=== PATIENT | female | born 1935 | race Caucasian/White ===

== ENCOUNTER 2017-09-17 10:52 | Inpatient (IN) | payer OTHER ==
--- NOTE | 2017-09-17 11:44 | PDOC ---
History of Present Illness - General Chief Complaint: Shortness of Breath Stated Complaint: SOB (PCP SENT) Time Seen by Provider: 09/17/17 11:44 - History of Present Illness Initial Comments: 09/17/17 12:34 Ms. Thomas is an 82 yo female w/ pmh of HTN, HLD, COPD, DM, asthma, hypothroidism who presents complaining of 2 week history of shortness of breath she describes "feels like she is drowning." She endorses additional yellow sputum and nasal congestion. Ms. Thomas reports she had gone to PCP sunday, however represented today as she was still having symptoms. The patient denies chest pain, headache and dizziness. Denies fever, chills, nausea, vomit, diarrhea and constipation. Denies dysuria, frequency, urgency and hematuria. Allergies: NKDA Past History - Past Medical History Allergies/Adverse Reactions: Allergies Allergy/AdvReac Type Severity Reaction Status Date / Time No Known Allergies Allergy Verified 09/17/17 11:00 Home Medications: Ambulatory Orders Aspirin [ASA -] 81 mg PO DAILY 06/08/17 Esomeprazole Magnesium 40 mg PO DAILY 06/08/17 Ezetimibe [Zetia] 10 mg PO DAILY 06/08/17 Glimepiride [Amaryl -] 2 mg PO BID 06/08/17 Insulin Glargine,Hum.rec.anlog [Lantus] 38 unit SQ DAILY 06/08/17 Memantine HCl [Namenda Xr] 28 mg PO DAILY 06/08/17 Methimazole [Tapazole -] 10 mg PO DAILY 06/08/17 Naproxen/Esomeprazole Mag [Vimovo Dr 500-20 mg Tablet] 1 each PO BID 06/08/17 Pitavastatin Calcium [Livalo] 4 mg PO DAILY 06/08/17 Ranolazine [Ranexa] 1,000 mg PO BID 06/08/17 Simvastatin [Zocor -] 20 mg PO HS 06/08/17 Valsartan [Diovan] 160 mg PO DAILY 06/08/17 COPD: No Dementia: Yes Diabetes: Yes HTN: Yes Hypercholesterolemia: Yes - Suicide/Smoking/Psychosocial Hx Smoking Status: No Smoking History: Unknown if ever smoked Number of Cigarettes Smoked Daily: 0 Hx Alcohol Use: No Drug/Substance Use Hx: No Substance Use Type: None Review of Systems - Review of Systems Comments:: 09/17/17 14:13 GENERAL/CONSTITUTIONAL: No fever or chills. No weakness. HEAD, EYES, EARS, NOSE AND THROAT: No change in vision. No ear pain or discharge. No sore throat. CARDIOVASCULAR: +SOB as described. No chest pain RESPIRATORY: +Cough productive of yellow sputum. No wheezing, or hemoptysis. GASTROINTESTINAL: No nausea, vomiting, diarrhea or constipation. GENITOURINARY: No dysuria, frequency, or change in urination. MUSCULOSKELETAL: No joint or muscle swelling or pain. No neck or back pain. SKIN: No rash NEUROLOGIC: No headache, vertigo, loss of consciousness, or change in strength/ sensation. ENDOCRINE: No increased thirst. No abnormal weight change HEMATOLOGIC/LYMPHATIC: No anemia, easy bleeding, or history of blood clots. ALLERGIC/IMMUNOLOGIC: No hives or skin allergy. *Physical Exam - Vital Signs Last Vital Signs Temp Pulse Resp BP Pulse Ox 98.3 F 66 23 155/66 95 09/17/17 11:00 09/17/17 11:00 09/17/17 11:00 09/17/17 11:00 09/17/17 11:00 - Physical Exam Comments: 09/17/17 14:14 GENERAL: Awake, alert, and fully oriented, in no acute distress HEAD: No signs of trauma, normocephalic, atraumatic EYES: PERRLA, EOMI, sclera anicteric, conjunctiva clear ENT: Auricles normal inspection, hearing grossly normal, nares patent, oropharynx clear without exudates. Moist mucosa NECK: Normal ROM, supple, no lymphadenopathy, JVD, or masses LUNGS: +Diffusely wheezy. Speaks full sentences HEART: Regular rate and rhythm, normal S1 and S2, no murmurs, rubs or gallops, peripheral pulses normal and equal bilaterally. ABDOMEN: Soft, nontender, normoactive bowel sounds. No guarding, no rebound. No masses EXTREMITIES: Normal inspection, Normal range of motion, no edema. No clubbing or cyanosis. NEUROLOGICAL: Cranial nerves II through XII grossly intact. Normal speech, normal gait, no focal sensorimotor deficits SKIN: Warm, Dry, normal turgor, no rashes or lesions noted. ED Treatment Course - LABORATORY CBC & Chemistry Diagram: 09/17/17 12:36 09/17/17 12:04 Medical Decision Making - Medical Decision Making 09/17/17 14:15 Ms. Thomas is an 82 yo female w/ pmh as described who presents for evaluation of shortness of breath with congestion. Patient somewhat improved with supplemental oxygen. 09/17/17 14:41 Labs as below. Patient does not have home O2. Suspect COPD exacerbation as origin of symptoms. Admitting patient for further evaluation. Laboratory Results - last 24 hr 09/17/17 09/17/17 09/17/17 12:04 12:04 12:36 WBC 8.7 RBC 4.09 Hgb 11.2 D Hct 34.8 MCV 85.0 MCH 27.4 D MCHC 32.2 RDW 16.1 H Plt Count 230 D MPV 7.4 L Absolute Neuts (auto) 6.7 Neutrophils % 77.2 Lymphocytes % 15.4 D Monocytes % 3.8 Eosinophils % 2.7 Basophils % 0.9 Nucleated RBC % 0 Sodium 141 Potassium 4.4 Chloride 105 Carbon Dioxide 31 Anion Gap 5 L BUN 16 Creatinine 0.8 Creat Clearance w eGFR > 60 Random Glucose 175 H Calcium 8.5 Total Bilirubin 0.6 AST 19 ALT 25 Alkaline Phosphatase 164 H Creatine Kinase 45 Troponin I 0.05 Total Protein 6.3 L Albumin 2.9 L Lipase 62 L *DC/Admit/Observation/Transfer Diagnosis at time of Disposition: Shortness of breath - Discharge Dispostion Decision to Admit order: Yes - Referrals Referrals: Willie Gray MD [Primary Care Provider] - - Patient Instructions - Post Discharge Activity
[2017-09-17] MEDS ORDERED: ALBUTEROL SO4 2.5/IPRATROPIUM 0.5 INH SOL 3 ML VIAL.NEB. NEB ONE ×2 (12:10→12:35)
[2017-09-17] MEDS: ALBUTEROL SO4 2.5/IPRATROPIUM 0.5 INH SOL 3 ML VIAL.NEB. NEB SCH ×6 (12:15→21:00)
--- NOTE | 2017-09-17 12:28 | EKG ---
Test Reason : Blood Pressure : / mmHG Vent. Rate : 062 BPM Atrial Rate : 062 BPM P-R Int : 154 ms QRS Dur : 090 ms QT Int : 446 ms P-R-T Axes : 057 -04 058 degrees QTc Int : 452 ms SINUS RHYTHM WITH OCCASIONAL PREMATURE VENTRICULAR COMPLEXES SEPTAL INFARCT (CITED ON OR BEFORE 08-JUN-2017) ABNORMAL ECG WHEN COMPARED WITH ECG OF 08-JUN-2017 13:20, PREMATURE VENTRICULAR COMPLEXES ARE NOW PRESENT Confirmed by ARUNA RUSH MD ([id number]) on 09/17/2017 12:28:36 PM Referred By: Confirmed By:ARUNA RUSH MD
[2017-09-17] MEDS ORDERED: MAGNESIUM SULF 50% (8.12 MEQ/2 ML-1 GM VIAL) IVPB ONE (12:33)
[2017-09-17] MEDS ORDERED: predniSONE 20 MG TABLET (UD) PO ONE (12:33)
[2017-09-17 12:39] LABS: BASO % 0.9 % (0-2.0); EOS % 2.7 % (0-4.5); HEMATOCRIT 34.8 % (32.4-45.2); HEMOGLOBIN 11.2 GM/dL (10.7-15.3); LYMPH % 15.4 % (8-40); MCH 27.4 pg (25.7-33.7); MCHC 32.2 g/dl (32.0-36.0); MEAN PLT VOLUME 7.4 fl (7.5-11.1); MONO % 3.8 % (3.8-10.2); NEUT % 77.2 % (42.8-82.8); PLATELET COUNT 230 K/MM3 (134-434); RBC 4.09 M/mm3 (3.60-5.2); RDW 16.1 % (11.6-15.6); WHITE BLOOD COUNT 8.7 K/mm3 (4.0-10.0)
[2017-09-17] MEDS ORDERED: predniSONE 20 MG TABLET (UD) ONE (13:13)
--- NOTE | 2017-09-17 13:14 | PDOC ---
Attending Attestation - Resident Resident Name: Shahbaz Humphrey - ED Attending Attestation I have performed the following: I have examined & evaluated the patient, The case was reviewed & discussed with the resident, I agree w/resident's findings & plan, Exceptions are as noted - HPI HPI: 09/17/17 13:05 82-year-old female patient with history of hypertension, diabetes, hyperlipidemia, COPD, asthma, thyroid disorder sent in by primary care physician , Dr. Gray, for chest tightness, weakness, shortness of breath. Patient reports 2 weeks of symptoms and states that she's been feeling generally unwell. Denies fevers or chills but endorses a yellow productive cough that is progressively worsened. Patient states that she becomes very short of breath so came to the ER for an evaluation. - Physicial Exam PE: 09/17/17 13:05 GENERAL: Awake, alert, and fully oriented, in no acute distress. HEAD: No signs of trauma EYES: EOMI, sclera anicteric, conjunctiva clear ENT: Auricles normal inspection, hearing grossly normal, nares patent NECK: Normal ROM, supple LUNGS: Diffuse expiratory wheezing bilaterally. Occasional ronchorous breath sounds bilaterally. HEART: Regular rate and rhythm, normal S1 and S2, no murmurs, rubs or gallops EXTREMITIES: Normal range of motion, no edema. No clubbing or cyanosis. No cords, erythema, or tenderness NEUROLOGICAL: Cranial nerves II through XII grossly intact. Normal speech, SKIN: Warm, Dry, normal turgor, no rashes or lesions noted. - Medical Decision Making 09/17/17 13:07 Vital Signs Temp Pulse Resp BP Pulse Ox 98.3 F 62 14 175/74 100 09/17/17 11:00 09/17/17 11:57 09/17/17 11:57 09/17/17 11:57 09/17/17 11:57 I suspect this is likely having a COPD exacerbation. duonebs, prednisone, IV magnesium. We'll likely need to initiate IV antibiotics. Chest x-ray to rule out pneumonia. We'll need to admit the patient for further evaluation. 09/17/17 14:34 CBC, BMP 09/17/17 12:36 09/17/17 12:04 CMP Sodium 141 mmol/L (136-145) 06/04/18 12:04 Potassium 4.4 mmol/L (3.5-5.1) 09/17/17 12:04 Chloride 105 mmol/L (98-107) 09/17/17 12:04 Carbon Dioxide 31 mmol/L (21-32) 09/17/17 12:04 Anion Gap 5 (8-16) L 09/17/17 12:04 BUN 16 mg/dL (7-18) 09/17/17 12:04 Creatinine 0.8 mg/dL (0.55-1.02) 09/17/17 12:04 Creat Clearance w eGFR > 60 (>60) 09/17/17 12:04 Random Glucose 175 mg/dL (74-106) H 09/17/17 12:04 Calcium 8.5 mg/dL (8.5-10.1) 09/17/17 12:04 Total Bilirubin 0.6 mg/dL (0.2-1.0) 09/17/17 12:04 AST 19 U/L (15-37) 09/17/17 12:04 ALT 25 U/L (12-78) 09/17/17 12:04 Alkaline Phosphatase 164 U/L (45-117) H 09/17/17 12:04 Creatine Kinase 45 IU/L (26-192) 09/17/17 12:04 Troponin I 0.05 ng/ml (0.00-0.05) 09/17/17 12:04 Total Protein 6.3 g/dl (6.4-8.2) L 09/17/17 12:04 Albumin 2.9 g/dl (3.4-5.0) L 09/17/17 12:04 Lipase 62 U/L (73-393) L 09/17/17 12:04 Chest xray reviewed. No infiltrates. Heart Score/ECG Review #1 ECG reviewed & interpreted by me at: 11:45 09/17/17 13:06 NSR 62, no std/milli, normal axis, normal intervals, Q wave V1-V2, QTC 452 msec
[2017-09-17] MEDS ORDERED: MAGNESIUM 2GM/50ML STERILE WATER IVPB IVPB ONE (13:15)
[2017-09-17] MEDS ORDERED: AZITHROMYCIN IVPB 500 MG in DEXTROSE 5%-WATER - 250 ML IVPB ONE (13:56)
[2017-09-17] MEDS ORDERED: ALBUTEROL SO4 2.5/IPRATROPIUM 0.5 INH SOL 3 ML VIAL.NEB. NEB SCH (14:00)
[2017-09-17 14:11] LABS: ALBUMIN 2.9 g/dl (3.4-5.0); ALK PHOS 164 U/L (45-117); ANION GAP 5 (8-16); BILIRUBIN,TOTAL 0.6 mg/dL (0.2-1.0); BLOOD UREA NITROGEN 16 mg/dL (7-18); CALCIUM 8.5 mg/dL (8.5-10.1); CHLORIDE 105 mmol/L (98-107); CO2 31 mmol/L (21-32); CREATININE 0.8 mg/dL (0.55-1.02); GLUCOSE,RANDOM 175 mg/dL (74-106); LIPASE 62 U/L (73-393); POTASSIUM 4.4 mmol/L (3.5-5.1); SGOT/AST 19 U/L (15-37); SGPT/ALT 25 U/L (12-78); SODIUM 141 mmol/L (136-145); TOT PROT 6.3 g/dl (6.4-8.2)
[2017-09-17] MEDS ORDERED: AZITHROMYCIN IVPB 250 ML IVPB ONE (14:15)
--- NOTE | 2017-09-17 14:58 | HP ---
Admitting History and Physical - Primary Care Physician PCP: Willie Gray - Admission Chief Complaint: sob and coughing worsening for last 2 weeks History of Present Illness: Ms. Thomas is an 82 yo female w/ pmh of HTN, HLD, COPD, DM, asthma, hypothyroidism who presents complaining of 2 week history of shortness of breath she describes "feels like she is drowning." She endorses additional yellow sputum and nasal congestion. Ms. Thomas reports she had gone to PCP sunday, however represented today as she was still having symptoms per family member she was seen by PCP a couple of times in last 2 weeks and after her last visit when family did not see improvement brought her to ER they report worsening cough and shortness of breath In the ER patient got zithromax iv magnesium iv, duonebs prednisone 60mg History Source: Family Member Limitations to Obtaining History: Language Barrier - Past Medical History Cardiovascular: Yes: HTN, Hyperlipdemia Pulmonary: Yes: COPD Endocrine: Yes: Diabetes Mellitus, Hyperthyroidism - Smoking History Smoking history: Unknown if ever smoked Aproximately how many cigarettes per day: 0 - Alcohol/Substance Use Hx Alcohol Use: No Home Medications - Allergies Allergies/Adverse Reactions: Allergies Allergy/AdvReac Type Severity Reaction Status Date / Time No Known Allergies Allergy Verified 09/17/17 11:00 - Home Medications Home Medications: Ambulatory Orders Aspirin [ASA -] 81 mg PO DAILY 06/08/17 Esomeprazole Magnesium 40 mg PO DAILY 06/08/17 Ezetimibe [Zetia] 10 mg PO DAILY 06/08/17 Glimepiride [Amaryl -] 2 mg PO BID 06/08/17 Insulin Glargine,Hum.rec.anlog [Lantus] 38 unit SQ DAILY 06/08/17 Memantine HCl [Namenda Xr] 28 mg PO DAILY 06/08/17 Methimazole [Tapazole -] 10 mg PO DAILY 06/08/17 Naproxen/Esomeprazole Mag [Vimovo Dr 500-20 mg Tablet] 1 each PO BID 06/08/17 Pitavastatin Calcium [Livalo] 4 mg PO DAILY 06/08/17 Ranolazine [Ranexa] 1,000 mg PO BID 06/08/17 Simvastatin [Zocor -] 20 mg PO HS 06/08/17 Valsartan [Diovan] 160 mg PO DAILY 06/08/17 Review of Systems - Review of Systems Respiratory: reports: Cough, SOB Physical Examination Vital Signs: Vital Signs Temperature 98.3 F 09/17/17 11:00 Pulse Rate 61 09/17/17 14:25 Respiratory Rate 18 09/17/17 14:25 Blood Pressure 121/98 09/17/17 14:25 O2 Sat by Pulse Oximetry (%) 99 09/17/17 14:25 Constitutional: Yes: Calm Neck: Yes: Trachea Midline Cardiovascular: Yes: Regular Rate and Rhythm, S1, S2 Respiratory: Yes: Rhonchi, Wheezes Gastrointestinal: Yes: Normal Bowel Sounds, Soft Edema: Yes Neurological: Yes: Alert, Oriented Labs: CBC, BMP 09/17/17 12:36 09/17/17 12:04 Imaging - Results X-ray: Report Reviewed (cardiomegaly) Problem List - Problems (1) Shortness of breath Assessment/Plan: asthma exacerbation iv steroids abx duonebs oxygen as needed pulm eval Code(s): R06.02 - SHORTNESS OF BREATH (2) Diabetes Assessment/Plan: bgm sliding scale amaryl and levemir Code(s): E11.9 - TYPE 2 DIABETES MELLITUS WITHOUT COMPLICATIONS Qualifiers: Diabetes mellitus type: type 2 (3) HLD (hyperlipidemia) Assessment/Plan: zetia check lipid panel Code(s): E78.5 - HYPERLIPIDEMIA, UNSPECIFIED (4) Hyperthyroidism Assessment/Plan: tapazole cehck tsh and free t4 Code(s): E05.90 - THYROTOXICOSIS, UNSP WITHOUT THYROTOXIC CRISIS OR STORM
[2017-09-17 17:27] LABS: URINE APPEARANCE CLEAR; URINE BILIRUBIN NEGATIVE (<2.0 mg/dL); URINE BLOOD NEGATIVE (NEGATIVE); URINE COLOR YELLOW; URINE GLUCOSE (UA) NEGATIVE (NEGATIVE); URINE KETONE NEGATIVE (NEGATIVE); URINE LEUK ESTERASE NEGATIVE (NEGATIVE); URINE NITRITE NEGATIVE (NEGATIVE); URINE PROTEIN NEGATIVE (NEGATIVE)
[2017-09-17] MEDS ORDERED: INSULIN REGULAR HUMAN 100 UNITS/ML *VIAL ONE (17:32)
[2017-09-17] MEDS: INSULIN SLIDING SCALE (NOVOLOG) 1 VIAL SQ SCH ×2 (17:34→23:21)
[2017-09-17] MEDS: methylPREDNISolone NA SUCC 40 MG/1 ML VIAL IVPUSH SCH (18:59)
[2017-09-17 21:21] VITALS: BMI 41.3
[2017-09-17] MEDS: HEPARIN NA (PORCINE) 5,000 UNITS/ML 1ML VIAL SQ SCH (23:20)
[2017-09-17] MEDS: RANOLAZINE E.R. 500 MG TABLET (FP) PO SCH (23:21)
[2017-09-17] MEDS ORDERED: INSULIN (NOVOLOG) ASPART 100 UNITS/ML 10ML VIAL ONE (23:24)
[2017-09-18] MEDS: methylPREDNISolone NA SUCC 40 MG/1 ML VIAL IVPUSH SCH ×3 (02:00→18:28)
[2017-09-18] MEDS ORDERED: PT OWN MED DRAWER 7, Y5N ONE ×2 (05:26→08:21)
[2017-09-18] MEDS: HEPARIN NA (PORCINE) 5,000 UNITS/ML 1ML VIAL SQ SCH ×3 (06:40→22:12)
[2017-09-18] MEDS: INSULIN SLIDING SCALE (NOVOLOG) 1 VIAL SQ SCH ×4 (06:41→22:12)
[2017-09-18] MEDS: GLIMEPIRIDE 2 MG TABLET (FP) PO SCH (06:41)
[2017-09-18 08:03] LABS: BASO % 0.3 % (0-2.0); HEMATOCRIT 34.1 % (32.4-45.2); HEMOGLOBIN 10.9 GM/dL (10.7-15.3); LYMPH % 6.6 % (8-40); MCH 27.7 pg (25.7-33.7); MCHC 32.1 g/dl (32.0-36.0); MEAN CELL VOLUME 86.3 fl (80-96); MEAN PLT VOLUME 7.5 fl (7.5-11.1); MONO % 0.5 % (3.8-10.2); NEUT % 92.6 % (42.8-82.8); PLATELET COUNT 206 K/MM3 (134-434); RBC 3.95 M/mm3 (3.60-5.2); RDW 15.8 % (11.6-15.6); WHITE BLOOD COUNT 7.4 K/mm3 (4.0-10.0)
[2017-09-18] MEDS: AZITHROMYCIN IVPB 500 MG in DEXTROSE 5%-WATER - 250 ML IVPB SCH (08:24)
[2017-09-18] MEDS: EZETIMIBE 10 MG TABLET (FP) PO SCH (08:25)
[2017-09-18] MEDS: PANTOPRAZOLE 40 MG TABLET (FP) PO SCH (08:25)
[2017-09-18] MEDS: VALSARTAN 160 MG TABLET (UD) PO SCH (08:25)
[2017-09-18] MEDS: MEMANTINE HCL 10 MG TABLET (FP) PO SCH (08:25)
[2017-09-18] MEDS: ALBUTEROL SO4 2.5/IPRATROPIUM 0.5 INH SOL 3 ML VIAL.NEB. NEB SCH ×4 (08:32→20:25)
[2017-09-18 08:33] LABS: CHOLESTEROL 96 mg/dL (50-200); HDL CHOLESTEROL 35 mg/dL (40-60); TRIGLYCERIDES 63 mg/dL (35-160)
[2017-09-18 10:30] LABS: PLATELET ESTIMATE NORMAL
[2017-09-18] MEDS ORDERED: INSULIN (NOVOLOG) ASPART 100 UNITS/ML 10ML VIAL ONE (10:48)
[2017-09-18] MEDS: RANOLAZINE E.R. 500 MG TABLET (FP) PO SCH ×2 (10:53→22:12)
[2017-09-18] MEDS: ASPIRIN 81 MG CHEWABLE TABLETS PO SCH (10:54)
[2017-09-18 11:38] LABS: ALBUMIN 2.8 g/dl (3.4-5.0); ANION GAP 10 (8-16); BLOOD UREA NITROGEN 22 mg/dL (7-18); CALCIUM 8.8 mg/dL (8.5-10.1); CHLORIDE 103 mmol/L (98-107); CO2 26 mmol/L (21-32); CREATININE 0.7 mg/dL (0.55-1.02); GLUCOSE,RANDOM 217 mg/dL (74-106); MAGNESIUM 2.1 mg/dL (1.8-2.4); PHOSPHOROUS 3.6 mg/dL (2.5-4.9); POTASSIUM 4.6 mmol/L (3.5-5.1); SGPT/ALT 40 U/L (12-78); SODIUM 139 mmol/L (136-145)
[2017-09-18 11:50] LABS: ALK PHOS 183 U/L (45-117); BILIRUBIN,TOTAL 0.6 mg/dL (0.2-1.0); N-TERMINAL BNP 4051.07 pg/ml (5-450); SGOT/AST 30 U/L (15-37); TOT PROT 6.3 g/dl (6.4-8.2)
[2017-09-18] MEDS ORDERED: ALBUTEROL SO4 0.083% IH SOL 2.5 MG/3 ML VIAL.NEB. NEB PRN (12:02)
--- NOTE | 2017-09-18 12:03 | CON.PULM ---
Consult Consult Specialty:: PULMONARY Referred by:: Dr. Ragsdale Reason for Consultation:: shortness of breath - History of Present Illness Chief Complaint: shortness of breath History of Present Illness: 82yo female with h/o HTN, DM, hyperlipidemia, asthma/COPD, hyperthyroidism who was admitted with worsening shortness of breath. Reports cough productive of yellow sputum and wheezing. No fevers, chills or sweats. No chest pain or palpitations. No infiltrates noted on CXR, received antibiotics, prednisone and inhaled bronchodilators with some improvement in her symptoms. She is a remote smoker. - History Source History Provided By: Patient, Medical Record Limitations to Obtaining History: Language Barrier - Past Medical History Cardio/Vascular: Yes: HTN, Hyperlipdemia Pulmonary: Yes: COPD Endocrine: Yes: Diabetes Mellitus, Hyperthyroidism - Alcohol/Substance Use Hx Alcohol Use: No - Smoking History Smoking history: Never smoked Have you smoked in the past 12 months: No Aproximately how many cigarettes per day: 0 Home Medications - Allergies Allergies/Adverse Reactions: Allergies Allergy/AdvReac Type Severity Reaction Status Date / Time No Known Allergies Allergy Verified 09/17/17 11:00 - Home Medications Home Medications: Ambulatory Orders Aspirin [ASA -] 81 mg PO DAILY 06/08/17 Esomeprazole Magnesium 40 mg PO DAILY 06/08/17 Ezetimibe [Zetia] 10 mg PO DAILY 06/08/17 Glimepiride [Amaryl -] 2 mg PO BID 06/08/17 Insulin Glargine,Hum.rec.anlog [Lantus] 38 unit SQ DAILY 06/08/17 Memantine HCl [Namenda Xr] 28 mg PO DAILY 06/08/17 Methimazole [Tapazole -] 10 mg PO DAILY 06/08/17 Naproxen/Esomeprazole Mag [Vimovo Dr 500-20 mg Tablet] 1 each PO BID 06/08/17 Pitavastatin Calcium [Livalo] 4 mg PO DAILY 06/08/17 Ranolazine [Ranexa] 1,000 mg PO BID 06/08/17 Simvastatin [Zocor -] 20 mg PO HS 06/08/17 Valsartan [Diovan] 160 mg PO DAILY 06/08/17 Review of Systems - Review of Systems Constitutional: reports: Weakness. denies: Chills, Fever Eyes: denies: Recent Change in Vision HENT: denies: Nasal Congestion, Throat Pain Neck: denies: Stiffness Cardiovascular: reports: Shortness of Breath. denies: Chest Pain, Edema, Palpitations Respiratory: reports: Cough, SOB on Exertion, Wheezing. denies: Hemoptysis Gastrointestinal: denies: Abdominal Pain, Nausea, Vomiting Genitourinary: denies: Dysuria, Hematuria Neurological: denies: Dizziness, Headache Endocrine: denies: Unexplained Weight Loss Physical Exam Vital Sings: Vital Signs Temperature 96.5 F L 09/18/17 09:39 Pulse Rate 63 09/18/17 09:39 Respiratory Rate 18 09/18/17 09:39 Blood Pressure 148/72 09/18/17 09:39 O2 Sat by Pulse Oximetry (%) 96 09/17/17 21:27 Constitutional: Yes: Calm Eyes: Yes: Conjunctiva Clear, EOM Intact HENT: Yes: Atraumatic, Normocephalic Neck: Yes: Supple, Trachea Midline Cardiovascular: Yes: Regular Rate and Rhythm Respiratory: Yes: Rhonchi, Wheezes ...Clubbing: No Gastrointestinal: Yes: Normal Bowel Sounds, Soft. No: Tenderness Edema: Yes Labs: CBC, BMP 09/18/17 07:30 09/18/17 07:30 Imaging - Results Chest X-ray: Report Reviewed, Image Reviewed (no infiltrates) Problem List - Problems (1) Acute asthma exacerbation Code(s): J45.901 - UNSPECIFIED ASTHMA WITH (ACUTE) EXACERBATION (2) Diabetes Code(s): E11.9 - TYPE 2 DIABETES MELLITUS WITHOUT COMPLICATIONS Qualifiers: Diabetes mellitus type: type 2 (3) HLD (hyperlipidemia) Code(s): E78.5 - HYPERLIPIDEMIA, UNSPECIFIED (4) Hyperthyroidism Code(s): E05.90 - THYROTOXICOSIS, UNSP WITHOUT THYROTOXIC CRISIS OR STORM Assessment/Plan Acute Asthma Exacerbation Hyperthyroidism DM Hyperlipidemia - agree with IV medrol - inhaled bronchdilators standing and PRN - O2 to keep SpO2 >90% - glucose control while on systemic steroids - DVT prophylaxis Thank you for this consult Frederick eRece MD
[2017-09-18] MEDS ORDERED: FUROSEMIDE 40 MG/4 ML INJECTABLE VIAL IVPUSH ONE (14:51)
--- NOTE | 2017-09-18 14:55 | PN ---
Progress Note, Physician - Current Medication List Current Medications: Active Medications Albuterol Sulfate (Ventolin 0.083% Nebulizer Soln -) 1 amp NEB Q4H PRN PRN Reason: SHORT OF BREATH/WHEEZING Albuterol/Ipratropium (Duoneb -) 1 amp NEB RQID [facility] Last Admin: 09/18/17 08:32 Dose: 1 amp Aspirin (Asa -) 81 mg PO DAILY [facility] Last Admin: 09/18/17 10:54 Dose: 81 mg Ezetimibe (Zetia -) 10 mg PO DAILY@0800 [facility] Last Admin: 09/18/17 08:25 Dose: 10 mg Glimepiride (Amaryl -) 2 mg PO DAILY@0700 [facility] Last Admin: 09/18/17 06:41 Dose: 2 mg Heparin Sodium (Porcine) (Heparin -) 5,000 unit SQ TID [facility] Last Admin: 09/18/17 06:40 Dose: 5,000 unit Azithromycin 500 mg/ Dextrose 250 mls @ 250 mls/hr IVPB DAILY@08 [facility] Last Admin: 09/18/17 08:24 Dose: 250 mls/hr Insulin Aspart (Novolog Vial Sliding Scale -) 1 vial SQ ACHS [facility]; Protocol Last Admin: 09/18/17 11:36 Dose: 6 unit Memantine (Namenda -) 10 mg PO DAILY@0800 [facility] Last Admin: 09/18/17 08:25 Dose: 10 mg Methimazole (Tapazole -) 10 mg PO DAILY [facility] Methylprednisolone Sodium Succinate (Solu-Medrol -) 40 mg IVPUSH Q8H-IV [facility] Last Admin: 09/18/17 10:52 Dose: 40 mg Pantoprazole Sodium (Protonix -) 40 mg PO DAILY@0800 [facility] Last Admin: 09/18/17 08:25 Dose: 40 mg Ranolazine (Ranexa -) 1,000 mg PO BID [facility] Last Admin: 09/18/17 10:53 Dose: 1,000 mg Valsartan (Diovan -) 160 mg PO DAILY@0800 [facility] Last Admin: 09/18/17 08:25 Dose: 160 mg - Objective Vital Signs: Vital Signs Temperature 96.5 F L 09/18/17 09:39 Pulse Rate 63 09/18/17 09:39 Respiratory Rate 18 09/18/17 09:39 Blood Pressure 148/72 09/18/17 09:39 O2 Sat by Pulse Oximetry (%) 95 09/18/17 09:00 Constitutional: Yes: Calm Cardiovascular: Yes: Regular Rate and Rhythm, S1, S2 Respiratory: Yes: Rhonchi, Wheezes Gastrointestinal: Yes: Normal Bowel Sounds, Soft Edema: Yes Neurological: Yes: Alert, Oriented Labs: CBC, BMP 09/18/17 07:30 09/18/17 07:30 Problem List - Problems (1) Shortness of breath Assessment/Plan: asthma exacerbation iv steroids abx duonebs oxygen as needed pulm on board Code(s): R06.02 - SHORTNESS OF BREATH (2) Diabetes Assessment/Plan: bgm sliding scale amaryl and levemir Code(s): E11.9 - TYPE 2 DIABETES MELLITUS WITHOUT COMPLICATIONS Qualifiers: Diabetes mellitus type: type 2 (3) HLD (hyperlipidemia) Assessment/Plan: zetia check lipid panel Code(s): E78.5 - HYPERLIPIDEMIA, UNSPECIFIED (4) Hyperthyroidism Assessment/Plan: tapazole cehck tsh and free t4 Code(s): E05.90 - THYROTOXICOSIS, UNSP WITHOUT THYROTOXIC CRISIS OR STORM (5) Constipation Assessment/Plan: miralax colace Code(s): K59.00 - CONSTIPATION, UNSPECIFIED (6) Leg edema Assessment/Plan: iv lasix one dose venous doppler Code(s): R60.0 - LOCALIZED EDEMA
[2017-09-18] MEDS: METHIMAZOLE 10 MG TABLET (FP) PO SCH (14:56)
[2017-09-18] MEDS: POLYETHYLENE GLYCOL 3350 119 GM BTL PO SCH (16:27)
[2017-09-18] MEDS: DOCUSATE SODIUM 100 MG CAPSULE (FP) PO SCH (22:12)
[2017-09-18] MEDS: INSULIN (LEVEMIR) 100 UNITS/ML UNITS SQ SCH (23:24)
[2017-09-19] MEDS: methylPREDNISolone NA SUCC 40 MG/1 ML VIAL IVPUSH SCH ×3 (02:07→17:28)
[2017-09-19] MEDS: INSULIN SLIDING SCALE (NOVOLOG) 1 VIAL SQ SCH ×4 (06:36→21:59)
[2017-09-19] MEDS: GLIMEPIRIDE 2 MG TABLET (FP) PO SCH (06:36)
[2017-09-19] MEDS ORDERED: PT OWN MED DRAWER 7, Y5N ONE (06:56)
[2017-09-19] MEDS ORDERED: INSULIN (NOVOLOG) ASPART 100 UNITS/ML 10ML VIAL ONE ×3 (06:57→21:23)
[2017-09-19 07:26] LABS: HEMATOCRIT 34.1 % (32.4-45.2); LYMPH % 4.7 % (8-40); MCH 27.7 pg (25.7-33.7); MCHC 32.4 g/dl (32.0-36.0); MEAN CELL VOLUME 85.6 fl (80-96); MEAN PLT VOLUME 7.9 fl (7.5-11.1); MONO % 1.3 % (3.8-10.2); PLATELET COUNT 229 K/MM3 (134-434); RBC 3.98 M/mm3 (3.60-5.2); RDW 15.7 % (11.6-15.6); WHITE BLOOD COUNT 10.1 K/mm3 (4.0-10.0)
[2017-09-19 07:38] LABS: CHLORIDE 99 mmol/L (98-107); POTASSIUM 5.2 mmol/L (3.5-5.1); SODIUM 138 mmol/L (136-145)
[2017-09-19 07:54] LABS: BLOOD UREA NITROGEN 28 mg/dL (7-18); CO2 34 mmol/L (21-32); CREATININE 0.9 mg/dL (0.55-1.02); GLUCOSE,RANDOM 285 mg/dL (74-106)
[2017-09-19 07:55] LABS: ALK PHOS 180 U/L (45-117); ANION GAP 5 (8-16); BILIRUBIN,TOTAL 0.5 mg/dL (0.2-1.0); CALCIUM 9.2 mg/dL (8.5-10.1); SGOT/AST 50 U/L (15-37); SGPT/ALT 57 U/L (12-78); TOT PROT 6.6 g/dl (6.4-8.2)
[2017-09-19] MEDS: ALBUTEROL SO4 2.5/IPRATROPIUM 0.5 INH SOL 3 ML VIAL.NEB. NEB SCH ×4 (08:20→20:25)
[2017-09-19] MEDS: AZITHROMYCIN IVPB 500 MG in DEXTROSE 5%-WATER - 250 ML IVPB SCH (08:27)
[2017-09-19] MEDS: EZETIMIBE 10 MG TABLET (FP) PO SCH (08:48)
[2017-09-19] MEDS: ASPIRIN 81 MG CHEWABLE TABLETS PO SCH (09:46)
[2017-09-19] MEDS: RANOLAZINE E.R. 500 MG TABLET (FP) PO SCH ×2 (09:46→22:00)
[2017-09-19] MEDS: VALSARTAN 160 MG TABLET (UD) PO SCH (09:47)
[2017-09-19] MEDS: PANTOPRAZOLE 40 MG TABLET (FP) PO SCH (09:47)
[2017-09-19] MEDS: MEMANTINE HCL 10 MG TABLET (FP) PO SCH (09:47)
[2017-09-19] MEDS: HEPARIN NA (PORCINE) 5,000 UNITS/ML 1ML VIAL SQ SCH ×2 (09:48→21:58)
[2017-09-19] MEDS: POLYETHYLENE GLYCOL 3350 119 GM BTL PO SCH (09:48)
[2017-09-19] MEDS: METHIMAZOLE 10 MG TABLET (FP) PO SCH (09:49)
--- NOTE | 2017-09-19 11:30 | PN ---
Progress Note, Physician Chief Complaint: AWAKE ALERT NAD - Current Medication List Current Medications: Active Medications Albuterol Sulfate (Ventolin 0.083% Nebulizer Soln -) 1 amp NEB Q4H PRN PRN Reason: SHORT OF BREATH/WHEEZING Albuterol/Ipratropium (Duoneb -) 1 amp NEB RQID [facility] Last Admin: 09/19/17 08:20 Dose: 1 amp Aspirin (Asa -) 81 mg PO DAILY [facility] Last Admin: 09/19/17 09:46 Dose: 81 mg Docusate Sodium (Colace -) 300 mg PO [facility] Last Admin: 09/18/17 22:12 Dose: 300 mg Ezetimibe (Zetia -) 10 mg PO DAILY@0800 [facility] Last Admin: 09/19/17 08:48 Dose: 10 mg Glimepiride (Amaryl -) 2 mg PO DAILY@0700 [facility] Last Admin: 09/19/17 06:36 Dose: 2 mg Heparin Sodium (Porcine) (Heparin -) 5,000 unit SQ BID [facility] Last Admin: 09/19/17 09:48 Dose: 5,000 unit Azithromycin 500 mg/ Dextrose 250 mls @ 250 mls/hr IVPB DAILY@0800 [facility] Last Admin: 09/19/17 08:27 Dose: 250 mls/hr Insulin Aspart (Novolog Vial Sliding Scale -) 1 vial SQ [facility]; Protocol Last Admin: 09/19/17 06:36 Dose: 6 unit Insulin Detemir (Levemir Vial) 20 units SQ [facility] Last Admin: 09/18/17 23:24 Dose: 20 units Memantine (Namenda -) 10 mg PO DAILY@0800 [facility] Last Admin: 09/19/17 09:47 Dose: 10 mg Methimazole (Tapazole -) 10 mg PO DAILY [facility] Last Admin: 09/19/17 09:49 Dose: 10 mg Methylprednisolone Sodium Succinate (Solu-Medrol -) 40 mg IVPUSH Q8H-IV [facility] Last Admin: 09/19/17 09:49 Dose: 40 mg Pantoprazole Sodium (Protonix -) 40 mg PO DAILY@0800 [facility] Last Admin: 09/19/17 09:47 Dose: 40 mg Polyethylene Glycol (Miralax (For Daily Use) -) 17 gm PO DAILY [facility] Last Admin: 09/19/17 09:48 Dose: 17 gm Ranolazine (Ranexa -) 1,000 mg PO BID [facility] Last Admin: 09/19/17 09:46 Dose: 1,000 mg Valsartan (Diovan -) 160 mg PO DAILY@0800 [facility] Last Admin: 09/19/17 09:47 Dose: 160 mg - Objective Vital Signs: Vital Signs Temperature 98.5 F 09/19/17 06:00 Pulse Rate 68 09/19/17 06:00 Respiratory Rate 20 09/19/17 06:00 Blood Pressure 142/72 09/19/17 06:00 O2 Sat by Pulse Oximetry (%) 95 09/18/17 21:00 Constitutional: Yes: Mild Distress Eyes: Yes: WNL HENT: Yes: WNL Neck: Yes: WNL Cardiovascular: Yes: WNL Respiratory: Yes: On Nasal O2, SOB Gastrointestinal: Yes: WNL Genitourinary: Yes: WNL Musculoskeletal: Yes: Muscle Weakness Extremities: Yes: WNL Edema: No Peripheral Pulses WNL: Yes Integumentary: Yes: WNL Wound/Incision: Yes: Clean/Dry Neurological: Yes: WNL ...Motor Strength: WNL Psychiatric: Yes: WNL Labs: CBC, BMP 09/19/17 06:30 09/19/17 06:30 Problem List - Problems (1) Acute asthma exacerbation Code(s): J45.901 - UNSPECIFIED ASTHMA WITH (ACUTE) EXACERBATION (2) Constipation Code(s): K59.00 - CONSTIPATION, UNSPECIFIED (3) Diabetes Code(s): E11.9 - TYPE 2 DIABETES MELLITUS WITHOUT COMPLICATIONS Qualifiers: Diabetes mellitus type: type 2 (4) HLD (hyperlipidemia) Code(s): E78.5 - HYPERLIPIDEMIA, UNSPECIFIED (5) Hyperthyroidism Code(s): E05.90 - THYROTOXICOSIS, UNSP WITHOUT THYROTOXIC CRISIS OR STORM (6) Shortness of breath Code(s): R06.02 - SHORTNESS OF BREATH Assessment/Plan IV STEROIDS BGM CHECKS IV ABX NEBS 02 SUPPORT DVT PROPHYLAXIS PULMONARY EVAL
[2017-09-19 12:50] LABS: ANION GAP 5 (8-16); BLOOD UREA NITROGEN 26 mg/dL (7-18); CALCIUM 9.2 mg/dL (8.5-10.1); CHLORIDE 98 mmol/L (98-107); CO2 33 mmol/L (21-32); CREATININE 0.8 mg/dL (0.55-1.02); POTASSIUM 4.9 mmol/L (3.5-5.1); SODIUM 136 mmol/L (136-145)
[2017-09-19 13:04] LABS: GLUCOSE,RANDOM 322 mg/dL (74-106)
--- NOTE | 2017-09-19 13:13 | PN ---
Progress Note, Physician History of Present Illness: PULMONARY ALERT,LESS DYSPNEIC,LESS COUGH - Current Medication List Current Medications: Active Medications Albuterol Sulfate (Ventolin 0.083% Nebulizer Soln -) 1 amp NEB Q4H PRN PRN Reason: SHORT OF BREATH/WHEEZING Albuterol/Ipratropium (Duoneb -) 1 amp NEB RQID [facility] Last Admin: 09/19/17 11:37 Dose: 1 amp Aspirin (Asa -) 81 mg PO DAILY [facility] Last Admin: 09/19/17 09:46 Dose: 81 mg Docusate Sodium (Colace -) 300 mg PO [facility] Last Admin: 09/18/17 22:12 Dose: 300 mg Ezetimibe (Zetia -) 10 mg PO DAILY@0800 [facility] Last Admin: 09/19/17 08:48 Dose: 10 mg Glimepiride (Amaryl -) 2 mg PO DAILY@0700 [facility] Last Admin: 09/19/17 06:36 Dose: 2 mg Heparin Sodium (Porcine) (Heparin -) 5,000 unit SQ BID [facility] Last Admin: 09/19/17 09:48 Dose: 5,000 unit Azithromycin 500 mg/ Dextrose 250 mls @ 250 mls/hr IVPB DAILY@0800 [facility] Last Admin: 09/19/17 08:27 Dose: 250 mls/hr Insulin Aspart (Novolog Vial Sliding Scale -) 1 vial SQ [facility]; Protocol Last Admin: 09/19/17 11:42 Dose: 6 unit Insulin Detemir (Levemir Vial) 20 units SQ [facility] Last Admin: 09/18/17 23:24 Dose: 20 units Memantine (Namenda -) 10 mg PO DAILY@0800 [facility] Last Admin: 09/19/17 09:47 Dose: 10 mg Methimazole (Tapazole -) 10 mg PO DAILY [facility] Last Admin: 09/19/17 09:49 Dose: 10 mg Methylprednisolone Sodium Succinate (Solu-Medrol -) 40 mg IVPUSH Q8H-IV [facility] Last Admin: 09/19/17 09:49 Dose: 40 mg Pantoprazole Sodium (Protonix -) 40 mg PO DAILY@0800 [facility] Last Admin: 09/19/17 09:47 Dose: 40 mg Polyethylene Glycol (Miralax (For Daily Use) -) 17 gm PO DAILY [facility] Last Admin: 09/19/17 09:48 Dose: 17 gm Ranolazine (Ranexa -) 1,000 mg PO BID [facility] Last Admin: 09/19/17 09:46 Dose: 1,000 mg Valsartan (Diovan -) 160 mg PO DAILY@0800 [facility] Last Admin: 09/19/17 09:47 Dose: 160 mg - Objective Vital Signs: Vital Signs Temperature 98.0 F 09/19/17 10:00 Pulse Rate 71 09/19/17 10:00 Respiratory Rate 09/19/17 10:00 Blood Pressure 136/70 09/19/17 10:00 O2 Sat by Pulse Oximetry (%) 90 L 09/19/17 09:00 Constitutional: Yes: Calm, Obese Eyes: Yes: WNL HENT: Yes: WNL Neck: Yes: WNL Cardiovascular: Yes: Regular Rate and Rhythm, S1, S2 Respiratory: Yes: Wheezes (SCATTERED CY WHEEZES) Gastrointestinal: Yes: Normal Bowel Sounds, Soft Extremities: Yes: WNL Edema: No Labs: CBC, BMP 09/19/17 06:30 09/19/17 12:10 Assessment/Plan Problem List - Problems (1) Acute asthma exacerbation Code(s): J45.901 - UNSPECIFIED ASTHMA WITH (ACUTE) EXACERBATION (2) Diabetes Code(s): E11.9 - TYPE 2 DIABETES MELLITUS WITHOUT COMPLICATIONS Qualifiers: Diabetes mellitus type: type 2 (3) HLD (hyperlipidemia) Code(s): E78.5 - HYPERLIPIDEMIA, UNSPECIFIED (4) Hyperthyroidism Code(s): E05.90 - THYROTOXICOSIS, UNSP WITHOUT THYROTOXIC CRISIS OR STORM Assessment/Plan Acute Asthma Exacerbation improving Hyperthyroidism DM Hyperlipidemia -IV medrol same dose - inhaled bronchdilators standing and PRN - O2 to keep SpO2 >90% - glucose control while on systemic steroids - DVT prophylaxis DR MAN
[2017-09-19] MEDS ORDERED: INSULIN (LEVEMIR) 100 UNITS/ML UNITS SQ ONE (21:23)
[2017-09-19] MEDS: INSULIN (LEVEMIR) 100 UNITS/ML UNITS SQ SCH (21:59)
[2017-09-19] MEDS: DOCUSATE SODIUM 100 MG CAPSULE (FP) PO SCH (21:59)
[2017-09-19] MEDS: guaiFENesin/D-M SUGAR-FREE/ACLHOL-FREE 118 ML BOTTLE PO PRN (22:00)
--- NOTE | 2017-09-20 00:24 | CONSULT ---
Consult Consult Specialty:: endocrine Referred by:: dr.saba wilson Reason for Consultation:: hyperthyroidism/dm - History of Present Illness Chief Complaint: difficulty breathing History of Present Illness: 82 yo female w/ pmh of HTN, HLD, COPD, DM, asthma, hyperthroidism who presents complaining of 2 week history of shortness of breath she describes "feels like she is drowning." She endorses additional yellow sputum and nasal congestion. Ms. Thomas reports she had anxiety and tremors,blood sugars higher than normal ,weakness in legs,and arms,no hypoglycemia,nausea or vomiting - History Source History Provided By: Patient - Past Medical History Cardio/Vascular: Yes: HTN, Hyperlipdemia Pulmonary: Yes: COPD Endocrine: Yes: Diabetes Mellitus, Hyperthyroidism - Alcohol/Substance Use Hx Alcohol Use: No - Smoking History Smoking history: Never smoked Have you smoked in the past 12 months: No Aproximately how many cigarettes per day: 0 Home Medications - Allergies Allergies/Adverse Reactions: Allergies Allergy/AdvReac Type Severity Reaction Status Date / Time No Known Allergies Allergy Verified 09/17/17 11:00 - Home Medications Home Medications: Ambulatory Orders Aspirin [ASA -] 81 mg PO DAILY 06/08/17 Glimepiride [Amaryl -] 2 mg PO DAILY 06/08/17 Methimazole [Tapazole -] 10 mg PO DAILY 06/08/17 Ranolazine [Ranexa] 1,000 mg PO BID 06/08/17 Exenatide Microspheres [Bydureon Bcise] 2 mg SQ WEEKLY 09/18/17 Insulin Degludec [Tresiba Flextouch U-100] 40 unit SQ DAILY 09/18/17 Review of Systems - Review of Systems Constitutional: reports: Loss of Appetite, Unintentional Wgt. Loss, Weakness Eyes: reports: Blurred Vision HENT: reports: No Symptoms Neck: reports: No Symptoms Cardiovascular: reports: Palpitations, Shortness of Breath Respiratory: reports: Exercise Intolerance, SOB on Exertion Gastrointestinal: reports: Bloating Genitourinary: reports: No Symptoms Musculoskeletal: reports: Muscle Weakness Integumentary: reports: No Symptoms Neurological: reports: Tremors, Weakness Endocrine: reports: Increased Thirst, Unexplained Weight Loss Physical Exam Vital Signs: Vital Signs Temperature 97.8 F 09/19/17 20:00 Pulse Rate 65 09/19/17 20:00 Respiratory Rate 19 09/19/17 21:00 Blood Pressure 134/73 09/19/17 20:00 O2 Sat by Pulse Oximetry (%) 96 09/19/17 21:00 Constitutional: Yes: Anxious Eyes: Yes: EOM Intact HENT: Yes: Normocephalic Neck: Yes: Trachea Midline, Thyromegaly Cardiovascular: Yes: Tachycardia Respiratory: Yes: Cough, Rhonchi, SOB Gastrointestinal: Yes: Abdomen, Obese ...Rectal Exam: Yes: Deferred Renal/: Yes: WNL Musculoskeletal: Yes: WNL, Muscle Pain, Muscle Weakness Extremities: Yes: WNL Neurological: Yes: Alert, Oriented, Tremors, Weakness Labs: CBC, BMP 09/19/17 06:30 09/19/17 12:10 Problem List - Problems (1) Acute asthma exacerbation Code(s): J45.901 - UNSPECIFIED ASTHMA WITH (ACUTE) EXACERBATION (2) Constipation Code(s): K59.00 - CONSTIPATION, UNSPECIFIED (3) Diabetes Code(s): E11.9 - TYPE 2 DIABETES MELLITUS WITHOUT COMPLICATIONS Qualifiers: Diabetes mellitus type: type 2 (4) Hyperthyroidism Code(s): E05.90 - THYROTOXICOSIS, UNSP WITHOUT THYROTOXIC CRISIS OR STORM (5) Leg edema Code(s): R60.0 - LOCALIZED EDEMA (6) Shortness of breath Code(s): R06.02 - SHORTNESS OF BREATH (7) Epigastric pain Code(s): R10.13 - EPIGASTRIC PAIN Assessment/Plan Current Active Problems Acute asthma exacerbation (Acute) Constipation (Acute) Diabetes (Acute) HLD (hyperlipidemia) (Acute) Hyperthyroidism (Acute) Leg edema (Acute) Shortness of breath (Acute) Abnormal Lab Results 09/18/17 09/19/17 09/19/17 07:30 06:30 06:30 WBC 10.1 H D RDW 15.7 H Neutrophils % 94.0 H Lymphocytes % 4.7 L D Monocytes % 1.3 L D Potassium 5.2 H Carbon Dioxide 34 H Anion Gap 5 L BUN 28 H Random Glucose 285 H Hemoglobin A1c % 7.9 H AST 50 H Alkaline Phosphatase 180 H Albumin 3.0 L 09/19/17 12:10 WBC RDW Neutrophils % Lymphocytes % Monocytes % Potassium Carbon Dioxide 33 H Anion Gap 5 L BUN 26 H Random Glucose 322 H* Hemoglobin A1c % AST Alkaline Phosphatase Albumin Laboratory Results - last 24 hr 09/18/17 09/19/17 09/19/17 07:30 06:01 06:30 WBC 10.1 H D RBC 3.98 Hgb 11.0 Hct 34.1 MCV 85.6 MCH 27.7 MCHC 32.4 RDW 15.7 H Plt Count 229 MPV 7.9 Absolute Neuts (auto) 9.5 Neutrophils % 94.0 H Lymphocytes % 4.7 L D Monocytes % 1.3 L D Eosinophils % 0.0 Basophils % 0.0 Nucleated RBC % 0 Sodium Potassium Chloride Carbon Dioxide Anion Gap BUN Creatinine Creat Clearance w eGFR POC Glucometer 306 Random Glucose Hemoglobin A1c % 7.9 H Calcium Total Bilirubin AST ALT Alkaline Phosphatase Total Protein Albumin 09/19/17 09/19/17 09/19/17 06:30 11:32 12:10 WBC RBC Hgb Hct MCV MCH MCHC RDW Plt Count MPV Absolute Neuts (auto) Neutrophils % Lymphocytes % Monocytes % Eosinophils % Basophils % Nucleated RBC % Sodium 138 136 Potassium 5.2 H 4.9 Chloride 99 98 Carbon Dioxide 34 H 33 H Anion Gap 5 L 5 L BUN 28 H 26 H Creatinine 0.9 0.8 Creat Clearance w eGFR 59.94 POC Glucometer 325 Random Glucose 285 H 322 H* Hemoglobin A1c % Calcium 9.2 9.2 Total Bilirubin 0.5 AST 50 H ALT 57 Alkaline Phosphatase 180 H Total Protein 6.6 Albumin 3.0 L 09/19/17 09/19/17 17:27 21:52 WBC RBC Hgb Hct MCV MCH MCHC RDW Plt Count MPV Absolute Neuts (auto) Neutrophils % Lymphocytes % Monocytes % Eosinophils % Basophils % Nucleated RBC % Sodium Potassium Chloride Carbon Dioxide Anion Gap BUN Creatinine Creat Clearance w eGFR POC Glucometer 237 352 Random Glucose Hemoglobin A1c % Calcium Total Bilirubin AST ALT Alkaline Phosphatase Total Protein Albumin plan: bgm qid novolog insulin doses levemir 25 units am levemir 20 units hs hyperthyroidism /continue methimazole 10mg bid aim to normalize tsh
[2017-09-20] MEDS: methylPREDNISolone NA SUCC 40 MG/1 ML VIAL IVPUSH SCH ×3 (01:32→21:47)
[2017-09-20] MEDS: INSULIN (LEVEMIR) 100 UNITS/ML UNITS SQ SCH ×2 (06:40→21:48)
[2017-09-20] MEDS: INSULIN SLIDING SCALE (NOVOLOG) 1 VIAL SQ SCH ×4 (06:40→21:48)
[2017-09-20] MEDS ORDERED: INSULIN (NOVOLOG) ASPART 100 UNITS/ML 10ML VIAL ONE (06:46)
[2017-09-20] MEDS ORDERED: PT OWN MED DRAWER 7, Y5N ONE ×3 (06:46→22:07)
[2017-09-20] MEDS ORDERED: INSULIN (LEVEMIR) 100 UNITS/ML UNITS SQ ONE ×2 (06:46→20:55)
[2017-09-20 08:09] LABS: CHLORIDE 98 mmol/L (98-107); POTASSIUM 4.7 mmol/L (3.5-5.1); SODIUM 137 mmol/L (136-145)
[2017-09-20 08:14] LABS: ANION GAP 5 (8-16); BLOOD UREA NITROGEN 24 mg/dL (7-18); CALCIUM 9.5 mg/dL (8.5-10.1); CO2 34 mmol/L (21-32); CREATININE 0.7 mg/dL (0.55-1.02); GLUCOSE,RANDOM 219 mg/dL (74-106)
[2017-09-20] MEDS: ALBUTEROL SO4 2.5/IPRATROPIUM 0.5 INH SOL 3 ML VIAL.NEB. NEB SCH ×4 (08:21→20:30)
[2017-09-20] MEDS: VALSARTAN 160 MG TABLET (UD) PO SCH (08:52)
[2017-09-20] MEDS: MEMANTINE HCL 10 MG TABLET (FP) PO SCH (08:52)
[2017-09-20] MEDS: PANTOPRAZOLE 40 MG TABLET (FP) PO SCH (08:52)
[2017-09-20] MEDS: EZETIMIBE 10 MG TABLET (FP) PO SCH (08:52)
[2017-09-20] MEDS: AZITHROMYCIN IVPB 500 MG in DEXTROSE 5%-WATER - 250 ML IVPB SCH (08:53)
[2017-09-20] MEDS: HEPARIN NA (PORCINE) 5,000 UNITS/ML 1ML VIAL SQ SCH ×2 (10:36→21:47)
[2017-09-20] MEDS: POLYETHYLENE GLYCOL 3350 119 GM BTL PO SCH (10:36)
[2017-09-20] MEDS: ASPIRIN 81 MG CHEWABLE TABLETS PO SCH (10:37)
[2017-09-20] MEDS: RANOLAZINE E.R. 500 MG TABLET (FP) PO SCH ×2 (10:37→21:49)
[2017-09-20] MEDS: METHIMAZOLE 10 MG TABLET (FP) PO SCH ×2 (10:37→22:22)
[2017-09-20] MEDS: guaiFENesin/D-M SUGAR-FREE/ACLHOL-FREE 118 ML BOTTLE PO PRN (10:37)
--- NOTE | 2017-09-20 10:47 | PN ---
Progress Note, Physician Chief Complaint: patient sitting up in chair coughing is better - Current Medication List Current Medications: Active Medications Albuterol Sulfate (Ventolin 0.083% Nebulizer Soln -) 1 amp NEB Q4H PRN PRN Reason: SHORT OF BREATH/WHEEZING Albuterol/Ipratropium (Duoneb -) 1 amp NEB RQID [facility] Last Admin: 09/20/17 08:21 Dose: 1 amp Aspirin (Asa -) 81 mg PO DAILY [facility] Last Admin: 09/20/17 10:37 Dose: 81 mg Docusate Sodium (Colace -) 300 mg PO HS [facility] Last Admin: 09/19/17 21:59 Dose: 300 mg Ezetimibe (Zetia -) 10 mg PO DAILY@0800 [facility] Last Admin: 09/20/17 08:52 Dose: 10 mg Guaifenesin (Diabetic Tussin Dm -) 5 ml PO Q6H PRN PRN Reason: COUGH Last Admin: 09/20/17 10:37 Dose: 5 ml Heparin Sodium (Porcine) (Heparin -) 5,000 unit SQ BID [facility] Last Admin: 09/20/17 10:36 Dose: 5,000 unit Azithromycin 500 mg/ Dextrose 250 mls @ 250 mls/hr IVPB DAILY@0800 [facility] Last Admin: 09/20/17 08:53 Dose: 250 mls/hr Insulin Aspart (Novolog Vial Sliding Scale -) 1 vial SQ [facility]; Protocol Last Admin: 09/20/17 06:40 Dose: 2 unit Insulin Detemir (Levemir Vial) 20 units SQ HS [facility] Last Admin: 09/19/17 21:59 Dose: 20 units Insulin Detemir (Levemir Vial) 25 units SQ AM [facility] Last Admin: 09/20/17 06:40 Dose: 25 units Memantine (Namenda -) 10 mg PO DAILY@0800 [facility] Last Admin: 09/20/17 08:52 Dose: 10 mg Methimazole (Tapazole -) 10 mg PO BID [facility] Last Admin: 09/20/17 10:37 Dose: 10 mg Methylprednisolone Sodium Succinate (Solu-Medrol -) 40 mg IVPUSH Q8H-IV [facility] Last Admin: 09/20/17 10:36 Dose: 40 mg Pantoprazole Sodium (Protonix -) 40 mg PO DAILY@0800 [facility] Last Admin: 09/20/17 08:52 Dose: 40 mg Polyethylene Glycol (Miralax (For Daily Use) -) 17 gm PO DAILY [facility] Last Admin: 09/20/17 10:36 Dose: 17 gm Ranolazine (Ranexa -) 1,000 mg PO BID [facility] Last Admin: 09/20/17 10:37 Dose: 1,000 mg Valsartan (Diovan -) 160 mg PO DAILY@0800 [facility] Last Admin: 09/20/17 08:52 Dose: 160 mg - Objective Vital Signs: Vital Signs Temperature 97.5 F L 09/20/17 06:00 Pulse Rate 64 09/20/17 06:00 Respiratory Rate 19 09/20/17 06:00 Blood Pressure 143/67 09/20/17 06:00 O2 Sat by Pulse Oximetry (%) 96 09/19/17 21:00 Constitutional: Yes: Calm Cardiovascular: Yes: Regular Rate and Rhythm, S1, S2 Respiratory: Yes: Rhonchi Gastrointestinal: Yes: Normal Bowel Sounds, Soft Edema: Yes (slight) Neurological: Yes: Alert, Oriented Labs: CBC, BMP 09/19/17 06:30 09/20/17 06:00 Problem List - Problems (1) Shortness of breath Assessment/Plan: asthma exacerbation- improving iv steroids will change to BID steroids abx duonebs oxygen as needed pulm on board Code(s): R06.02 - SHORTNESS OF BREATH (2) Diabetes Assessment/Plan: bgm sliding scale amaryl and levemir dose adjusted per endocrine Code(s): E11.9 - TYPE 2 DIABETES MELLITUS WITHOUT COMPLICATIONS Qualifiers: Diabetes mellitus type: type 2 (3) HLD (hyperlipidemia) Assessment/Plan: zetia check lipid panel noted HDL is low Code(s): E78.5 - HYPERLIPIDEMIA, UNSPECIFIED (4) Hyperthyroidism Assessment/Plan: tapazole 10mg bid check tsh and free t4- tsh noted Code(s): E05.90 - THYROTOXICOSIS, UNSP WITHOUT THYROTOXIC CRISIS OR STORM (5) Constipation Assessment/Plan: miralax colace Code(s): K59.00 - CONSTIPATION, UNSPECIFIED (6) Leg edema Assessment/Plan: iv lasix one dose, edema improved venous doppler no dvt Code(s): R60.0 - LOCALIZED EDEMA
--- NOTE | 2017-09-20 11:31 | PN ---
Progress Note (short form) - Note Progress Note: PULMONARY States breathing better. Less cough and wheezing. Last Vital Signs Temp Pulse Resp BP Pulse Ox 98.1 F 75 18 140/60 91 L 09/20/17 10:35 09/20/17 10:35 09/20/17 10:35 09/20/17 10:35 09/20/17 08:52 Gen: NAD at rest Heart: RRR Lung: bilateral scattered wheezes Abd: soft, nontender Ext: no edema CBC, BMP 09/19/17 06:30 09/20/17 06:00 Active Medications Albuterol Sulfate (Ventolin 0.083% Nebulizer Soln -) 1 amp NEB Q4H PRN PRN Reason: SHORT OF BREATH/WHEEZING Albuterol/Ipratropium (Duoneb -) 1 amp NEB RQID [facility] Last Admin: 09/20/17 08:21 Dose: 1 amp Aspirin (Asa -) 81 mg PO DAILY [facility] Last Admin: 09/20/17 10:37 Dose: 81 mg Docusate Sodium (Colace -) 300 mg PO HS [facility] Last Admin: 09/19/17 21:59 Dose: 300 mg Ezetimibe (Zetia -) 10 mg PO DAILY@0800 [facility] Last Admin: 09/20/17 08:52 Dose: 10 mg Guaifenesin (Diabetic Tussin Dm -) 5 ml PO Q6H PRN PRN Reason: COUGH Last Admin: 09/20/17 10:37 Dose: 5 ml Heparin Sodium (Porcine) (Heparin -) 5,000 unit SQ BID [facility] Last Admin: 09/20/17 10:36 Dose: 5,000 unit Azithromycin 500 mg/ Dextrose 250 mls @ 250 mls/hr IVPB DAILY@0800 [facility] Last Admin: 09/20/17 08:53 Dose: 250 mls/hr Insulin Aspart (Novolog Vial Sliding Scale -) 1 vial SQ [facility]; Protocol Last Admin: 09/20/17 06:40 Dose: 2 unit Insulin Detemir (Levemir Vial) 20 units SQ HS [facility] Last Admin: 09/19/17 21:59 Dose: 20 units Insulin Detemir (Levemir Vial) 25 units SQ AM [facility] Last Admin: 09/20/17 06:40 Dose: 25 units Memantine (Namenda -) 10 mg PO DAILY@0800 [facility] Last Admin: 09/20/17 08:52 Dose: 10 mg Methimazole (Tapazole -) 10 mg PO BID [facility] Last Admin: 09/20/17 10:37 Dose: 10 mg Methylprednisolone Sodium Succinate (Solu-Medrol -) 40 mg IVPUSH BID [facility] Pantoprazole Sodium (Protonix -) 40 mg PO DAILY@0800 [facility] Last Admin: 09/20/17 08:52 Dose: 40 mg Polyethylene Glycol (Miralax (For Daily Use) -) 17 gm PO DAILY [facility] Last Admin: 09/20/17 10:36 Dose: 17 gm Ranolazine (Ranexa -) 1,000 mg PO BID [facility] Last Admin: 09/20/17 10:37 Dose: 1,000 mg Valsartan (Diovan -) 160 mg PO DAILY@0800 [facility] Last Admin: 09/20/17 08:52 Dose: 160 mg A/P Acute Asthma Exacerbation Hyperthyroidism DM Hyperlipidemia - continue medrol - can likely changes steroids to PO prednisone 40mg daily in AM and taper as outpt - inhaled bronchdilators standing and PRN - O2 to keep SpO2 >90% - glucose control while on systemic steroids - DVT prophylaxis Problem List - Problems (1) Acute asthma exacerbation Code(s): J45.901 - UNSPECIFIED ASTHMA WITH (ACUTE) EXACERBATION (2) Diabetes Code(s): E11.9 - TYPE 2 DIABETES MELLITUS WITHOUT COMPLICATIONS Qualifiers: Diabetes mellitus type: type 2 (3) HLD (hyperlipidemia) Code(s): E78.5 - HYPERLIPIDEMIA, UNSPECIFIED (4) Hyperthyroidism Code(s): E05.90 - THYROTOXICOSIS, UNSP WITHOUT THYROTOXIC CRISIS OR STORM
[2017-09-20] MEDS: DOCUSATE SODIUM 100 MG CAPSULE (FP) PO SCH (21:49)
[2017-09-21] MEDS: INSULIN (LEVEMIR) 100 UNITS/ML UNITS SQ SCH (06:19)
[2017-09-21] MEDS: INSULIN SLIDING SCALE (NOVOLOG) 1 VIAL SQ SCH ×3 (06:19→16:44)
[2017-09-21] MEDS: ALBUTEROL SO4 2.5/IPRATROPIUM 0.5 INH SOL 3 ML VIAL.NEB. NEB SCH ×3 (07:30→16:25)
[2017-09-21 08:28] LABS: CHLORIDE 98 mmol/L (98-107); POTASSIUM 4.9 mmol/L (3.5-5.1); SODIUM 137 mmol/L (136-145)
[2017-09-21 08:56] LABS: ALBUMIN 3.3 g/dl (3.4-5.0); ALK PHOS 153 U/L (45-117); ANION GAP 8 (8-16); BILIRUBIN,TOTAL 0.8 mg/dL (0.2-1.0); BLOOD UREA NITROGEN 22 mg/dL (7-18); CALCIUM 10.1 mg/dL (8.5-10.1); CO2 31 mmol/L (21-32); CREATININE 0.8 mg/dL (0.55-1.02); GLUCOSE,RANDOM 125 mg/dL (74-106); SGOT/AST 42 U/L (15-37); SGPT/ALT 74 U/L (12-78); TOT PROT 7.1 g/dl (6.4-8.2)
[2017-09-21 09:22] LABS: HEMATOCRIT 35.6 % (32.4-45.2); HEMOGLOBIN 11.4 GM/dL (10.7-15.3); MCH 27.4 pg (25.7-33.7); MCHC 32.1 g/dl (32.0-36.0); MEAN CELL VOLUME 85.2 fl (80-96); MEAN PLT VOLUME 7.9 fl (7.5-11.1); PLATELET COUNT 256 K/MM3 (134-434); RBC 4.18 M/mm3 (3.60-5.2); RDW 15.8 % (11.6-15.6); WHITE BLOOD COUNT 11.2 K/mm3 (4.0-10.0)
[2017-09-21] MEDS ORDERED: PT OWN MED DRAWER 7, Y5N ONE (09:28)
[2017-09-21] MEDS: AZITHROMYCIN IVPB 500 MG in DEXTROSE 5%-WATER - 250 ML IVPB SCH (09:54)
[2017-09-21] MEDS: methylPREDNISolone NA SUCC 40 MG/1 ML VIAL IVPUSH SCH (09:55)
[2017-09-21] MEDS: ASPIRIN 81 MG CHEWABLE TABLETS PO SCH (09:59)
[2017-09-21] MEDS: MEMANTINE HCL 10 MG TABLET (FP) PO SCH (09:59)
[2017-09-21] MEDS: RANOLAZINE E.R. 500 MG TABLET (FP) PO SCH (09:59)
[2017-09-21] MEDS: METHIMAZOLE 10 MG TABLET (FP) PO SCH (09:59)
[2017-09-21] MEDS: VALSARTAN 160 MG TABLET (UD) PO SCH (09:59)
[2017-09-21] MEDS: PANTOPRAZOLE 40 MG TABLET (FP) PO SCH (10:00)
[2017-09-21] MEDS: HEPARIN NA (PORCINE) 5,000 UNITS/ML 1ML VIAL SQ SCH (10:01)
[2017-09-21] MEDS: EZETIMIBE 10 MG TABLET (FP) PO SCH (10:01)
[2017-09-21] MEDS: POLYETHYLENE GLYCOL 3350 119 GM BTL PO SCH (10:03)
[2017-09-21] MEDS: guaiFENesin/D-M SUGAR-FREE/ACLHOL-FREE 118 ML BOTTLE PO PRN (10:03)
--- NOTE | 2017-09-21 10:34 | DS ---
Physical Examination Vital Signs: Vital Signs Temperature 98.1 F 09/21/17 09:50 Pulse Rate 77 09/21/17 09:50 Respiratory Rate 18 09/21/17 09:50 Blood Pressure 120/60 09/21/17 09:50 O2 Sat by Pulse Oximetry (%) 94 L 09/20/17 21:00 Constitutional: Yes: Calm Cardiovascular: Yes: Regular Rate and Rhythm, S1, S2 Respiratory: Yes: Rhonchi Gastrointestinal: Yes: Normal Bowel Sounds, Soft Neurological: Yes: Alert, Oriented Labs: CBC, BMP 09/21/17 09:05 09/21/17 06:18 Discharge Summary Reason For Visit: SOB Current Active Problems Acute asthma exacerbation (Acute) Constipation (Acute) Diabetes (Acute) HLD (hyperlipidemia) (Acute) Hyperthyroidism (Acute) Leg edema (Acute) Shortness of breath (Acute) Other Procedures: doppler of legs: no dvt Hospital Course: - Primary Care Physician PCP: Willie Gray - Admission Chief Complaint: sob and coughing worsening for last 2 weeks History of Present Illness: Ms. Thomas is an 82 yo female w/ pmh of HTN, HLD, COPD, DM, asthma, hypothyroidism who presents complaining of 2 week history of shortness of breath she describes "feels like she is drowning." She endorses additional yellow sputum and nasal congestion. Ms. Thomas reports she had gone to PCP sunday, however represented today as she was still having symptoms per family member she was seen by PCP a couple of times in last 2 weeks and after her last visit when family did not see improvement brought her to ER they report worsening cough and shortness of breath In the ER patient got zithromax iv magnesium iv, duonebs prednisone 60mg acute asthma exacerbationin \\iv steroids now change to po abx course to go home with VNS seen by endocrine for hyperthyroid and DM insulin adjusted Condition: Improved - Instructions Diet, Activity, Other Instructions: prednisone 40mg po daily for 2 days, 30mg po daily for 2 days 20mg po daily for 2 days 10mg po daily for 2 days and then stop azithromycin 500mg po daily for another 2 days the n stop Referrals: Willie Gray MD [Primary Care Provider] - 1 Week Disposition: VNS/HOME HEALTH CARE - Home Medications Comprehensive Discharge Medication List: Ambulatory Orders Aspirin [ASA -] 81 mg PO DAILY 06/08/17 Glimepiride [Amaryl -] 2 mg PO DAILY 06/08/17 Methimazole [Tapazole -] 10 mg PO DAILY 06/08/17 Ranolazine [Ranexa] 1,000 mg PO BID 06/08/17 Exenatide Microspheres [Bydureon Bcise] 2 mg SQ WEEKLY 09/18/17 Insulin Degludec [Tresiba Flextouch U-100] 40 unit SQ DAILY 09/18/17
--- NOTE | 2017-09-21 12:45 | PN ---
Progress Note (short form) - Note Progress Note: PULMONARY Less cough and wheezing. VSS/afebrile Gen: NAD at rest Heart: RRR Lung: bilateral scattered wheezes minimal Abd: soft, nontender Ext: no edema labs/meds/notes/images reviewed A/P Acute Asthma Exacerbation resolved Hyperthyroidism DM Hyperlipidemia - prednisone 40mg daily and taper as outpt - inhaled bronchdilators standing and PRN - O2 to keep SpO2 >90% - glucose control while on systemic steroids - DVT prophylaxis - No objection to continuing treatment as an outpatient Garry PAINTER MD
[2017-09-21 17:15] VITALS: BP 154/87; PULSE 76; TEMP 98.4
--- NOTE | 2017-09-21 18:12 | PN ---
Progress Note (short form) - Note Progress Note: askedb y dr hardy to send prescrription for zithromax 500 mg x 2days as she cannot do it at this time
[2017-09-22] MEDS ORDERED: methylPREDNISolone NA SUCC 40 MG/1 ML VIAL IVPUSH SCH (10:00)
== END 2017-09-21 18:33 | disposition home or self-care (01) | DRG 191 ==
LOC: JER 10:52 → JERBED 14:41 → J5S 18:22
PROVIDERS: ADMIT Student in an Organized Health Care Education/Training Program; ATTEND Student in an Organized Health Care Education/Training Program
DX: J44.9 Chronic obstructive pulmonary disease, unspecified (principal); Z68.41 Body mass index [BMI] 40.0-44.9, adult; J45.901 Unspecified asthma with (acute) exacerbation; E78.5 Hyperlipidemia, unspecified; E11.9 Type 2 diabetes mellitus without complications; F03.90 Unspecified dementia, unspecified severity, without behavioral disturbance, psychotic disturbance, mood disturbance, and anxiety; R06.02 Shortness of breath; E05.90 Thyrotoxicosis, unspecified without thyrotoxic crisis or storm; K59.00 Constipation, unspecified; R10.13 Epigastric pain; R60.0 Localized edema; D72.829 Elevated white blood cell count, unspecified; E66.9 Obesity, unspecified; Z79.4 Long term (current) use of insulin
CPT/HCPCS: 36415; 71045-TC-FY; 80048; 80053; 80061; 81003; 82550; 82962; 83036; 83690; 83721; 83735; 83880; 84100; 84439; 84443; 84484; 85025; 85027; 87070; 87086; 87205; 93005; 93010; 93970-TC; 94640; 97116-GP; 97161-GP; 99283-25; J1644; J7620

== ENCOUNTER 2018-02-27 07:01 | Emergency (ER) | payer OTHER ==
[2018-02-27 07:31] VITALS: BP 108/55; PULSE 84; TEMP 98.6; BMI 37.3
[2018-02-27] MEDS ORDERED: ACETAMINOPHEN 1000 MG/100 ML VIAL (NON FORMULARY) IVPB ONE (08:04)
[2018-02-27] MEDS ORDERED: ACETAMINOPHEN INJECTION 100 ML IVPB ONE (08:07)
--- NOTE | 2018-02-27 08:30 | PDOC ---
History of Present Illness - General Chief Complaint: Pain Stated Complaint: abdominal pain Time Seen by Provider: 02/27/18 07:34 History Source: Patient Exam Limitations: No Limitations - History of Present Illness Travel History: No Initial Comments: 02/27/18 08:00 83-year-old female presents to the emergency department with complaints of left- sided abdominal cramping increasing in severity over the past few days which awoke her this morning from sleep and her daughter said she was noted to be talking to a family member. She states has not had a bowel movement in over 3 days and has had decreased appetite for the past 4 days now with intermittent chills. Patient denies difficulty urinating, rectal bleeding, abdominal distention, decreased flatulence, difficulty breathing, or chest pain. Timing/Duration: reports: getting worse Quality: reports: moderate, cramping Abdominal Pain Onset Location: reports: LUQ, LLQ Pain Radiation: reports: no radiation Activities at Onset: reports: none Aggravating Factors: improves with: None Alleviating Factors: improves with: None Past History - Travel Traveled outside of the country in the last 30 days: No - Past Medical History Allergies/Adverse Reactions: Allergies Allergy/AdvReac Type Severity Reaction Status Date / Time No Known Allergies Allergy Verified 02/27/18 07:22 Home Medications: Ambulatory Orders Glimepiride [Amaryl -] 4 mg PO BID 06/08/17 Albuterol 0.083% Nebulizer Chuyita [Ventolin 0.083% Nebulizer Soln -] 1 amp NEB Q4H PRN #30 amp MDD 4 09/21/17 Memantine HCl [Namenda -] 10 mg PO DAILY@0800 #30 tablet MDD 1 09/21/17 Brimonidine Tartrate/Timolol [Combigan 0.2%-0.5% Eye Drops] 5 ml OP DAILY Exenatide Microspheres [Bydureon Pen] 2 mg SQ WEEKLY 11/27/17 Linaclotide [Linzess] 72 mcg PO DAILY 11/27/17 Methimazole [Tapazole -] 10 mg PO DAILY MDD 2 11/27/17 Pantoprazole Sodium [Protonix] 40 mg PO DAILY 11/27/17 Sacubitril/Valsartan [Entresto 24 mg-26 mg Tablet] 1 each PO BID 11/27/17 Atorvastatin Ca [Lipitor] 20 mg PO HS #30 tablet 12/03/17 Docusate Sodium [Colace -] 100 mg PO Q8H PRN #90 capsule 12/03/17 Furosemide [Lasix -] 40 mg PO DAILY #30 tablet 12/03/17 Linaclotide [Linzess] 72 mcg PO DAILY #30 capsule 12/03/17 Metoprolol Succinate [Toprol XL -] 50 mg PO DAILY #30 tab.sr.24h 12/03/17 Polyethylene Glycol 3350 [Miralax 119 gm Btl -] 17 gm PO DAILY #1 bottle Rivaroxaban [Xarelto -] 20 mg PO DAILY@2000 #30 tablet 12/03/17 Sennosides [Senna -] 2 tab PO HS PRN #60 tablet 12/03/17 Asthma: Yes COPD: Yes CHF: Yes Dementia: Yes Diabetes: Yes (Type 2 DM) HTN: Yes Hypercholesterolemia: Yes Thyroid Disease: Yes (hypothyroidism) - Suicide/Smoking/Psychosocial Hx Smoking Status: No Smoking History: Former smoker Have you smoked in the past 12 months: No Number of Cigarettes Smoked Daily: 0 If you are a former smoker, when did you quit?: 60years ago Information on smoking cessation initiated: No Hx Alcohol Use: No Drug/Substance Use Hx: No Substance Use Type: None Patient Lives Alone: No Lives with/in: daughter Abd/GI Specific PMHX - Complaint Specific PMHX Other History: constipation Review of Systems - Review of Systems Able to Perform ROS?: Yes Constitutional: Yes: Chills HEENTM: No: Symptoms Reported Respiratory: No: Symptoms reported Cardiac (ROS): No: Symptoms Reported ABD/GI: Yes: Constipated, Nausea, Poor Appetite, Poor Fluid Intake, Abdominal cramping : No: Symptoms Reported Musculoskeletal: No: Symptoms Reported Integumentary: No: Symptoms Reported Neurological: No: Symptoms reported Hematologic/Lymphatic: No: Symptoms Reported *Physical Exam - Vital Signs Last Vital Signs Temp Pulse Resp BP Pulse Ox 98.6 F 84 18 108/55 L 94 L 02/27/18 07:23 02/27/18 07:23 02/27/18 07:23 02/27/18 07:23 02/27/18 07:23 - Physical Exam General Appearance: Yes: Nourished, Appropriately Dressed. No: Apparent Distress HEENT: positive: EOMI, LEIF. negative: Pale Conjunctivae Neck: positive: Supple Respiratory/Chest: positive: Lungs Clear, Normal Breath Sounds. negative: Respiratory Distress, Accessory Muscle Use Cardiovascular: positive: Regular Rhythm, Regular Rate. negative: Murmur Gastrointestinal/Abdominal: positive: Normal Bowel Sounds, Soft, Distended (mild ), Tenderness (llq lt periumbilical). negative: Guarding, Rebound, Mass Musculoskeletal: negative: CVA Tenderness Extremity: positive: Normal Capillary Refill, Pedal Edema (trace yvette) Integumentary: positive: Normal Color, Warm, Moist Neurologic: positive: Normal Mood/Affect (a & o x 3), Motor Strength 5/5 ED Treatment Course - LABORATORY CBC & Chemistry Diagram: 02/27/18 10:38 02/27/18 08:20 - RADIOLOGY Radiology Studies Ordered: Category Date Time Status ABDOMEN & PELVIS CT WITH CONTR [CT] Stat CT Scan 02/27/18 08:02 Ordered CHEST X-RAY PORTABLE* [RAD] Stat Radiology 02/27/18 08:03 Ordered Medical Decision Making - Medical Decision Making 02/27/18 08:34 CC: abd pain, constipation, chills x 3-5 days Exam: abd mild distended, llq pain Plan: labs, urine, cxr, lactic acid, abd /pelvis ct w/ contrast 02/27/18 12:52 Laboratory Tests 02/27/18 02/27/18 02/27/18 08:20 08:20 10:38 WBC 9.2 Hgb 13.1 Hct 41.4 D MCV 81.7 RDW 15.7 H Neutrophils % 68.7 Sodium 140 Potassium 3.5 Chloride 99 Carbon Dioxide 30 Anion Gap 11 BUN 32 H Creatinine 1.1 Random Glucose 82 Lactic Acid 0.8 Calcium 9.6 Magnesium 1.9 Total Bilirubin 1.2 H AST 25 ALT 25 Alkaline Phosphatase 172 H Total Protein 6.8 Albumin 3.4 Lipase 77 Urine Glucose (UA) Urine Ketones Urine Urobilinogen Ur Leukocyte Esterase 02/27/18 11:41 WBC Hgb Hct MCV RDW Neutrophils % Sodium Potassium Chloride Carbon Dioxide Anion Gap BUN Creatinine Random Glucose Lactic Acid Calcium Magnesium Total Bilirubin AST ALT Alkaline Phosphatase Total Protein Albumin Lipase Urine Glucose (UA) 2+ H Urine Ketones Negative Urine Urobilinogen Negative Ur Leukocyte Esterase Negative Ct results pending 02/27/18 13:58 CT abd shows gallbladder multiple gallstones again seen layering posteriorly without evidence of acute cholecystitis. Small left periumbilical/Supra- periumbilical hernia containing fat/mesentery in the small bowel loops again seen without gross evidence of incarceration. There is no evidence of small bowel instruction. *DC/Admit/Observation/Transfer Diagnosis at time of Disposition: Abdominal pain - Discharge Dispostion Disposition: HOME Condition at time of disposition: Improved - Referrals Referrals: Wilton Gutierres PA [Primary Care Provider] - - Patient Instructions Printed Discharge Instructions: DI for Abdominal Pain-Adult Additional Instructions: Please eat small frequent meals and increase your fiber intake. Follow-up with your doctor or return to the ED if your symptoms return or worsen - Post Discharge Activity
[2018-02-27 08:50] LABS: ALBUMIN 3.4 g/dl (3.4-5.0); ALK PHOS 172 U/L (45-117); ANION GAP 11 MMOL/L (8-16); BILIRUBIN,TOTAL 1.2 mg/dL (0.2-1); BLOOD UREA NITROGEN 32 mg/dL (7-18); CALCIUM 9.6 mg/dL (8.5-10.1); CHLORIDE 99 mmol/L (98-107); CO2 30 mmol/L (21-32); CREATININE 1.1 mg/dL (0.55-1.3); GLUCOSE,RANDOM 82 mg/dL (74-106); LIPASE 77 U/L (73-393); MAGNESIUM 1.9 mg/dL (1.8-2.4); POTASSIUM 3.5 mmol/L (3.5-5.1); SGOT/AST 25 U/L (15-37); SGPT/ALT 25 U/L (13-61); SODIUM 140 mmol/L (136-145); TOT PROT 6.8 g/dl (6.4-8.2)
[2018-02-27 11:16] LABS: BASO % 0.5 % (0-2.0); EOS % 2.7 % (0-4.5); HEMATOCRIT 41.4 % (32.4-45.2); HEMOGLOBIN 13.1 GM/dL (10.7-15.3); LYMPH % 22.1 % (8-40); MCH 25.8 pg (25.7-33.7); MCHC 31.6 g/dl (32.0-36.0); MEAN CELL VOLUME 81.7 fl (80-96); MEAN PLT VOLUME 8.4 fl (7.5-11.1); NEUT % 68.7 % (42.8-82.8); PLATELET COUNT 202 K/MM3 (134-434); RBC 5.07 M/mm3 (3.60-5.2); RDW 15.7 % (11.6-15.6); WHITE BLOOD COUNT 9.2 K/mm3 (4.0-10.0)
[2018-02-27 12:15] LABS: URINE APPEARANCE CLEAR; URINE BILIRUBIN NEGATIVE (<2.0 mg/dL); URINE COLOR YELLOW; URINE GLUCOSE (UA) 2+ (NEGATIVE); URINE KETONE NEGATIVE (NEGATIVE); URINE LEUK ESTERASE NEGATIVE (NEGATIVE); URINE NITRITE NEGATIVE (NEGATIVE); URINE PROTEIN NEGATIVE (NEGATIVE); URINE UROBILINOGEN NEGATIVE mg/dL (0.2-1.0)
--- NOTE | 2018-02-28 11:54 | EKG ---
Test Reason : Blood Pressure : / mmHG Vent. Rate : 081 BPM Atrial Rate : 243 BPM P-R Int : 000 ms QRS Dur : 088 ms QT Int : 372 ms P-R-T Axes : 080 -36 154 degrees QTc Int : 432 ms ATRIAL FLUTTER WITH 3:1 A-V CONDUCTION LEFT AXIS DEVIATION INFERIOR INFARCT , AGE UNDETERMINED ANTEROSEPTAL INFARCT (CITED ON OR BEFORE 08-JUN-2017) ABNORMAL ECG WHEN COMPARED WITH ECG OF 29-NOV-2017 08:27, ATRIAL FLUTTER HAS REPLACED ATRIAL FIBRILLATION INFERIOR INFARCT IS NOW PRESENT Confirmed by YVETTE GUTIERREZ MD ([id number]) on 02/28/2018 11:53:35 AM Referred By: Confirmed By:YVETTE GUTIERREZ MD
== END 2018-02-27 14:22 | disposition home or self-care (01) ==
LOC: JER 07:01
PROC: 3E033NZ Introduction of Analgesics, Hypnotics, Sedatives into Peripheral Vein, Percutaneous Approach (ICD-10-PCS; principal; 2018-02-27)
DX: R10.9 Unspecified abdominal pain (principal); I50.9 Heart failure, unspecified; J45.909 Unspecified asthma, uncomplicated; I10 Essential (primary) hypertension; Z87.891 Personal history of nicotine dependence; E03.9 Hypothyroidism, unspecified; E78.00 Pure hypercholesterolemia, unspecified; E11.9 Type 2 diabetes mellitus without complications
CPT/HCPCS: 36415; 71045-TC-FY; 74177-TC; 80053; 81003; 83605; 83690; 83735; 85025; 87086; 93005; 93010; 96374; 99283-25; J0131

== ENCOUNTER 2018-03-11 13:09 | Inpatient (IN) | payer OTHER ==
--- NOTE | 2018-03-11 15:31 | PDOC ---
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; do not directly answer questions until multiple promptings.) <Cary Houston - Last Filed: 03/11/18 18:51> <Silvina Brizuela - Last Filed: 03/11/18 21:09> - General Chief Complaint: Pain, Acute Stated Complaint: ABD PAIN Time Seen by Provider: 03/11/18 15:30 Past History - Travel Traveled outside of the country in the last 30 days: No Close contact w/someone who was outside of country & ill: No - Past Medical History Asthma: Yes COPD: Yes CHF: Yes Dementia: Yes Diabetes: Yes (Type 2 DM) HTN: Yes Hypercholesterolemia: Yes Thyroid Disease: Yes (hypothyroidism) - Immunization History Immunization Up to Date: Yes - Suicide/Smoking/Psychosocial Hx Smoking Status: No Smoking History: Unknown if ever smoked Have you smoked in the past 12 months: No Number of Cigarettes Smoked Daily: 0 If you are a former smoker, when did you quit?: 60years ago Information on smoking cessation initiated: No Hx Alcohol Use: No Drug/Substance Use Hx: No Substance Use Type: None <Cary Houston - Last Filed: 03/11/18 18:51> <Silvina Brizuela - Last Filed: 03/11/18 21:09> - Past Medical History Allergies/Adverse Reactions: Allergies Allergy/AdvReac Type Severity Reaction Status Date / Time No Known Allergies Allergy Verified 03/11/18 20:09 Home Medications: Ambulatory Orders Albuterol 0.083% Nebulizer Chuyita [Ventolin 0.083% Nebulizer Soln -] 1 amp NEB Q4H PRN #30 amp MDD 4 09/21/17 Memantine HCl [Namenda -] 10 mg PO DAILY@0800 #30 tablet MDD 1 09/21/17 Brimonidine Tartrate/Timolol [Combigan 0.2%-0.5% Eye Drops] 5 ml OP DAILY Exenatide Microspheres [Bydureon Pen] 2 mg SQ WEEKLY 11/27/17 Methimazole [Tapazole -] 10 mg PO DAILY MDD 2 11/27/17 Pantoprazole Sodium [Protonix] 40 mg PO DAILY 11/27/17 Atorvastatin Ca [Lipitor] 20 mg PO HS #30 tablet 12/03/17 Furosemide [Lasix -] 40 mg PO DAILY #30 tablet 12/03/17 Rivaroxaban [Xarelto -] 20 mg PO DAILY@2000 #30 tablet 12/03/17 Amlodipine Besylate [Norvasc -] 10 mg PO DAILY 03/11/18 Aspirin Coated [Ecotrin -] 81 mg PO DAILY 03/11/18 Digoxin 125 mcg PO DAILY 03/11/18 Insulin Glargine,Hum.rec.anlog [Lantus Solostar PEN (NF)] 40 units SQ HS Metolazone [Zaroxolyn -] 2.5 mg PO DAILY 03/11/18 Metoprolol Succinate [Toprol XL -] 100 mg PO DAILY 03/11/18 Omeprazole Magnesium [Acid Tiller Worker] 40 mg PO DAILY 03/11/18 Ondansetron HCl [Zofran] 4 mg PO TID PRN 03/11/18 Tramadol HCl/Acetaminophen [Tramadol-Acetaminophn 37.5-325] 1 each PO QID PRN Review of Systems - Review of Systems Able to Perform ROS?: Yes (limited) Is the patient limited Lithuanian proficient: Yes Constitutional: Yes: Loss of Appetite, Weight Stable. No: Chills, Diaphoresis, Fever, Weakness <Cary Houston - Last Filed: 03/11/18 18:51> *Physical Exam - Vital Signs Last Vital Signs Temp Pulse Resp BP Pulse Ox 98.0 F 88 16 94/54 L 96 03/11/18 13:20 03/11/18 13:20 03/11/18 13:20 03/11/18 13:20 03/11/18 13:20 <Cary Houston - Last Filed: 03/11/18 18:51> - Vital Signs Last Vital Signs Temp Pulse Resp BP Pulse Ox 98.0 F 82 17 92/54 L 97 03/11/18 13:20 03/11/18 20:50 03/11/18 20:50 03/11/18 20:50 03/11/18 20:50 <Silvina Brizuela - Last Filed: 03/11/18 21:09> ED Treatment Course - LABORATORY CBC & Chemistry Diagram: 03/11/18 16:30 03/11/18 16:30 <Cary Houston - Last Filed: 03/11/18 18:51> - LABORATORY CBC & Chemistry Diagram: 03/11/18 16:30 03/11/18 16:30 - ADDITIONAL ORDERS Additional order review: Laboratory Results 03/11/18 03/11/18 03/11/18 16:37 16:30 16:30 PT with INR 12.70 INR 1.08 Sodium 130 L Potassium 3.8 Chloride 89 L Carbon Dioxide 31 Anion Gap 11 BUN 57 H Creatinine 2.2 H Creat Clearance w eGFR 21.32 Random Glucose 221 H Lactic Acid 2.1 H Calcium 9.4 Magnesium 2.3 Total Bilirubin 1.3 H AST 37 ALT 26 Alkaline Phosphatase 133 H Troponin I 0.19 H Total Protein 6.6 Albumin 3.2 L Lipase 125 03/11/18 16:30 RBC 5.14 MCV 79.9 L MCHC 34.2 RDW 16.2 H MPV 8.6 Neutrophils % 65.5 Lymphocytes % 23.5 Monocytes % 8.4 Eosinophils % 1.6 Basophils % 1.0 - Medications Given in the ED: ED Medications Discontinued Medications Generic Name Dose Route Start Last Admin Trade Name Freq PRN Reason Stop Dose Admin Acetaminophen 1,000 mg 03/11/18 16:00 03/11/18 16:30 Ofirmev Injection - IVPB 03/11/18 16:01 1,000 mg ONCE ONE Administration Aspirin 325 mg 03/11/18 18:17 03/11/18 19:17 Asa - PO 03/11/18 18:18 325 mg ONCE STA Administration Sodium Chloride 500 mls @ 1,000 mls/hr 03/11/18 16:04 03/11/18 16:30 Normal Saline - IV 03/11/18 16:33 1,000 mls/hr ASDIR STA Administration Sodium Chloride 500 mls @ 1,000 mls/hr 03/11/18 18:17 03/11/18 19:00 Normal Saline - IV 03/11/18 18:46 1,000 mls/hr ASDIR STA Administration <Silvina Brizuela - Last Filed: 03/11/18 21:09> Medical Decision Making - Medical Decision Making Pt was seen at bedside, also will be seen by attending Dr. Satish. Pt presenting with LUQ and epigastric pain, which has been going on for ~1 month, but has worsened over the past few days. Pt and daughter state the abdominal pain has been intermittent, but is sharp and stabbing in quality and does not radiate. It is associated with nausea, but not vomiting according to patient. PE showed [] Considering [vs vs] Ordered work-up including CBC, CMP, lipase, lactic, ECG, troponin, UA, urine culture. Ordered chest x-ray and limited abdomen US for GB/pancreas. Provided 500 mL IV NS and 1 g ofirmev IV for improvement of pain and dehydration. Will continue to reassess pt and monitor for symptomatic improvement. 03/11/18 16:11 Paging pts GI, Dr. Gaby Quintana ([phone]) to determine request for further imaging -- pt arrived with note from Dr. Quintana about HIDA scan/prior CT scan. 03/11/18 16:[address] Quintana who stated pt had distended GB on prior work-up via CT scan. She recommends HIDA scan. Will start with labwork and abdominal US. 03/11/18 16:49 CBC: WNL CMP: ROSELINE (BUN 57/Cr 2.2) Trop .19 (increased demand?) Coags generally WNL Providing pt with additional 500 mL IV NS bolus (1 L total). [id number] US/ABDOMEN US -LIMITED abdomen ultrasound Clinical information given: LUQ pain, evaluate for GB/anya, and pancreas As also visualized on abdomen CT study 02/27/2018 the gallbladder is overdistended measuring 13 cm in length with a 5 cm transverse diameter. No definite gallbladder wall edema or pericholecystic fluid is identified. Several small gallbladder calculi are seen. There is also a moderate amount of inspissated bile/sludge within the gallbladder lumen. The common bile duct diameter appears unremarkable measuring 0.5 cm. No gross intraductal calculus is identified within the limitations of transabdominal sonography. The pancreas could not be adequately evaluated due to obscuring bowel gas. The liver, spleen, and kidneys demonstrate no definite sonographic pathology. No free intraperitoneal fluid is seen. There is no aortic aneurysm. Impression: As on a recently performed CT study 02/27/2018 the gallbladder demonstrates nonspecific overdistention without obvious sonographic evidence of acute cholecystitis. Cholelithiasis is again noted. A moderate amount of inspissated bile/sludge is noted within the gallbladder lumen. There is no definite biliary tract dilatation. The pancreas is obscured due to overlapping bowel gas. A 2 mm nonobstructing left renal calculus identified on CT performed 12/02/2017 cannot be appreciated on sonography. 03/11/18 18:32 Paging hospitalist team for admission. 03/11/18 18:33 Dr. Cunningham accepted pt for admission. Pt BP improving 106/46. 03/11/18 18:51 Pt signed out to next resident team. Explained presentation, ED course, any pending results, and needed interventions to resident Dr. Robbins. Ordered next troponin and lactic acid, nursing team aware. Also need urine sample, which pt has not provided yet. Will straight cath if necessary. 03/11/18 18:58 <Cary Houston - Last Filed: 03/11/18 18:51> *DC/Admit/Observation/Transfer <Cary Houston - Last Filed: 03/11/18 18:51> - Discharge Dispostion Decision to Admit order: Yes <Silvina Brizuela - Last Filed: 03/11/18 21:09> Diagnosis at time of Disposition: LUQ abdominal pain, Chest pain
[2018-03-11] MEDS ORDERED: ACETAMINOPHEN 1000 MG/100 ML VIAL (NON FORMULARY) IVPB ONE (16:00)
[2018-03-11] MEDS ORDERED: SODIUM CHLORIDE 500 ML IV STA ×2 (16:04→18:17)
--- NOTE | 2018-03-11 16:13 | PDOC ---
Attending Attestation - HPI HPI: 03/11/18 16:20 The patient is an 83 year old female with a significant past medical history of T2DM, HTN, HLD, COPD, asthma, hypothyroidism, who presents to the ED for several months of left upper abdominal pain with increase in pain over the past few days with new onset of nausea today. She also states she has been constipated for about 5 days with one small BM this morning which she describes as hard. She was sent from her GI specialist, Dr. Valle, today. The patient denies chest pain, shortness of breath, headache and dizziness. The patient denies fever, chills, nausea, vomit, diarrhea and constipation. The patient denies dysuria, frequency, urgency and hematuria. PCP -Dr. Gutierres - Physicial Exam PE: 03/11/18 16:20 Vitals: Triage vital signs reviewed General Appearance: No acute distress, well nourished, well developed Head: Atraumatic Eyes: Pupils equal reactive round, extraocular movement intact. Neck: Supple; No nuchal rigidity Chest Wall: Nontender Cardiac: Regular rate and rhythm, no murmurs, no rubs, no gallops Lungs: Clear to auscultation bilateral, good air movement bilaterally Abdomen: (+) diffuse abdominal discomfort. Soft, nondistended, normal bowel sounds, nontender to palpation Extremities: Full range of motion to all extremities, no cyanosis, clubbing, or edema Skin: Warm and dry, no rashes or lesions, no rash, no petechiae Neuro: AOX3; Cranial Nerves 2-12 grossly intact, Strength intact to all extremities, Sensation intact to all extremities, gait unassessed. Psych: Normal mood, normal affect - Medical Decision Making 03/11/18 16:21 Documentation prepared by Nina Shaikh, acting as medical corps officer for Fabiano Covarrubias MD 03/11/18 16:30 Dr. Valle paged at this time requesting a call back for doctor to doctor. 03/11/18 16:51 Pts case discussed with Dr. Valle <Nina Shaikh - Last Filed: 03/11/18 16:51> - Resident Resident Name: Cary Houston - ED Attending Attestation I have performed the following: I have examined & evaluated the patient, The case was reviewed & discussed with the resident, I agree w/resident's findings & plan, Exceptions are as noted - Medical Decision Making Patient sent to ED from GI office for HIDA scan and further evaluation. Dr. Brizuela to follow up results <Fabiano Covarrubias - Last Filed: 03/11/18 17:12>
[2018-03-11] MEDS ORDERED: ACETAMINOPHEN INJECTION 100 ML IVPB ONE (16:27)
[2018-03-11 16:52] LABS: EOS % 1.6 % (0-4.5); HEMATOCRIT 41.1 % (32.4-45.2); HEMOGLOBIN 14.1 GM/dL (10.7-15.3); LYMPH % 23.5 % (8-40); MCH 27.4 pg (25.7-33.7); MCHC 34.2 g/dl (32.0-36.0); MEAN CELL VOLUME 79.9 fl (80-96); MEAN PLT VOLUME 8.6 fl (7.5-11.1); MONO % 8.4 % (3.8-10.2); NEUT % 65.5 % (42.8-82.8); PLATELET COUNT 249 K/MM3 (134-434); RBC 5.14 M/mm3 (3.60-5.2); RDW 16.2 % (11.6-15.6); WHITE BLOOD COUNT 8.9 K/mm3 (4.0-10.0)
[2018-03-11 17:17] LABS: INR 1.08 (0.83-1.09); PROTHROMBIN TIME (PATIENT) 12.7 SEC (9.7-13.0)
[2018-03-11 17:36] LABS: ALBUMIN 3.2 g/dl (3.4-5.0); ALK PHOS 133 U/L (45-117); ANION GAP 11 MMOL/L (8-16); BILIRUBIN,TOTAL 1.3 mg/dL (0.2-1); BLOOD UREA NITROGEN 57 mg/dL (7-18); CALCIUM 9.4 mg/dL (8.5-10.1); CHLORIDE 89 mmol/L (98-107); CO2 31 mmol/L (21-32); CREATININE 2.2 mg/dL (0.55-1.3); GLUCOSE,RANDOM 221 mg/dL (74-106); LIPASE 125 U/L (73-393); MAGNESIUM 2.3 mg/dL (1.8-2.4); POTASSIUM 3.8 mmol/L (3.5-5.1); SGOT/AST 37 U/L (15-37); SGPT/ALT 26 U/L (13-61); SODIUM 130 mmol/L (136-145); TOT PROT 6.6 g/dl (6.4-8.2)
[2018-03-11] MEDS ORDERED: ASPIRIN 325 MG TABLET PO STA (18:17)
[2018-03-11] MEDS ORDERED: ASPIRIN 325 MG TABLET ONE (19:31)
--- NOTE | 2018-03-11 19:54 | HP ---
Admitting History and Physical - Primary Care Physician PCP: Shira Cunningham - Admission Chief Complaint: chest pain History of Present Illness: 83 year old female with a significant past medical history of T2DM, HTN, HLD, afib, COPD, asthma, hypothyroidism, who presents to the ED for several months of epgastric pain/left upper chest pain with increase in pain over the past few days with new onset of nausea today, her pain radiated to left arm and shoulder. She also states she has been constipated for about 5 days with one small BM this morning which she describes as hard. She was sent from her GI specialist, Dr. Valle, today. - Past Medical History Cardiovascular: Yes: AFIB, HTN, Hyperlipdemia Pulmonary: Yes: COPD Endocrine: Yes: Diabetes Mellitus, Hyperthyroidism - Smoking History Smoking history: Unknown if ever smoked Have you smoked in the past 12 months: No Aproximately how many cigarettes per day: 0 If you are a former smoker, when did you quit?: 60years ago - Alcohol/Substance Use Hx Alcohol Use: No Home Medications - Allergies Allergies/Adverse Reactions: Allergies Allergy/AdvReac Type Severity Reaction Status Date / Time No Known Allergies Allergy Verified 03/11/18 20:09 - Home Medications Home Medications: Ambulatory Orders Albuterol 0.083% Nebulizer Chuyita [Ventolin 0.083% Nebulizer Soln -] 1 amp NEB Q4H PRN #30 amp MDD 4 09/21/17 Memantine HCl [Namenda -] 10 mg PO DAILY@0800 #30 tablet MDD 1 09/21/17 Brimonidine Tartrate/Timolol [Combigan 0.2%-0.5% Eye Drops] 5 ml OP DAILY Exenatide Microspheres [Bydureon Pen] 2 mg SQ WEEKLY 11/27/17 Methimazole [Tapazole -] 10 mg PO DAILY MDD 2 11/27/17 Pantoprazole Sodium [Protonix] 40 mg PO DAILY 11/27/17 Atorvastatin Ca [Lipitor] 20 mg PO HS #30 tablet 12/03/17 Furosemide [Lasix -] 40 mg PO DAILY #30 tablet 12/03/17 Rivaroxaban [Xarelto -] 20 mg PO DAILY@2000 #30 tablet 12/03/17 Amlodipine Besylate [Norvasc -] 10 mg PO DAILY 03/11/18 Aspirin Coated [Ecotrin -] 81 mg PO DAILY 03/11/18 Digoxin 125 mcg PO DAILY 03/11/18 Insulin Glargine,Hum.rec.anlog [Lantus Solostar PEN (NF)] 40 units SQ HS Metolazone [Zaroxolyn -] 2.5 mg PO DAILY 03/11/18 Metoprolol Succinate [Toprol XL -] 100 mg PO DAILY 03/11/18 Omeprazole Magnesium [Acid Carrot Buncher] 40 mg PO DAILY 03/11/18 Ondansetron HCl [Zofran] 4 mg PO TID PRN 03/11/18 Tramadol HCl/Acetaminophen [Tramadol-Acetaminophn 37.5-325] 1 each PO QID PRN Physical Examination Vital Signs: Vital Signs Temperature 98.0 F 03/11/18 13:20 Pulse Rate 88 03/11/18 13:20 Respiratory Rate 16 03/11/18 13:20 Blood Pressure 94/54 L 03/11/18 13:20 O2 Sat by Pulse Oximetry (%) 96 03/11/18 13:20 Constitutional: Yes: No Distress HENT: Yes: Atraumatic Neck: Yes: Supple Cardiovascular: Yes: Regular Rate and Rhythm Respiratory: Yes: CTA Bilaterally Gastrointestinal: Yes: Normal Bowel Sounds Extremities: Yes: WNL Edema: No Peripheral Pulses WNL: Yes Neurological: Yes: Alert, Oriented Labs: CBC, BMP 03/11/18 16:30 03/11/18 16:30 Problem List - Problems (1) Chest pain Assessment/Plan: tele monitoring fu cardiac enzymes on xeralto Code(s): R07.9 - CHEST PAIN, UNSPECIFIED (2) Diabetes Assessment/Plan: insulin bgms...monitor Code(s): E11.9 - TYPE 2 DIABETES MELLITUS WITHOUT COMPLICATIONS Qualifiers: Diabetes mellitus type: type 2 (3) Epigastric pain Code(s): R10.13 - EPIGASTRIC PAIN (4) HLD (hyperlipidemia) Assessment/Plan: on meds Code(s): E78.5 - HYPERLIPIDEMIA, UNSPECIFIED (5) Hyperthyroidism Code(s): E05.90 - THYROTOXICOSIS, UNSP WITHOUT THYROTOXIC CRISIS OR STORM (6) Obesity Code(s): E66.9 - OBESITY, UNSPECIFIED Assessment/Plan Laboratory Tests 03/11/18 03/11/18 03/11/18 16:30 16:30 16:30 WBC 8.9 RBC 5.14 Hgb 14.1 Hct 41.1 MCV 79.9 L MCH 27.4 MCHC 34.2 RDW 16.2 H Plt Count 249 D MPV 8.6 Absolute Neuts (auto) 5.8 Neutrophils % 65.5 Lymphocytes % 23.5 Monocytes % 8.4 Eosinophils % 1.6 Basophils % 1.0 Nucleated RBC % 0 PT with INR 12.70 INR 1.08 Sodium 130 L Potassium 3.8 Chloride 89 L Carbon Dioxide 31 Anion Gap 11 BUN 57 H Creatinine 2.2 H Creat Clearance w eGFR 21.32 POC Glucometer Random Glucose 221 H Lactic Acid Calcium 9.4 Magnesium 2.3 Total Bilirubin 1.3 H AST 37 ALT 26 Alkaline Phosphatase 133 H Creatine Kinase Troponin I 0.19 H Total Protein 6.6 Albumin 3.2 L Lipase 125 Urine Color Urine Appearance Urine pH Ur Specific [place] Urine Protein Urine Glucose (UA) Urine Ketones Urine Blood Urine Nitrite Urine Bilirubin Urine Urobilinogen Ur Leukocyte Esterase Urine WBC (Auto) Urine RBC (Auto) Ur Epithelial Cells Urine Bacteria Hyaline Casts Urine Yeast 03/11/18 03/11/18 03/11/18 16:37 18:57 18:57 WBC RBC Hgb Hct MCV MCH MCHC RDW Plt Count MPV Absolute Neuts (auto) Neutrophils % Lymphocytes % Monocytes % Eosinophils % Basophils % Nucleated RBC % PT with INR INR Sodium Potassium Chloride Carbon Dioxide Anion Gap BUN Creatinine Creat Clearance w eGFR POC Glucometer Random Glucose Lactic Acid 2.1 H 2.2 H* Calcium Magnesium Total Bilirubin AST ALT Alkaline Phosphatase Creatine Kinase 56 Troponin I 0.20 H Total Protein Albumin Lipase Urine Color Urine Appearance Urine pH Ur Specific [place] Urine Protein Urine Glucose (UA) Urine Ketones Urine Blood Urine Nitrite Urine Bilirubin Urine Urobilinogen Ur Leukocyte Esterase Urine WBC (Auto) Urine RBC (Auto) Ur Epithelial Cells Urine Bacteria Hyaline Casts Urine Yeast 03/11/18 03/12/18 03/12/18 19:14 05:12 05:12 WBC 8.2 RBC 4.87 Hgb 12.6 Hct 39.9 MCV 82.1 MCH 26.0 MCHC 31.6 L RDW 16.6 H Plt Count 215 MPV 7.7 D Absolute Neuts (auto) 4.3 Neutrophils % 52.2 D Lymphocytes % 33.0 D Monocytes % 9.1 Eosinophils % 4.8 H D Basophils % 0.9 Nucleated RBC % 0 PT with INR INR Sodium 136 Potassium 3.6 Chloride 95 L Carbon Dioxide 32 Anion Gap 8 BUN 48 H Creatinine 1.7 H Creat Clearance w eGFR 28.70 POC Glucometer Random Glucose 61 L Lactic Acid Calcium 8.9 Magnesium Total Bilirubin 1.0 AST 24 ALT 22 Alkaline Phosphatase 124 H Creatine Kinase 56 Troponin I 0.15 H Total Protein 6.1 L Albumin 3.0 L Lipase Urine Color Ltyellow Urine Appearance Clear Urine pH 7.0 D Ur Specific [place] 1.009 L Urine Protein Negative Urine Glucose (UA) 2+ H Urine Ketones Negative Urine Blood Negative Urine Nitrite Negative Urine Bilirubin Negative Urine Urobilinogen Negative Ur Leukocyte Esterase Trace Urine WBC (Auto) 15 Urine RBC (Auto) 6 Ur Epithelial Cells Rare Urine Bacteria Rare Hyaline Casts 1 Urine Yeast Many 03/12/18 11:06 WBC RBC Hgb Hct MCV MCH MCHC RDW Plt Count MPV Absolute Neuts (auto) Neutrophils % Lymphocytes % Monocytes % Eosinophils % Basophils % Nucleated RBC % PT with INR INR Sodium Potassium Chloride Carbon Dioxide Anion Gap BUN Creatinine Creat Clearance w eGFR POC Glucometer [id number] Random Glucose Lactic Acid Calcium Magnesium Total Bilirubin AST ALT Alkaline Phosphatase Creatine Kinase Troponin I Total Protein Albumin Lipase Urine Color Urine Appearance Urine pH Ur Specific [place] Urine Protein Urine Glucose (UA) Urine Ketones Urine Blood Urine Nitrite Urine Bilirubin Urine Urobilinogen Ur Leukocyte Esterase Urine WBC (Auto) Urine RBC (Auto) Ur Epithelial Cells Urine Bacteria Hyaline Casts Urine Yeast Active Medications Generic Name Dose Route Start Last Admin Trade Name Gail PRN Reason Stop Dose Admin Acetaminophen 650 mg 03/11/18 21:44 Tylenol - PO Q6H PRN FEVER Amlodipine Besylate 10 mg 03/12/18 10:00 03/12/18 15:44 Norvasc - PO 10 mg DAILY NOLBERTO Administration Apixaban 2.5 mg 03/12/18 22:00 Eliquis - PO BID NOLBERTO Atorvastatin Calcium 20 mg 03/11/18 22:00 03/11/18 22:38 Lipitor - PO 20 mg HS NOLBERTO Administration Brimonidine Tartrate 1 drop 03/12/18 10:00 03/12/18 15:44 Alphagan 0.2% - OU Not Given DAILY NOLBERTO Sodium Chloride 1,000 mls @ 75 mls/hr 03/11/18 20:15 03/11/18 20:52 Normal Saline - IV 75 mls/hr ASDIR NOLBERTO Administration Influenza Virus Vaccine Quadrival 60 mcg 03/12/18 16:12 Flulaval Quad [id number] IM 03/12/18 16:13 .ONCE ONE Insulin Detemir 40 units 03/11/18 22:00 03/11/18 22:37 Levemir Vial SQ 40 unit HS NOLBERTO Administration Losartan Potassium 25 mg 03/12/18 13:00 03/12/18 15:43 Cozaar - PO 25 mg DAILY NOLBERTO Administration Memantine 10 mg 03/12/18 08:00 03/12/18 15:44 Namenda - PO 10 mg DAILY@0800 NOLBERTO Administration Methimazole 10 mg 03/12/18 10:00 03/12/18 15:44 Tapazole - PO 10 mg DAILY NOLBERTO Administration Metoprolol Succinate 100 mg 03/12/18 10:00 03/12/18 15:44 Toprol Xl - PO 100 mg DAILY NOLBERTO Administration Pantoprazole Sodium 40 mg 03/12/18 10:00 03/12/18 15:43 Protonix Iv IVPUSH 40 mg DAILY [facility] Administration Timolol Maleate 1 drop 03/12/18 10:00 03/12/18 15:44 Timoptic 0.5% OU Not Given DAILY [facility]
[2018-03-11 20:02] LABS: URINE APPEARANCE CLEAR; URINE BILIRUBIN NEGATIVE (<2.0 mg/dL); URINE COLOR LTYELLOW; URINE GLUCOSE (UA) 2+ (NEGATIVE); URINE KETONE NEGATIVE (NEGATIVE); URINE LEUK ESTERASE TRACE (NEGATIVE); URINE NITRITE NEGATIVE (NEGATIVE); URINE PROTEIN NEGATIVE (NEGATIVE); URINE UROBILINOGEN NEGATIVE mg/dL (0.2-1.0)
[2018-03-11] MEDS ORDERED: SODIUM CHLORIDE 1,000 ML IV SCH (20:15)
[2018-03-11 20:16] LABS: EPI CELLS RARE /HPF (FEW); URINE BACTERIA RARE /hpf (NONE SEEN); URINE HYALINE CAST 1 /lpf; YEAST MANY
[2018-03-11] MEDS ORDERED: ACETAMINOPHEN 325 MG TABLET (FP) PO PRN (21:44)
[2018-03-11] MEDS ORDERED: INSULIN (LEVEMIR) 100 UNITS/ML UNITS SQ SCH (22:00)
[2018-03-11] MEDS ORDERED: ATORVASTATIN CA 10 MG TABLET (FP) ONE (22:29)
[2018-03-11] MEDS ORDERED: INSULIN (LEVEMIR) 100 UNITS/ML UNITS SQ ONE (22:31)
[2018-03-11] MEDS: ATORVASTATIN CA 20 MG TABLET (FP) PO SCH (22:38)
[2018-03-12 05:35] LABS: BASO % 0.9 % (0-2.0); EOS % 4.8 % (0-4.5); HEMATOCRIT 39.9 % (32.4-45.2); HEMOGLOBIN 12.6 GM/dL (10.7-15.3); MCHC 31.6 g/dl (32.0-36.0); MEAN CELL VOLUME 82.1 fl (80-96); MEAN PLT VOLUME 7.7 fl (7.5-11.1); MONO % 9.1 % (3.8-10.2); NEUT % 52.2 % (42.8-82.8); PLATELET COUNT 215 K/MM3 (134-434); RBC 4.87 M/mm3 (3.60-5.2); RDW 16.6 % (11.6-15.6); WHITE BLOOD COUNT 8.2 K/mm3 (4.0-10.0)
[2018-03-12 06:03] LABS: ALK PHOS 124 U/L (45-117); ANION GAP 8 MMOL/L (8-16); BLOOD UREA NITROGEN 48 mg/dL (7-18); CALCIUM 8.9 mg/dL (8.5-10.1); CHLORIDE 95 mmol/L (98-107); CO2 32 mmol/L (21-32); CREATININE 1.7 mg/dL (0.55-1.3); GLUCOSE,RANDOM 61 mg/dL (74-106); POTASSIUM 3.6 mmol/L (3.5-5.1); SGOT/AST 24 U/L (15-37); SGPT/ALT 22 U/L (13-61); SODIUM 136 mmol/L (136-145); TOT PROT 6.1 g/dl (6.4-8.2)
[2018-03-12] MEDS ORDERED: DEXTROSE 50%-WATER 25 GM/50 ML DISP.SYRIN ONE (08:08)
[2018-03-12] MEDS ORDERED: METOLAZONE 2.5 MG TABLET (FP) PO SCH (10:00)
[2018-03-12] MEDS ORDERED: PATIENT'S OWN MEDICATION (NON-FORMULARY) (Brimonidine Tartrate/Timolol [Combigan 0.2%-0.5% OP SCH (10:00)
[2018-03-12] MEDS ORDERED: DIGOXIN 0.125 MG TABLET (FP) PO SCH (10:00)
[2018-03-12] MEDS ORDERED: ASPIRIN COATED 81 MG TABLET.EC PO SCH (10:00)
[2018-03-12] MEDS ORDERED: amLODIPine BESYLATE 10 MG TABLET (FP) PO SCH (10:00)
[2018-03-12] MEDS ORDERED: FUROSEMIDE 40 MG TABLET (FP) PO SCH (10:00)
[2018-03-12] MEDS ORDERED: PANTOPRAZOLE 40 MG TABLET (FP) PO SCH (10:00)
--- NOTE | 2018-03-12 12:35 | EKG ---
Test Reason : Blood Pressure : / mmHG Vent. Rate : 056 BPM Atrial Rate : 249 BPM P-R Int : 000 ms QRS Dur : 086 ms QT Int : 408 ms P-R-T Axes : 085 -28 078 degrees QTc Int : 393 ms ATRIAL FLUTTER WITH VARIABLE A-V BLOCK INFERIOR INFARCT (CITED ON OR BEFORE 27-NOV-2017) ANTEROSEPTAL INFARCT (CITED ON OR BEFORE 08-JUN-2017) ABNORMAL ECG Confirmed by MD CHRISTINA, HERMAN ([id number]) on 03/12/2018 12:34:38 PM Referred By: Confirmed By:HERMAN VASQUEZ MD
--- NOTE | 2018-03-12 12:40 | CON.CARD ---
Consult Consult Specialty:: Cardiology Referred by:: Dr. Cunningham Reason for Consultation:: Cardiac evaluation - History of Present Illness Chief Complaint: Chest pain and abdominal discomfort History of Present Illness: Patient is an 83 year old female of descent with underlying history of type 2 DM, HTN, hypercholesterolemia, bronchial asthma/COPD, atrial fibrillation /flutter on NOAC and hyperthyroidism on treatment who presents with left upper abdominal discomfort and sharp chest discomfort across her sternum. She also complained of nausea. She suffers from constipation. She denies shortness of breath or palpitations. She denies paroxysmal nocturnal dyspnea or orthopnea. She denies fever or chills. She denies headache or lightheadedness. She denies diarrhea or vomiting. - History Source History Provided By: Patient, Medical Record Limitations to Obtaining History: Language Barrier - Past Medical History Cardio/Vascular: Yes: AFIB, HTN, Hyperlipdemia Pulmonary: Yes: COPD Endocrine: Yes: Diabetes Mellitus, Hyperthyroidism - Alcohol/Substance Use Hx Alcohol Use: No - Smoking History Smoking history: Unknown if ever smoked Have you smoked in the past 12 months: No Aproximately how many cigarettes per day: 0 If you are a former smoker, when did you quit?: 60years ago Home Medications - Allergies Allergies/Adverse Reactions: Allergies Allergy/AdvReac Type Severity Reaction Status Date / Time No Known Allergies Allergy Verified 03/11/18 20:09 - Home Medications Home Medications: Ambulatory Orders Albuterol 0.083% Nebulizer Chuyita [Ventolin 0.083% Nebulizer Soln -] 1 amp NEB Q4H PRN #30 amp MDD 4 09/21/17 Memantine HCl [Namenda -] 10 mg PO DAILY@0800 #30 tablet MDD 1 09/21/17 Brimonidine Tartrate/Timolol [Combigan 0.2%-0.5% Eye Drops] 5 ml OP DAILY Exenatide Microspheres [Bydureon Pen] 2 mg SQ WEEKLY 11/27/17 Methimazole [Tapazole -] 10 mg PO DAILY MDD 2 11/27/17 Pantoprazole Sodium [Protonix] 40 mg PO DAILY 11/27/17 Atorvastatin Ca [Lipitor] 20 mg PO HS #30 tablet 12/03/17 Furosemide [Lasix -] 40 mg PO DAILY #30 tablet 12/03/17 Rivaroxaban [Xarelto -] 20 mg PO DAILY@1999 #30 tablet 12/03/17 Amlodipine Besylate [Norvasc -] 10 mg PO DAILY 03/11/18 Aspirin Coated [Ecotrin -] 81 mg PO DAILY 03/11/18 Digoxin 125 mcg PO DAILY 03/11/18 Insulin Glargine,Hum.rec.anlog [Lantus Solostar PEN (NF)] 40 units SQ HS Metolazone [Zaroxolyn -] 2.5 mg PO DAILY 03/11/18 Metoprolol Succinate [Toprol XL -] 100 mg PO DAILY 03/11/18 Omeprazole Magnesium [Acid Securities Adviser] 40 mg PO DAILY 03/11/18 Ondansetron HCl [Zofran] 4 mg PO TID PRN 03/11/18 Tramadol HCl/Acetaminophen [Tramadol-Acetaminophn 37.5-325] 1 each PO QID PRN Review of Systems - Review of Systems Constitutional: denies: Chills, Fever Cardiovascular: reports: Chest Pain. denies: Palpitations, Shortness of Breath Respiratory: denies: Cough, Hemoptysis, Orthopnea, PND, SOB, SOB on Exertion Gastrointestinal: reports: Abdominal Pain, Constipation, Nausea. denies: Diarrhea, Melena, Rectal Bleeding, Vomiting Genitourinary: denies: Dysuria, Hematuria Neurological: denies: Dizziness, Headache Vital Signs: Vital Signs Temperature 97.4 F L 03/12/18 12:01 Pulse Rate 69 03/12/18 12:01 Respiratory Rate 18 03/12/18 12:01 Blood Pressure 115/56 L 03/12/18 12:01 O2 Sat by Pulse Oximetry (%) 100 03/12/18 07:45 HENT: Yes: Atraumatic Neck: Yes: Supple Respiratory: Yes: CTA Bilaterally Gastrointestinal: Yes: Normal Bowel Sounds, Soft. No: Tenderness Cardiovascular: Yes: Regular Rate and Rhythm JVD: No Carotid Bruit: No PMI: Non-Displaced Heart Sounds: Yes: S1, S2. No: Gallop Edema: No - Other Data Labs, Other Data: CBC, BMP 03/12/18 05:12 03/12/18 05:12 INR, PTT INR 1.08 (0.83-1.09) 03/11/18 16:30 Troponin, BNP 03/11/18 03/11/18 03/12/18 16:30 18:57 05:12 Troponin I 0.19 H 0.20 H 0.15 H Laboratory Results - last 24 hr 03/11/18 03/11/18 03/11/18 16:30 16:30 16:30 WBC 8.9 RBC 5.14 Hgb 14.1 Hct 41.1 MCV 79.9 L MCH 27.4 MCHC 34.2 RDW 16.2 H Plt Count 249 D MPV 8.6 Absolute Neuts (auto) 5.8 Neutrophils % 65.5 Lymphocytes % 23.5 Monocytes % 8.4 Eosinophils % 1.6 Basophils % 1.0 Nucleated RBC % 0 PT with INR 12.70 INR 1.08 Sodium 130 L Potassium 3.8 Chloride 89 L Carbon Dioxide 31 Anion Gap 11 BUN 57 H Creatinine 2.2 H Creat Clearance w eGFR 21.32 POC Glucometer Random Glucose 221 H Lactic Acid Calcium 9.4 Magnesium 2.3 Total Bilirubin 1.3 H AST 37 ALT 26 Alkaline Phosphatase 133 H Creatine Kinase Troponin I 0.19 H Total Protein 6.6 Albumin 3.2 L Lipase 125 Urine Color Urine Appearance Urine pH Ur Specific [place] Urine Protein Urine Glucose (UA) Urine Ketones Urine Blood Urine Nitrite Urine Bilirubin Urine Urobilinogen Ur Leukocyte Esterase Urine WBC (Auto) Urine RBC (Auto) Ur Epithelial Cells Urine Bacteria Hyaline Casts Urine Yeast 03/11/18 03/11/18 03/11/18 16:37 18:57 18:57 WBC RBC Hgb Hct MCV MCH MCHC RDW Plt Count MPV Absolute Neuts (auto) Neutrophils % Lymphocytes % Monocytes % Eosinophils % Basophils % Nucleated RBC % PT with INR INR Sodium Potassium Chloride Carbon Dioxide Anion Gap BUN Creatinine Creat Clearance w eGFR POC Glucometer Random Glucose Lactic Acid 2.1 H 2.2 H* Calcium Magnesium Total Bilirubin AST ALT Alkaline Phosphatase Creatine Kinase 56 Troponin I 0.20 H Total Protein Albumin Lipase Urine Color Urine Appearance Urine pH Ur Specific [place] Urine Protein Urine Glucose (UA) Urine Ketones Urine Blood Urine Nitrite Urine Bilirubin Urine Urobilinogen Ur Leukocyte Esterase Urine WBC (Auto) Urine RBC (Auto) Ur Epithelial Cells Urine Bacteria Hyaline Casts Urine Yeast 03/11/18 03/12/18 03/12/18 19:14 05:12 05:12 WBC 8.2 RBC 4.87 Hgb 12.6 Hct 39.9 MCV 82.1 MCH 26.0 MCHC 31.6 L RDW 16.6 H Plt Count 215 MPV 7.7 D Absolute Neuts (auto) 4.3 Neutrophils % 52.2 D Lymphocytes % 33.0 D Monocytes % 9.1 Eosinophils % 4.8 H D Basophils % 0.9 Nucleated RBC % 0 PT with INR INR Sodium 136 Potassium 3.6 Chloride 95 L Carbon Dioxide 32 Anion Gap 8 BUN 48 H Creatinine 1.7 H Creat Clearance w eGFR 28.70 POC Glucometer Random Glucose 61 L Lactic Acid Calcium 8.9 Magnesium Total Bilirubin 1.0 AST 24 ALT 22 Alkaline Phosphatase 124 H Creatine Kinase 56 Troponin I 0.15 H Total Protein 6.1 L Albumin 3.0 L Lipase Urine Color Ltyellow Urine Appearance Clear Urine pH 7.0 D Ur Specific [place] 1.009 L Urine Protein Negative Urine Glucose (UA) 2+ H Urine Ketones Negative Urine Blood Negative Urine Nitrite Negative Urine Bilirubin Negative Urine Urobilinogen Negative Ur Leukocyte Esterase Trace Urine WBC (Auto) 15 Urine RBC (Auto) 6 Ur Epithelial Cells Rare Urine Bacteria Rare Hyaline Casts 1 Urine Yeast Many Atrial flutter with variable block, possible inferior and anteroseptal infarct Echo: Pending Imaging - Results Chest X-ray: Report Reviewed (Large heart) Ultrasound: Report Reviewed (renal calculus, cholelithiasis with distension) EKG: Report Reviewed (Atrial flutter) Problem List - Problems (1) HTN (hypertension) Code(s): I10 - ESSENTIAL (PRIMARY) HYPERTENSION (2) CKD (chronic kidney disease) Code(s): N18.9 - CHRONIC KIDNEY DISEASE, UNSPECIFIED (3) Chest pain Code(s): R07.9 - CHEST PAIN, UNSPECIFIED (4) LUQ abdominal pain Code(s): R10.12 - LEFT UPPER QUADRANT PAIN (5) Atrial flutter Code(s): I48.92 - UNSPECIFIED ATRIAL FLUTTER (6) Diabetes Code(s): E11.9 - TYPE 2 DIABETES MELLITUS WITHOUT COMPLICATIONS Qualifiers: Diabetes mellitus type: type 2 (7) HLD (hyperlipidemia) Code(s): E78.5 - HYPERLIPIDEMIA, UNSPECIFIED (8) Hyperthyroidism Code(s): E05.90 - THYROTOXICOSIS, UNSP WITHOUT THYROTOXIC CRISIS OR STORM Assessment/Plan 1. Chest pain syndrome with mild elevation of troponin likely due to demand ischemia, rule out CAD 2. Atrial fibrillation/flutter [id number] score likely 6 on NOAC 3. CKD 4. HTN 5. Type 2 DM 6. Hypercholesterolemia 7. History of hyperthyroidism on therapy 8. Cholelithiasis 9. Nephrolithiasis PLAN: 1. Trend troponin 2. Change Xarelto to Eliquis 2.5 mg BID (age > 80 and Cr >1.5) 3. Discontinue ASA 4. Discontinue Digoxin 5. Continue Metoprolol ER 6. Add ACEI or ARB 7. May continue Amlodiopine 8. Continue Statin and check lipid panel 9. Echocardiography to assess LV/RV and valvular function 10. Further cardiac work up to be followed and will need to assess duration of AF and to determine whether to just rate control or to employ rhythm control Further plans are to follow Gautam Esparza MD
--- NOTE | 2018-03-12 14:20 | CONSULT ---
Consult Consult Specialty:: Nephrology Reason for Consultation:: ROSELINE - History of Present Illness Chief Complaint: abdominal pain History of Present Illness: Pt is an 83 year old female with pmhx of DM, HTN, COPD, HLD, asthma and hypothryroidism who presents to the ER with abdominal pain. She was found to be in renal failure and I was called to evaluate her. She denies shortness of breath. She complains and nausea and decreased appetite for the last 3 or 4 days. She denies vomiting or diarrhea. She denies nsaid use and says she only takes the meds that are prescribed. She does complain of constipation. She denies hematuria or dysuria. - History Source History Provided By: Patient, Medical Record - Past Medical History Cardio/Vascular: Yes: AFIB, HTN, Hyperlipdemia Pulmonary: Yes: COPD Endocrine: Yes: Diabetes Mellitus, Hyperthyroidism - Alcohol/Substance Use Hx Alcohol Use: No - Smoking History Smoking history: Unknown if ever smoked Have you smoked in the past 12 months: No Aproximately how many cigarettes per day: 0 If you are a former smoker, when did you quit?: 60years ago Home Medications - Allergies Allergies/Adverse Reactions: Allergies Allergy/AdvReac Type Severity Reaction Status Date / Time No Known Allergies Allergy Verified 03/11/18 20:09 - Home Medications Home Medications: Ambulatory Orders Albuterol 0.083% Nebulizer Chuyita [Ventolin 0.083% Nebulizer Soln -] 1 amp NEB Q4H PRN #30 amp MDD 4 09/21/17 Memantine HCl [Namenda -] 10 mg PO DAILY@0800 #30 tablet MDD 1 09/21/17 Brimonidine Tartrate/Timolol [Combigan 0.2%-0.5% Eye Drops] 5 ml OP DAILY Exenatide Microspheres [Bydureon Pen] 2 mg SQ WEEKLY 11/27/17 Methimazole [Tapazole -] 10 mg PO DAILY MDD 2 11/27/17 Pantoprazole Sodium [Protonix] 40 mg PO DAILY 11/27/17 Atorvastatin Ca [Lipitor] 20 mg PO HS #30 tablet 12/03/17 Furosemide [Lasix -] 40 mg PO DAILY #30 tablet 12/03/17 Rivaroxaban [Xarelto -] 20 mg PO DAILY@2000 #30 tablet 12/03/17 Amlodipine Besylate [Norvasc -] 10 mg PO DAILY 03/11/18 Aspirin Coated [Ecotrin -] 81 mg PO DAILY 03/11/18 Digoxin 125 mcg PO DAILY 03/11/18 Insulin Glargine,Hum.rec.anlog [Lantus Solostar PEN (NF)] 40 units SQ HS Metolazone [Zaroxolyn -] 2.5 mg PO DAILY 03/11/18 Metoprolol Succinate [Toprol XL -] 100 mg PO DAILY 03/11/18 Omeprazole Magnesium [Acid Railway Switchman] 40 mg PO DAILY 03/11/18 Ondansetron HCl [Zofran] 4 mg PO TID PRN 03/11/18 Tramadol HCl/Acetaminophen [Tramadol-Acetaminophn 37.5-325] 1 each PO QID PRN Family Disease History - Family Disease History Family History: Denies Review of Systems - Review of Systems Constitutional: reports: Malaise. denies: Chills, Fever Eyes: reports: No Symptoms HENT: reports: No Symptoms Neck: reports: No Symptoms Cardiovascular: reports: No Symptoms Respiratory: reports: No Symptoms Gastrointestinal: reports: Abdominal Pain, Nausea. denies: Vomiting Genitourinary: reports: No Symptoms Musculoskeletal: reports: No Symptoms Integumentary: reports: No Symptoms Neurological: reports: No Symptoms Endocrine: reports: No Symptoms Hematology/Lymphatic: reports: No Symptoms Psychiatric: reports: No Symptoms Physical Exam Vital Signs: Vital Signs Temperature 97.4 F L 03/12/18 12:01 Pulse Rate 69 03/12/18 12:01 Respiratory Rate 18 03/12/18 12:01 Blood Pressure 115/56 L 03/12/18 12:01 O2 Sat by Pulse Oximetry (%) 100 03/12/18 07:45 Constitutional: Yes: Calm Eyes: Yes: Conjunctiva Clear HENT: Yes: Atraumatic Cardiovascular: Yes: S1, S2 Respiratory: Yes: CTA Bilaterally Gastrointestinal: Yes: Normal Bowel Sounds, Soft, Abdomen, Obese Renal/: Yes: WNL Musculoskeletal: Yes: WNL Edema: No Neurological: Yes: Oriented Psychiatric: Yes: Oriented Labs: CBC, BMP 03/12/18 05:12 03/12/18 05:12 Laboratory Tests 11/30/17 12/02/1718 07:30 07:00 06:30 Sodium Potassium Creatinine 1.0 1.0 0.9 Urine Protein Urine Glucose (UA) Urine Blood 02/27/18 03/11/18 03/11/18 08:20 16:30 19:14 Sodium Potassium Creatinine 1.1 2.2 H Urine Protein Negative Urine Glucose (UA) 2+ H Urine Blood Negative 03/12/18 05:12 Sodium 136 Potassium 3.6 Creatinine 1.7 H Urine Protein Urine Glucose (UA) Urine Blood Imaging - Results Chest X-ray: Report Reviewed Problem List - Problems (1) ROSELINE (acute kidney injury) Code(s): N17.9 - ACUTE KIDNEY FAILURE, UNSPECIFIED (2) Atrial flutter Code(s): I48.92 - UNSPECIFIED ATRIAL FLUTTER (3) Diabetes Code(s): E11.9 - TYPE 2 DIABETES MELLITUS WITHOUT COMPLICATIONS Qualifiers: Diabetes mellitus type: type 2 (4) HLD (hyperlipidemia) Code(s): E78.5 - HYPERLIPIDEMIA, UNSPECIFIED Assessment/Plan Current Medications Generic Name Dose Route Start Last Admin Trade Name Freq PRN Reason Stop Dose Admin Acetaminophen 650 mg 03/11/18 21:44 Tylenol - PO Q6H PRN FEVER Amlodipine Besylate 10 mg 03/12/18 10:00 Norvasc - PO DAILY [facility] Apixaban 2.5 mg 03/12/18 22:00 Eliquis - PO BID NOLBERTO Atorvastatin Calcium 20 mg 03/11/18 22:00 03/11/18 22:38 Lipitor - PO 20 mg HS NOLBERTO Administration Brimonidine Tartrate 1 drop 03/12/18 10:00 Alphagan 0.2% - OU DAILY NOLBERTO Sodium Chloride 1,000 mls @ 75 mls/hr 03/11/18 20:15 03/11/18 20:52 Normal Saline - IV 75 mls/hr ASDIR NOLBERTO Administration Insulin Detemir 40 units 03/11/18 22:00 03/11/18 22:37 Levemir Vial SQ 40 unit HS NOLBERTO Administration Losartan Potassium 25 mg 03/12/18 13:00 Cozaar - PO DAILY NOLBERTO Memantine 10 mg 03/12/18 08:00 Namenda - PO DAILY@0800 NOLBERTO Methimazole 10 mg 03/12/18 10:00 Tapazole - PO DAILY [facility] Metoprolol Succinate 100 mg 03/12/18 10:00 Toprol Xl - PO DAILY [facility] Pantoprazole Sodium 40 mg 03/12/18 10:00 Protonix Iv IVPUSH DAILY [facility] Timolol Maleate 1 drop 03/12/18 10:00 Timoptic 0.5% OU DAILY [facility] Impression 1. ROSELINE 2. nausea 3. DM 4. HTN 5. obesity 6. asthma 7. hypothyroidism 8. hyponatremia Plan - renal function is improving - sodium improving - cont fluids - repeat labs in am - check ua - kidney unremarkable on ultrasound - will follow Dr Joe
--- NOTE | 2018-03-12 14:23 | CON.GI ---
Consult - History of Present Illness History of Present Illness: Mrs. Thomas is an 83 year old female with a past medical history of DM, HTN, HLD, atrial fibrillation, COPD, asthma, hypothyroidism, who presented to my office with complaints of epigastric pain , nausea and vomiting. She had multiple episodes of vomiting and dry heaves at that time. As per the daughter she has been intermittently suffering from these symptoms. She was hospitalized earlier this month at which time she had a CT abdomen which revealed cholelithiasis and a distended GB. She was sent to the hospital for further evaluation and care. - History Source History Provided By: Patient, Family Member Limitations to Obtaining History: No Limitations - Past Medical History Cardio/Vascular: Yes: AFIB, HTN, Hyperlipdemia Pulmonary: Yes: COPD Heme/Onc: No: Anemia, B12 Deficiency, Bleeding Disorder, Cancer, Current Chemotherapy, Current Radiation Therapy, Hemochromatosis, Hypercoaguable State, Myeloproliferative Synd, Sickle Cell Disease, Sickle Cell Trait, Thrombocytopenia, Other Infectious Disease: No: AIDS, C-Diff, Herpes Zoster, HIV, MRSA, STD's, Tuberculosis, VREF, Other Psych: No: Addictions, Anxiety, Bipolar, Depression, Panic, Psychosis, Schizophrenia, Other Musculoskeletal: No: Bursitis, Chronic low back pain, Hemiparesis, Hemiplegia, Osteoarthritis, Paraplegia, Other Rheumatology: No: Fibromyalgia, Gout, Lupus, Rheumatoid Arthritis, Sarcoidosis, Vasculitis, Other ENT: No: Allergic Rhinitis, Sinusitis, Other Endocrine: Yes: Diabetes Mellitus, Hyperthyroidism. No: Gerhard's Disease, Catrachita's Disease, Diabetes Insipidus, Hyperparathyroidism, Hypothyroidism, Osteopenia, SIADH, Other Dermatology: No: Basal Cell, Cellulitis, Eczema, Melanoma, Psoriasis, Squamous Cell, Other - Alcohol/Substance Use Hx Alcohol Use: No - Smoking History Smoking history: Unknown if ever smoked Have you smoked in the past 12 months: No Aproximately how many cigarettes per day: 0 If you are a former smoker, when did you quit?: 60years ago - Social History Usual Living Arrangement: Other Home Medications - Allergies Allergies/Adverse Reactions: Allergies Allergy/AdvReac Type Severity Reaction Status Date / Time No Known Allergies Allergy Verified 03/11/18 20:09 - Home Medications Home Medications: Ambulatory Orders Albuterol 0.083% Nebulizer Chuyita [Ventolin 0.083% Nebulizer Soln -] 1 amp NEB Q4H PRN #30 amp MDD 4 09/21/17 Memantine HCl [Namenda -] 10 mg PO DAILY@0800 #30 tablet MDD 1 09/21/17 Brimonidine Tartrate/Timolol [Combigan 0.2%-0.5% Eye Drops] 5 ml OP DAILY Exenatide Microspheres [Bydureon Pen] 2 mg SQ WEEKLY 11/27/17 Methimazole [Tapazole -] 10 mg PO DAILY MDD 2 11/27/17 Pantoprazole Sodium [Protonix] 40 mg PO DAILY 11/27/17 Atorvastatin Ca [Lipitor] 20 mg PO HS #30 tablet 12/03/17 Furosemide [Lasix -] 40 mg PO DAILY #30 tablet 12/03/17 Rivaroxaban [Xarelto -] 20 mg PO DAILY@2000 #30 tablet 12/03/17 Insulin Glargine,Hum.rec.anlog [Lantus Solostar PEN -] 40 units SQ HS 03/11/18 Metoprolol Succinate [Toprol XL -] 100 mg PO DAILY 03/11/18 Omeprazole Magnesium [Acid Grain Mixer] 40 mg PO DAILY 03/11/18 Ondansetron HCl [Zofran] 4 mg PO TID PRN 03/11/18 Family Disease History - Family Disease History Family History: Unremarkable Review of Systems - Review of Systems Constitutional: reports: Chills Eyes: reports: No Symptoms HENT: reports: No Symptoms Neck: reports: No Symptoms Cardiovascular: reports: No Symptoms Respiratory: reports: No Symptoms Gastrointestinal: reports: Other (see HPI) Genitourinary: reports: No Symptoms Breasts: reports: No Symptoms Reported Musculoskeletal: reports: No Symptoms Integumentary: reports: No Symptoms Neurological: reports: No Symptoms Endocrine: reports: No Symptoms Hematology/Lymphatic: reports: No Symptoms Psychiatric: reports: No Symptoms Physical Exam-GI Vital Signs: Vital Signs Temperature 97.4 F L 03/12/18 12:01 Pulse Rate 69 03/12/18 12:01 Respiratory Rate 18 03/12/18 12:01 Blood Pressure 115/56 L 03/12/18 12:01 O2 Sat by Pulse Oximetry (%) 100 03/12/18 07:45 Constitutional: Yes: No Distress, Calm Eyes: Yes: WNL Neck: Yes: WNL Cardiovascular: Yes: WNL, Regular Rate and Rhythm Respiratory: Yes: WNL, Regular, CTA Bilaterally Gastrointestinal Inspection: Yes: Other (ruq / epigastric tenderness no rebound or guarding , nml BS) ...Auscultate: Yes: Normoactive Bowel Sounds Musculoskeletal: Yes: WNL Extremities: Yes: WNL Edema: No Neurological: Yes: WNL ...Motor Strength: WNL Psychiatric: Yes: WNL Labs: CBC, BMP 03/12/18 05:12 03/12/18 05:12 INR, PTT INR 1.08 (0.83-1.09) 03/11/18 16:30 Imaging - Results Other: Other (pending HIDA) Problem List - Problems (1) Abdominal pain Assessment/Plan: Impression: Epigastric / RUQ abdominal pain - imaging findings of cholelithiasis and distended GB r/o biliary etiology. Also included in the differential diagnosis is primary gastric etiology such as peptic ulcer disease. Recommendation: - clear liquid diet - HIDA scan - antiemetics - PPI 40 mg iv qd - further recommendations pending the imaging results Code(s): R10.9 - UNSPECIFIED ABDOMINAL PAIN (2) Vomiting Code(s): R11.10 - VOMITING, UNSPECIFIED
[2018-03-12] MEDS: PANTOPRAZOLE SODIUM 40 MG VIAL IVPUSH SCH (15:43)
[2018-03-12] MEDS: LOSARTAN POTASSIUM 50 MG TABLET (FP) PO SCH (15:43)
[2018-03-12] MEDS: BRIMONIDINE TARTRATE 0.2% OPHTHALMIC 5 ML BOTTLE OU SCH (15:44)
[2018-03-12] MEDS: MEMANTINE HCL 10 MG TABLET (FP) PO SCH (15:44)
[2018-03-12] MEDS: TIMOLOL 0.5% OPHTHALMIC SOL 5 ML BOTTLE OU SCH (15:44)
[2018-03-12] MEDS: METHIMAZOLE 10 MG TABLET (FP) PO SCH (15:44)
--- NOTE | 2018-03-12 16:39 | PN ---
Progress Note, Physician History of Present Illness: doing well - Current Medication List Current Medications: Active Medications Acetaminophen (Tylenol -) 650 mg PO Q6H PRN PRN Reason: FEVER Amlodipine Besylate (Norvasc -) 10 mg PO DAILY [facility] Last Admin: 03/12/18 15:44 Dose: 10 mg Apixaban (Eliquis -) 2.5 mg PO BID [facility] Atorvastatin Calcium (Lipitor -) 20 mg PO HS [facility] Last Admin: 03/11/18 22:38 Dose: 20 mg Brimonidine Tartrate (Alphagan 0.2% -) 1 drop OU DAILY [facility] Last Admin: 03/12/18 15:44 Dose: Not Given Sodium Chloride (Normal Saline -) 1,000 mls @ 75 mls/hr IV ASDIR [facility] Last Admin: 03/11/18 20:52 Dose: 75 mls/hr Influenza Virus Vaccine Quadrival (Flulaval Quad [id number]) 60 mcg IM .ONCE ONE Stop: 03/12/18 16:13 Insulin Detemir (Levemir Vial) 40 units SQ HS [facility] Last Admin: 03/11/18 22:37 Dose: 40 unit Losartan Potassium (Cozaar -) 25 mg PO DAILY [facility] Last Admin: 03/12/18 15:43 Dose: 25 mg Memantine (Namenda -) 10 mg PO DAILY@0800 [facility] Last Admin: 03/12/18 15:44 Dose: 10 mg Methimazole (Tapazole -) 10 mg PO DAILY [facility] Last Admin: 03/12/18 15:44 Dose: 10 mg Metoprolol Succinate (Toprol Xl -) 100 mg PO DAILY [facility] Last Admin: 03/12/18 15:44 Dose: 100 mg Pantoprazole Sodium (Protonix Iv) 40 mg IVPUSH DAILY [facility] Last Admin: 03/12/18 15:43 Dose: 40 mg Timolol Maleate (Timoptic 0.5%) 1 drop OU DAILY [facility] Last Admin: 03/12/18 15:44 Dose: Not Given - Objective Vital Signs: Vital Signs Temperature 98.2 F 03/12/18 14:00 Pulse Rate 79 03/12/18 14:00 Respiratory Rate 18 03/12/18 14:00 Blood Pressure 109/60 03/12/18 14:00 O2 Sat by Pulse Oximetry (%) 98 03/12/18 16:01 Constitutional: Yes: No Distress HENT: Yes: Atraumatic Neck: Yes: Supple Cardiovascular: Yes: Regular Rate and Rhythm Respiratory: Yes: CTA Bilaterally Gastrointestinal: Yes: Normal Bowel Sounds Extremities: Yes: WNL Neurological: Yes: Alert, Oriented Labs: CBC, BMP 03/12/18 05:12 03/12/18 05:12 INR, PTT INR 1.08 (0.83-1.09) 03/11/18 16:30 Problem List - Problems (1) Chest pain Assessment/Plan: tele monitoring fu cardiac enzymes...trending down on xeralto Code(s): R07.9 - CHEST PAIN, UNSPECIFIED (2) Diabetes Assessment/Plan: insulin bgms...monitor Code(s): E11.9 - TYPE 2 DIABETES MELLITUS WITHOUT COMPLICATIONS Qualifiers: Diabetes mellitus type: type 2 (3) Epigastric pain Code(s): R10.13 - EPIGASTRIC PAIN (4) HLD (hyperlipidemia) Code(s): E78.5 - HYPERLIPIDEMIA, UNSPECIFIED (5) Hyperthyroidism Code(s): E05.90 - THYROTOXICOSIS, UNSP WITHOUT THYROTOXIC CRISIS OR STORM (6) Obesity Code(s): E66.9 - OBESITY, UNSPECIFIED (7) ROSELINE (acute kidney injury) Assessment/Plan: improving with hydration Code(s): N17.9 - ACUTE KIDNEY FAILURE, UNSPECIFIED
[2018-03-12] MEDS ORDERED: FLU VACCINE QUAD 60 MCG/0.5 ML (MDV 18-19) IM ONE (17:00)
[2018-03-12] MEDS ORDERED: RIVAROXABAN 20 MG TABLET PO SCH (18:00)
[2018-03-12] MEDS ORDERED: DEXTROSE 5%-0.45% SALINE 1,000 ML IV SCH (19:00)
[2018-03-12] MEDS: APIXABAN 2.5 MG TABLET PO SCH (23:04)
[2018-03-12] MEDS: ATORVASTATIN CA 20 MG TABLET (FP) PO SCH (23:04)
[2018-03-13] MEDS ORDERED: PT OWN MED DRAWER 7, Y5N ONE (07:49)
[2018-03-13 08:05] LABS: ALBUMIN 2.9 g/dl (3.4-5.0); ALK PHOS 114 U/L (45-117); ANION GAP 6 MMOL/L (8-16); BILIRUBIN,TOTAL 1.1 mg/dL (0.2-1); BLOOD UREA NITROGEN 23 mg/dL (7-18); CHLORIDE 101 mmol/L (98-107); CO2 31 mmol/L (21-32); CREATININE 0.9 mg/dL (0.55-1.3); GLUCOSE,RANDOM 91 mg/dL (74-106); POTASSIUM 3.3 mmol/L (3.5-5.1); SGOT/AST 24 U/L (15-37); SGPT/ALT 20 U/L (13-61); SODIUM 138 mmol/L (136-145); TOT PROT 5.9 g/dl (6.4-8.2)
[2018-03-13] MEDS: MEMANTINE HCL 10 MG TABLET (FP) PO SCH (10:17)
[2018-03-13] MEDS: APIXABAN 2.5 MG TABLET PO SCH ×2 (10:17→21:09)
[2018-03-13] MEDS: METHIMAZOLE 10 MG TABLET (FP) PO SCH (10:17)
[2018-03-13] MEDS: LOSARTAN POTASSIUM 50 MG TABLET (FP) PO SCH (10:17)
[2018-03-13] MEDS: PANTOPRAZOLE SODIUM 40 MG VIAL IVPUSH SCH (10:18)
[2018-03-13] MEDS ORDERED: POTASSIUM CHLORIDE TABS 20 MEQ TABLET.ER (FP) PO ONE (10:37)
--- NOTE | 2018-03-13 10:37 | PN ---
Progress Note, Physician History of Present Illness: Pt seen and examined at bedside. She is awake and alert. She denies abdominal pain. - Current Medication List Current Medications: Active Medications Acetaminophen (Tylenol -) 650 mg PO Q6H PRN PRN Reason: FEVER Apixaban (Eliquis -) 2.5 mg PO BID [facility] BEDS AT [facility] Last Admin: 03/13/18 10:17 Dose: 2.5 mg Atorvastatin Calcium (Lipitor -) 20 mg PO HS [facility]S [facility]CLUDE 234 BEDS AT [facility] Last Admin: 03/12/18 23:04 Dose: 20 mg Brimonidine Tartrate (Alphagan 0.2% -) 1 drop OU DAILY [facility]CLUDE 234 BEDS AT [facility] Last Admin: 03/12/18 15:44 Dose: Not Given Dextrose/Sodium Chloride (D5-1/2ns -) 1,000 mls @ 75 mls/hr IV ASDIR COUNTS INCLUDE 234 BEDS AT THE [facility] Last Admin: 03/12/18 21:04 Dose: 75 mls/hr Losartan Potassium (Cozaar -) 25 mg PO DAILY [facility]S [facility]CLUDE 234 BEDS AT [facility] Last Admin: 03/13/18 10:17 Dose: 25 mg Memantine (Namenda -) 10 mg PO DAILY@0800 COUNTS INCLUDE 234 BEDS AT THE [facility] Last Admin: 03/13/18 10:17 Dose: 10 mg Methimazole (Tapazole -) 10 mg PO DAILY [facility]CLUDE 234 BEDS AT [facility] Last Admin: 03/13/18 10:17 Dose: 10 mg Metoprolol Succinate (Toprol Xl -) 100 mg PO DAILY [facility]CLUDE 234 BEDS AT [facility] Last Admin: 03/13/18 10:20 Dose: Not Given Pantoprazole Sodium (Protonix Iv) 40 mg IVPUSH DAILY [facility]CLUDE 234 BEDS AT [facility] Last Admin: 03/13/18 10:18 Dose: 40 mg Timolol Maleate (Timoptic 0.5%) 1 drop OU DAILY [facility]CLUDE 234 BEDS AT [facility] Last Admin: 03/12/18 15:44 Dose: Not Given - Objective Vital Signs: Vital Signs Temperature 98 F 03/13/18 10:00 Pulse Rate 58 L 03/13/18 10:00 Respiratory Rate 18 03/13/18 10:00 Blood Pressure 104/58 L 03/13/18 10:00 O2 Sat by Pulse Oximetry (%) 100 03/12/18 20:53 Constitutional: Yes: Calm Eyes: Yes: Conjunctiva Clear HENT: Yes: Atraumatic Cardiovascular: Yes: S1, S2 Respiratory: Yes: CTA Bilaterally Gastrointestinal: Yes: Normal Bowel Sounds, Soft, Abdomen, Obese Genitourinary: Yes: WNL Musculoskeletal: Yes: WNL Edema: No Neurological: Yes: Oriented Labs: CBC, BMP 03/12/18 05:12 03/13/18 06:20 INR, PTT INR 1.08 (0.83-1.09) 03/11/18 16:30 Problem List - Problems (1) ROSELINE (acute kidney injury) Code(s): N17.9 - ACUTE KIDNEY FAILURE, UNSPECIFIED (2) Atrial flutter Code(s): I48.92 - UNSPECIFIED ATRIAL FLUTTER (3) Diabetes Code(s): E11.9 - TYPE 2 DIABETES MELLITUS WITHOUT COMPLICATIONS Qualifiers: Diabetes mellitus type: type 2 (4) HLD (hyperlipidemia) Code(s): E78.5 - HYPERLIPIDEMIA, UNSPECIFIED Assessment/Plan Current Medications Generic Name Dose Route Start Last Admin Trade Name Freq PRN Reason Stop Dose Admin Acetaminophen 650 mg 03/11/18 21:44 Tylenol - PO Q6H PRN FEVER Apixaban 2.5 mg 03/12/18 22:00 03/13/18 10:17 Eliquis - PO 2.5 mg BID [facility] Administration Atorvastatin Calcium 20 mg 03/11/18 22:00 03/12/18 23:04 Lipitor - PO 20 mg HS [facility] Administration Brimonidine Tartrate 1 drop 03/12/18 10:00 03/12/18 15:44 Alphagan 0.2% - OU Not Given DAILY [facility] Dextrose/Sodium Chloride 1,000 mls @ 75 mls/hr 03/12/18 19:00 03/12/18 21:04 D5-1/2ns - IV 75 mls/hr ASDIR [facility] Administration Losartan Potassium 25 mg 03/12/18 13:00 03/13/18 10:17 Cozaar - PO 25 mg DAILY [facility] Administration Memantine 10 mg 03/12/18 08:00 03/13/18 10:17 Namenda - PO 10 mg DAILY@0800 [facility] Administration Methimazole 10 mg 03/12/18 10:00 03/13/18 10:17 Tapazole - PO 10 mg DAILY [facility] Administration Metoprolol Succinate 100 mg 03/12/18 10:00 03/13/18 10:20 Toprol Xl - PO Not Given DAILY [facility] Pantoprazole Sodium 40 mg 03/12/18 10:00 03/13/18 10:18 Protonix Iv IVPUSH 40 mg DAILY [facility] Administration Timolol Maleate 1 drop 03/12/18 10:00 03/12/18 15:44 Timoptic 0.5% OU Not Given DAILY [facility] Impression 1. ROSELINE 2. nausea 3. DM 4. HTN 5. obesity 6. asthma 7. hypothyroidism 8. hyponatremia Plan - renal function is improved - will decrease rate of fluids - will replace potassium - check mag level - likely roseline from dehydration - check ua - kidney unremarkable on ultrasound - will follow Dr Joe
[2018-03-13] MEDS ORDERED: D5-1/2NS+20 MEQ KCL - 20 MEQ/1,000 ML INFUS.BAG IV SCH (10:38)
--- NOTE | 2018-03-13 12:03 | PN ---
Progress Note, Physician History of Present Illness: No further chest or epigastric discomfort. - Current Medication List Current Medications: Active Medications Acetaminophen (Tylenol -) 650 mg PO Q6H PRN PRN Reason: FEVER Apixaban (Eliquis -) 2.5 mg PO BID [facility] Last Admin: 03/13/18 10:17 Dose: 2.5 mg Atorvastatin Calcium (Lipitor -) 20 mg PO HS [facility] Last Admin: 03/12/18 23:04 Dose: 20 mg Brimonidine Tartrate (Alphagan 0.2% -) 1 drop OU DAILY [facility] Last Admin: 03/12/18 15:44 Dose: Not Given Potassium Chloride/Dextrose/Sod Cl (D5-1/2ns+20 Meq Kcl -) 20 meq in 1,000 mls @ 70 mls/hr IV ASDIR [facility] Losartan Potassium (Cozaar -) 25 mg PO DAILY [facility] Last Admin: 03/13/18 10:17 Dose: 25 mg Memantine (Namenda -) 10 mg PO DAILY@0800 [facility] Last Admin: 03/13/18 10:17 Dose: 10 mg Methimazole (Tapazole -) 10 mg PO DAILY [facility] Last Admin: 03/13/18 10:17 Dose: 10 mg Metoprolol Succinate (Toprol Xl -) 100 mg PO DAILY [facility] Last Admin: 03/13/18 10:20 Dose: Not Given Pantoprazole Sodium (Protonix Iv) 40 mg IVPUSH DAILY [facility] Last Admin: 03/13/18 10:18 Dose: 40 mg Timolol Maleate (Timoptic 0.5%) 1 drop OU DAILY [facility] Last Admin: 03/12/18 15:44 Dose: Not Given - Objective Vital Signs: Vital Signs Temperature 98 F 03/13/18 10:00 Pulse Rate 58 L 03/13/18 10:00 Respiratory Rate 18 03/13/18 10:00 Blood Pressure 104/58 L 03/13/18 10:00 O2 Sat by Pulse Oximetry (%) 100 03/12/18 20:53 Constitutional: Yes: No Distress, Calm Neck: Yes: Supple Cardiovascular: Yes: Pulse Irregular Respiratory: Yes: Regular, Diminished, On Nasal O2 Gastrointestinal: Yes: Soft, Abdomen, Obese, Hypoactive Bowel Sounds Edema: No Labs: CBC, BMP 03/12/18 05:12 03/13/18 06:20 INR, PTT INR 1.08 (0.83-1.09) 03/11/18 16:30 - ....Imaging EKG: Report Reviewed (Tele: Rate-controlled afib) Problem List - Problems (1) Demand ischemia Code(s): I24.8 - OTHER FORMS OF ACUTE ISCHEMIC HEART DISEASE (2) ROSELINE (acute kidney injury) Code(s): N17.9 - ACUTE KIDNEY FAILURE, UNSPECIFIED (3) CKD (chronic kidney disease) Code(s): N18.9 - CHRONIC KIDNEY DISEASE, UNSPECIFIED Qualifiers: Chronic kidney disease stage: stage 2 (mild) Qualified Code(s): N18.2 - Chronic kidney disease, stage 2 (mild) (4) Chest pain Code(s): R07.9 - CHEST PAIN, UNSPECIFIED Qualifiers: Chest pain type: unspecified Qualified Code(s): R07.9 - Chest pain, unspecified (5) HTN (hypertension) Code(s): I10 - ESSENTIAL (PRIMARY) HYPERTENSION Qualifiers: Hypertension type: essential hypertension Qualified Code(s): I10 - Essential (primary) hypertension (6) Atrial flutter Code(s): I48.92 - UNSPECIFIED ATRIAL FLUTTER Qualifiers: Atrial flutter type: unspecified Qualified Code(s): I48.92 - Unspecified atrial flutter (7) HLD (hyperlipidemia) Code(s): E78.5 - HYPERLIPIDEMIA, UNSPECIFIED Qualifiers: Hyperlipidemia type: pure hypercholesterolemia Qualified Code(s): E78.00 - Pure hypercholesterolemia, unspecified; E78.0 - Pure hypercholesterolemia (8) Hyperthyroidism Code(s): E05.90 - THYROTOXICOSIS, UNSP WITHOUT THYROTOXIC CRISIS OR STORM (9) Obesity Code(s): E66.9 - OBESITY, UNSPECIFIED (10) Epigastric pain Code(s): R10.13 - EPIGASTRIC PAIN Assessment/Plan 1. Chest pain syndrome with mild elevation of troponin referable to demand ischemia, rule out CAD 2. Atrial fibrillation/flutter [id number] score likely 6 on NOAC 3. Epigastric / RUQ abdominal pain - imaging findings of cholelithiasis and distended GB r/o biliary etiology vs primary gastric etiology such as peptic ulcer disease 4. Acute on CKD (pre-renal) improved 4. HTN 5. Type 2 DM 6. Hypercholesterolemia 7. Hyperthyroidism 8. Cholelithiasis 9. Nephrolithiasis PLAN: 1. Troponins have peaked 2. Continue Eliquis 2.5 mg BID (age > 80 and Cr >1.5) 3. Continue Lipitor 20 qhs, losartan 25 qd, Toprol XL 100 qd 4. Echocardiography to assess LV/RV and valvular function 5. Ischemia evaluation as outpatient and will need to assess duration of AF and determine rate control vs rhythm control strategy 6. Clear liquid, PPI, HIDA scan per GI recs, d/c telemetry
[2018-03-13] MEDS: BRIMONIDINE TARTRATE 0.2% OPHTHALMIC 5 ML BOTTLE OU SCH (12:19)
[2018-03-13] MEDS: TIMOLOL 0.5% OPHTHALMIC SOL 5 ML BOTTLE OU SCH (12:19)
--- NOTE | 2018-03-13 12:44 | PN ---
Progress Note, Physician History of Present Illness: daughter at the bedside - states her mother is feeling much better Patient denies nausea/ vomiting or abdominal pain - Current Medication List Current Medications: Active Medications Acetaminophen (Tylenol -) 650 mg PO Q6H PRN PRN Reason: FEVER Apixaban (Eliquis -) 2.5 mg PO BID [facility] Last Admin: 03/13/18 10:17 Dose: 2.5 mg Atorvastatin Calcium (Lipitor -) 20 mg PO HS [facility] Last Admin: 03/12/18 23:04 Dose: 20 mg Brimonidine Tartrate (Alphagan 0.2% -) 1 drop OU DAILY [facility] Last Admin: 03/13/18 12:19 Dose: 1 drop Potassium Chloride/Dextrose/Sod Cl (D5-1/2ns+20 Meq Kcl -) 20 meq in 1,000 mls @ 70 mls/hr IV ASDIR [facility] Last Admin: 03/13/18 12:20 Dose: 70 mls/hr Losartan Potassium (Cozaar -) 25 mg PO DAILY [facility] Last Admin: 03/13/18 10:17 Dose: 25 mg Memantine (Namenda -) 10 mg PO DAILY@0800 [facility] Last Admin: 03/13/18 10:17 Dose: 10 mg Methimazole (Tapazole -) 10 mg PO DAILY [facility] Last Admin: 03/13/18 10:17 Dose: 10 mg Metoprolol Succinate (Toprol Xl -) 100 mg PO DAILY [facility] Last Admin: 03/13/18 10:20 Dose: Not Given Pantoprazole Sodium (Protonix Iv) 40 mg IVPUSH DAILY [facility] Last Admin: 03/13/18 10:18 Dose: 40 mg Timolol Maleate (Timoptic 0.5%) 1 drop OU DAILY [facility] Last Admin: 03/13/18 12:19 Dose: 1 drop - Objective Vital Signs: Vital Signs Temperature 98 F 03/13/18 10:00 Pulse Rate 58 L 03/13/18 10:00 Respiratory Rate 18 03/13/18 10:00 Blood Pressure 104/58 L 03/13/18 10:00 O2 Sat by Pulse Oximetry (%) 100 03/12/18 20:53 Constitutional: Yes: Well Nourished, No Distress, Calm Eyes: Yes: WNL HENT: Yes: WNL Neck: Yes: WNL Cardiovascular: Yes: WNL, Pulse Irregular Respiratory: Yes: WNL, Regular, CTA Bilaterally Gastrointestinal: Yes: WNL, Normal Bowel Sounds, Soft Edema: No Labs: CBC, BMP 03/12/18 05:12 03/13/18 06:20 INR, PTT INR 1.08 (0.83-1.09) 03/11/18 16:30 Problem List - Problems (1) Abdominal pain Assessment/Plan: - HIDA scan results are pending ; if normal advance diet as tolerated - c/w PPI - management of her cardiopulmonary process as per primary medical team / cardiology Code(s): R10.9 - UNSPECIFIED ABDOMINAL PAIN (2) Vomiting Code(s): R11.10 - VOMITING, UNSPECIFIED
--- NOTE | 2018-03-13 15:42 | ECHO ---
Name: GISELLA ALVARADO Exam:Adult Echocardiogram Study Date: 03/13/2018 10:52 AM Age: 83 yrs Reason For Study: Chest pain Height: 63 in Weight: 200 lb BSA: 1.9 m2 MMode/2D Measurements & Calculations IVSd: 1.2 cm Ao root diam: 2.7 cm LVIDd: 4.0 cm LA dimension: 2.9 cm LVIDs: 2.9 cm LVPWd: 1.4 cm EDV(Teich): 70.8 ml LAV (MOD-bp): 79.4 ml ESV(Teich): 33.1 ml Doppler Measurements & Calculations MV E max andrea: 116.0 cm/sec TR max andrea: 269.8 cm/sec MV dec time: 0.20 sec TR max P.2 mmHg Med Peak E' Andrea: 5.2 cm/sec PI Vmax: 160.2 cm/sec Med E/e': 22.2 Lat Peak E' Andrea: 9.1 cm/sec Lat E/e': 12.7 Procedure A two-dimensional transthoracic echocardiogram with color flow and Doppler was performed. Left Ventricle The left ventricular size, thickness and function are normal. The left ventricular ejection fraction is normal. The left ventricular wall motion is normal. Right Ventricle The right ventricle is normal in size and function. Atria Normal left and right atrial size and function. Mitral Valve There is mild mitral valve thickening. There is no mitral valve stenosis. There is mild mitral regurg itation. Tricuspid Valve There is mild tricuspid valve thickening. There is no tricuspid stenosis. There is severe tricuspid regurgitation. Right ventricular systolic pressure is elevated at 30-40mmHg. Aortic Valve The aortic valve is normal in structure and function. No hemodynamically significant valvular aortic stenosis. Mild aortic regurgitation. Pulmonic Valve The pulmonic valve is not well visualized. There is no pulmonic valvular stenosis. Moderate pulmonic valvular regurgitation. Great Vessels The aortic root is normal size. Pericardium/Pleura There is no pericardial effusion. Interpretation Summary The left ventricular size, thickness and function are normal The left ventricular ejection fraction is normal. There is mild mitral regurgitation. Right ventricular systolic pressure is elevated at 30-40mmHg. Mild aortic regurgitation. The left ventricular wall motion is normal. Moderate pulmonic valvular regurgitation. There is severe tricuspid regurgitation. MD Paul Ohara 03/13/2018 03:41 PM
--- NOTE | 2018-03-13 15:51 | PN ---
Progress Note, Physician History of Present Illness: STILL HAS EPIGASTRIC/LUQ DISCOMFORT - Current Medication List Current Medications: Active Medications Acetaminophen (Tylenol -) 650 mg PO Q6H PRN PRN Reason: FEVER Apixaban (Eliquis -) 2.5 mg PO BID [facility] Last Admin: 03/13/18 10:17 Dose: 2.5 mg Atorvastatin Calcium (Lipitor -) 20 mg PO HS [facility] Last Admin: 03/12/18 23:04 Dose: 20 mg Brimonidine Tartrate (Alphagan 0.2% -) 1 drop OU DAILY [facility] Last Admin: 03/13/18 12:19 Dose: 1 drop Potassium Chloride/Dextrose/Sod Cl (D5-1/2ns+20 Meq Kcl -) 20 meq in 1,000 mls @ 70 mls/hr IV ASDIR [facility] Last Admin: 03/13/18 12:20 Dose: 70 mls/hr Losartan Potassium (Cozaar -) 25 mg PO DAILY [facility] Last Admin: 03/13/18 10:17 Dose: 25 mg Memantine (Namenda -) 10 mg PO DAILY@0800 [facility] Last Admin: 03/13/18 10:17 Dose: 10 mg Methimazole (Tapazole -) 10 mg PO DAILY [facility] Last Admin: 03/13/18 10:17 Dose: 10 mg Metoprolol Succinate (Toprol Xl -) 100 mg PO DAILY [facility] Last Admin: 03/13/18 10:20 Dose: Not Given Pantoprazole Sodium (Protonix Iv) 40 mg IVPUSH DAILY [facility] Last Admin: 03/13/18 10:18 Dose: 40 mg Timolol Maleate (Timoptic 0.5%) 1 drop OU DAILY [facility] Last Admin: 03/13/18 12:19 Dose: 1 drop - Objective Vital Signs: Vital Signs Temperature 98.2 F 03/13/18 14:05 Pulse Rate 74 03/13/18 14:05 Respiratory Rate 18 03/13/18 14:05 Blood Pressure 124/54 L 03/13/18 14:05 O2 Sat by Pulse Oximetry (%) 100 03/13/18 09:00 Constitutional: Yes: No Distress HENT: Yes: Atraumatic Neck: Yes: Supple Cardiovascular: Yes: Regular Rate and Rhythm Respiratory: Yes: CTA Bilaterally Gastrointestinal: Yes: Normal Bowel Sounds Extremities: Yes: WNL Edema: No Peripheral Pulses WNL: Yes Neurological: Yes: Alert, Oriented Labs: CBC, BMP 03/12/18 05:12 03/13/18 06:20 INR, PTT INR 1.08 (0.83-1.09) 03/11/18 16:30 Problem List - Problems (1) Chest pain Assessment/Plan: tele monitoring fu cardiac enzymes...trending down Code(s): R07.9 - CHEST PAIN, UNSPECIFIED Qualifiers: Chest pain type: unspecified Qualified Code(s): R07.9 - Chest pain, unspecified (2) Diabetes Assessment/Plan: insulin bgms...monitor Code(s): E11.9 - TYPE 2 DIABETES MELLITUS WITHOUT COMPLICATIONS Qualifiers: Diabetes mellitus type: type 2 (3) Epigastric pain Assessment/Plan: STILL HAS ...MILD Code(s): R10.13 - EPIGASTRIC PAIN (4) HLD (hyperlipidemia) Assessment/Plan: on meds Code(s): E78.5 - HYPERLIPIDEMIA, UNSPECIFIED Qualifiers: Hyperlipidemia type: pure hypercholesterolemia Qualified Code(s): E78.00 - Pure hypercholesterolemia, unspecified; E78.0 - Pure hypercholesterolemia (5) Hyperthyroidism Code(s): E05.90 - THYROTOXICOSIS, UNSP WITHOUT THYROTOXIC CRISIS OR STORM (6) Obesity Code(s): E66.9 - OBESITY, UNSPECIFIED (7) ROSELINE (acute kidney injury) Assessment/Plan: improving with hydration Code(s): N17.9 - ACUTE KIDNEY FAILURE, UNSPECIFIED
[2018-03-13] MEDS: POLYETHYLENE GLYCOL 3350 119 GM BTL PO SCH (18:39)
[2018-03-13] MEDS: ATORVASTATIN CA 20 MG TABLET (FP) PO SCH (21:09)
[2018-03-14] MEDS: POLYETHYLENE GLYCOL 3350 119 GM BTL PO SCH (09:33)
[2018-03-14] MEDS ORDERED: MORPHINE SULFATE 2 MG/ML VIAL IVPUSH ONE (10:15)
[2018-03-14] MEDS ORDERED: MORPHINE SULFATE 2 MG/ML VIAL IVPUSH PRN (18:35)
--- NOTE | 2018-03-14 18:43 | PN ---
Progress Note, Physician - Current Medication List Current Medications: Active Medications Metronidazole (Flagyl 500mg Premixed Ivpb -) 500 mg in 100 mls @ 100 mls/hr IVPB Q8H-IV [facility] Last Admin: 03/14/18 17:47 Dose: 100 mls/hr Levofloxacin (Levaquin 500 Mg Premixed Ivpb -) 500 mg in 100 mls @ 100 mls/hr IVPB DAILY [facility] Last Admin: 03/14/18 09:32 Dose: 100 mls/hr Sodium Chloride (Normal Saline -) 1,000 mls @ 75 mls/hr IV ASDIR [facility] Morphine Sulfate (Morphine Sulfate) 1 mg IVPUSH Q4H PRN PRN Reason: PAIN LEVEL 4 - 6 Polyethylene Glycol (Miralax (For Daily Use) -) 17 gm PO DAILY [facility] Last Admin: 03/14/18 09:33 Dose: Not Given - Objective Vital Signs: Vital Signs Temperature 97.9 F 03/14/18 13:50 Pulse Rate 84 03/14/18 13:50 Respiratory Rate 16 03/14/18 13:50 Blood Pressure 139/69 03/14/18 13:50 O2 Sat by Pulse Oximetry (%) 94 L 03/14/18 09:00 Constitutional: Yes: No Distress HENT: Yes: Atraumatic Neck: Yes: Supple Cardiovascular: Yes: Regular Rate and Rhythm Respiratory: Yes: CTA Bilaterally Gastrointestinal: Yes: Normal Bowel Sounds, Tenderness (epigastric) Extremities: Yes: WNL Neurological: Yes: Alert, Oriented Labs: CBC, BMP 03/12/18 05:12 03/13/18 06:20 INR, PTT INR 1.08 (0.83-1.09) 03/11/18 16:30 Problem List - Problems (1) Chest pain Assessment/Plan: pt has epigastric discomfort Code(s): R07.9 - CHEST PAIN, UNSPECIFIED Qualifiers: Chest pain type: chest pain due to myocardial ischemia Ischemic chest pain type: stable angina pectoris (2) Diabetes Assessment/Plan: bgms...monitor Code(s): E11.9 - TYPE 2 DIABETES MELLITUS WITHOUT COMPLICATIONS Qualifiers: Diabetes mellitus type: type 2 (3) Epigastric pain Assessment/Plan: still has mild epigastric pain Code(s): R10.13 - EPIGASTRIC PAIN (4) HLD (hyperlipidemia) Assessment/Plan: on meds Code(s): E78.5 - HYPERLIPIDEMIA, UNSPECIFIED Qualifiers: Hyperlipidemia type: pure hypercholesterolemia Qualified Code(s): E78.00 - Pure hypercholesterolemia, unspecified; E78.0 - Pure hypercholesterolemia (5) Hyperthyroidism Code(s): E05.90 - THYROTOXICOSIS, UNSP WITHOUT THYROTOXIC CRISIS OR STORM (6) Obesity Code(s): E66.9 - OBESITY, UNSPECIFIED (7) ROSELINE (acute kidney injury) Assessment/Plan: improving with hydration Code(s): N17.9 - ACUTE KIDNEY FAILURE, UNSPECIFIED
[2018-03-14] MEDS: SODIUM CHLORIDE 1,000 ML IV SCH (20:00)
--- NOTE | 2018-03-14 21:02 | CONSULT ---
Consult Consult Specialty:: General Suegery Reason for Consultation:: acute cholecystitis - History of Present Illness Chief Complaint: chronic absominal pain History of Present Illness: 83 yo female PMH type 2 DM, HTN, hypercholesterolemia, bronchial asthma/COPD, atrial fibrillation/flutter on NOAC and hyperthyroidism on treatment who presents with left upper abdominal discomfort and sharp chest discomfort across her sternum. She also complained of nausea. She suffers from constipation. She denies shortness of breath or palpitations. She denies paroxysmal nocturnal dyspnea or orthopnea. She denies fever or chills. She denies headache or lightheadedness. She denies diarrhea or vomiting. HIDA shows non-visulaization of the GB. We were asked to assess. - History Source History Provided By: Patient, Family Member, Medical Record Limitations to Obtaining History: Language Barrier - Past Medical History Cardio/Vascular: Yes: AFIB, HTN, Hyperlipdemia Pulmonary: Yes: COPD Infectious Disease: No: AIDS, C-Diff, Herpes Zoster, HIV, MRSA, STD's, Tuberculosis, VREF, Other Psych: No: Addictions, Anxiety, Bipolar, Depression, Panic, Psychosis, Schizophrenia, Other Musculoskeletal: No: Bursitis, Chronic low back pain, Hemiparesis, Hemiplegia, Osteoarthritis, Paraplegia, Other Rheumatology: No: Fibromyalgia, Gout, Lupus, Rheumatoid Arthritis, Sarcoidosis, Vasculitis, Other ENT: No: Allergic Rhinitis, Sinusitis, Other Endocrine: Yes: Diabetes Mellitus, Hyperthyroidism. No: Gerhard's Disease, [place]'s Disease, Diabetes Insipidus, Hyperparathyroidism, Hypothyroidism, Osteopenia, SIADH, Other Dermatology: No: Basal Cell, Cellulitis, Eczema, Melanoma, Psoriasis, Squamous Cell, Other - Alcohol/Substance Use Hx Alcohol Use: No - Smoking History Smoking history: Unknown if ever smoked Have you smoked in the past 12 months: No Aproximately how many cigarettes per day: 0 If you are a former smoker, when did you quit?: 60years ago - Social History Usual Living Arrangement: Other Home Medications - Allergies Allergies/Adverse Reactions: Allergies Allergy/AdvReac Type Severity Reaction Status Date / Time No Known Allergies Allergy Verified 03/11/18 20:09 - Home Medications Home Medications: Ambulatory Orders Albuterol 0.083% Nebulizer Chuyita [Ventolin 0.083% Nebulizer Soln -] 1 amp NEB Q4H PRN #30 amp MDD 4 09/21/17 Memantine HCl [Namenda -] 10 mg PO DAILY@0800 #30 tablet MDD 1 09/21/17 Brimonidine Tartrate/Timolol [Combigan 0.2%-0.5% Eye Drops] 5 ml OP DAILY Exenatide Microspheres [Bydureon Pen] 2 mg SQ WEEKLY 11/27/17 Methimazole [Tapazole -] 10 mg PO DAILY MDD 2 11/27/17 Pantoprazole Sodium [Protonix] 40 mg PO DAILY 11/27/17 Atorvastatin Ca [Lipitor] 20 mg PO HS #30 tablet 12/03/17 Furosemide [Lasix -] 40 mg PO DAILY #30 tablet 12/03/17 Insulin Glargine,Hum.rec.anlog [Lantus Solostar PEN -] 40 units SQ HS 03/11/18 Metoprolol Succinate [Toprol XL -] 100 mg PO DAILY 03/11/18 Omeprazole Magnesium [Acid Surveyor Instrument Assistant] 40 mg PO DAILY 03/11/18 Ondansetron HCl [Zofran] 4 mg PO TID PRN 03/11/18 Apixaban [Eliquis -] 2.5 mg PO BID #20 tablet 03/13/18 Losartan Potassium [Cozaar -] 25 mg PO DAILY #30 tablet 03/13/18 Review of Systems - Review of Systems Constitutional: reports: Fever, Malaise, Weakness. denies: Chills HENT: denies: Difficult Swallowing, Throat Pain Neck: denies: Pain on Movement, Swollen Glands Cardiovascular: reports: Chest Pain. denies: Palpitations Respiratory: denies: Cough, SOB Gastrointestinal: reports: Abdominal Pain, Bloating, Constipation. denies: Rectal Bleeding, Vomiting, Vomiting Blood Genitourinary: denies: Discharge, Dysuria Breasts: reports: No Symptoms Reported. denies: Pain Musculoskeletal: denies: Muscle Cramps, Muscle Weakness Endocrine: denies: Unexplained Weight Gain, Unexplained Weight Loss Hematology/Lymphatic: denies: Easily Bruised, Excessive Bleeding Psychiatric: denies: Anxiety, Depression Physical Exam Vital Signs: Vital Signs Temperature 98.4 F 03/14/18 18:00 Pulse Rate 83 03/14/18 18:00 Respiratory Rate 20 03/14/18 18:00 Blood Pressure 129/66 03/14/18 18:00 O2 Sat by Pulse Oximetry (%) 94 L 03/14/18 09:00 Constitutional: Yes: No Distress, Calm, Obese Eyes: Yes: Conjunctiva Clear, EOM Intact HENT: Yes: Atraumatic, Normocephalic Neck: Yes: Supple, Trachea Midline Cardiovascular: Yes: Regular Rate and Rhythm, S1, S2 Respiratory: Yes: Regular, CTA Bilaterally Gastrointestinal: Yes: Normal Bowel Sounds, Soft, Abdomen, Obese, Tenderness ( RUQ to deep palpation, -rebound or guarding, -murphys) ...Rectal Exam: Yes: Deferred Renal/: No: CVA Tenderness - Left, CVA Tenderness - Right Musculoskeletal: No: Muscle Pain, Muscle Weakness Extremities: No: Cool, Cyanosis Edema: No Labs: CBC, BMP 03/12/18 05:12 03/13/18 06:20 Imaging - Results Cat Scan: Report Reviewed, Image Reviewed Other: Report Reviewed, Image Reviewed (non-visulaization of GB, acute cholecystitis) Problem List - Problems (1) Abnormal biliary HIDA scan Assessment/Plan: 83 yo female with MMP and recent demand [place] vs CAD with image cofirmed acute cholecystitis, poor surgical candidate this was discussed with the patient and family. will proceed with alternative less invasive management options. npo and ivf hydration continue IV antibiotics hold eloquis for cholecystostomy tube on Sunday 03/18 (LAST DOSE WAS 03/13 @10pm per Pharmacy) IR for cholecystostomy on 03/18 Thank you for the opportunity to participate in the care of this patient. Code(s): R94.8 - ABNORMAL RESULTS OF FUNCTION STUDIES OF ORGANS AND SYSTEMS (2) Chest pain Code(s): R07.9 - CHEST PAIN, UNSPECIFIED Qualifiers: Chest pain type: chest pain due to myocardial ischemia Ischemic chest pain type: stable angina pectoris Qualified Code(s): I20.8 - Other forms of angina pectoris (3) Demand ischemia Code(s): I24.8 - OTHER FORMS OF ACUTE ISCHEMIC HEART DISEASE (4) Acute on chronic systolic (congestive) heart failure Code(s): I50.23 - ACUTE ON CHRONIC SYSTOLIC (CONGESTIVE) HEART FAILURE (5) Atrial flutter Code(s): I48.92 - UNSPECIFIED ATRIAL FLUTTER Qualifiers: Atrial flutter type: unspecified Qualified Code(s): I48.92 - Unspecified atrial flutter (6) Obesity Code(s): E66.9 - OBESITY, UNSPECIFIED
[2018-03-15] MEDS: SODIUM CHLORIDE 1,000 ML IV SCH ×2 (00:56→18:58)
[2018-03-15] MEDS: POLYETHYLENE GLYCOL 3350 119 GM BTL PO SCH (11:05)
--- NOTE | 2018-03-15 13:06 | CON.ID ---
Consult Consult Specialty:: infectious diseases - Past Medical History Cardio/Vascular: Yes: AFIB, HTN, Hyperlipdemia Pulmonary: Yes: COPD Infectious Disease: No: AIDS, C-Diff, Herpes Zoster, HIV, MRSA, STD's, Tuberculosis, VREF, Other Psych: No: Addictions, Anxiety, Bipolar, Depression, Panic, Psychosis, Schizophrenia, Other Musculoskeletal: No: Bursitis, Chronic low back pain, Hemiparesis, Hemiplegia, Osteoarthritis, Paraplegia, Other Rheumatology: No: Fibromyalgia, Gout, Lupus, Rheumatoid Arthritis, Sarcoidosis, Vasculitis, Other ENT: No: Allergic Rhinitis, Sinusitis, Other Endocrine: Yes: Diabetes Mellitus, Hyperthyroidism. No: Gerhard's Disease, [place]'s Disease, Diabetes Insipidus, Hyperparathyroidism, Hypothyroidism, Osteopenia, SIADH, Other Dermatology: No: Basal Cell, Cellulitis, Eczema, Melanoma, Psoriasis, Squamous Cell, Other - Alcohol/Substance Use Hx Alcohol Use: No - Smoking History Smoking history: Unknown if ever smoked Have you smoked in the past 12 months: No Aproximately how many cigarettes per day: 0 If you are a former smoker, when did you quit?: 60years ago - Social History Usual Living Arrangement: Other Home Medications - Allergies Allergies/Adverse Reactions: Allergies Allergy/AdvReac Type Severity Reaction Status Date / Time No Known Allergies Allergy Verified 03/11/18 20:09 - Home Medications Home Medications: Ambulatory Orders Albuterol 0.083% Nebulizer Chuyita [Ventolin 0.083% Nebulizer Soln -] 1 amp NEB Q4H PRN #30 amp MDD 4 09/21/17 Memantine HCl [Namenda -] 10 mg PO DAILY@0800 #30 tablet MDD 1 09/21/17 Brimonidine Tartrate/Timolol [Combigan 0.2%-0.5% Eye Drops] 5 ml OP DAILY Exenatide Microspheres [Bydureon Pen] 2 mg SQ WEEKLY 11/27/17 Methimazole [Tapazole -] 10 mg PO DAILY MDD 2 11/27/17 Pantoprazole Sodium [Protonix] 40 mg PO DAILY 11/27/17 Atorvastatin Ca [Lipitor] 20 mg PO HS #30 tablet 12/03/17 Furosemide [Lasix -] 40 mg PO DAILY #30 tablet 12/03/17 Insulin Glargine,Hum.rec.anlog [Lantus Solostar PEN -] 40 units SQ HS 03/11/18 Metoprolol Succinate [Toprol XL -] 100 mg PO DAILY 03/11/18 Omeprazole Magnesium [Acid Stores Clerk] 40 mg PO DAILY 03/11/18 Ondansetron HCl [Zofran] 4 mg PO TID PRN 03/11/18 Apixaban [Eliquis -] 2.5 mg PO BID #20 tablet 03/13/18 Losartan Potassium [Cozaar -] 25 mg PO DAILY #30 tablet 03/13/18 Physical Exam Vital Signs: Vital Signs Temperature 98.3 F 03/15/18 06:00 Pulse Rate 90 03/15/18 06:00 Respiratory Rate 20 03/15/18 06:00 Blood Pressure 129/74 03/15/18 06:00 O2 Sat by Pulse Oximetry (%) 94 L 03/14/18 09:00 Labs: CBC, BMP 03/12/18 05:12 03/13/18 06:20
[2018-03-15] MEDS ORDERED: PIPERACILLIN/TAZOB 3.375 GM 3.375 GM in DEXTROSE 5%-WATER - 50 ML IVPB SCH (13:15)
[2018-03-15] MEDS ORDERED: PIPERACILLIN/TAZOBACTAM 3.375 GM VIAL IVPB ONE ×2 (13:40→21:09)
[2018-03-15] MEDS ORDERED: DEXTROSE 5%-WATER - 50 ML IVPB ONE ×2 (13:40→21:09)
[2018-03-15] MEDS: PIPERACILLIN/TAZOB 3.375 GM 3.375 GM in DEXTROSE 5%-WATER - 50 ML IVPB SCH ×2 (14:22→21:28)
--- NOTE | 2018-03-15 14:25 | PN ---
Progress Note, Physician Chief Complaint: abdominal pain History of Present Illness: 83 yo female PMH type 2 DM, HTN, hypercholesterolemia, bronchial asthma/COPD, atrial fibrillation/flutter on NOAC and hyperthyroidism on treatment who presents with left upper abdominal discomfort and sharp chest discomfort across her sternum. - Current Medication List Current Medications: Active Medications Sodium Chloride (Normal Saline -) 1,000 mls @ 75 mls/hr IV ASDIR [facility] Last Admin: 03/15/18 00:56 Dose: 75 mls/hr Piperacillin Sod/Tazobactam (Sod 3.375 gm/ Dextrose) 50 mls @ 100 mls/hr IVPB Q8H-IV [facility]; Protocol Morphine Sulfate (Morphine Sulfate) 1 mg IVPUSH Q4H PRN PRN Reason: PAIN LEVEL 4 - 6 Polyethylene Glycol (Miralax (For Daily Use) -) 17 gm PO DAILY [facility] Last Admin: 03/15/18 11:05 Dose: Not Given - Objective Vital Signs: Vital Signs Temperature 98.3 F 03/15/18 06:00 Pulse Rate 90 03/15/18 06:00 Respiratory Rate 20 03/15/18 06:00 Blood Pressure 129/74 03/15/18 06:00 O2 Sat by Pulse Oximetry (%) 94 L 03/14/18 09:00 Vital Signs Period Temp Pulse Resp BP Sys/Romero Pulse Ox Last 24 Hr 98.3 F-98.4 F 83-90 20-20 129-129/66-74 Constitutional: Yes: Well Nourished, No Distress, Calm Eyes: Yes: Conjunctiva Clear, EOM Intact HENT: Yes: Atraumatic, Normocephalic Neck: Yes: Supple, Trachea Midline Cardiovascular: Yes: Regular Rate and Rhythm, S1, S2 Respiratory: Yes: Regular, CTA Bilaterally Gastrointestinal: Yes: Normal Bowel Sounds, Soft, Tenderness (RUQ), Tenderness, Epigastrium ...Rectal Exam: Yes: Deferred Genitourinary: No: CVA Tenderness - Left, CVA Tenderness - Right Musculoskeletal: No: Muscle Pain, Muscle Weakness Extremities: No: Cool, Cyanosis Edema: No Peripheral Pulses WNL: Yes Peripheral Pulses: Left Radial: 2+, Right Radial: 2+, Left Doralis Pedis: 2+, Right Dorsalis Pedis: 2+ Integumentary: No: Jaundice, Pressure Ulcer, Rash Neurological: Yes: Alert, Oriented Psychiatric: Yes: Alert, Oriented Labs: CBC, BMP 03/12/18 05:12 03/13/18 06:20 INR, PTT INR 1.08 (0.83-1.09) 03/11/18 16:30 Problem List - Problems (1) Abnormal biliary HIDA scan Assessment/Plan: 83 yo female with MMP and recent demand [place] vs CAD with image confirmed acute cholecystitis, poor surgical candidate this was discussed with the patient and family. will proceed with alternative less invasive management options. npo and ivf hydration continue IV antibiotics hold eloquis for cholecystostomy tube on Sunday 03/18 (LAST DOSE WAS 03/13 @10pm per Pharmacy) IR for cholecystostomy on 03/18 Thank you for the opportunity to participate in the care of this patient. Code(s): R94.8 - ABNORMAL RESULTS OF FUNCTION STUDIES OF ORGANS AND SYSTEMS (2) Chest pain Code(s): R07.9 - CHEST PAIN, UNSPECIFIED Qualifiers: Chest pain type: chest pain due to myocardial ischemia Ischemic chest pain type: stable angina pectoris Qualified Code(s): I20.8 - Other forms of angina pectoris (3) Demand ischemia Code(s): I24.8 - OTHER FORMS OF ACUTE ISCHEMIC HEART DISEASE (4) Acute on chronic systolic (congestive) heart failure Code(s): I50.23 - ACUTE ON CHRONIC SYSTOLIC (CONGESTIVE) HEART FAILURE (5) Atrial flutter Code(s): I48.92 - UNSPECIFIED ATRIAL FLUTTER Qualifiers: Atrial flutter type: unspecified Qualified Code(s): I48.92 - Unspecified atrial flutter (6) Obesity Code(s): E66.9 - OBESITY, UNSPECIFIED
--- NOTE | 2018-03-15 18:33 | PN ---
Progress Note, Physician - Current Medication List Current Medications: Active Medications Sodium Chloride (Normal Saline -) 1,000 mls @ 75 mls/hr IV ASDIR [facility] Last Admin: 03/15/18 00:56 Dose: 75 mls/hr Piperacillin Sod/Tazobactam (Sod 3.375 gm/ Dextrose) 50 mls @ 100 mls/hr IVPB Q8H-IV [facility]; Protocol Last Admin: 03/15/18 14:22 Dose: 100 mls/hr Morphine Sulfate (Morphine Sulfate) 1 mg IVPUSH Q4H PRN PRN Reason: PAIN LEVEL 4 - 6 Polyethylene Glycol (Miralax (For Daily Use) -) 17 gm PO DAILY [facility] Last Admin: 03/15/18 11:05 Dose: Not Given - Objective Vital Signs: Vital Signs Temperature 98.4 F 03/15/18 14:34 Pulse Rate 105 H 03/15/18 14:34 Respiratory Rate 20 03/15/18 14:34 Blood Pressure 116/73 03/15/18 14:34 O2 Sat by Pulse Oximetry (%) 94 L 03/14/18 09:00 Constitutional: Yes: No Distress HENT: Yes: Atraumatic Neck: Yes: Supple Cardiovascular: Yes: Regular Rate and Rhythm Respiratory: Yes: CTA Bilaterally Gastrointestinal: Yes: Normal Bowel Sounds Extremities: Yes: WNL Edema: No Neurological: Yes: Alert, Oriented Labs: CBC, BMP 03/12/18 05:12 03/13/18 06:20 INR, PTT INR 1.08 (0.83-1.09) 03/11/18 16:30 Problem List - Problems (1) Chest pain Assessment/Plan: pt has epigastric discomfort Code(s): R07.9 - CHEST PAIN, UNSPECIFIED Qualifiers: Chest pain type: chest pain due to myocardial ischemia Ischemic chest pain type: stable angina pectoris (2) Diabetes Assessment/Plan: bgms...monitor Code(s): E11.9 - TYPE 2 DIABETES MELLITUS WITHOUT COMPLICATIONS Qualifiers: Diabetes mellitus type: type 2 (3) Epigastric pain Assessment/Plan: still has mild epigastric pain Code(s): R10.13 - EPIGASTRIC PAIN (4) HLD (hyperlipidemia) Assessment/Plan: on meds Code(s): E78.5 - HYPERLIPIDEMIA, UNSPECIFIED Qualifiers: Hyperlipidemia type: pure hypercholesterolemia Qualified Code(s): E78.00 - Pure hypercholesterolemia, unspecified; E78.0 - Pure hypercholesterolemia (5) Hyperthyroidism Code(s): E05.90 - THYROTOXICOSIS, UNSP WITHOUT THYROTOXIC CRISIS OR STORM (6) Obesity Code(s): E66.9 - OBESITY, UNSPECIFIED (7) ROSELINE (acute kidney injury) Assessment/Plan: improving with hydration Code(s): N17.9 - ACUTE KIDNEY FAILURE, UNSPECIFIED
[2018-03-16] MEDS ORDERED: DEXTROSE 5%-WATER - 50 ML IVPB ONE ×3 (01:31→17:56)
[2018-03-16] MEDS ORDERED: PIPERACILLIN/TAZOBACTAM 3.375 GM VIAL IVPB ONE ×3 (01:31→17:56)
[2018-03-16] MEDS: PIPERACILLIN/TAZOB 3.375 GM 3.375 GM in DEXTROSE 5%-WATER - 50 ML IVPB SCH ×3 (01:37→18:24)
[2018-03-16] MEDS: POLYETHYLENE GLYCOL 3350 119 GM BTL PO SCH (09:22)
[2018-03-16] MEDS: SODIUM CHLORIDE 1,000 ML IV SCH ×2 (09:22→18:24)
--- NOTE | 2018-03-16 17:42 | PN ---
Progress Note, Physician History of Present Illness: No new complaints - Current Medication List Current Medications: Active Medications Sodium Chloride (Normal Saline -) 1,000 mls @ 75 mls/hr IV ASDIR [facility] Last Admin: 03/16/18 09:22 Dose: 75 mls/hr Piperacillin Sod/Tazobactam (Sod 3.375 gm/ Dextrose) 50 mls @ 100 mls/hr IVPB Q8H-IV [facility]; Protocol Last Admin: 03/16/18 09:25 Dose: 100 mls/hr Morphine Sulfate (Morphine Sulfate) 1 mg IVPUSH Q4H PRN PRN Reason: PAIN LEVEL 4 - 6 Polyethylene Glycol (Miralax (For Daily Use) -) 17 gm PO DAILY [facility] Last Admin: 03/16/18 09:22 Dose: 17 gm - Objective Vital Signs: Vital Signs Temperature 97.8 F 03/16/18 14:55 Pulse Rate 101 H 03/16/18 14:55 Respiratory Rate 18 03/16/18 14:55 Blood Pressure 118/79 03/16/18 14:55 O2 Sat by Pulse Oximetry (%) 95 03/16/18 10:00 Constitutional: Yes: Well Nourished Neck: Yes: Thyromegaly Cardiovascular: Yes: WNL, Regular Rate and Rhythm Respiratory: Yes: WNL, Regular, CTA Bilaterally Gastrointestinal: Yes: WNL, Normal Bowel Sounds, Soft, Abdomen, Obese Labs: CBC, BMP 03/12/18 05:12 03/13/18 06:20 INR, PTT INR 1.08 (0.83-1.09) 03/11/18 16:30 Problem List - Problems (1) Abnormal biliary HIDA scan Assessment/Plan: Acute cholecystitis Pt poor surgical candidate Pt to undergo cholecystostomy tube placement on 03/18/18 by IR Cont IV zosyn Code(s): R94.8 - ABNORMAL RESULTS OF FUNCTION STUDIES OF ORGANS AND SYSTEMS (2) ROSELINE (acute kidney injury) Assessment/Plan: Monitor labs Code(s): N17.9 - ACUTE KIDNEY FAILURE, UNSPECIFIED (3) Demand ischemia Code(s): I24.8 - OTHER FORMS OF ACUTE ISCHEMIC HEART DISEASE (4) HTN (hypertension) Code(s): I10 - ESSENTIAL (PRIMARY) HYPERTENSION Qualifiers: Hypertension type: essential hypertension Qualified Code(s): I10 - Essential (primary) hypertension (5) Diabetes Code(s): E11.9 - TYPE 2 DIABETES MELLITUS WITHOUT COMPLICATIONS Qualifiers: Diabetes mellitus type: type 2 (6) HLD (hyperlipidemia) Code(s): E78.5 - HYPERLIPIDEMIA, UNSPECIFIED Qualifiers: Hyperlipidemia type: pure hypercholesterolemia Qualified Code(s): E78.00 - Pure hypercholesterolemia, unspecified; E78.0 - Pure hypercholesterolemia (7) Hyperthyroidism Code(s): E05.90 - THYROTOXICOSIS, UNSP WITHOUT THYROTOXIC CRISIS OR STORM (8) Afib Assessment/Plan: Tana has been on hold for procedure Restart tana post procedure Code(s): I48.91 - UNSPECIFIED ATRIAL FIBRILLATION
--- NOTE | 2018-03-16 20:42 | PN ---
Progress Note, Physician Chief Complaint: abdominal pain History of Present Illness: 83 yo female PMH type 2 DM, HTN, hypercholesterolemia, bronchial asthma/COPD, atrial fibrillation/flutter on NOAC and hyperthyroidism on treatment who presents with left upper abdominal discomfort and sharp chest discomfort across her sternum. - Current Medication List Current Medications: Active Medications Sodium Chloride (Normal Saline -) 1,000 mls @ 75 mls/hr IV ASDIR NOLBERTO Last Admin: 03/16/18 18:24 Dose: Not Given Piperacillin Sod/Tazobactam (Sod 3.375 gm/ Dextrose) 50 mls @ 100 mls/hr IVPB Q8H-IV NOLBERTO; Protocol Last Admin: 03/16/18 18:24 Dose: 100 mls/hr Morphine Sulfate (Morphine Sulfate) 1 mg IVPUSH Q4H PRN PRN Reason: PAIN LEVEL 4 - 6 Polyethylene Glycol (Miralax (For Daily Use) -) 17 gm PO DAILY NOLBERTO Last Admin: 03/16/18 09:22 Dose: 17 gm - Objective Vital Signs: Vital Signs Temperature 97.8 F 03/16/18 19:00 Pulse Rate 88 03/16/18 19:00 Respiratory Rate 18 03/16/18 19:00 Blood Pressure 104/61 03/16/18 19:00 O2 Sat by Pulse Oximetry (%) 95 03/16/18 10:00 Constitutional: Yes: Well Nourished, No Distress, Calm Eyes: Yes: Conjunctiva Clear, EOM Intact HENT: Yes: Atraumatic, Normocephalic Neck: Yes: Supple, Trachea Midline Cardiovascular: Yes: Regular Rate and Rhythm, S1, S2 Respiratory: Yes: Regular, CTA Bilaterally Gastrointestinal: Yes: Normal Bowel Sounds, Soft, Abdomen, Obese. No: Tenderness, Epigastrium, Tenderness, Rebound ...Rectal Exam: Yes: Deferred Genitourinary: No: CVA Tenderness - Left, CVA Tenderness - Right Musculoskeletal: No: Muscle Pain, Muscle Weakness Extremities: No: Cool, Cyanosis Edema: No Peripheral Pulses WNL: Yes Peripheral Pulses: Left Radial: 2+, Right Radial: 2+, Left Doralis Pedis: 2+, Right Dorsalis Pedis: 2+, Left Femoral: 2+, Right Femoral: 2+ Integumentary: No: Jaundice, Pressure Ulcer, Rash Wound/Incision: Yes: Clean/Dry Neurological: Yes: Alert, Oriented Psychiatric: Yes: Alert, Oriented Labs: CBC, BMP 03/12/18 05:12 03/13/18 06:20 INR, PTT INR 1.08 (0.83-1.09) 03/11/18 16:30 Problem List - Problems (1) Abnormal biliary HIDA scan Assessment/Plan: 83 yo female with MMP and recent demand ishemia vs CAD with image confirmed acute cholecystitis, poor surgical candidate this was discussed with the patient and family. will proceed with alternative less invasive management options. npo and ivf hydration continue IV antibiotics hold eloquis for cholecystostomy tube on Sunday 03/18 (LAST DOSE WAS 03/13 @10pm per Pharmacy) IR for cholecystostomy on 03/18 Thank you for the opportunity to participate in the care of this patient. Code(s): R94.8 - ABNORMAL RESULTS OF FUNCTION STUDIES OF ORGANS AND SYSTEMS (2) Chest pain Code(s): R07.9 - CHEST PAIN, UNSPECIFIED Qualifiers: Chest pain type: chest pain due to myocardial ischemia Ischemic chest pain type: stable angina pectoris Qualified Code(s): I20.8 - Other forms of angina pectoris (3) Demand ischemia Code(s): I24.8 - OTHER FORMS OF ACUTE ISCHEMIC HEART DISEASE (4) Acute on chronic systolic (congestive) heart failure Code(s): I50.23 - ACUTE ON CHRONIC SYSTOLIC (CONGESTIVE) HEART FAILURE (5) Atrial flutter Code(s): I48.92 - UNSPECIFIED ATRIAL FLUTTER Qualifiers: Atrial flutter type: unspecified Qualified Code(s): I48.92 - Unspecified atrial flutter (6) Obesity Code(s): E66.9 - OBESITY, UNSPECIFIED
[2018-03-16 22:07] LABS: URINE APPEARANCE CLOUDY; URINE BILIRUBIN NEGATIVE (<2.0 mg/dL); URINE COLOR YELLOW; URINE GLUCOSE (UA) 3+ (NEGATIVE); URINE KETONE NEGATIVE (NEGATIVE); URINE LEUK ESTERASE TRACE (NEGATIVE); URINE NITRITE NEGATIVE (NEGATIVE); URINE PROTEIN NEGATIVE (NEGATIVE); URINE UROBILINOGEN NEGATIVE mg/dL (0.2-1.0)
[2018-03-16 22:51] LABS: EPI CELLS RARE /HPF (FEW); URIC ACID CRYSTALS RARE /hpf (NONE SEEN); URINE BACTERIA RARE /hpf (NONE SEEN); URINE HYALINE CAST 1 /lpf
[2018-03-17] MEDS: SODIUM CHLORIDE 1,000 ML IV SCH ×2 (00:56→16:18)
[2018-03-17] MEDS ORDERED: PIPERACILLIN/TAZOBACTAM 3.375 GM VIAL IVPB ONE ×3 (01:17→16:33)
[2018-03-17] MEDS ORDERED: DEXTROSE 5%-WATER - 50 ML IVPB ONE ×3 (01:17→16:33)
[2018-03-17] MEDS: PIPERACILLIN/TAZOB 3.375 GM 3.375 GM in DEXTROSE 5%-WATER - 50 ML IVPB SCH ×3 (01:57→17:45)
[2018-03-17] MEDS: POLYETHYLENE GLYCOL 3350 119 GM BTL PO SCH (09:38)
--- NOTE | 2018-03-17 13:54 | PN ---
Progress Note, Physician History of Present Illness: stable no issues minimal pain awaiting choley tube - Current Medication List Current Medications: Active Medications Sodium Chloride (Normal Saline -) 1,000 mls @ 75 mls/hr IV ASDIR NOLBERTO Last Admin: 03/17/18 00:56 Dose: 75 mls/hr Piperacillin Sod/Tazobactam (Sod 3.375 gm/ Dextrose) 50 mls @ 100 mls/hr IVPB Q8H-IV NOLBERTO; Protocol Last Admin: 03/17/18 09:38 Dose: 100 mls/hr Morphine Sulfate (Morphine Sulfate) 1 mg IVPUSH Q4H PRN PRN Reason: PAIN LEVEL 4 - 6 Polyethylene Glycol (Miralax (For Daily Use) -) 17 gm PO DAILY NLOBERTO Last Admin: 03/17/18 09:38 Dose: 17 gm - Objective Vital Signs: Vital Signs Temperature 98.6 F 03/17/18 09:00 Pulse Rate 94 H 03/17/18 09:00 Respiratory Rate 18 03/17/18 09:00 Blood Pressure 113/61 03/17/18 09:00 O2 Sat by Pulse Oximetry (%) 96 03/17/18 10:00 Constitutional: Yes: Calm, Mild Distress, Obese Cardiovascular: Yes: Regular Rate and Rhythm Respiratory: Yes: Poor Air Entry (bases) Gastrointestinal: Yes: Normal Bowel Sounds, Soft Musculoskeletal: Yes: WNL Extremities: Yes: WNL Neurological: Yes: Alert, Oriented Psychiatric: Yes: Alert, Oriented Labs: CBC, BMP 03/12/18 05:12 03/13/18 06:20 INR, PTT INR 1.08 (0.83-1.09) 03/11/18 16:30 Assessment/Plan Problem List - Problems (1) Abnormal biliary HIDA scan Code(s): R94.8 - ABNORMAL RESULTS OF FUNCTION STUDIES OF ORGANS AND SYSTEMS (2) Chest pain Code(s): R07.9 - CHEST PAIN, UNSPECIFIED Qualifiers: Chest pain type: chest pain due to myocardial ischemia Ischemic chest pain type: stable angina pectoris Qualified Code(s): I20.8 - Other forms of angina pectoris (3) Demand ischemia Code(s): I24.8 - OTHER FORMS OF ACUTE ISCHEMIC HEART DISEASE (4) Acute on chronic systolic (congestive) heart failure Code(s): I50.23 - ACUTE ON CHRONIC SYSTOLIC (CONGESTIVE) HEART FAILURE (5) Atrial flutter Code(s): I48.92 - UNSPECIFIED ATRIAL FLUTTER Qualifiers: Atrial flutter type: unspecified Qualified Code(s): I48.92 - Unspecified atrial flutter (6) Obesity Code(s): E66.9 - OBESITY, UNSPECIFIED plan continue current mgmt abx awaiting for the choley tube rest as per the team
[2018-03-17] MEDS: DEXTROSE 5%-0.45% SALINE 1,000 ML IV SCH (17:45)
--- NOTE | 2018-03-17 20:11 | PN ---
Progress Note, Physician History of Present Illness: No new complaints - Current Medication List Current Medications: Active Medications Piperacillin Sod/Tazobactam (Sod 3.375 gm/ Dextrose) 50 mls @ 100 mls/hr IVPB Q8H-IV NOLBERTO; Protocol Last Admin: 03/17/18 17:45 Dose: 100 mls/hr Dextrose/Sodium Chloride (D5-1/2ns -) 1,000 mls @ 42 mls/hr IV ASDIR NOLBERTO Last Admin: 03/17/18 17:45 Dose: 42 mls/hr - Objective Vital Signs: Vital Signs Temperature 97.8 F 03/17/18 18:09 Pulse Rate 84 03/17/18 18:09 Respiratory Rate 18 03/17/18 18:09 Blood Pressure 118/61 03/17/18 18:09 O2 Sat by Pulse Oximetry (%) 96 03/17/18 10:00 Constitutional: Yes: Well Nourished Neck: Yes: Thyromegaly Cardiovascular: Yes: Pulse Irregular Respiratory: Yes: WNL, Regular, CTA Bilaterally Gastrointestinal: Yes: WNL, Normal Bowel Sounds, Soft Labs: CBC, BMP 03/12/18 05:12 03/13/18 06:20 INR, PTT INR 1.08 (0.83-1.09) 03/11/18 16:30 Problem List - Problems (1) Abnormal biliary HIDA scan Assessment/Plan: Acute cholecystitis Pt poor surgical candidate Pt to undergo cholecystostomy tube placement on 03/18/18 by IR Ankit IV zosyn Restart meds after procedure Code(s): R94.8 - ABNORMAL RESULTS OF FUNCTION STUDIES OF ORGANS AND SYSTEMS (2) ROSELINE (acute kidney injury) Assessment/Plan: Monitor labs Code(s): N17.9 - ACUTE KIDNEY FAILURE, UNSPECIFIED (3) Afib Assessment/Plan: Eliquis has been on hold for procedure Restart eliquis post procedure Code(s): I48.91 - UNSPECIFIED ATRIAL FIBRILLATION (4) Demand ischemia Code(s): I24.8 - OTHER FORMS OF ACUTE ISCHEMIC HEART DISEASE (5) HTN (hypertension) Code(s): I10 - ESSENTIAL (PRIMARY) HYPERTENSION Qualifiers: Hypertension type: essential hypertension Qualified Code(s): I10 - Essential (primary) hypertension (6) Hyperthyroidism Code(s): E05.90 - THYROTOXICOSIS, UNSP WITHOUT THYROTOXIC CRISIS OR STORM
[2018-03-18] MEDS ORDERED: PIPERACILLIN/TAZOBACTAM 3.375 GM VIAL IVPB ONE ×3 (00:38→17:21)
[2018-03-18] MEDS ORDERED: DEXTROSE 5%-WATER - 50 ML IVPB ONE ×3 (00:39→17:21)
[2018-03-18] MEDS: PIPERACILLIN/TAZOB 3.375 GM 3.375 GM in DEXTROSE 5%-WATER - 50 ML IVPB SCH ×3 (02:06→17:37)
[2018-03-18 06:58] LABS: HEMATOCRIT 38.5 % (32.4-45.2); HEMOGLOBIN 12.1 GM/dL (10.7-15.3); MCHC 31.3 g/dl (32.0-36.0); MEAN CELL VOLUME 83.1 fl (80-96); MEAN PLT VOLUME 8.1 fl (7.5-11.1); PLATELET COUNT 177 K/MM3 (134-434); RBC 4.63 M/mm3 (3.60-5.2); RDW 17.4 % (11.6-15.6); WHITE BLOOD COUNT 6.3 K/mm3 (4.0-10.0)
[2018-03-18 07:17] LABS: INR 1.31 (0.83-1.09); PROTHROMBIN TIME (PATIENT) 15.5 SEC (9.7-13.0)
[2018-03-18 07:21] LABS: ALBUMIN 2.9 g/dl (3.4-5.0); ALK PHOS 105 U/L (45-117); ANION GAP 9 MMOL/L (8-16); BILIRUBIN,TOTAL 1.3 mg/dL (0.2-1); BLOOD UREA NITROGEN 3 mg/dL (7-18); CALCIUM 8.9 mg/dL (8.5-10.1); CHLORIDE 105 mmol/L (98-107); CO2 27 mmol/L (21-32); CREATININE 0.7 mg/dL (0.55-1.3); GLUCOSE,RANDOM 118 mg/dL (74-106); POTASSIUM 3.1 mmol/L (3.5-5.1); SGOT/AST 20 U/L (15-37); SGPT/ALT 17 U/L (13-61); SODIUM 141 mmol/L (136-145); TOT PROT 5.8 g/dl (6.4-8.2)
[2018-03-18] MEDS ORDERED: MORPHINE SULFATE 2 MG/ML VIAL IVPUSH PRN (09:52)
[2018-03-18] MEDS: KCL 10 MEQ IVPB 10 MEQ/100 ML INFUS.BAG IVPB SCH ×2 (10:12→11:52)
--- NOTE | 2018-03-18 15:29 | PN ---
Progress Note, Physician History of Present Illness: stable probably choley tube today - Current Medication List Current Medications: Active Medications Piperacillin Sod/Tazobactam (Sod 3.375 gm/ Dextrose) 50 mls @ 100 mls/hr IVPB Q8H-IV NOLBERTO; Protocol Last Admin: 03/18/18 09:04 Dose: 100 mls/hr Dextrose/Sodium Chloride (D5-1/2ns -) 1,000 mls @ 42 mls/hr IV ASDIR NOLBERTO Last Admin: 03/17/18 17:45 Dose: 42 mls/hr Morphine Sulfate (Morphine Sulfate) 1 mg IVPUSH Q4H PRN PRN Reason: PAIN LEVEL 4 -10 Last Admin: 03/18/18 10:08 Dose: 1 mg - Objective Vital Signs: Vital Signs Temperature 97.5 F L 03/18/18 13:42 Pulse Rate 89 03/18/18 13:42 Respiratory Rate 17 03/18/18 13:42 Blood Pressure 123/64 03/18/18 13:42 O2 Sat by Pulse Oximetry (%) 97 03/18/18 09:00 Constitutional: Yes: No Distress, Calm, Obese Cardiovascular: Yes: S1, S2 Respiratory: Yes: Regular, CTA Bilaterally Gastrointestinal: Yes: Normal Bowel Sounds, Soft, Tenderness Musculoskeletal: Yes: WNL Extremities: Yes: WNL Neurological: Yes: Alert, Oriented Psychiatric: Yes: Alert, Oriented Labs: CBC, BMP 03/18/18 06:15 03/18/18 06:15 INR, PTT INR 1.31 (0.83-1.09) H 03/18/18 06:15 Assessment/Plan Problem List - Problems (1) Abnormal biliary HIDA scan Code(s): R94.8 - ABNORMAL RESULTS OF FUNCTION STUDIES OF ORGANS AND SYSTEMS (2) Chest pain Code(s): R07.9 - CHEST PAIN, UNSPECIFIED Qualifiers: Chest pain type: chest pain due to myocardial ischemia Ischemic chest pain type: stable angina pectoris Qualified Code(s): I20.8 - Other forms of angina pectoris (3) Demand ischemia Code(s): I24.8 - OTHER FORMS OF ACUTE ISCHEMIC HEART DISEASE (4) Acute on chronic systolic (congestive) heart failure Code(s): I50.23 - ACUTE ON CHRONIC SYSTOLIC (CONGESTIVE) HEART FAILURE (5) Atrial flutter Code(s): I48.92 - UNSPECIFIED ATRIAL FLUTTER Qualifiers: Atrial flutter type: unspecified Qualified Code(s): I48.92 - Unspecified atrial flutter (6) Obesity Code(s): E66.9 - OBESITY, UNSPECIFIED plan continue current mgmt abx awaiting for the choley tube rest as per the team
--- NOTE | 2018-03-18 16:30 | PN ---
Progress Note, Physician Chief Complaint: abdominal pain History of Present Illness: 83 yo female PMH type 2 DM, HTN, hypercholesterolemia, bronchial asthma/COPD, atrial fibrillation/flutter on NOAC and hyperthyroidism on treatment who presents with left upper abdominal discomfort and sharp chest discomfort across her sternum. - Current Medication List Current Medications: Active Medications Piperacillin Sod/Tazobactam (Sod 3.375 gm/ Dextrose) 50 mls @ 100 mls/hr IVPB Q8H-IV NOLBERTO; Protocol Last Admin: 03/18/18 09:04 Dose: 100 mls/hr Dextrose/Sodium Chloride (D5-1/2ns -) 1,000 mls @ 42 mls/hr IV ASDIR NOLBERTO Last Admin: 03/17/18 17:45 Dose: 42 mls/hr Morphine Sulfate (Morphine Sulfate) 1 mg IVPUSH Q4H PRN PRN Reason: PAIN LEVEL 4 -10 Last Admin: 03/18/18 10:08 Dose: 1 mg - Objective Vital Signs: Vital Signs Temperature 97.5 F L 03/18/18 13:42 Pulse Rate 89 03/18/18 13:42 Respiratory Rate 17 03/18/18 13:42 Blood Pressure 123/64 03/18/18 13:42 O2 Sat by Pulse Oximetry (%) 97 03/18/18 09:00 Constitutional: Yes: Well Nourished, No Distress Eyes: Yes: Conjunctiva Clear, EOM Intact HENT: Yes: Atraumatic, Normocephalic Neck: Yes: Supple, Trachea Midline Cardiovascular: Yes: Regular Rate and Rhythm, S1, S2 Respiratory: Yes: Regular, CTA Bilaterally Gastrointestinal: Yes: Normal Bowel Sounds, Soft, Abdomen, Obese. No: Tenderness, Tenderness, Epigastrium, Tenderness, Rebound ...Rectal Exam: Yes: Deferred Genitourinary: No: CVA Tenderness - Left, CVA Tenderness - Right Extremities: No: Cool, Cyanosis Edema: No Peripheral Pulses WNL: Yes Peripheral Pulses: Left Radial: 2+, Right Radial: 2+, Left Doralis Pedis: 2+, Right Dorsalis Pedis: 2+, Left Femoral: 2+, Right Femoral: 2+ Integumentary: No: Jaundice, Rash Neurological: Yes: Alert, Oriented Psychiatric: Yes: Alert, Oriented Labs: CBC, BMP 03/18/18 06:15 03/18/18 06:15 INR, PTT INR 1.31 (0.83-1.09) H 03/18/18 06:15 Problem List - Problems (1) Abnormal biliary HIDA scan Assessment/Plan: 83 yo female with MMP and recent demand [place] vs CAD with image confirmed acute cholecystitis, poor surgical candidate this was discussed with the patient and family. will proceed with alternative less invasive management options. She has been cleared by cardiology. Resume diet NPO after midnight continue IV antibiotics hold eloquis for cholecystostomy tube on We 03/20 (LAST DOSE WAS 03/13 @10pm per Pharmacy) IR for cholecystostomy on 03/20 Thank you for the opportunity to participate in the care of this patient. Code(s): R94.8 - ABNORMAL RESULTS OF FUNCTION STUDIES OF ORGANS AND SYSTEMS (2) Chest pain Code(s): R07.9 - CHEST PAIN, UNSPECIFIED Qualifiers: Chest pain type: chest pain due to myocardial ischemia Ischemic chest pain type: stable angina pectoris Qualified Code(s): I20.8 - Other forms of angina pectoris (3) Demand ischemia Code(s): I24.8 - OTHER FORMS OF ACUTE ISCHEMIC HEART DISEASE (4) Acute on chronic systolic (congestive) heart failure Code(s): I50.23 - ACUTE ON CHRONIC SYSTOLIC (CONGESTIVE) HEART FAILURE (5) Atrial flutter Code(s): I48.92 - UNSPECIFIED ATRIAL FLUTTER Qualifiers: Atrial flutter type: unspecified Qualified Code(s): I48.92 - Unspecified atrial flutter (6) Obesity Code(s): E66.9 - OBESITY, UNSPECIFIED
--- NOTE | 2018-03-18 16:41 | CON.CARD ---
Consult Consult Specialty:: Cardiology Referred by:: Shira Cunningham Reason for Consultation:: Aflutter - History of Present Illness Chief Complaint: Abd pain History of Present Illness: Patient is an 83 year old female of descent with underlying history of type 2 DM, HTN, hypercholesterolemia, bronchial asthma/COPD, atrial fibrillation /flutter on NOAC and hyperthyroidism on treatment who presents with left upper abdominal discomfort and sharp chest discomfort across her sternum. She also complained of nausea. She suffers from constipation. She denies shortness of breath or palpitations. She denies paroxysmal nocturnal dyspnea or orthopnea. She denies fever or chills. She denies headache or lightheadedness. She denies diarrhea or vomiting. - Past Medical History Cardio/Vascular: Yes: AFIB, HTN, Hyperlipdemia Pulmonary: Yes: COPD Infectious Disease: No: AIDS, C-Diff, Herpes Zoster, HIV, MRSA, STD's, Tuberculosis, VREF, Other Psych: No: Addictions, Anxiety, Bipolar, Depression, Panic, Psychosis, Schizophrenia, Other Musculoskeletal: No: Bursitis, Chronic low back pain, Hemiparesis, Hemiplegia, Osteoarthritis, Paraplegia, Other Rheumatology: No: Fibromyalgia, Gout, Lupus, Rheumatoid Arthritis, Sarcoidosis, Vasculitis, Other ENT: No: Allergic Rhinitis, Sinusitis, Other Endocrine: Yes: Diabetes Mellitus, Hyperthyroidism. No: [place]'s Disease, [place]'s Disease, Diabetes Insipidus, Hyperparathyroidism, Hypothyroidism, Osteopenia, SIADH, Other Dermatology: No: Basal Cell, Cellulitis, Eczema, Melanoma, Psoriasis, Squamous Cell, Other - Alcohol/Substance Use Hx Alcohol Use: No - Smoking History Smoking history: Unknown if ever smoked Have you smoked in the past 12 months: No Aproximately how many cigarettes per day: 0 If you are a former smoker, when did you quit?: 60years ago - Social History Usual Living Arrangement: Other Home Medications - Allergies Allergies/Adverse Reactions: Allergies Allergy/AdvReac Type Severity Reaction Status Date / Time No Known Allergies Allergy Verified 03/11/18 20:09 - Home Medications Home Medications: Ambulatory Orders Albuterol 0.083% Nebulizer Chuyita [Ventolin 0.083% Nebulizer Soln -] 1 amp NEB Q4H PRN #30 amp MDD 4 09/21/17 Memantine HCl [Namenda -] 10 mg PO DAILY@0800 #30 tablet MDD 1 09/21/17 Brimonidine Tartrate/Timolol [Combigan 0.2%-0.5% Eye Drops] 5 ml OP DAILY Exenatide Microspheres [Bydureon Pen] 2 mg SQ WEEKLY 11/27/17 Methimazole [Tapazole -] 10 mg PO DAILY MDD 2 11/27/17 Pantoprazole Sodium [Protonix] 40 mg PO DAILY 11/27/17 Atorvastatin Ca [Lipitor] 20 mg PO HS #30 tablet 12/03/17 Furosemide [Lasix -] 40 mg PO DAILY #30 tablet 12/03/17 Insulin Glargine,Hum.rec.anlog [Lantus Solostar PEN -] 40 units SQ HS 03/11/18 Metoprolol Succinate [Toprol XL -] 100 mg PO DAILY 03/11/18 Omeprazole Magnesium [Acid Hvac Designer] 40 mg PO DAILY 03/11/18 Ondansetron HCl [Zofran] 4 mg PO TID PRN 03/11/18 Apixaban [Eliquis -] 2.5 mg PO BID #20 tablet 03/13/18 Losartan Potassium [Cozaar -] 25 mg PO DAILY #30 tablet 03/13/18 Vital Signs: Vital Signs Temperature 97.5 F L 03/18/18 13:42 Pulse Rate 89 03/18/18 13:42 Respiratory Rate 17 03/18/18 13:42 Blood Pressure 123/64 03/18/18 13:42 O2 Sat by Pulse Oximetry (%) 97 03/18/18 09:00 - Other Data Labs, Other Data: CBC, BMP 03/18/18 06:15 03/18/18 06:15 INR, PTT INR 1.31 (0.83-1.09) H 03/18/18 06:15 Problem List - Problems (1) Demand ischemia Code(s): I24.8 - OTHER FORMS OF ACUTE ISCHEMIC HEART DISEASE (2) ROSELINE (acute kidney injury) Code(s): N17.9 - ACUTE KIDNEY FAILURE, UNSPECIFIED (3) CKD (chronic kidney disease) Code(s): N18.9 - CHRONIC KIDNEY DISEASE, UNSPECIFIED Qualifiers: Chronic kidney disease stage: stage 2 (mild) Qualified Code(s): N18.2 - Chronic kidney disease, stage 2 (mild) (4) Chest pain Code(s): R07.9 - CHEST PAIN, UNSPECIFIED Qualifiers: Chest pain type: chest pain due to myocardial ischemia Ischemic chest pain type: stable angina pectoris Qualified Code(s): I20.8 - Other forms of angina pectoris (5) HTN (hypertension) Code(s): I10 - ESSENTIAL (PRIMARY) HYPERTENSION Qualifiers: Hypertension type: essential hypertension Qualified Code(s): I10 - Essential (primary) hypertension (6) Atrial flutter Code(s): I48.92 - UNSPECIFIED ATRIAL FLUTTER Qualifiers: Atrial flutter type: unspecified Qualified Code(s): I48.92 - Unspecified atrial flutter (7) HLD (hyperlipidemia) Code(s): E78.5 - HYPERLIPIDEMIA, UNSPECIFIED Qualifiers: Hyperlipidemia type: pure hypercholesterolemia Qualified Code(s): E78.00 - Pure hypercholesterolemia, unspecified; E78.0 - Pure hypercholesterolemia (8) Hyperthyroidism Code(s): E05.90 - THYROTOXICOSIS, UNSP WITHOUT THYROTOXIC CRISIS OR STORM (9) Obesity Code(s): E66.9 - OBESITY, UNSPECIFIED (10) Epigastric pain Code(s): R10.13 - EPIGASTRIC PAIN Assessment/Plan 03/13/2018 Normal LV size and fxn, mod AR, severe TR, mild MR 1. Chest pain syndrome with mild elevation of troponin referable to demand ischemia, rule out CAD 2. Atrial fibrillation/flutter [id number] score likely 6 on NOAC 3. Epigastric / RUQ abdominal pain - imaging findings of cholelithiasis and distended GB r/o biliary etiology vs primary gastric etiology such as peptic ulcer disease 4. Acute on CKD (pre-renal) improved 4. HTN 5. Type 2 DM 6. Hypercholesterolemia 7. Hyperthyroidism 8. Cholelithiasis 9. Nephrolithiasis PLAN: 1. Troponins have peaked 2. Continue Eliquis 2.5 mg BID (age > 80 and Cr >1.5) 3. Continue Lipitor 20 qhs, losartan 25 qd, Toprol XL 100 qd 4. Echocardiography to assess LV/RV and valvular function 5. Ischemia evaluation as outpatient and will need to assess duration of AF and determine rate control vs rhythm control strategy 6. Clear liquid, PPI, HIDA scan per GI recs, d/c telemetry
--- NOTE | 2018-03-18 16:44 | PN ---
Progress Note, Physician History of Present Illness: Planned for percutaneous cholecystotomy placement. HIDA scan suspicious for acute cholecystitis. RUQ discomfort improved, afebrile on clear liquids. - Current Medication List Current Medications: Active Medications Piperacillin Sod/Tazobactam (Sod 3.375 gm/ Dextrose) 50 mls @ 100 mls/hr IVPB Q8H-IV NOLBERTO; Protocol Last Admin: 03/18/18 09:04 Dose: 100 mls/hr Dextrose/Sodium Chloride (D5-1/2ns -) 1,000 mls @ 42 mls/hr IV ASDIR NOLBERTO Last Admin: 03/17/18 17:45 Dose: 42 mls/hr Morphine Sulfate (Morphine Sulfate) 1 mg IVPUSH Q4H PRN PRN Reason: PAIN LEVEL 4 -10 Last Admin: 03/18/18 10:08 Dose: 1 mg - Objective Vital Signs: Vital Signs Temperature 97.5 F L 03/18/18 13:42 Pulse Rate 89 03/18/18 13:42 Respiratory Rate 17 03/18/18 13:42 Blood Pressure 123/64 03/18/18 13:42 O2 Sat by Pulse Oximetry (%) 97 03/18/18 09:00 Constitutional: Yes: No Distress, Calm Neck: Yes: Supple Cardiovascular: Yes: Regular Rate and Rhythm Respiratory: Yes: Regular, Diminished Gastrointestinal: Yes: Soft, Abdomen, Obese, Hypoactive Bowel Sounds, Tenderness (RUQ) Edema: No Labs: CBC, BMP 03/18/18 06:15 03/18/18 06:15 INR, PTT INR 1.31 (0.83-1.09) H 03/18/18 06:15 Problem List - Problems (1) Demand ischemia Code(s): I24.8 - OTHER FORMS OF ACUTE ISCHEMIC HEART DISEASE (2) ROSELINE (acute kidney injury) Code(s): N17.9 - ACUTE KIDNEY FAILURE, UNSPECIFIED (3) CKD (chronic kidney disease) Code(s): N18.9 - CHRONIC KIDNEY DISEASE, UNSPECIFIED Qualifiers: Chronic kidney disease stage: stage 2 (mild) Qualified Code(s): N18.2 - Chronic kidney disease, stage 2 (mild) (4) Chest pain Code(s): R07.9 - CHEST PAIN, UNSPECIFIED Qualifiers: Chest pain type: chest pain due to myocardial ischemia Ischemic chest pain type: stable angina pectoris Qualified Code(s): I20.8 - Other forms of angina pectoris (5) HTN (hypertension) Code(s): I10 - ESSENTIAL (PRIMARY) HYPERTENSION Qualifiers: Hypertension type: essential hypertension Qualified Code(s): I10 - Essential (primary) hypertension (6) Atrial flutter Code(s): I48.92 - UNSPECIFIED ATRIAL FLUTTER Qualifiers: Atrial flutter type: unspecified Qualified Code(s): I48.92 - Unspecified atrial flutter (7) HLD (hyperlipidemia) Code(s): E78.5 - HYPERLIPIDEMIA, UNSPECIFIED Qualifiers: Hyperlipidemia type: pure hypercholesterolemia Qualified Code(s): E78.00 - Pure hypercholesterolemia, unspecified; E78.0 - Pure hypercholesterolemia (8) Hyperthyroidism Code(s): E05.90 - THYROTOXICOSIS, UNSP WITHOUT THYROTOXIC CRISIS OR STORM (9) Obesity Code(s): E66.9 - OBESITY, UNSPECIFIED (10) Epigastric pain Code(s): R10.13 - EPIGASTRIC PAIN Assessment/Plan 03/13/2018 Echo: Normal LV size and fxn, mild MR, AR, mod IN, severe TR 1. Chest pain syndrome with mild elevation of troponin referable to demand ischemia, rule out CAD 2. Atrial fibrillation/flutter [id number] score likely 6 on NOAC 3. Epigastric / RUQ abdominal pain with cholelithiasis and +HIDA scan c/w acute cholecystitis 4. Acute on CKD (pre-renal) improved 5. HTN 6. Type 2 DM 7. Hypercholesterolemia 8. Hyperthyroidism 9. Nephrolithiasis PLAN: 1. Troponins have peaked 2. Holding Eliquis 2.5 mg BID (age > 80 and Cr >1.5) 2 days prior to percutaneous cholecystotomy placement, may proceed from CV-standpoint 3. Resume Lipitor 20 qhs, losartan 25 qd, Toprol XL 25 qd as hemodynamics tolerate 4. Clear liquid, PPI, replete K 5. Ischemia evaluation as outpatient and will need to assess duration of AF and determine rate control vs rhythm control strategy
--- NOTE | 2018-03-18 16:45 | PN ---
Progress Note, Physician History of Present Illness: feeling good no pain - Current Medication List Current Medications: Active Medications Piperacillin Sod/Tazobactam (Sod 3.375 gm/ Dextrose) 50 mls @ 100 mls/hr IVPB Q8H-IV [facility]; Protocol Last Admin: 03/18/18 09:04 Dose: 100 mls/hr Dextrose/Sodium Chloride (D5-1/2ns -) 1,000 mls @ 42 mls/hr IV ASDIR [facility] Last Admin: 03/17/18 17:45 Dose: 42 mls/hr Morphine Sulfate (Morphine Sulfate) 1 mg IVPUSH Q4H PRN PRN Reason: PAIN LEVEL 4 -10 Last Admin: 03/18/18 10:08 Dose: 1 mg - Objective Vital Signs: Vital Signs Temperature 97.5 F L 03/18/18 13:42 Pulse Rate 89 03/18/18 13:42 Respiratory Rate 17 03/18/18 13:42 Blood Pressure 123/64 03/18/18 13:42 O2 Sat by Pulse Oximetry (%) 97 03/18/18 09:00 Constitutional: Yes: No Distress HENT: Yes: Atraumatic Neck: Yes: Supple Cardiovascular: Yes: Regular Rate and Rhythm Respiratory: Yes: CTA Bilaterally Gastrointestinal: Yes: Normal Bowel Sounds Extremities: Yes: WNL Edema: No Peripheral Pulses WNL: Yes Neurological: Yes: Alert, Oriented Labs: CBC, BMP 03/18/18 06:15 03/18/18 06:15 INR, PTT INR 1.31 (0.83-1.09) H 03/18/18 06:15 Problem List - Problems (1) Chest pain Assessment/Plan: pain resolved Code(s): R07.9 - CHEST PAIN, UNSPECIFIED Qualifiers: Chest pain type: chest pain due to myocardial ischemia Ischemic chest pain type: stable angina pectoris Qualified Code(s): I20.8 - Other forms of angina pectoris (2) Diabetes Assessment/Plan: bgms...monitor on insulin coverage Code(s): E11.9 - TYPE 2 DIABETES MELLITUS WITHOUT COMPLICATIONS Qualifiers: Diabetes mellitus type: type 2 (3) Epigastric pain Assessment/Plan: not today Code(s): R10.13 - EPIGASTRIC PAIN (4) HLD (hyperlipidemia) Assessment/Plan: on meds Code(s): E78.5 - HYPERLIPIDEMIA, UNSPECIFIED Qualifiers: Hyperlipidemia type: pure hypercholesterolemia Qualified Code(s): E78.00 - Pure hypercholesterolemia, unspecified; E78.0 - Pure hypercholesterolemia (5) Hyperthyroidism Assessment/Plan: on meds stable Code(s): E05.90 - THYROTOXICOSIS, UNSP WITHOUT THYROTOXIC CRISIS OR STORM (6) Obesity Code(s): E66.9 - OBESITY, UNSPECIFIED (7) ROSELINE (acute kidney injury) Assessment/Plan: resolved Code(s): N17.9 - ACUTE KIDNEY FAILURE, UNSPECIFIED (8) Demand ischemia Code(s): I24.8 - OTHER FORMS OF ACUTE ISCHEMIC HEART DISEASE (9) HTN (hypertension) Code(s): I10 - ESSENTIAL (PRIMARY) HYPERTENSION Qualifiers: Hypertension type: essential hypertension Qualified Code(s): I10 - Essential (primary) hypertension (10) Hypokalemia Assessment/Plan: will give iv K Code(s): E87.6 - HYPOKALEMIA
[2018-03-18] MEDS: metoPROLOL SUCCINATE 25 MG TAB.SR.24H (FP) PO SCH (17:37)
[2018-03-18] MEDS: DEXTROSE 5%-0.45% SALINE 1,000 ML IV SCH (17:45)
[2018-03-18] MEDS ORDERED: PT OWN MED DRAWER 7, Y5N ONE (21:49)
[2018-03-18] MEDS: ATORVASTATIN CA 20 MG TABLET (FP) PO SCH (21:51)
[2018-03-18] MEDS: METHIMAZOLE 10 MG TABLET (FP) PO SCH (21:51)
[2018-03-18] MEDS: MEMANTINE HCL 10 MG TABLET (FP) PO SCH (21:52)
[2018-03-19] MEDS ORDERED: DEXTROSE 5%-WATER - 50 ML IVPB ONE ×3 (01:08→17:26)
[2018-03-19] MEDS ORDERED: PIPERACILLIN/TAZOBACTAM 3.375 GM VIAL IVPB ONE ×3 (01:08→17:26)
[2018-03-19] MEDS ORDERED: PT OWN MED DRAWER 7, Y5N ONE (01:12)
[2018-03-19] MEDS: PIPERACILLIN/TAZOB 3.375 GM 3.375 GM in DEXTROSE 5%-WATER - 50 ML IVPB SCH ×3 (02:10→17:39)
[2018-03-19] MEDS: METHIMAZOLE 10 MG TABLET (FP) PO SCH (10:01)
[2018-03-19] MEDS: metoPROLOL SUCCINATE 25 MG TAB.SR.24H (FP) PO SCH (10:01)
[2018-03-19] MEDS: MEMANTINE HCL 10 MG TABLET (FP) PO SCH (10:01)
--- NOTE | 2018-03-19 12:07 | PN ---
Progress Note, Physician Chief Complaint: Events noted Denies chest pain, SOB or palpitations History of Present Illness: Patient was seen and examined. Awake and alert. Chart was reviewed - Current Medication List Current Medications: Active Medications Atorvastatin Calcium (Lipitor -) 20 mg PO HS [facility] Last Admin: 03/18/18 21:51 Dose: 20 mg Piperacillin Sod/Tazobactam (Sod 3.375 gm/ Dextrose) 50 mls @ 100 mls/hr IVPB Q8H-IV [facility]; Protocol Last Admin: 03/19/18 10:01 Dose: 100 mls/hr Dextrose/Sodium Chloride (D5-1/2ns -) 1,000 mls @ 42 mls/hr IV ASDIR [facility] Last Admin: 03/18/18 17:45 Dose: 42 mls/hr Memantine (Namenda -) 10 mg PO DAILY [facility] Last Admin: 03/19/18 10:01 Dose: 10 mg Methimazole (Tapazole -) 10 mg PO DAILY [facility] Last Admin: 03/19/18 10:01 Dose: 10 mg Metoprolol Succinate (Toprol Xl -) 25 mg PO DAILY [facility] Last Admin: 03/19/18 10:01 Dose: 25 mg Morphine Sulfate (Morphine Sulfate) 1 mg IVPUSH Q4H PRN PRN Reason: PAIN LEVEL 4 -10 Last Admin: 03/18/18 10:08 Dose: 1 mg - Objective Vital Signs: Vital Signs Temperature 98.0 F 03/19/18 09:57 Pulse Rate 85 03/19/18 09:57 Respiratory Rate 18 03/19/18 09:57 Blood Pressure 125/74 03/19/18 09:57 O2 Sat by Pulse Oximetry (%) 97 03/18/18 21:00 HENT: Yes: Atraumatic Neck: Yes: Supple Cardiovascular: Yes: Regular Rate and Rhythm, S1, S2 Respiratory: Yes: CTA Bilaterally Gastrointestinal: Yes: Normal Bowel Sounds, Soft. No: Tenderness Edema: No Labs: CBC, BMP 03/18/18 06:15 03/18/18 06:15 INR, PTT INR 1.31 (0.83-1.09) H 03/18/18 06:15 Problem List - Problems (1) HTN (hypertension) Code(s): I10 - ESSENTIAL (PRIMARY) HYPERTENSION Qualifiers: Hypertension type: essential hypertension Qualified Code(s): I10 - Essential (primary) hypertension (2) CKD (chronic kidney disease) Code(s): N18.9 - CHRONIC KIDNEY DISEASE, UNSPECIFIED Qualifiers: Chronic kidney disease stage: stage 2 (mild) Qualified Code(s): N18.2 - Chronic kidney disease, stage 2 (mild) (3) Chest pain Code(s): R07.9 - CHEST PAIN, UNSPECIFIED Qualifiers: Chest pain type: chest pain due to myocardial ischemia Ischemic chest pain type: stable angina pectoris Qualified Code(s): I20.8 - Other forms of angina pectoris (4) LUQ abdominal pain Code(s): R10.12 - LEFT UPPER QUADRANT PAIN (5) Atrial flutter Code(s): I48.92 - UNSPECIFIED ATRIAL FLUTTER Qualifiers: Atrial flutter type: unspecified Qualified Code(s): I48.92 - Unspecified atrial flutter (6) Diabetes Code(s): E11.9 - TYPE 2 DIABETES MELLITUS WITHOUT COMPLICATIONS Qualifiers: Diabetes mellitus type: type 2 (7) HLD (hyperlipidemia) Code(s): E78.5 - HYPERLIPIDEMIA, UNSPECIFIED Qualifiers: Hyperlipidemia type: pure hypercholesterolemia Qualified Code(s): E78.00 - Pure hypercholesterolemia, unspecified; E78.0 - Pure hypercholesterolemia (8) Hyperthyroidism Code(s): E05.90 - THYROTOXICOSIS, UNSP WITHOUT THYROTOXIC CRISIS OR STORM Assessment/Plan 1. Chest pain syndrome with mild elevation of troponin referable to demand ischemia 2. Atrial fibrillation/flutter [id number] score likely 6 on NOAC 3. Epigastric / RUQ abdominal pain with cholelithiasis and positive HIDA scan c/ w acute cholecystitis 4. Acute on CKD (pre-renal) 5. HTN 6. Type 2 DM 7. Hypercholesterolemia 8. Hyperthyroidism 9. Nephrolithiasis PLAN: 1. Holding Eliquis 2.5 mg BID (age > 80 and Cr >1.5) 2 days prior to percutaneous cholecystotomy placement and she may proceed from cardiac- standpoint 2. Resume Lipitor 20 mg QD, Losartan 25 mg QD and Toprol XL 25 mg QD as hemodynamics tolerate 3. Further strategy for AF to follow whether rate control or rhythm control Further plans are to follow Gautam Esparza MD
--- NOTE | 2018-03-19 13:33 | PN ---
Progress Note, Physician - Current Medication List Current Medications: Active Medications Atorvastatin Calcium (Lipitor -) 20 mg PO HS [facility] Last Admin: 03/18/18 21:51 Dose: 20 mg Piperacillin Sod/Tazobactam (Sod 3.375 gm/ Dextrose) 50 mls @ 100 mls/hr IVPB Q8H-IV [facility]; Protocol Last Admin: 03/19/18 10:01 Dose: 100 mls/hr Dextrose/Sodium Chloride (D5-1/2ns -) 1,000 mls @ 42 mls/hr IV ASDIR [facility] Last Admin: 03/18/18 17:45 Dose: 42 mls/hr Memantine (Namenda -) 10 mg PO DAILY [facility] Last Admin: 03/19/18 10:01 Dose: 10 mg Methimazole (Tapazole -) 10 mg PO DAILY [facility] Last Admin: 03/19/18 10:01 Dose: 10 mg Metoprolol Succinate (Toprol Xl -) 25 mg PO DAILY [facility] Last Admin: 03/19/18 10:01 Dose: 25 mg Morphine Sulfate (Morphine Sulfate) 1 mg IVPUSH Q4H PRN PRN Reason: PAIN LEVEL 4 -10 Last Admin: 03/18/18 10:08 Dose: 1 mg - Objective Vital Signs: Vital Signs Temperature 98.0 F 03/19/18 09:57 Pulse Rate 85 03/19/18 09:57 Respiratory Rate 18 03/19/18 09:57 Blood Pressure 125/74 03/19/18 09:57 O2 Sat by Pulse Oximetry (%) 97 03/18/18 21:00 Labs: CBC, BMP 03/18/18 06:15 03/18/18 06:15 INR, PTT INR 1.31 (0.83-1.09) H 03/18/18 06:15
--- NOTE | 2018-03-19 13:35 | PN ---
Progress Note, Physician Chief Complaint: abdominal pain History of Present Illness: 83 yo female PMH type 2 DM, HTN, hypercholesterolemia, bronchial asthma/COPD, atrial fibrillation/flutter on NOAC and hyperthyroidism on treatment who presents with left upper abdominal discomfort and sharp chest discomfort across her sternum. Abdominal pain has improved on clears and antibiotics. - Current Medication List Current Medications: Active Medications Atorvastatin Calcium (Lipitor -) 20 mg PO HS [facility] Last Admin: 03/18/18 21:51 Dose: 20 mg Piperacillin Sod/Tazobactam (Sod 3.375 gm/ Dextrose) 50 mls @ 100 mls/hr IVPB Q8H-IV [facility]; Protocol Last Admin: 03/19/18 10:01 Dose: 100 mls/hr Dextrose/Sodium Chloride (D5-1/2ns -) 1,000 mls @ 42 mls/hr IV ASDIR [facility] Last Admin: 03/18/18 17:45 Dose: 42 mls/hr Memantine (Namenda -) 10 mg PO DAILY [facility] Last Admin: 03/19/18 10:01 Dose: 10 mg Methimazole (Tapazole -) 10 mg PO DAILY [facility] Last Admin: 03/19/18 10:01 Dose: 10 mg Metoprolol Succinate (Toprol Xl -) 25 mg PO DAILY [facility] Last Admin: 03/19/18 10:01 Dose: 25 mg Morphine Sulfate (Morphine Sulfate) 1 mg IVPUSH Q4H PRN PRN Reason: PAIN LEVEL 4 -10 Last Admin: 03/18/18 10:08 Dose: 1 mg - Objective Vital Signs: Vital Signs Temperature 98.0 F 03/19/18 09:57 Pulse Rate 85 03/19/18 09:57 Respiratory Rate 18 03/19/18 09:57 Blood Pressure 125/74 03/19/18 09:57 O2 Sat by Pulse Oximetry (%) 97 03/18/18 21:00 Vital Signs Period Temp Pulse Resp BP Sys/Romero Pulse Ox Last 24 Hr 97.5 F-98.2 F 84-93 - 121-142/60-74 97 Constitutional: Yes: Well Nourished, No Distress, Calm, Obese Eyes: Yes: Conjunctiva Clear, EOM Intact HENT: Yes: Atraumatic, Normocephalic Neck: Yes: Supple, Trachea Midline Cardiovascular: Yes: Regular Rate and Rhythm, S1, S2 Respiratory: Yes: Regular, CTA Bilaterally Gastrointestinal: Yes: Normal Bowel Sounds, Soft, Abdomen, Obese. No: Tenderness, Tenderness, Epigastrium, Tenderness, Rebound ...Rectal Exam: Yes: Deferred Genitourinary: No: CVA Tenderness - Left, CVA Tenderness - Right Extremities: No: Cool, Cyanosis Edema: No Peripheral Pulses WNL: Yes Peripheral Pulses: Left Radial: 2+, Right Radial: 2+, Left Doralis Pedis: 2+, Right Dorsalis Pedis: 2+ Integumentary: No: Erythema, Jaundice, Pressure Ulcer, Rash Neurological: Yes: Alert, Oriented Psychiatric: Yes: Alert, Oriented Labs: CBC, BMP 03/18/18 06:15 03/18/18 06:15 INR, PTT INR 1.31 (0.83-1.09) H 03/18/18 06:15 Problem List - Problems (1) Abnormal biliary HIDA scan Assessment/Plan: 83 yo female with MMP and recent demand [place] vs CAD with image confirmed acute cholecystitis, poor surgical candidate this was discussed with the patient and family. will proceed with alternative less invasive management options. She has been cleared by cardiology. Resume diet NPO after midnight continue IV antibiotics hold eloquis for cholecystostomy tube on We 03/20 (LAST DOSE WAS 03/13 @10pm per Pharmacy) IR for cholecystostomy on 03/20 Thank you for the opportunity to participate in the care of this patient. Code(s): R94.8 - ABNORMAL RESULTS OF FUNCTION STUDIES OF ORGANS AND SYSTEMS (2) Chest pain Code(s): R07.9 - CHEST PAIN, UNSPECIFIED Qualifiers: Chest pain type: chest pain due to myocardial ischemia Ischemic chest pain type: stable angina pectoris Qualified Code(s): I20.8 - Other forms of angina pectoris (3) Demand ischemia Code(s): I24.8 - OTHER FORMS OF ACUTE ISCHEMIC HEART DISEASE (4) Acute on chronic systolic (congestive) heart failure Code(s): I50.23 - ACUTE ON CHRONIC SYSTOLIC (CONGESTIVE) HEART FAILURE (5) Atrial flutter Code(s): I48.92 - UNSPECIFIED ATRIAL FLUTTER Qualifiers: Atrial flutter type: unspecified Qualified Code(s): I48.92 - Unspecified atrial flutter (6) Obesity Code(s): E66.9 - OBESITY, UNSPECIFIED
[2018-03-19 15:19] VITALS: BMI 36.3
--- NOTE | 2018-03-19 16:18 | CONSULT ---
Consult Consult Specialty:: Endocrinology Referred by:: Dr Cunningham Reason for Consultation:: Management of blood sugar - History of Present Illness Chief Complaint: Abd pain History of Present Illness: This is an 83 yo female with h/o T2DM for >20 years, on Insulin for around 10 years, HTN, hypercholesterolemia, bronchial asthma/COPD, atrial fibrillation/ flutter on NOAC and hyperthyroidism on treatment who presents with left upper abdominal discomfort and sharp chest discomfort across her sternum. She also complained of nausea. She suffers from constipation. She denies shortness of breath or palpitations. She denies paroxysmal nocturnal dyspnea or orthopnea. She denies fever or chills. She denies headache or lightheadedness. She denies diarrhea or vomiting. HIDA shows non-visulaization of the GB. Pt treated with IV abx with improvement in abdominal pain. Pt referred for management of blood sugar. Pt currently on D5 1/2NS and liquid diet. FS at home 77 to 170. No hypos. No hospitalization for hypo or hyperglycemia. Takes Lantus 25 to 30 daily and Bydureon at home. - History Source History Provided By: Patient, Family Member, Medical Record - Past Medical History Cardio/Vascular: Yes: AFIB, HTN, Hyperlipdemia Pulmonary: Yes: COPD Infectious Disease: No: AIDS, C-Diff, Herpes Zoster, HIV, MRSA, STD's, Tuberculosis, VREF, Other Psych: No: Addictions, Anxiety, Bipolar, Depression, Panic, Psychosis, Schizophrenia, Other Musculoskeletal: No: Bursitis, Chronic low back pain, Hemiparesis, Hemiplegia, Osteoarthritis, Paraplegia, Other Rheumatology: No: Fibromyalgia, Gout, Lupus, Rheumatoid Arthritis, Sarcoidosis, Vasculitis, Other ENT: No: Allergic Rhinitis, Sinusitis, Other Endocrine: Yes: Diabetes Mellitus, Hyperthyroidism. No: Gerhard's Disease, Cartachita's Disease, Diabetes Insipidus, Hyperparathyroidism, Hypothyroidism, Osteopenia, SIADH, Other Dermatology: No: Basal Cell, Cellulitis, Eczema, Melanoma, Psoriasis, Squamous Cell, Other - Alcohol/Substance Use Hx Alcohol Use: No - Smoking History Smoking history: Unknown if ever smoked Have you smoked in the past 12 months: No Aproximately how many cigarettes per day: 0 If you are a former smoker, when did you quit?: 60years ago - Social History Usual Living Arrangement: Other Home Medications - Allergies Allergies/Adverse Reactions: Allergies Allergy/AdvReac Type Severity Reaction Status Date / Time No Known Allergies Allergy Verified 03/11/18 20:09 - Home Medications Home Medications: Ambulatory Orders Albuterol 0.083% Nebulizer Chuyita [Ventolin 0.083% Nebulizer Soln -] 1 amp NEB Q4H PRN #30 amp MDD 4 09/21/17 Memantine HCl [Namenda -] 10 mg PO DAILY@0800 #30 tablet MDD 1 09/21/17 Brimonidine Tartrate/Timolol [Combigan 0.2%-0.5% Eye Drops] 5 ml OP DAILY Exenatide Microspheres [Bydureon Pen] 2 mg SQ WEEKLY 11/27/17 Methimazole [Tapazole -] 10 mg PO DAILY MDD 2 11/27/17 Pantoprazole Sodium [Protonix] 40 mg PO DAILY 11/27/17 Atorvastatin Ca [Lipitor] 20 mg PO HS #30 tablet 12/03/17 Furosemide [Lasix -] 40 mg PO DAILY #30 tablet 12/03/17 Insulin Glargine,Hum.rec.anlog [Lantus Solostar PEN -] 40 units SQ HS 03/11/18 Metoprolol Succinate [Toprol XL -] 100 mg PO DAILY 03/11/18 Omeprazole Magnesium [Acid Planer Stone] 40 mg PO DAILY 03/11/18 Ondansetron HCl [Zofran] 4 mg PO TID PRN 03/11/18 Apixaban [Eliquis -] 2.5 mg PO BID #20 tablet 03/13/18 Losartan Potassium [Cozaar -] 25 mg PO DAILY #30 tablet 03/13/18 Family Disease History - Family Disease History Family Disease History: Diabetes: Brother Review of Systems - Review of Systems Constitutional: reports: No Symptoms Eyes: reports: No Symptoms HENT: reports: No Symptoms Neck: reports: No Symptoms Cardiovascular: reports: No Symptoms Respiratory: reports: No Symptoms Gastrointestinal: reports: No Symptoms Genitourinary: reports: No Symptoms Musculoskeletal: reports: No Symptoms Neurological: reports: No Symptoms Endocrine: reports: No Symptoms Physical Exam Vital Signs: Vital Signs Temperature 98 F 03/19/18 13:43 Pulse Rate 76 03/19/18 13:43 Respiratory Rate 16 03/19/18 13:43 Blood Pressure 103/52 L 03/19/18 13:43 O2 Sat by Pulse Oximetry (%) 96 03/19/18 09:00 Constitutional: Yes: No Distress, Calm Eyes: Yes: Conjunctiva Clear, EOM Intact HENT: Yes: Atraumatic, Normocephalic Neck: Yes: Supple, Trachea Midline Cardiovascular: Yes: Regular Rate and Rhythm Respiratory: Yes: Regular, CTA Bilaterally Gastrointestinal: Yes: Normal Bowel Sounds, Soft Musculoskeletal: Yes: WNL Extremities: Yes: WNL Edema: Yes Neurological: Yes: Alert, Oriented Labs: CBC, BMP 03/18/18 06:15 03/18/18 06:15 Assessment/Plan AP: T2DM: BGM QACHS NOvolg SS coverage Will increase dose as necessary with increase in food intake Cholecystitis Hyperthyroidism Check TFT with TSI HTN HLD Will F/U
--- NOTE | 2018-03-19 17:45 | PN ---
Progress Note, Physician History of Present Illness: feeling good no pain after dinner - Current Medication List Current Medications: Active Medications Atorvastatin Calcium (Lipitor -) 20 mg PO HS [facility] Last Admin: 03/18/18 21:51 Dose: 20 mg Piperacillin Sod/Tazobactam (Sod 3.375 gm/ Dextrose) 50 mls @ 100 mls/hr IVPB Q8H-IV [facility]; Protocol Last Admin: 03/19/18 17:39 Dose: 100 mls/hr Dextrose/Sodium Chloride (D5-1/2ns -) 1,000 mls @ 42 mls/hr IV ASDIR [facility] Last Admin: 03/18/18 17:45 Dose: 42 mls/hr Memantine (Namenda -) 10 mg PO DAILY [facility] Last Admin: 03/19/18 10:01 Dose: 10 mg Methimazole (Tapazole -) 10 mg PO DAILY [facility] Last Admin: 03/19/18 10:01 Dose: 10 mg Metoprolol Succinate (Toprol Xl -) 25 mg PO DAILY [facility] Last Admin: 03/19/18 10:01 Dose: 25 mg Morphine Sulfate (Morphine Sulfate) 1 mg IVPUSH Q4H PRN PRN Reason: PAIN LEVEL 4 -10 Last Admin: 03/18/18 10:08 Dose: 1 mg - Objective Vital Signs: Vital Signs Temperature 98 F 03/19/18 13:43 Pulse Rate 76 03/19/18 13:43 Respiratory Rate 16 03/19/18 13:43 Blood Pressure 103/52 L 03/19/18 13:43 O2 Sat by Pulse Oximetry (%) 96 03/19/18 09:00 Constitutional: Yes: No Distress HENT: Yes: Atraumatic Neck: Yes: Supple Cardiovascular: Yes: Regular Rate and Rhythm Respiratory: Yes: CTA Bilaterally Gastrointestinal: Yes: Normal Bowel Sounds Extremities: Yes: WNL Edema: No Peripheral Pulses WNL: Yes Neurological: Yes: Alert, Oriented Labs: CBC, BMP 03/18/18 06:15 03/18/18 06:15 INR, PTT INR 1.31 (0.83-1.09) H 03/18/18 06:15 Problem List - Problems (1) Chest pain Assessment/Plan: pain resolved Code(s): R07.9 - CHEST PAIN, UNSPECIFIED Qualifiers: Chest pain type: chest pain due to myocardial ischemia Ischemic chest pain type: stable angina pectoris Qualified Code(s): I20.8 - Other forms of angina pectoris (2) Diabetes Assessment/Plan: bgms...monitor on insulin coverage Code(s): E11.9 - TYPE 2 DIABETES MELLITUS WITHOUT COMPLICATIONS Qualifiers: Diabetes mellitus type: type 2 (3) Epigastric pain Assessment/Plan: not today Code(s): R10.13 - EPIGASTRIC PAIN (4) HLD (hyperlipidemia) Assessment/Plan: on meds Code(s): E78.5 - HYPERLIPIDEMIA, UNSPECIFIED Qualifiers: Hyperlipidemia type: pure hypercholesterolemia Qualified Code(s): E78.00 - Pure hypercholesterolemia, unspecified; E78.0 - Pure hypercholesterolemia (5) Hyperthyroidism Assessment/Plan: on meds stable Code(s): E05.90 - THYROTOXICOSIS, UNSP WITHOUT THYROTOXIC CRISIS OR STORM (6) Obesity Code(s): E66.9 - OBESITY, UNSPECIFIED (7) ROSELINE (acute kidney injury) Assessment/Plan: resolved Code(s): N17.9 - ACUTE KIDNEY FAILURE, UNSPECIFIED (8) Demand ischemia Code(s): I24.8 - OTHER FORMS OF ACUTE ISCHEMIC HEART DISEASE (9) HTN (hypertension) Code(s): I10 - ESSENTIAL (PRIMARY) HYPERTENSION Qualifiers: Hypertension type: essential hypertension Qualified Code(s): I10 - Essential (primary) hypertension (10) Hypokalemia Assessment/Plan: will check level Code(s): E87.6 - HYPOKALEMIA (11) Acute cholecystitis Assessment/Plan: hida positive for cholecystotomy tube tomorrow Code(s): K81.0 - ACUTE CHOLECYSTITIS
[2018-03-19] MEDS: DEXTROSE 5%-0.45% SALINE 1,000 ML IV SCH (21:55)
[2018-03-19] MEDS: ATORVASTATIN CA 20 MG TABLET (FP) PO SCH (21:55)
[2018-03-20] MEDS ORDERED: PIPERACILLIN/TAZOBACTAM 3.375 GM VIAL IVPB ONE ×3 (01:18→17:48)
[2018-03-20] MEDS ORDERED: DEXTROSE 5%-WATER - 50 ML IVPB ONE ×3 (01:19→17:48)
[2018-03-20] MEDS: PIPERACILLIN/TAZOB 3.375 GM 3.375 GM in DEXTROSE 5%-WATER - 50 ML IVPB SCH ×3 (02:21→17:53)
[2018-03-20] MEDS: INSULIN SLIDING SCALE (NOVOLOG) 1 VIAL SQ SCH ×3 (06:16→17:54)
[2018-03-20 06:44] LABS: BASO % 0.5 % (0-2.0); HEMATOCRIT 38.9 % (32.4-45.2); HEMOGLOBIN 12.5 GM/dL (10.7-15.3); LYMPH % 27.1 % (8-40); MCH 26.7 pg (25.7-33.7); MCHC 32.1 g/dl (32.0-36.0); MEAN CELL VOLUME 83.1 fl (80-96); MEAN PLT VOLUME 8.4 fl (7.5-11.1); MONO % 6.7 % (3.8-10.2); NEUT % 61.7 % (42.8-82.8); PLATELET COUNT 173 K/MM3 (134-434); RBC 4.68 M/mm3 (3.60-5.2); WHITE BLOOD COUNT 6.2 K/mm3 (4.0-10.0)
[2018-03-20 07:08] LABS: ALK PHOS 112 U/L (45-117); ANION GAP 8 MMOL/L (8-16); BILIRUBIN,TOTAL 1.1 mg/dL (0.2-1); BLOOD UREA NITROGEN 7 mg/dL (7-18); CALCIUM 8.9 mg/dL (8.5-10.1); CHLORIDE 104 mmol/L (98-107); CO2 29 mmol/L (21-32); CREATININE 0.8 mg/dL (0.55-1.3); GLUCOSE,RANDOM 118 mg/dL (74-106); POTASSIUM 3.6 mmol/L (3.5-5.1); SGOT/AST 13 U/L (15-37); SGPT/ALT 16 U/L (13-61); SODIUM 141 mmol/L (136-145); TOT PROT 6.1 g/dl (6.4-8.2)
--- NOTE | 2018-03-20 09:55 | PN ---
Progress Note, Physician Chief Complaint: abdominal pain History of Present Illness: 83 yo female PMH type 2 DM, HTN, hypercholesterolemia, bronchial asthma/COPD, atrial fibrillation/flutter on NOAC and hyperthyroidism on treatment who presents with left upper abdominal discomfort and sharp chest discomfort across her sternum. Abdominal pain has improved on clears and antibiotics. - Current Medication List Current Medications: Active Medications Atorvastatin Calcium (Lipitor -) 20 mg PO HS [facility] Last Admin: 03/19/18 21:55 Dose: 20 mg Piperacillin Sod/Tazobactam (Sod 3.375 gm/ Dextrose) 50 mls @ 100 mls/hr IVPB Q8H-IV [facility]; Protocol Last Admin: 03/20/18 02:21 Dose: 100 mls/hr Dextrose/Sodium Chloride (D5-1/2ns -) 1,000 mls @ 42 mls/hr IV ASDIR [facility] Last Admin: 03/19/18 21:55 Dose: 42 mls/hr Insulin Aspart (Novolog Vial Sliding Scale -) 1 vial SQ TIDAC [facility]; Protocol Last Admin: 03/20/18 06:16 Dose: Not Given Memantine (Namenda -) 10 mg PO DAILY [facility] Last Admin: 03/19/18 10:01 Dose: 10 mg Methimazole (Tapazole -) 10 mg PO DAILY [facility] Last Admin: 03/19/18 10:01 Dose: 10 mg Metoprolol Succinate (Toprol Xl -) 25 mg PO DAILY [facility] Last Admin: 03/19/18 10:01 Dose: 25 mg Morphine Sulfate (Morphine Sulfate) 1 mg IVPUSH Q4H PRN PRN Reason: PAIN LEVEL 4 -10 Last Admin: 03/18/18 10:08 Dose: 1 mg - Objective Vital Signs: Vital Signs Temperature 98.6 F 03/20/18 08:59 Pulse Rate 86 03/20/18 08:59 Respiratory Rate 20 03/20/18 08:59 Blood Pressure 135/89 03/20/18 08:59 O2 Sat by Pulse Oximetry (%) 96 03/19/18 21:00 Vital Signs Period Temp Pulse Resp BP Sys/Romero Pulse Ox Last 24 Hr 98 F-98.6 F 76-89 16-20 103-136/52-89 96 Intake & Output 03/19/18 03/20/18 03/20/18 23:59 07:59 15:59 Intake Total 1370 512 Balance 1370 512 Intake: IV 420 462 D5-1/2Ns - 1,000 ml @ 42 420 462 mls/hr IV ASDIR NOLBERTO Rx#: [id number] IVPB 100 50 Oral 850 Other: Voiding Method Toilet Toilet # Unmeasured Voids Void 2 2 Bowel Movement No No # Bowel Movements 1 Constitutional: Yes: Well Nourished, No Distress, Calm, Obese Eyes: Yes: Conjunctiva Clear, EOM Intact HENT: Yes: Atraumatic, Normocephalic Neck: Yes: Supple, Trachea Midline Cardiovascular: Yes: Regular Rate and Rhythm, S1, S2 Respiratory: Yes: Regular, CTA Bilaterally Gastrointestinal: Yes: Normal Bowel Sounds, Soft, Abdomen, Obese. No: Tenderness ...Rectal Exam: Yes: Deferred Genitourinary: No: CVA Tenderness - Left, CVA Tenderness - Right Extremities: No: Cool, Cyanosis, External Rotation Edema: No Peripheral Pulses WNL: Yes Peripheral Pulses: Left Radial: 2+, Right Radial: 2+, Left Doralis Pedis: 2+, Right Dorsalis Pedis: 2+ Integumentary: No: Jaundice, Pressure Ulcer, Rash Neurological: Yes: Alert, Oriented Psychiatric: Yes: Alert, Oriented Labs: CBC, BMP 03/20/18 06:00 03/20/18 06:00 INR, PTT INR 1.31 (0.83-1.09) H 03/18/18 06:15 Problem List - Problems (1) Abnormal biliary HIDA scan Assessment/Plan: 83 yo female with MMP and recent demand [place] vs CAD with HIDA confirmed acute cholecystitis, poor surgical candidate this was discussed with the patient and family. will proceed with alternative less invasive management options. She has been cleared by cardiology. Discussed with Dr. Palacio the need for acute intervention. Resume diet Continue IV antibiotics per ID Resume eloquis May be discharged home on low fat diet f/u with PMD for clearance for Laparoscopic Cholecystectomy May f/u for interval cholecystetcomy in 1 month Code(s): R94.8 - ABNORMAL RESULTS OF FUNCTION STUDIES OF ORGANS AND SYSTEMS (2) Chest pain Code(s): R07.9 - CHEST PAIN, UNSPECIFIED Qualifiers: Chest pain type: chest pain due to myocardial ischemia Ischemic chest pain type: stable angina pectoris Qualified Code(s): I20.8 - Other forms of angina pectoris (3) Demand ischemia Code(s): I24.8 - OTHER FORMS OF ACUTE ISCHEMIC HEART DISEASE (4) Acute on chronic systolic (congestive) heart failure Code(s): I50.23 - ACUTE ON CHRONIC SYSTOLIC (CONGESTIVE) HEART FAILURE (5) Atrial flutter Code(s): I48.92 - UNSPECIFIED ATRIAL FLUTTER Qualifiers: Atrial flutter type: unspecified Qualified Code(s): I48.92 - Unspecified atrial flutter (6) Obesity Code(s): E66.9 - OBESITY, UNSPECIFIED
[2018-03-20] MEDS: metoPROLOL SUCCINATE 25 MG TAB.SR.24H (FP) PO SCH ×2 (12:03→15:01)
[2018-03-20] MEDS: METHIMAZOLE 10 MG TABLET (FP) PO SCH ×2 (12:03→15:01)
[2018-03-20] MEDS: MEMANTINE HCL 10 MG TABLET (FP) PO SCH ×2 (12:03→15:01)
--- NOTE | 2018-03-20 12:32 | PN ---
Progress Note, Physician History of Present Illness: Planned for percutaneous cholecystotomy placement. HIDA scan suspicious for acute cholecystitis. RUQ discomfort improved, afebrile on clear liquids. - Current Medication List Current Medications: Active Medications Atorvastatin Calcium (Lipitor -) 20 mg PO HS [facility] Last Admin: 03/19/18 21:55 Dose: 20 mg Piperacillin Sod/Tazobactam (Sod 3.375 gm/ Dextrose) 50 mls @ 100 mls/hr IVPB Q8H-IV [facility]; Protocol Last Admin: 03/20/18 10:12 Dose: 100 mls/hr Dextrose/Sodium Chloride (D5-1/2ns -) 1,000 mls @ 42 mls/hr IV ASDIR [facility] Last Admin: 03/19/18 21:55 Dose: 42 mls/hr Insulin Aspart (Novolog Vial Sliding Scale -) 1 vial SQ TIDAC [facility]; Protocol Last Admin: 03/20/18 12:01 Dose: Not Given Memantine (Namenda -) 10 mg PO DAILY [facility] Last Admin: 03/20/18 12:03 Dose: Not Given Methimazole (Tapazole -) 10 mg PO DAILY [facility] Last Admin: 03/20/18 12:03 Dose: Not Given Metoprolol Succinate (Toprol Xl -) 25 mg PO DAILY [facility] Last Admin: 03/20/18 12:03 Dose: Not Given Morphine Sulfate (Morphine Sulfate) 1 mg IVPUSH Q4H PRN PRN Reason: PAIN LEVEL 4 -10 Last Admin: 03/18/18 10:08 Dose: 1 mg - Objective Vital Signs: Vital Signs Temperature 98.6 F 03/20/18 08:59 Pulse Rate 86 03/20/18 08:59 Respiratory Rate 20 03/20/18 08:59 Blood Pressure 135/89 03/20/18 08:59 O2 Sat by Pulse Oximetry (%) 96 03/19/18 21:00 Constitutional: Yes: No Distress, Calm Neck: Yes: Supple Cardiovascular: Yes: Regular Rate and Rhythm, Murmur (2/6 SM) Respiratory: Yes: Regular, Diminished Gastrointestinal: Yes: Soft, Abdomen, Obese, Hypoactive Bowel Sounds Edema: No Labs: CBC, BMP 03/20/18 06:00 03/20/18 06:00 INR, PTT INR 1.31 (0.83-1.09) H 03/18/18 06:15 Problem List - Problems (1) Demand ischemia Code(s): I24.8 - OTHER FORMS OF ACUTE ISCHEMIC HEART DISEASE (2) ROSELINE (acute kidney injury) Code(s): N17.9 - ACUTE KIDNEY FAILURE, UNSPECIFIED (3) Chest pain Code(s): R07.9 - CHEST PAIN, UNSPECIFIED Qualifiers: Chest pain type: chest pain due to myocardial ischemia Ischemic chest pain type: stable angina pectoris Qualified Code(s): I20.8 - Other forms of angina pectoris (4) HTN (hypertension) Code(s): I10 - ESSENTIAL (PRIMARY) HYPERTENSION Qualifiers: Hypertension type: essential hypertension Qualified Code(s): I10 - Essential (primary) hypertension (5) Atrial flutter Code(s): I48.92 - UNSPECIFIED ATRIAL FLUTTER Qualifiers: Atrial flutter type: unspecified Qualified Code(s): I48.92 - Unspecified atrial flutter (6) HLD (hyperlipidemia) Code(s): E78.5 - HYPERLIPIDEMIA, UNSPECIFIED Qualifiers: Hyperlipidemia type: pure hypercholesterolemia Qualified Code(s): E78.00 - Pure hypercholesterolemia, unspecified; E78.0 - Pure hypercholesterolemia (7) Hyperthyroidism Code(s): E05.90 - THYROTOXICOSIS, UNSP WITHOUT THYROTOXIC CRISIS OR STORM (8) Obesity Code(s): E66.9 - OBESITY, UNSPECIFIED (9) Epigastric pain Code(s): R10.13 - EPIGASTRIC PAIN Assessment/Plan 03/13/2018 Echo: Normal LV size and fxn, mild MR, AR, mod TN, severe TR 1. Chest pain syndrome with mild elevation of troponin referable to demand ischemia 2. Atrial fibrillation/flutter [id number] score likely 6 on NOAC 3. Epigastric / RUQ abdominal pain with cholelithiasis and positive HIDA scan c/ w acute cholecystitis 4. Acute on CKD (pre-renal) 5. HTN 6. Type 2 DM 7. Hypercholesterolemia 8. Hyperthyroidism 9. Nephrolithiasis PLAN: 1. Holding Eliquis 2.5 mg BID (age > 80 and Cr >1.5) 2 days prior to percutaneous cholecystotomy placement and she may proceed from cardiac- standpoint 2. Continue Lipitor 20 mg QD, Losartan 25 mg QD and Toprol XL 25 mg QD as hemodynamics tolerate 3. Further strategy for AF to follow whether rate control or rhythm control 4. Eventual lap cholecystectomy as outpatient
--- NOTE | 2018-03-20 12:46 | PN ---
Progress Note, Physician - Current Medication List Current Medications: Active Medications Atorvastatin Calcium (Lipitor -) 20 mg PO HS [facility] Last Admin: 03/19/18 21:55 Dose: 20 mg Piperacillin Sod/Tazobactam (Sod 3.375 gm/ Dextrose) 50 mls @ 100 mls/hr IVPB Q8H-IV [facility]; Protocol Last Admin: 03/20/18 10:12 Dose: 100 mls/hr Dextrose/Sodium Chloride (D5-1/2ns -) 1,000 mls @ 42 mls/hr IV ASDIR [facility] Last Admin: 03/19/18 21:55 Dose: 42 mls/hr Insulin Aspart (Novolog Vial Sliding Scale -) 1 vial SQ TIDAC [facility]; Protocol Last Admin: 03/20/18 12:01 Dose: Not Given Memantine (Namenda -) 10 mg PO DAILY [facility] Last Admin: 03/20/18 12:03 Dose: Not Given Methimazole (Tapazole -) 10 mg PO DAILY [facility] Last Admin: 03/20/18 12:03 Dose: Not Given Metoprolol Succinate (Toprol Xl -) 25 mg PO DAILY [facility] Last Admin: 03/20/18 12:03 Dose: Not Given Morphine Sulfate (Morphine Sulfate) 1 mg IVPUSH Q4H PRN PRN Reason: PAIN LEVEL 4 -10 Last Admin: 03/18/18 10:08 Dose: 1 mg - Objective Vital Signs: Vital Signs Temperature 98.6 F 03/20/18 08:59 Pulse Rate 86 03/20/18 08:59 Respiratory Rate 20 03/20/18 08:59 Blood Pressure 135/89 03/20/18 08:59 O2 Sat by Pulse Oximetry (%) 96 03/19/18 21:00 Labs: CBC, BMP 03/20/18 06:00 03/20/18 06:00 INR, PTT INR 1.31 (0.83-1.09) H 03/18/18 06:15
--- NOTE | 2018-03-20 14:23 | PN ---
Progress Note (short form) - Note Progress Note: Denies any abd pain Had abdominal discomfort after dinner last night Awaiting Cholecystostomy Vital Signs Period Temp Pulse Resp BP Sys/Romero Pulse Ox Last 24 Hr 98.0 F-98.6 F 86-89 18-20 105-136/61-89 96 PE: AOx3 Neck: Supple, No JVD HEENT: PERRL, EOMI Lungs: CTA CVs: S1S2 Abd: Benign Ext: No edema Neuro: No focal deficit CMP Sodium 141 mmol/L (136-145) 03/20/18 06:00 Potassium 3.6 mmol/L (3.5-5.1) 03/20/18 06:00 Chloride 104 mmol/L (98-107) 03/20/18 06:00 Carbon Dioxide 29 mmol/L (21-32) 03/20/18 06:00 Anion Gap 8 MMOL/L (8-16) 03/20/18 06:00 BUN 7 mg/dL (7-18) 03/20/18 06:00 Creatinine 0.8 mg/dL (0.55-1.3) 03/20/18 06:00 Creat Clearance w eGFR > 60 (>60) 03/20/18 06:00 POC Glucometer 128 UNITS (80-120) 03/20/18 12:00 Random Glucose 118 mg/dL (74-106) H 03/20/18 06:00 Lactic Acid 2.2 mmol/L (0.4-2.0) H* 03/11/18 18:57 Calcium 8.9 mg/dL (8.5-10.1) 03/20/18 06:00 Magnesium 2.3 mg/dL (1.8-2.4) 03/11/18 16:30 Total Bilirubin 1.1 mg/dL (0.2-1) H 03/20/18 06:00 AST 13 U/L (15-37) L 03/20/18 06:00 ALT 16 U/L (13-61) 03/20/18 06:00 Alkaline Phosphatase 112 U/L (45-117) 03/20/18 06:00 Creatine Kinase 84 IU/L (26-192) 03/12/18 20:00 Troponin I 0.16 ng/ml (0.00-0.05) H 03/12/18 20:00 Total Protein 6.1 g/dl (6.4-8.2) L 03/20/18 06:00 Albumin 3.0 g/dl (3.4-5.0) L 03/20/18 06:00 Lipase 125 U/L (73-393) 03/11/18 16:30 TSH 0.01 uIU/ml (0.358-3.74) L 03/20/18 06:00 Free T4 1.60 ng/dl (0.76-1.46) H 03/20/18 06:00 Current Medications Generic Name Dose Route Start Last Admin Trade Name Freq PRN Reason Stop Dose Admin Atorvastatin Calcium 20 mg 03/18/18 22:00 03/19/18 21:55 Lipitor - PO 20 mg HS [facility] Administration Piperacillin Sod/Tazobactam 50 mls @ 100 mls/hr 03/15/18 13:45 03/20/18 10:12 Sod 3.375 gm/ Dextrose IVPB 100 mls/hr Q8H-IV [facility] Administration Protocol Dextrose/Sodium Chloride 1,000 mls @ 42 mls/hr 03/17/18 17:30 03/19/18 21:55 D5-1/2ns - IV 42 mls/hr ASDIR [facility] Administration Insulin Aspart 1 vial 03/20/18 07:00 03/20/18 12:01 Novolog Vial Sliding Scale - SQ Not Given TIDAC [facility] Protocol Memantine 10 mg 03/18/18 20:45 03/20/18 12:03 Namenda - PO Not Given DAILY [facility] Methimazole 10 mg 03/18/18 20:45 03/20/18 12:03 Tapazole - PO Not Given DAILY [facility] Metoprolol Succinate 25 mg 03/18/18 17:15 03/20/18 12:03 Toprol Xl - PO Not Given DAILY [facility] Morphine Sulfate 1 mg 03/18/18 09:52 03/18/18 10:08 Morphine Sulfate IVPUSH 1 mg Q4H PRN Administration PAIN LEVEL 4 -10 AP: T2DM: BGM QACHS NOvolg SS coverage Will increase dose as necessary with increase in food intake Cholecystitis: Awaiting Cholecsytostomy Hyperthyroidism TSH 0.01 FT4 1.6 FT3 and TSI pending Continue Methimazole 10mg QD HTN HLD Will F/U
[2018-03-20] MEDS ORDERED: PT OWN MED DRAWER 7, Y5N ONE (14:54)
--- NOTE | 2018-03-20 17:46 | PN ---
Progress Note, Physician - Current Medication List Current Medications: Active Medications Atorvastatin Calcium (Lipitor -) 20 mg PO HS [facility] Last Admin: 03/19/18 21:55 Dose: 20 mg Piperacillin Sod/Tazobactam (Sod 3.375 gm/ Dextrose) 50 mls @ 100 mls/hr IVPB Q8H-IV [facility]; Protocol Last Admin: 03/20/18 10:12 Dose: 100 mls/hr Dextrose/Sodium Chloride (D5-1/2ns -) 1,000 mls @ 42 mls/hr IV ASDIR [facility] Last Admin: 03/19/18 21:55 Dose: 42 mls/hr Insulin Aspart (Novolog Vial Sliding Scale -) 1 vial SQ TIDAC [facility]; Protocol Last Admin: 03/20/18 12:01 Dose: Not Given Memantine (Namenda -) 10 mg PO DAILY [facility] Last Admin: 03/20/18 15:01 Dose: 10 mg Methimazole (Tapazole -) 10 mg PO DAILY [facility] Last Admin: 03/20/18 15:01 Dose: 10 mg Metoprolol Succinate (Toprol Xl -) 25 mg PO DAILY [facility] Last Admin: 03/20/18 15:01 Dose: 25 mg Morphine Sulfate (Morphine Sulfate) 1 mg IVPUSH Q4H PRN PRN Reason: PAIN LEVEL 4 -10 Last Admin: 03/18/18 10:08 Dose: 1 mg - Objective Vital Signs: Vital Signs Temperature 97.6 F 03/20/18 14:46 Pulse Rate 88 03/20/18 14:46 Respiratory Rate 16 03/20/18 14:46 Blood Pressure 135/65 03/20/18 14:46 O2 Sat by Pulse Oximetry (%) 96 03/19/18 21:00 Constitutional: Yes: No Distress HENT: Yes: Atraumatic Neck: Yes: Supple Cardiovascular: Yes: Regular Rate and Rhythm Respiratory: Yes: CTA Bilaterally Gastrointestinal: Yes: Normal Bowel Sounds Extremities: Yes: WNL Edema: No Peripheral Pulses WNL: Yes Neurological: Yes: Alert, Oriented Labs: CBC, BMP 03/20/18 06:00 03/20/18 06:00 INR, PTT INR 1.31 (0.83-1.09) H 03/18/18 06:15 Problem List - Problems (1) Chest pain Code(s): R07.9 - CHEST PAIN, UNSPECIFIED Qualifiers: Chest pain type: chest pain due to myocardial ischemia Ischemic chest pain type: stable angina pectoris Qualified Code(s): I20.8 - Other forms of angina pectoris (2) Diabetes Code(s): E11.9 - TYPE 2 DIABETES MELLITUS WITHOUT COMPLICATIONS Qualifiers: Diabetes mellitus type: type 2 (3) Epigastric pain Code(s): R10.13 - EPIGASTRIC PAIN (4) HLD (hyperlipidemia) Assessment/Plan: on meds Code(s): E78.5 - HYPERLIPIDEMIA, UNSPECIFIED Qualifiers: Hyperlipidemia type: pure hypercholesterolemia Qualified Code(s): E78.00 - Pure hypercholesterolemia, unspecified; E78.0 - Pure hypercholesterolemia (5) Hyperthyroidism Assessment/Plan: on meds stable Code(s): E05.90 - THYROTOXICOSIS, UNSP WITHOUT THYROTOXIC CRISIS OR STORM (6) Obesity Code(s): E66.9 - OBESITY, UNSPECIFIED (7) ROSELINE (acute kidney injury) Code(s): N17.9 - ACUTE KIDNEY FAILURE, UNSPECIFIED (8) Demand ischemia Code(s): I24.8 - OTHER FORMS OF ACUTE ISCHEMIC HEART DISEASE (9) HTN (hypertension) Code(s): I10 - ESSENTIAL (PRIMARY) HYPERTENSION Qualifiers: Hypertension type: essential hypertension Qualified Code(s): I10 - Essential (primary) hypertension (10) Hypokalemia Code(s): E87.6 - HYPOKALEMIA (11) Acute cholecystitis Assessment/Plan: d/w dr samano patient can be dc on low fat diet he will schedule gall bladder surgery as out patient Code(s): K81.0 - ACUTE CHOLECYSTITIS
[2018-03-20] MEDS: DEXTROSE 5%-0.45% SALINE 1,000 ML IV SCH (17:54)
--- NOTE | 2018-03-20 20:35 | DS ---
Physical Examination Vital Signs: Vital Signs Temperature 98.0 F 03/20/18 18:30 Pulse Rate 87 03/20/18 18:30 Respiratory Rate 16 03/20/18 18:30 Blood Pressure 130/78 03/20/18 18:30 O2 Sat by Pulse Oximetry (%) 96 03/19/18 21:00 Labs: CBC, BMP 03/20/18 06:00 03/20/18 06:00 Discharge Summary Reason For Visit: LEFT UPPER QUADRANT PAIN Current Active Problems ROSELINE (acute kidney injury) (Acute) Abdominal pain (Acute) Abnormal biliary HIDA scan (Acute) Acute cholecystitis (Acute) Afib (Acute) CKD (chronic kidney disease) (Acute) Chest pain (Acute) Demand ischemia (Acute) HTN (hypertension) (Acute) Hypokalemia (Acute) LUQ abdominal pain (Acute) Vomiting (Acute) Condition: Improved - Instructions Diet, Activity, Other Instructions: low fat diet see dr devries 1 week Referrals: Wilton Gutierres PA [Primary Care Provider] - Gaby Quintana DO [Staff Physician] - Constantin Devries MD [Staff Physician] - Disposition: HOME - Home Medications Comprehensive Discharge Medication List: Ambulatory Orders Albuterol 0.083% Nebulizer Chuyita [Ventolin 0.083% Nebulizer Soln -] 1 amp NEB Q4H PRN #30 amp MDD 4 09/21/17 Memantine HCl [Namenda -] 10 mg PO DAILY@0800 #30 tablet MDD 1 09/21/17 Brimonidine Tartrate/Timolol [Combigan 0.2%-0.5% Eye Drops] 5 ml OP DAILY Exenatide Microspheres [Bydureon Pen] 2 mg SQ WEEKLY 11/27/17 Methimazole [Tapazole -] 10 mg PO DAILY MDD 2 11/27/17 Pantoprazole Sodium [Protonix] 40 mg PO DAILY 11/27/17 Atorvastatin Ca [Lipitor] 20 mg PO HS #30 tablet 12/03/17 Furosemide [Lasix -] 40 mg PO DAILY #30 tablet 12/03/17 Insulin Glargine,Hum.rec.anlog [Lantus Solostar PEN -] 40 units SQ HS 03/11/18 Metoprolol Succinate [Toprol XL -] 100 mg PO DAILY 03/11/18 Omeprazole Magnesium [Acid [employer]] 40 mg PO DAILY 03/11/18 Ondansetron HCl [Zofran] 4 mg PO TID PRN 03/11/18 Apixaban [Eliquis -] 2.5 mg PO BID #20 tablet 03/13/18 Losartan Potassium [Cozaar -] 25 mg PO DAILY #30 tablet 03/13/18
[2018-03-20] MEDS: ATORVASTATIN CA 20 MG TABLET (FP) PO SCH (21:54)
[2018-03-21] MEDS ORDERED: PIPERACILLIN/TAZOBACTAM 3.375 GM VIAL IVPB ONE ×2 (01:19→11:00)
[2018-03-21] MEDS ORDERED: DEXTROSE 5%-WATER - 50 ML IVPB ONE ×2 (01:19→11:01)
[2018-03-21] MEDS: PIPERACILLIN/TAZOB 3.375 GM 3.375 GM in DEXTROSE 5%-WATER - 50 ML IVPB SCH ×3 (01:28→11:04)
[2018-03-21] MEDS: INSULIN SLIDING SCALE (NOVOLOG) 1 VIAL SQ SCH ×2 (06:34→11:11)
[2018-03-21] MEDS: DEXTROSE 5%-0.45% SALINE 1,000 ML IV SCH (06:35)
--- NOTE | 2018-03-21 09:17 | PN ---
Progress Note (short form) - Note Progress Note: Denies any abd pain Tolerating food Vital Signs Period Temp Pulse Resp BP Sys/Romero Pulse Ox Last 24 Hr 97.6 F-98.2 F 70-90 16-18 110-135/62-78 97 PE: AOx3 Neck: Supple, No JVD HEENT: PERRL, EOMI Lungs: CTA CVs: S1S2 Abd: Benign Ext:Trace leg edema Neuro: No focal deficit CMP Sodium 141 mmol/L (136-145) 03/20/18 06:00 Potassium 3.6 mmol/L (3.5-5.1) 03/20/18 06:00 Chloride 104 mmol/L (98-107) 03/20/18 06:00 Carbon Dioxide 29 mmol/L (21-32) 03/20/18 06:00 Anion Gap 8 MMOL/L (8-16) 03/20/18 06:00 BUN 7 mg/dL (7-18) 03/20/18 06:00 Creatinine 0.8 mg/dL (0.55-1.3) 03/20/18 06:00 Creat Clearance w eGFR > 60 (>60) 03/20/18 06:00 POC Glucometer 122 UNITS (80-120) 03/21/18 05:50 Random Glucose 118 mg/dL (74-106) H 03/20/18 06:00 Lactic Acid 2.2 mmol/L (0.4-2.0) H* 03/11/18 18:57 Calcium 8.9 mg/dL (8.5-10.1) 03/20/18 06:00 Magnesium 2.3 mg/dL (1.8-2.4) 03/11/18 16:30 Total Bilirubin 1.1 mg/dL (0.2-1) H 03/20/18 06:00 AST 13 U/L (15-37) L 03/20/18 06:00 ALT 16 U/L (13-61) 03/20/18 06:00 Alkaline Phosphatase 112 U/L (45-117) 03/20/18 06:00 Creatine Kinase 84 IU/L (26-192) 03/12/18 20:00 Troponin I 0.16 ng/ml (0.00-0.05) H 03/12/18 20:00 Total Protein 6.1 g/dl (6.4-8.2) L 03/20/18 06:00 Albumin 3.0 g/dl (3.4-5.0) L 03/20/18 06:00 Lipase 125 U/L (73-393) 03/11/18 16:30 TSH 0.01 uIU/ml (0.358-3.74) L 03/20/18 06:00 Free T4 1.60 ng/dl (0.76-1.46) H 03/20/18 06:00 Free T3 4.0 pg/ml (2.0-4.4) 03/20/18 06:00 Current Medications Generic Name Dose Route Start Last Admin Trade Name Freq PRN Reason Stop Dose Admin Atorvastatin Calcium 20 mg 03/18/18 22:00 03/20/18 21:54 Lipitor - PO 20 mg HS [facility] Administration Piperacillin Sod/Tazobactam 50 mls @ 100 mls/hr 03/15/18 13:45 03/21/18 01:30 Sod 3.375 gm/ Dextrose IVPB 100 mls/hr Q8H-IV [facility] Administration Protocol Dextrose/Sodium Chloride 1,000 mls @ 42 mls/hr 03/17/18 17:30 03/21/18 06:35 D5-1/2ns - IV 42 mls/hr ASDIR [facility] Administration Insulin Aspart 1 vial 03/20/18 07:00 03/21/18 06:34 Novolog Vial Sliding Scale - SQ Not Given TIDAC [facility] Protocol Memantine 10 mg 03/18/18 20:45 03/20/18 15:01 Namenda - PO 10 mg DAILY [facility] Administration Methimazole 10 mg 03/18/18 20:45 03/20/18 15:01 Tapazole - PO 10 mg DAILY [facility] Administration Metoprolol Succinate 25 mg 03/18/18 17:15 03/20/18 15:01 Toprol Xl - PO 25 mg DAILY [facility] Administration Morphine Sulfate 1 mg 03/18/18 09:52 03/18/18 10:08 Morphine Sulfate IVPUSH 1 mg Q4H PRN Administration PAIN LEVEL 4 -10 AP: T2DM: BGM QACHS NOvolg SS coverage Will increase dose as necessary with increase in food intake Pt should go home on Insulin sliding scale only for now. She should f/u with PCP as outpt and adjust dose as necessary. Cholecystitis: Awaiting Cholecsytostomy Hyperthyroidism TSH 0.01 FT4 1.6 FT3 4.0 and TSI pending Continue Methimazole 10mg QD HTN HLD Will F/U
--- NOTE | 2018-03-21 10:41 | PN ---
Progress Note, Physician History of Present Illness: Percutaneous cholecystotomy placement deferred due to improved clinical status. HIDA scan suspicious for acute cholecystitis. RUQ discomfort improved, afebrile on clear liquids. - Current Medication List Current Medications: Active Medications Atorvastatin Calcium (Lipitor -) 20 mg PO HS [facility] Last Admin: 03/20/18 21:54 Dose: 20 mg Piperacillin Sod/Tazobactam (Sod 3.375 gm/ Dextrose) 50 mls @ 100 mls/hr IVPB Q8H-IV [facility]; Protocol Last Admin: 03/21/18 01:30 Dose: 100 mls/hr Dextrose/Sodium Chloride (D5-1/2ns -) 1,000 mls @ 42 mls/hr IV ASDIR [facility] Last Admin: 03/21/18 06:35 Dose: 42 mls/hr Insulin Aspart (Novolog Vial Sliding Scale -) 1 vial SQ TIDAC [facility]; Protocol Last Admin: 03/21/18 06:34 Dose: Not Given Memantine (Namenda -) 10 mg PO DAILY [facility] Last Admin: 03/20/18 15:01 Dose: 10 mg Methimazole (Tapazole -) 10 mg PO DAILY [facility] Last Admin: 03/20/18 15:01 Dose: 10 mg Metoprolol Succinate (Toprol Xl -) 25 mg PO DAILY [facility] Last Admin: 03/20/18 15:01 Dose: 25 mg - Objective Vital Signs: Vital Signs Temperature 98.0 F 03/21/18 06:00 Pulse Rate 90 03/21/18 06:00 Respiratory Rate 18 03/21/18 06:00 Blood Pressure 123/62 03/21/18 06:00 O2 Sat by Pulse Oximetry (%) 97 03/20/18 21:00 Constitutional: Yes: No Distress, Calm Neck: Yes: Supple Cardiovascular: Yes: Regular Rate and Rhythm Respiratory: Yes: Regular, CTA Bilaterally Gastrointestinal: Yes: Normal Bowel Sounds, Soft Edema: No Labs: CBC, BMP 03/20/18 06:00 03/20/18 06:00 INR, PTT INR 1.31 (0.83-1.09) H 03/18/18 06:15 Problem List - Problems (1) Demand ischemia Code(s): I24.8 - OTHER FORMS OF ACUTE ISCHEMIC HEART DISEASE (2) HTN (hypertension) Code(s): I10 - ESSENTIAL (PRIMARY) HYPERTENSION Qualifiers: Hypertension type: essential hypertension Qualified Code(s): I10 - Essential (primary) hypertension (3) Atrial flutter Code(s): I48.92 - UNSPECIFIED ATRIAL FLUTTER Qualifiers: Atrial flutter type: unspecified Qualified Code(s): I48.92 - Unspecified atrial flutter (4) HLD (hyperlipidemia) Code(s): E78.5 - HYPERLIPIDEMIA, UNSPECIFIED Qualifiers: Hyperlipidemia type: pure hypercholesterolemia Qualified Code(s): E78.00 - Pure hypercholesterolemia, unspecified; E78.0 - Pure hypercholesterolemia (5) Hyperthyroidism Code(s): E05.90 - THYROTOXICOSIS, UNSP WITHOUT THYROTOXIC CRISIS OR STORM (6) Obesity Code(s): E66.9 - OBESITY, UNSPECIFIED (7) Epigastric pain Code(s): R10.13 - EPIGASTRIC PAIN Assessment/Plan 03/13/2018 Echo: Normal LV size and fxn, mild MR, AR, mod WI, severe TR 1. Chest pain syndrome with mild elevation of troponin referable to demand ischemia 2. Atrial fibrillation/flutter [id number] score likely 6 on NOAC 3. Epigastric / RUQ abdominal pain with cholelithiasis and positive HIDA scan c/ w acute cholecystitis 4. Acute on CKD (pre-renal) resolved 5. HTN 6. Type 2 DM 7. Hypercholesterolemia 8. Hyperthyroidism 9. Nephrolithiasis PLAN: 1. Hold Eliquis 5 mg BID (age > 80, wt>60 kg and Cr <1.5) 2 days prior to outpatient lap cholecystectomy and she may proceed from cardiac-standpoint 2. Continue Lipitor 20 mg QD, Losartan 25 mg QD and Toprol XL 25 mg QD as hemodynamics tolerate 3. Further strategy for AF to follow whether rate control or rhythm control 4. D/c planning
[2018-03-21] MEDS: MEMANTINE HCL 10 MG TABLET (FP) PO SCH (11:04)
[2018-03-21] MEDS: metoPROLOL SUCCINATE 25 MG TAB.SR.24H (FP) PO SCH (11:04)
[2018-03-21] MEDS ORDERED: PT OWN MED DRAWER 7, Y5N ONE (11:06)
[2018-03-21] MEDS: METHIMAZOLE 10 MG TABLET (FP) PO SCH (11:06)
--- NOTE | 2018-03-21 11:21 | PN ---
Progress Note, Physician History of Present Illness: stable doing well no issues no more pain - Current Medication List Current Medications: Active Medications Atorvastatin Calcium (Lipitor -) 20 mg PO HS [facility] Last Admin: 03/20/18 21:54 Dose: 20 mg Piperacillin Sod/Tazobactam (Sod 3.375 gm/ Dextrose) 50 mls @ 100 mls/hr IVPB Q8H-IV [facility]; Protocol Last Admin: 03/21/18 11:04 Dose: 100 mls/hr Dextrose/Sodium Chloride (D5-1/2ns -) 1,000 mls @ 42 mls/hr IV ASDIR [facility] Last Admin: 03/21/18 06:35 Dose: 42 mls/hr Insulin Aspart (Novolog Vial Sliding Scale -) 1 vial SQ TIDAC [facility]; Protocol Last Admin: 03/21/18 11:11 Dose: 2 units Memantine (Namenda -) 10 mg PO DAILY [facility] Last Admin: 03/21/18 11:04 Dose: 10 mg Methimazole (Tapazole -) 10 mg PO DAILY [facility] Last Admin: 03/21/18 11:06 Dose: 10 mg Metoprolol Succinate (Toprol Xl -) 25 mg PO DAILY [facility] Last Admin: 03/21/18 11:04 Dose: 25 mg - Objective Vital Signs: Vital Signs Temperature 98.0 F 03/21/18 06:00 Pulse Rate 90 03/21/18 06:00 Respiratory Rate 18 03/21/18 06:00 Blood Pressure 123/62 03/21/18 06:00 O2 Sat by Pulse Oximetry (%) 97 03/20/18 21:00 Constitutional: Yes: No Distress, Calm Cardiovascular: Yes: Regular Rate and Rhythm Respiratory: Yes: Regular, CTA Bilaterally Gastrointestinal: Yes: Normal Bowel Sounds, Soft Musculoskeletal: Yes: WNL Extremities: Yes: WNL Neurological: Yes: Alert, Oriented Psychiatric: Yes: Alert, Oriented Labs: CBC, BMP 03/20/18 06:00 03/20/18 06:00 INR, PTT INR 1.31 (0.83-1.09) H 03/18/18 06:15 Assessment/Plan Problem List - Problems (1) Abnormal biliary HIDA scan Code(s): R94.8 - ABNORMAL RESULTS OF FUNCTION STUDIES OF ORGANS AND SYSTEMS (2) Chest pain Code(s): R07.9 - CHEST PAIN, UNSPECIFIED Qualifiers: Chest pain type: chest pain due to myocardial ischemia Ischemic chest pain type: stable angina pectoris Qualified Code(s): I20.8 - Other forms of angina pectoris (3) Demand ischemia Code(s): I24.8 - OTHER FORMS OF ACUTE ISCHEMIC HEART DISEASE (4) Acute on chronic systolic (congestive) heart failure Code(s): I50.23 - ACUTE ON CHRONIC SYSTOLIC (CONGESTIVE) HEART FAILURE (5) Atrial flutter Code(s): I48.92 - UNSPECIFIED ATRIAL FLUTTER Qualifiers: Atrial flutter type: unspecified Qualified Code(s): I48.92 - Unspecified atrial flutter (6) Obesity Code(s): E66.9 - OBESITY, UNSPECIFIED plan continue current mgmt stop abx rest continue current mgmt surgery to follow
[2018-03-21 14:43] VITALS: BP 111/59; PULSE 85; TEMP 98.1
--- NOTE | 2018-03-21 17:27 | DS ---
Physical Examination Vital Signs: Vital Signs Temperature 98.1 F 03/21/18 14:42 Pulse Rate 85 03/21/18 14:42 Respiratory Rate 16 03/21/18 14:42 Blood Pressure 111/59 L 03/21/18 14:42 O2 Sat by Pulse Oximetry (%) 98 03/21/18 11:00 Constitutional: Yes: No Distress HENT: Yes: Atraumatic Neck: Yes: Supple Cardiovascular: Yes: Regular Rate and Rhythm Respiratory: Yes: CTA Bilaterally Gastrointestinal: Yes: Normal Bowel Sounds Extremities: Yes: WNL Edema: No Neurological: Yes: Alert, Oriented Labs: CBC, BMP 03/20/18 06:00 03/20/18 06:00 Discharge Summary Reason For Visit: LEFT UPPER QUADRANT PAIN Condition: Improved - Instructions Diet, Activity, Other Instructions: Activity: Resume your usual activities gradually, but no heavy exertion or lifting more than 10-15 pounds for 4-6 weeks. LOW FAT DIET, NO PERNIL. Eat lightly at first, but advance to your usual diet as tolerated. Pain: For pain, you may use and alternate Tylenol (acetaminophen) 1-2 pills and/ or ibuprofen 200 mg (1-3 pills) every 6 hours each as needed; this means that you can take one OR the other at 3-hour intervals. If you are prescribed a Tylenol/narcotic combination for severe pain, use it instead of plain Tylenol as needed and switch back when your pain starts decreasing. Do not take more than 4000 mg of acetaminophen in a day. Take medications as prescribed or indicated on the labeling. Follow-up: Call Dr. Devries' office at [phone] to make your postop appointment (Sunday in approximately 4 weeks after surgery as advised). Clinic is held in the [facility] on the first floor of [facility]. Call the office if you have: * increasing pain not responsive to pain medication * fever of 101F or higher * unusual or increasing bleeding or drainage from wounds * increasing redness or swelling at wound sites Also, see your primary medical doctor within 1-2 weeks. Referrals: Wilton Gutierres PA [Primary Care Provider] - Gaby Quintana DO [Staff Physician] - Constantin Devries MD [Staff Physician] - Disposition: HOME - Home Medications Comprehensive Discharge Medication List: Ambulatory Orders Albuterol 0.083% Nebulizer Chuyita [Ventolin 0.083% Nebulizer Soln -] 1 amp NEB Q4H PRN #30 amp MDD 4 09/21/17 Memantine HCl [Namenda -] 10 mg PO DAILY@0800 #30 tablet MDD 1 09/21/17 Brimonidine Tartrate/Timolol [Combigan 0.2%-0.5% Eye Drops] 5 ml OP DAILY Exenatide Microspheres [Bydureon Pen] 2 mg SQ WEEKLY 11/27/17 Methimazole [Tapazole -] 10 mg PO DAILY MDD 2 11/27/17 Pantoprazole Sodium [Protonix] 40 mg PO DAILY 11/27/17 Atorvastatin Ca [Lipitor] 20 mg PO HS #30 tablet 12/03/17 Furosemide [Lasix -] 40 mg PO DAILY #30 tablet 12/03/17 Metoprolol Succinate [Toprol XL -] 100 mg PO DAILY 03/11/18 Omeprazole Magnesium [Acid [employer]] 40 mg PO DAILY 03/11/18 Ondansetron HCl [Zofran] 4 mg PO TID PRN 03/11/18 Apixaban [Eliquis -] 2.5 mg PO BID #20 tablet 03/13/18 Losartan Potassium [Cozaar -] 25 mg PO DAILY #30 tablet 03/13/18 Insulin Sliding Scale [Novolog Vial Sliding Scale -] 1 vial SQ TIDAC units 10/01 [facility]
[2018-03-22 07:18] LABS: THYROID STIM IMMUNOGLOBULIN <0.10 IU/L (0.00-0.55)
== END 2018-03-21 17:06 | disposition home or self-care (01) | DRG 445 ==
LOC: JER 13:09 → JERBED 18:34 → J4W 03-12 13:51 → J5S 03-13 22:45
PROVIDERS: ADMIT Internal Medicine; ATTEND Internal Medicine
DX: K80.00 Calculus of gallbladder with acute cholecystitis without obstruction (principal); I48.92 Unspecified atrial flutter; I24.8 Other forms of acute ischemic heart disease; N17.9 Acute kidney failure, unspecified; E87.1 Hypo-osmolality and hyponatremia; E78.5 Hyperlipidemia, unspecified; I48.91 Unspecified atrial fibrillation; J44.9 Chronic obstructive pulmonary disease, unspecified; E03.9 Hypothyroidism, unspecified; E05.90 Thyrotoxicosis, unspecified without thyrotoxic crisis or storm; R10.13 Epigastric pain; R07.89 Other chest pain; E66.9 Obesity, unspecified; Z68.36 Body mass index [BMI] 36.0-36.9, adult; N20.0 Calculus of kidney; R11.2 Nausea with vomiting, unspecified; I12.9 Hypertensive chronic kidney disease with stage 1 through stage 4 chronic kidney disease, or unspecified chronic kidney disease; E11.22 Type 2 diabetes mellitus with diabetic chronic kidney disease; N18.2 Chronic kidney disease, stage 2 (mild); R94.8 Abnormal results of function studies of other organs and systems; E87.6 Hypokalemia
CPT/HCPCS: 36415; 71045-TC-FY; 76705-TC; 78226-TC; 80053; 81003; 81015; 82550; 82962; 83605; 83690; 83735; 84439; 84443; 84445; 84481; 84484; 85025; 85027; 85610; 87086; 90688; 93005; 93010; 93306-TC; 97116-GP; 97161-GP; 99285-25; A9537; G0008; J0131; J7030

== ENCOUNTER 2019-01-16 13:23 | Inpatient (IN) | payer OTHER ==
[2019-01-16] MEDS ORDERED: ACETAMINOPHEN 1000 MG/100 ML VIAL (NON FORMULARY) IVPB ONE ×2 (14:21→17:24)
--- NOTE | 2019-01-16 14:22 | PDOC ---
History of Present Illness - General Chief Complaint: Nausea/Vomiting Stated Complaint: VOMITING/DIZZINES Time Seen by Provider: 01/16/19 13:50 History Source: Patient, Family (granddaughter) Exam Limitations: Language Barrier (Estonian speaking only) - History of Present Illness Initial Comments: 01/16/19 14:17 83 yo F PMH cholelithiasis, HTN, HLD, IDDM, GERD, afib/flutter on Eliquis, systolic CHF, hysterectomy, presenting with RUQ pain. States that she began to have this pain last night, associated with nausea and 3 episodes of vomiting between last night and this morning. Also complains of dizziness "like the room is spinning" and less sensation in L side of face, arms, and legs, however, these have apparently been recurring issues. Further complains of chronic constipation, arthritis, and tingling in hands and feet. Denies current nausea, but states that her RUQ pain is ongoing. Feels like it radiates from RUQ to LUQ , similar to prior pain she has had. Denies CP, SOB, diarrhea, fevers/chills, MCGILL. Past History - Past Medical History Allergies/Adverse Reactions: Allergies Allergy/AdvReac Type Severity Reaction Status Date / Time No Known Allergies Allergy Verified 03/11/18 20:09 Home Medications: Ambulatory Orders Digoxin [Lanoxin -] 0.125 mg PO DAILY 01/16/19 Furosemide [Lasix] 20 mg PO DAILY 01/16/19 Metoprolol Succinate [Toprol Xl] 50 mg PO DAILY 01/16/19 Sacubitril/Valsartan [Entresto 24 mg-26 mg Tablet] 1 each PO BID 01/16/19 Tramadol HCl/Acetaminophen [Tramadol-Acetaminophn 37.5-325] 1 each PO QID PRN Asthma: Yes Cardiac Disorders: Yes (AFIB) COPD: No CHF: Yes Dementia: Yes Diabetes: Yes (Type 2 DM) HTN: Yes Hypercholesterolemia: Yes Thyroid Disease: Yes (hypothyroidism) - Immunization History Immunization Up to Date: Yes - Psycho Social/Smoking Cessation Hx Smoking Status: No Smoking History: Never smoked Have you smoked in the past 12 months: No Number of Cigarettes Smoked Daily: 0 If you are a former smoker, when did you quit?: 60years ago Information on smoking cessation initiated: No Hx Alcohol Use: No Drug/Substance Use Hx: No Substance Use Type: None Hx Substance Use Treatment: No Review of Systems - Review of Systems Constitutional: No: Chills, Diaphoresis, Fever, Weakness HEENTM: No: Blurred Vision, Hearing Loss, Difficulty Swallowing Respiratory: No: Cough, Orthopnea, Shortness of Breath Cardiac (ROS): Yes: Irregular Heart Rate (known history of afib/flutter). No: Chest Pain ABD/GI: Yes: Constipated (chronic), Nausea, Vomiting. No: Abdominal Distended, Diarrhea : No: Burning, Dysuria, Discharge, Frequency, Flank Pain, Hematuria Musculoskeletal: Yes: Joint Swelling (hx arthritis), Joint Stiffness (arthritis) . No: Back Pain Neurological: Yes: Numbness (L sided, on and off for multiple months), Paresthesia, Dizziness ("room spinning"). No: Headache, Weakness *Physical Exam - Vital Signs Last Vital Signs Temp Pulse Resp BP Pulse Ox 97.6 F 62 16 121/68 96 01/16/19 13:30 01/16/19 13:30 01/16/19 13:30 01/16/19 13:30 01/16/19 13:30 - Physical Exam Comments: 01/16/19 14:23 Gen: NAD, well-developed, well-nourished Neuro: AAOX4, CN II-XII intact w/o facial droop, no nystagmus, sensation subjectively decreased in L side of face, L arm, L leg, 5/5 strength in all extremities HEENT: atraumatic, normocephalic Neck: trachea midline, supple CV: irregular, regular rate Pulm: CTA b/l, no wheezing Abd: soft, non-distended, mild ttp in RUQ and LUQ, no CVA tenderness, no suprapubic tenderness MSK: full ROM, 2+ pulses Skin: warm, dry Extr: no edema, no deformities ED Treatment Course - LABORATORY CBC & Chemistry Diagram: 01/16/19 14:10 01/16/19 14:10 - RADIOLOGY Radiology Studies Ordered: Category Date Time Status HEAD CT WITHOUT CONTRAST [CT] Stat CT Scan 01/16/19 14:05 Ordered ABDOMEN US [US] Stat Ultrasound 01/16/19 14:14 Ordered Medical Decision Making - Medical Decision Making 01/16/19 14:27 83 yo F with multiple complaints. Concerning for cholelithiasis v cholecystitis v vertigo v UTI v ACS v old stroke. - CBC, CMP, lipase, coags - EKG, trop - CT head non con - UA/UC - Ofirmev, no current nausea so will hold off on Zofran - RUQ US - ctm 01/16/19 14:43 EKG 104 bpm, afib 01/16/19 15:28 CT head with mild periventricular chronic microvascular issues, no acute infarcts. Trop 0.08, history of elevated trop in February 2018. 01/16/19 15:44 Abdomen US shows hepatomegaly, cholelithiasis, no acute cholecystitis or AAA. 01/16/19 17:03 UA unconcerning. Will f/u lactic acid, however, will admit for troponinemia. 01/16/19 18:27 Lactate 2.1. Discharge - Discharge Information Problems reviewed: Yes Clinical Impression/Diagnosis: Troponin level elevated Condition: Stable - Admission Yes - Follow up/Referral - Patient Discharge Instructions - Post Discharge Activity
--- NOTE | 2019-01-16 14:26 | PDOC ---
Attending Attestation - Resident Resident Name: Latonia Rosario - HPI HPI: 01/16/19 16:18 Pt presents to the Ed with multiple complaints, including diffuse abdominal pain and pain in all of her extremities. Denies fever, nausea or vomiting, chest pain or shortness of breath. - Physicial Exam PE: 01/16/19 16:24 Agree with resident exam. patient is alert and oriented and in no acute distress. Abdomen is soft, non distended and non tender to deep palpation on my exam. - Medical Decision Making 01/16/19 16:25 Pt presents to the ED with multiple complaints. Abdomen is non tender on my exam. Labs show slightly elevated troponin. RUQ US checked to rule out cholecystitis, and shows cholelithiasis but no inflammation. Will admit to medicine for serial troponins.
--- NOTE | 2019-01-16 14:29 | EKG ---
Test Reason : Blood Pressure : / mmHG Vent. Rate : 104 BPM Atrial Rate : 113 BPM P-R Int : 000 ms QRS Dur : 086 ms QT Int : 316 ms P-R-T Axes : 000 -37 131 degrees QTc Int : 415 ms ATRIAL FIBRILLATION WITH RAPID VENTRICULAR RESPONSE WITH PREMATURE VENTRICULAR OR ABERRANTLY CONDUCTED COMPLEXES LEFT AXIS DEVIATION LOW VOLTAGE QRS CANNOT RULE OUT ANTEROSEPTAL INFARCT (CITED ON OR BEFORE 08-JUN-2017) ABNORMAL ECG WHEN COMPARED WITH ECG OF 11-MAR-2018 18:34, ATRIAL FIBRILLATION HAS REPLACED ATRIAL FLUTTER VENT. RATE HAS INCREASED BY 48 BPM CRITERIA FOR INFERIOR INFARCT ARE NO LONGER PRESENT Confirmed by MINI HAZEL, MADELAINE ([id number]) on 01/16/2019 2:29:23 PM Referred By: Confirmed By:MADELAINE MORSE MD
[2019-01-16] MEDS ORDERED: ACETAMINOPHEN INJECTION 100 ML IVPB ONE ×2 (14:31→17:41)
[2019-01-16 14:33] LABS: BASO % 0.5 % (0-2.0); EOS % 1.3 % (0-4.5); HEMATOCRIT 43.5 % (32.4-45.2); HEMOGLOBIN 14.3 GM/dL (10.7-15.3); LYMPH % 18.5 % (8-40); MCH 26.8 pg (25.7-33.7); MCHC 32.8 g/dl (32.0-36.0); MEAN CELL VOLUME 81.7 fl (80-96); MEAN PLT VOLUME 9.3 fl (7.5-11.1); MONO % 3.4 % (3.8-10.2); NEUT % 76.3 % (42.8-82.8); PLATELET COUNT 207 K/MM3 (134-434); RBC 5.33 M/mm3 (3.60-5.2); RDW 16.6 % (11.6-15.6); WHITE BLOOD COUNT 10.5 K/mm3 (4.0-10.0)
[2019-01-16 14:42] LABS: INR 1.17 (0.83-1.09); PROTHROMBIN TIME (PATIENT) 13.8 SEC (9.7-13.0)
[2019-01-16 14:45] LABS: ACTIVATED PTT 33.7 SECONDS (25.2-36.5)
[2019-01-16 15:17] LABS: ALBUMIN 3.2 g/dl (3.4-5.0); BILIRUBIN,TOTAL 1.7 mg/dL (0.2-1); BLOOD UREA NITROGEN 53.2 mg/dL (7-18); CALCIUM 9.4 mg/dL (8.5-10.1); CREATININE 1.5 mg/dL (0.55-1.3); POTASSIUM 5.3 mmol/L (3.5-5.1); TOT PROT 6.6 g/dl (6.4-8.2)
[2019-01-16] MEDS ORDERED: SODIUM CHLORIDE 1,000 ML IV STA (15:46)
[2019-01-16 17:02] LABS: PH,URINE 5.5 (5.0-8.0); URINE APPEARANCE CLEAR; URINE BILIRUBIN NEGATIVE (NEGATIVE); URINE COLOR YELLOW; URINE GLUCOSE (UA) NEGATIVE (NEGATIVE); URINE KETONE NEGATIVE (NEGATIVE); URINE LEUK ESTERASE NEGATIVE (NEGATIVE); URINE NITRITE NEGATIVE (NEGATIVE); URINE PROTEIN NEGATIVE (NEGATIVE)
[2019-01-16] MEDS ORDERED: ASPIRIN 325 MG TABLET PO ONE (17:13)
[2019-01-16] MEDS ORDERED: ASPIRIN 81 MG CHEWABLE TABLETS ONE (17:17)
--- NOTE | 2019-01-16 20:25 | HP ---
CHIEF COMPLAINT: PCP: Dr. Gutierres (GI Dr. Barr) HISTORY OF PRESENT ILLNESS: 83 y/o/f with PMHx of HTN, HLD, IDDM, GERD, afib/flutter, CHF here for abd pain , vomiting, and dizziness. Patient states she has had chronic abd pain for over a year. She has a history of gallstones but has been told she is not a candidate for a cholecystectomy due to her medical history. Over the last two days she has been vomiting and has been feeling dizzy. She has vomited 3 times, no blood or bile in the vomit. She describes the dizzyness as the room spinning. Her abd pain is epigastric and radiates to her chest and left flank. She complains of occasional SOB, none now. She has left shoulder/scapular pain that is chronic. She has a history of constipation, last BM 3 days ago. Her BMs are small and she takes laxatives without significant improvement. She denies any fever, chills, dysuria, hematochezia. Patient was previously on eliquis for afib/flutter but this was discontinued by her rehab/pre vocational counselor last month. Patient complains of chronic bilateral leg pain that radiates from her back. ER course was notable for: (1) CXR negative, CT head negative, RUQ U/S - small calculi and biliary sludge with no evidence of duct dilation. no evidence of acute cholecystitis (2) elevated trop at 0.08 (3) EKG without ST elevations Recent Travel: PAST MEDICAL HISTORY: HTN, HLD, IDDM, GERD, afib/flutter on eliquis, systolic CHF PAST SURGICAL HISTORY: total hysterectomy Social History: Smoking: smoked cigars in the past Alcohol: denies Drugs: denies Lives with daughter and granddaughter FamHx: diabetes Allergies No Known Allergies Allergy (Verified 03/11/18 20:09) HOME MEDICATIONS: REVIEW OF SYSTEMS Constitutional: weakness, denies loss of appetite, fever HEENT: denies sore throat, vision changes, congestion Cardio: chest pain, denies palpitations Resp: SOB, denies wheezing GI: abd pain, nausea, vomiting, constipation denies diarrhea MSK: leg pain, left shoulder/scapular pain. denies back pain, joint pain, neck pain SKIN: denies rashes Neuro: dizzyness (room spinning) denies incontinence, loss of consciousness, numbness, tingling, headache Psych: denies anxiety PHYSICAL EXAMINATION Completed orthostatic BP supine: 116/78 sittin/70 standin/70 Vital Signs - 24 hr 01/16/19 01/16/19 01/16/19 13:30 15:40 20:14 Temperature 97.6 F 98.6 F 98.5 F Pulse Rate 62 Pulse Rate [ 88 78 Left Radial] Respiratory 16 19 20 Rate Blood Pressure 121/68 Blood Pressure 128/76 134/81 [Right Arm] O2 Sat by Pulse 96 98 97 Oximetry (%) GENERAL: mild distress, Awake, alert, and fully oriented HEAD: NC/AT EYES: PERRL, EOMI, sclera anicteric, conjunctiva clear EARS, NOSE, THROAT: nares patent. dry mucous membranes. NECK: Normal range of motion, supple without lymphadenopathy, JVD, or masses. LUNGS: Breath sounds equal, clear to auscultation bilaterally. No wheezes, and no crackles. No accessory muscle use. HEART: Regular rate and rhythm, normal S1 and S2 without murmur, rub or gallop. ABDOMEN: tenderness to palpation over epigastrium and LUQ, negative murphys sign. Soft, not distended, normoactive bowel sounds, no guarding, no rebound, no masses. MUSCULOSKELETAL: No midline tenderness to palpation, No CVA tenderness. UPPER EXTREMITIES: 2+ pulses, warm, well-perfused. No cyanosis. No clubbing. No peripheral edema. LOWER EXTREMITIES: 2+ pulses, warm, well-perfused. No calf tenderness. No peripheral edema. NEUROLOGICAL: positive straight leg raise test on right leg. Normal speech. Normal gait. 5/5 strength upper and lower extremities PSYCHIATRIC: Cooperative. Good eye contact. Appropriate mood and affect. SKIN: Warm, dry, normal turgor, no rashes or lesions noted, normal capillary refill. Completed orthostatic BP - negative Laboratory Results - last 24 hr 01/16/19 01/16/19 01/16/19 14:10 14:10 14:10 WBC 10.5 H RBC 5.33 H Hgb 14.3 Hct 43.5 MCV 81.7 MCH 26.8 MCHC 32.8 RDW 16.6 H Plt Count 207 MPV 9.3 D Absolute Neuts (auto) 8.1 H Neutrophils % 76.3 D Lymphocytes % 18.5 D Monocytes % 3.4 L Eosinophils % 1.3 Basophils % 0.5 Nucleated RBC % 0 PT with INR 13.80 H INR 1.17 H PTT (Actin FS) 33.7 Sodium 137 Potassium 5.3 H Chloride 101 Carbon Dioxide 29 Anion Gap 8 BUN 53.2 H Creatinine 1.5 H Est GFR (CKD-EPI)AfAm 36.95 Est GFR (CKD-EPI)NonAf 31.88 Random Glucose 233 H Lactic Acid Calcium 9.4 Total Bilirubin 1.7 H AST 20 ALT 29 Alkaline Phosphatase 199 H Troponin I 0.08 H Total Protein 6.6 Albumin 3.2 L Lipase 59 L Urine Color Urine Appearance Urine pH Ur Specific [place] Urine Protein Urine Glucose (UA) Urine Ketones Urine Blood Urine Nitrite Urine Bilirubin Urine Urobilinogen Ur Leukocyte Esterase 01/16/19 01/16/19 16:40 17:30 WBC RBC Hgb Hct MCV MCH MCHC RDW Plt Count MPV Absolute Neuts (auto) Neutrophils % Lymphocytes % Monocytes % Eosinophils % Basophils % Nucleated RBC % PT with INR INR PTT (Actin FS) Sodium Potassium Chloride Carbon Dioxide Anion Gap BUN Creatinine Est GFR (CKD-EPI)AfAm Est GFR (CKD-EPI)NonAf Random Glucose Lactic Acid 2.1 H Calcium Total Bilirubin AST ALT Alkaline Phosphatase Troponin I Total Protein Albumin Lipase Urine Color Yellow Urine Appearance Clear Urine pH 5.5 Ur Specific [place] 1.015 Urine Protein Negative Urine Glucose (UA) Negative Urine Ketones Negative Urine Blood Negative Urine Nitrite Negative Urine Bilirubin Negative Urine Urobilinogen 1.0 Ur Leukocyte Esterase Negative Imaging: CXR - large heart, slight right hilar prominence. no adverse changes compared to study from 03/11/2018. Head CT - no acute intracranial pathology identified. moderate volume loss and mild periventricular chronic microvascular ischemic disease changes. Abdomen U/S - gallbladder is normal in size and does contain small calculi and biliary sludge. there is no evidence of intra or extrahepatic biliary duct dilatation. there is no sonographic evidence of cholecystitis. ASSESSMENT/PLAN: 83 y/o/f with PMHx of HTN, HLD, IDDM, GERD, afib/flutter, CHF here for abd pain , vomiting, and dizziness. 1)Cholecystitis - patient with history of gallstones, HIDA scan in the past with features suggestive of cholecystitis -> cholecytostomy tube placed by Dr. Devries with improvement of symptoms. -RUQ U/S showing small calculi and biliary sludge without evidence of duct dilation -Elevated T-bili and alk phos. fractionated bilirubin pending -Surgery, Dr. Devries consulted -MRCP ordered -MRCP not completed due to patient noncompliance. shows only layering sludge and/or microlithiasis in the gallbladder. -repeat lactic, BMP ordered -repeat lactic at 1.3. BMP similar to initial labs but showing normalization of values 2)Elevated troponin - patient has history of elevated troponins in the past, cardiac history of afib/flutter and CHF -initial and second trop both at 0.08 -contact PCP/rehab/pre vocational counselor to clarify why patient is no longer on anticoagulation -Holding heparin drip as patient has flat troponin trend, anticoagulation held by rehab/pre vocational counselor/PCP for unknown reason 3)ROSELINE - BUN/Cr at 55.2/1.5 - likely pre renal as patient has been vomiting and has had poor oral intake -IVF -monitor with repeat labs 4)Hyperkalemia - 5.3 -IVF fluids -monitor with repeat labs -RESOLVED 5)DM - patient on insulin at home -Insulin sliding scale -BGM 6)Prophylaxis -SCDs 7)FEN -Diabetic diet -NS @ 100mls/hr 8)Disposition -admitted to tele Visit type - Emergency Visit Emergency Visit: Yes ED Registration Date: 01/16/19 Care time: The patient presented to the Emergency Department on the above date and was hospitalized for further evaluation of their emergent condition. - New Patient This patient is new to me today: Yes Date on this admission: 01/17/19 - Critical Care Critical Care patient: No ATTENDING PHYSICIAN STATEMENT I saw and evaluated the patient. I reviewed the resident's note and discussed the case with the resident. I agree with the resident's findings and plan as documented. SUBJECTIVE: OBJECTIVE: ASSESSMENT AND PLAN:
[2019-01-16] MEDS ORDERED: INSULIN (NOVOLOG) ASPART 100 UNITS/ML 10ML VIAL SQ ONE (20:39)
[2019-01-16] MEDS: SODIUM CHLORIDE 1,000 ML IV SCH (21:03)
[2019-01-16] MEDS ORDERED: HEPARIN NA (PORCINE) 5,000 UNITS/ML 1ML VIAL SQ SCH (22:00)
[2019-01-16 22:21] LABS: BILIRUBIN,DIRECT 0.4 mg/dL (0.0-0.2)
--- NOTE | 2019-01-16 23:10 | PN ---
Teaching Attending Note Name of Resident: Bello Diaz ATTENDING PHYSICIAN STATEMENT I saw and evaluated the patient. I reviewed the resident's note and discussed the case with the resident. I agree with the resident's findings and plan as documented. SUBJECTIVE: 83 yo woman w/ HTN, HLD, IDDM, GERD, afib/flutter, CHF c/o right upper quadrant pain for several days, worse after eating. Last night c/o nausea and mutlipel episodes of vomiting. Patient did nor complain of significant chest pain or shortness of breath. Was assessed here for on prior visit and noted to be scheduled for cholecystectomy however not performed. OBJECTIVE: Last Vital Signs Temp Pulse Resp BP Pulse Ox 98.5 F 78 20 134/81 97 01/16/19 20:14 01/16/19 20:14 01/16/19 20:14 01/16/19 20:14 01/16/19 20:14 gen - appears comfortable, not in distress heent -at, nc neck supple abdomen -soft, benign, bs+, right upper quadrant tenderness, no rebound tenderness Abnormal Lab Results 01/16/19 01/16/19 01/16/19 14:10 14:10 14:10 WBC 10.5 H RBC 5.33 H RDW 16.6 H Absolute Neuts (auto) 8.1 H Monocytes % 3.4 L PT with INR 13.80 H INR 1.17 H Potassium 5.3 H BUN 53.2 H Creatinine 1.5 H Random Glucose 233 H Lactic Acid Total Bilirubin 1.7 H Direct Bilirubin Alkaline Phosphatase 199 H Troponin I 0.08 H Albumin 3.2 L Lipase 59 L 01/16/19 01/16/19 17:30 21:00 WBC RBC RDW Absolute Neuts (auto) Monocytes % PT with INR INR Potassium BUN Creatinine Random Glucose Lactic Acid 2.1 H Total Bilirubin Direct Bilirubin 0.4 H Alkaline Phosphatase Troponin I 0.08 H Albumin Lipase imaging reviewed ASSESSMENT AND PLAN: 83yo woman with recurrent RUQ abdominal pain which seems cholestatic in nature, no overt cholecytitis on ruq ultrasound but clinical picture suggestive of cholecysitis with possible cholangitis +bilirubinemia and high ALT c/w cholecstatic picture. As per documentation pt was scheduled for outpatient cholecytectomy but never performed. Pt with history of afib with High CVADSVACS score- however currently not on any anticoagulation, unclear why. Need to clarify with PCP why is no longer on anticoagulation. Noted to have chronically elevated troponin, however in light of new ST depressions on leads V5, V6 will admit to telemetry and monitor troponins although clinical suspicion for ACS at this time is low. Uncontrolled DM with severe hyperglycemia #Mild lactic acidosis #ROSELINE #Mild leukocytosis -telemetry -npo -surgery consult -iv fluid hydration -avoid nephrotoxins -contact pcp why not on AC -trend trops -monitor vs closely -tight glucose control w/ sc insulin -dvt ppx
[2019-01-16] MEDS: SACUBITRIL/VALSARTAN 24 MG-26 MG TABLET PO SCH (23:57)
[2019-01-17 01:11] LABS: BLOOD UREA NITROGEN 52.8 mg/dL (7-18); CALCIUM 8.7 mg/dL (8.5-10.1); CREATININE 1.3 mg/dL (0.55-1.3); POTASSIUM 4.6 mmol/L (3.5-5.1)
[2019-01-17 03:17] VITALS: BMI 32.1
[2019-01-17 05:48] LABS: HEMATOCRIT 39.5 % (32.4-45.2); MCH 26.9 pg (25.7-33.7); MCHC 32.8 g/dl (32.0-36.0); MEAN CELL VOLUME 81.8 fl (80-96); MEAN PLT VOLUME 8.3 fl (7.5-11.1); PLATELET COUNT 162 K/MM3 (134-434); RBC 4.83 M/mm3 (3.60-5.2); RDW 16.7 % (11.6-15.6); WHITE BLOOD COUNT 8.4 K/mm3 (4.0-10.0)
[2019-01-17 06:13] LABS: ALBUMIN 2.9 g/dl (3.4-5.0); BILIRUBIN,TOTAL 1.7 mg/dL (0.2-1); BLOOD UREA NITROGEN 46.4 mg/dL (7-18); CALCIUM 8.7 mg/dL (8.5-10.1); CREATININE 1.1 mg/dL (0.55-1.3); POTASSIUM 4.7 mmol/L (3.5-5.1); TOT PROT 5.8 g/dl (6.4-8.2)
[2019-01-17] MEDS: INSULIN SLIDING SCALE (NOVOLOG) 1 VIAL SQ SCH ×2 (06:45→17:38)
[2019-01-17 08:49] LABS: BILIRUBIN,DIRECT 0.4 mg/dL (0.0-0.2)
[2019-01-17] MEDS ORDERED: ASPIRIN 81 MG CHEWABLE TABLETS PO SCH (10:00)
[2019-01-17] MEDS ORDERED: PT OWN MED DRAWER 7, Y5N ONE ×2 (10:27→21:06)
--- NOTE | 2019-01-17 10:27 | PN ---
Teaching Attending Note Name of Resident: Mickey Fajardo ATTENDING PHYSICIAN STATEMENT I saw and evaluated the patient. I reviewed the resident's note and discussed the case with the resident. I agree with the resident's findings and plan as documented. SUBJECTIVE: Patient complains of abdominal pain. OBJECTIVE: Vital Signs Period Temp Pulse Resp BP Sys/Romero Pulse Ox Last 24 Hr 97.3 F-98.6 F 62-89 16-20 117-163/66-88 93-98 HEART: Irregularly irregular LUNGS: Clear ABDOMEN: Obese, soft, non-distended, (+) RUQ tenderness, normal BS EXTREMITIES: No edema Laboratory Results - last 24 hr 01/16/19 01/16/19 01/16/19 14:10 14:10 14:10 WBC 10.5 H RBC 5.33 H Hgb 14.3 Hct 43.5 MCV 81.7 MCH 26.8 MCHC 32.8 RDW 16.6 H Plt Count 207 MPV 9.3 D Absolute Neuts (auto) 8.1 H Neutrophils % 76.3 D Lymphocytes % 18.5 D Monocytes % 3.4 L Eosinophils % 1.3 Basophils % 0.5 Nucleated RBC % 0 PT with INR 13.80 H INR 1.17 H PTT (Actin FS) 33.7 Sodium 137 Potassium 5.3 H Chloride 101 Carbon Dioxide 29 Anion Gap 8 BUN 53.2 H Creatinine 1.5 H Est GFR (CKD-EPI)AfAm 36.95 Est GFR (CKD-EPI)NonAf 31.88 POC Glucometer Random Glucose 233 H Hemoglobin A1c % Lactic Acid Calcium 9.4 Total Bilirubin 1.7 H Direct Bilirubin AST 20 ALT 29 Alkaline Phosphatase 199 H Creatine Kinase Troponin I 0.08 H Total Protein 6.6 Albumin 3.2 L Lipase 59 L TSH Free T4 Urine Color Urine Appearance Urine pH Ur Specific [place] Urine Protein Urine Glucose (UA) Urine Ketones Urine Blood Urine Nitrite Urine Bilirubin Urine Urobilinogen Ur Leukocyte Esterase Digoxin 01/16/19 01/16/19 01/16/19 16:40 17:30 20:57 WBC RBC Hgb Hct MCV MCH MCHC RDW Plt Count MPV Absolute Neuts (auto) Neutrophils % Lymphocytes % Monocytes % Eosinophils % Basophils % Nucleated RBC % PT with INR INR PTT (Actin FS) Sodium Potassium Chloride Carbon Dioxide Anion Gap BUN Creatinine Est GFR (CKD-EPI)AfAm Est GFR (CKD-EPI)NonAf POC Glucometer 268 Random Glucose Hemoglobin A1c % Lactic Acid 2.1 H Calcium Total Bilirubin Direct Bilirubin AST ALT Alkaline Phosphatase Creatine Kinase Troponin I Total Protein Albumin Lipase TSH Free T4 Urine Color Yellow Urine Appearance Clear Urine pH 5.5 Ur Specific [place] 1.015 Urine Protein Negative Urine Glucose (UA) Negative Urine Ketones Negative Urine Blood Negative Urine Nitrite Negative Urine Bilirubin Negative Urine Urobilinogen 1.0 Ur Leukocyte Esterase Negative Digoxin 01/16/19 01/17/19 01/17/19 21:00 00:32 00:32 WBC RBC Hgb Hct MCV MCH MCHC RDW Plt Count MPV Absolute Neuts (auto) Neutrophils % Lymphocytes % Monocytes % Eosinophils % Basophils % Nucleated RBC % PT with INR INR PTT (Actin FS) Sodium 138 Potassium 4.6 Chloride 106 Carbon Dioxide 25 Anion Gap 7 L BUN 52.8 H Creatinine 1.3 Est GFR (CKD-EPI)AfAm 43.93 Est GFR (CKD-EPI)NonAf 37.91 POC Glucometer Random Glucose 160 H Hemoglobin A1c % Lactic Acid 1.4 Calcium 8.7 Total Bilirubin Direct Bilirubin 0.4 H AST ALT Alkaline Phosphatase Creatine Kinase 41 Troponin I 0.08 H Total Protein Albumin Lipase TSH Free T4 Urine Color Urine Appearance Urine pH Ur Specific [place] Urine Protein Urine Glucose (UA) Urine Ketones Urine Blood Urine Nitrite Urine Bilirubin Urine Urobilinogen Ur Leukocyte Esterase Digoxin 01/17/19 01/17/19 01/17/19 05:25 05:25 05:25 WBC 8.4 RBC 4.83 Hgb 13.0 Hct 39.5 MCV 81.8 MCH 26.9 MCHC 32.8 RDW 16.7 H Plt Count 162 D MPV 8.3 D Absolute Neuts (auto) Neutrophils % Lymphocytes % Monocytes % Eosinophils % Basophils % Nucleated RBC % PT with INR INR PTT (Actin FS) Sodium 139 Potassium 4.7 Chloride 108 H Carbon Dioxide 26 Anion Gap 6 L BUN 46.4 H Creatinine 1.1 Est GFR (CKD-EPI)AfAm 53.77 Est GFR (CKD-EPI)NonAf 46.39 POC Glucometer Random Glucose 161 H Hemoglobin A1c % Lactic Acid Calcium 8.7 Total Bilirubin 1.7 H Direct Bilirubin 0.4 H AST 20 ALT 25 Alkaline Phosphatase 171 H Creatine Kinase Troponin I 0.08 H Total Protein 5.8 L Albumin 2.9 L Lipase TSH 0.09 L Free T4 1.50 H Urine Color Urine Appearance Urine pH Ur Specific [place] Urine Protein Urine Glucose (UA) Urine Ketones Urine Blood Urine Nitrite Urine Bilirubin Urine Urobilinogen Ur Leukocyte Esterase Digoxin 01/17/19 01/17/19 01/17/19 05:25 05:25 06:42 WBC RBC Hgb Hct MCV MCH MCHC RDW Plt Count MPV Absolute Neuts (auto) Neutrophils % Lymphocytes % Monocytes % Eosinophils % Basophils % Nucleated RBC % PT with INR INR PTT (Actin FS) Sodium Potassium Chloride Carbon Dioxide Anion Gap BUN Creatinine Est GFR (CKD-EPI)AfAm Est GFR (CKD-EPI)NonAf POC Glucometer 147 Random Glucose Hemoglobin A1c % 12.8 H Lactic Acid Calcium Total Bilirubin Direct Bilirubin AST ALT Alkaline Phosphatase Creatine Kinase Troponin I Total Protein Albumin Lipase TSH Free T4 Urine Color Urine Appearance Urine pH Ur Specific [place] Urine Protein Urine Glucose (UA) Urine Ketones Urine Blood Urine Nitrite Urine Bilirubin Urine Urobilinogen Ur Leukocyte Esterase Digoxin 1.07 Current Medications Generic Name Dose Route Start Last Admin Trade Name Freq PRN Reason Stop Dose Admin Digoxin 0.125 mg 01/17/19 10:00 Lanoxin - PO DAILY [facility] Sodium Chloride 1,000 mls @ 100 mls/hr 01/16/19 20:45 01/16/19 21:03 Normal Saline - IV 100 mls/hr ASDIR [facility] Administration Insulin Aspart 1 vial 01/17/19 07:00 01/17/19 06:45 Novolog Vial Sliding Scale - SQ Not Given BIDAC [facility] Protocol Metoprolol Succinate 50 mg 01/17/19 10:00 Toprol Xl - PO DAILY [facility] Sacubitril/Valsartan 1 tab 01/16/19 22:00 01/16/19 23:57 Entresto 24 Mg-26 Mg Tablet PO Not Given BID [facility] ASSESSMENT AND PLAN: This is an 83 year old woman with a history of HTN, hyperlipidemia, type 2 DM, GERD, atrial fib/flutter, chronic systolic heart failure, hyperthyroidism who presented to the ED with abdominal pain, vomiting, and dizziness. 1. Symptomatic cholelithiasis, possible acute vs chronic cholecystitis - Patient was here 02/2018 with acute cholecystitis and was thought to be a poor surgical candidate at that time. She was managed conservativey with IV antibiotics and improved. Cholecystostomy was not done at the time because she improved. She was advised to follow up with surgery for an interval cholecystectomy. - Surgery evaluation 2. Elevated troponin - Possibly demand ischemia 3. Acute kidney injury - Improving with IV fluid 4. Hyperkalemia - Improved with IV fluid 5. Permanent atrial fibrillation - Rate controlled - Continue Toprol XL, Digoxin, Eliquis 6. Chronic systolic heart failure - Continue Entresto 7. HTN - Continue Toprol XL, valsartan 8. Hyperlipidemia 9. Hyperthyroidism - Was on methimazole last year - will restart 10. Type 2 DM - Continue Novolog sliding scale 11. DVT prophylaxis - On Eliquis
[2019-01-17] MEDS: DIGOXIN 0.125 MG TABLET (FP) PO SCH (10:30)
--- NOTE | 2019-01-17 11:50 | PN ---
Progress Note (short form) - Note Progress Note: HPI: Briefly 83yo Kyrgyz-speaking F with h/o HTN, HLD, HFrEF, Afib, DM who presents to the hospital originally due to pain in her abdomen located mid- epigastric with R>L described as a dull pain. Pt reports it is not truly associated with eating, however she does notice moreso after food. Pt reports she has never been nauseous or vomiting because of this pain. She reports she is being seen by her PCP due to this pain and nothing has seemed to help much. While in the ED she received studies demonstrating biliary sludging without any cholelithiasis and an elevated troponin 0.08. Pt is sitting comfortably and reports being hungry. Pt denies any fevers/chills, cough, weight loss, shortness of breath, chest pain, palptiations, dysuria, polyuria. Her last BM was 3 days prior and she also endorses chronic kknee pain worse at night with an active day. Vital Signs Temperature 97.3 F L 01/17/19 09:00 Pulse Rate 78 01/17/19 10:30 Respiratory Rate 18 01/17/19 09:00 Blood Pressure 163/88 01/17/19 09:00 O2 Sat by Pulse Oximetry (%) 93 L 01/17/19 09:00 GEN: NAD, awake, alert, oriented x3 HEENT: Nc/AT, EOMI, VLADIMIR, sclera anicteric, MMM Neck: No JVD LUNG: CTA b/l without any rales or wheezes. No accesory muscle use. On RA CARD: Irregularly irregular rhythm with normal rate. No murmurs ABD: Soft, normoactive BS, nondistended, no TTP reported, no guarding, no rebound EXT: No edema CBC, BMP 01/17/19 05:25 01/17/19 05:25 Hepatic Panel Total Bilirubin 1.7 mg/dL (0.2-1) H 01/17/19 05:25 Direct Bilirubin 0.4 mg/dL (0.0-0.2) H 01/17/19 05:25 AST 20 U/L (15-37) 01/17/19 05:25 ALT 25 U/L (13-61) 01/17/19 05:25 Alkaline Phosphatase 171 U/L (45-117) H 01/17/19 05:25 Albumin 2.9 g/dl (3.4-5.0) L 01/17/19 05:25 Active Medications Apixaban (Eliquis -) 5 mg PO BID [facility] Digoxin (Lanoxin -) 0.125 mg PO DAILY [facility] Last Admin: 01/17/19 10:30 Dose: 0.125 mg Sodium Chloride (Normal Saline -) 1,000 mls @ 100 mls/hr IV ASDIR [facility] Last Admin: 01/16/19 21:03 Dose: 100 mls/hr Insulin Aspart (Novolog Vial Sliding Scale -) 1 vial SQ BIDAC [facility]; Protocol Last Admin: 01/17/19 06:45 Dose: Not Given Metoprolol Succinate (Toprol Xl -) 50 mg PO DAILY [facility] Last Admin: 01/17/19 10:30 Dose: 50 mg Sacubitril/Valsartan (Entresto 24 Mg-26 Mg Tablet) 1 tab PO BID [facility] Last Admin: 01/16/19 23:57 Dose: Not Given A/P Biliary Colic Elevated troponin Atrial fibrillation Uncontrolled diabetes mellitus HTN HLD --Spoke with Dr. Cast (PCP) pt was on Eliquis 5mg PO BID and was never told to stop. He actually re-prescribed it on 01/06/19 appointment. In addition pt did not receive Methimazole from him at any point. He reports her pain has been chronic in the outpatient setting and he does not know of any surgical consult before for potential cholecystectomy. --awaiting MRCP result --Surgical consult has been placed and awaiting recommendations re: elective lap anya outpatient vs. inpatient, however must await MRCP --TB has uptrended from previous values, however stable currently --RUQ showing biliary sludging likely cholestatic picture --Restarted Eliquis 5mg PO BID due to elevated CHADS score for tonight and can hold for any anticipated procedure --Continue rate control with Toprol XL 50mg qdaily --Continue Entresto 24-26 BID PO --Elevated troponin likely demand; continue to trend --ECG without changes from previous FEN: Fluids: NS@100cc/hr Electrolyte abnormalities: None Nutrition: NPO while awaiting recs/for MRCP PPX: DVT - Eliquis for tonight if no procedure Dispo: Case discussed
[2019-01-17] MEDS: SACUBITRIL/VALSARTAN 24 MG-26 MG TABLET PO SCH ×2 (11:55→22:13)
--- NOTE | 2019-01-17 12:07 | EKG ---
Test Reason : Blood Pressure : / mmHG Vent. 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
[2019-01-17] MEDS ORDERED: ASPIRIN 325 MG TABLET PO ONE (15:38)
[2019-01-17] MEDS ORDERED: APIXABAN 5 MG TABLET PO SCH (22:00)
[2019-01-17] MEDS: SODIUM CHLORIDE 1,000 ML IV SCH (22:14)
[2019-01-18] MEDS: INSULIN SLIDING SCALE (NOVOLOG) 1 VIAL SQ SCH ×4 (06:07→23:07)
--- NOTE | 2019-01-18 09:48 | PN ---
Physical Exam: SUBJECTIVE: Patient seen and examined. Abdominal pain is less today. OBJECTIVE: Vital Signs Period Temp Pulse Resp BP Sys/Romero Pulse Ox Last 24 Hr 98 F-98.3 F 68-90 20-20 108-132/62-81 95 GENERAL: The patient is awake, alert, and fully oriented, in no acute distress. LUNGS: Breath sounds equal, clear to auscultation bilaterally, no wheezes, no crackles, no accessory muscle use. HEART: Irregularly irregular without murmur, rub or gallop. ABDOMEN: Obese, soft, nontender, nondistended, normoactive bowel sounds, no guarding, no rebound, no hepatosplenomegaly, no masses. EXTREMITIES: 2+ pulses, warm, well-perfused, no edema. Laboratory Results - last 24 hr 01/17/19 01/17/19 01/18/19 12:27 17:36 06:05 POC Glucometer 103 72 Troponin I 0.08 H Active Medications Generic Name Dose Route Start Last Admin Trade Name Freq PRN Reason Stop Dose Admin Digoxin 0.125 mg 01/17/19 10:00 01/17/19 10:30 Lanoxin - PO 0.125 mg DAILY [facility] Administration Sodium Chloride 1,000 mls @ 100 mls/hr 01/16/19 20:45 01/17/19 22:14 Normal Saline - IV Not Given ASDIR [facility] Insulin Aspart 1 vial 01/18/19 11:00 Novolog Vial Sliding Scale - SQ ACHS [facility] Protocol Methimazole 10 mg 01/18/19 10:00 Tapazole - PO DAILY [facility] Metoprolol Succinate 50 mg 01/17/19 10:00 01/17/19 10:30 Toprol Xl - PO 50 mg DAILY [facility] Administration Sacubitril/Valsartan 1 tab 01/16/19 22:00 01/17/19 22:13 Entresto 24 Mg-26 Mg Tablet PO 1 tab BID [facility] Administration ASSESSMENT/PLAN: This is an 83 year old woman with a history of HTN, hyperlipidemia, type 2 DM, GERD, atrial fib/flutter, chronic systolic heart failure, hyperthyroidism who presented to the ED with abdominal pain, vomiting, and dizziness. 1. Symptomatic cholelithiasis, possible acute vs chronic cholecystitis - Patient was here 02/2018 with acute cholecystitis and was thought to be a poor surgical candidate at that time. She was managed conservativey with IV antibiotics and improved. Cholecystostomy was not done at the time because she improved. She was advised to follow up with surgery for an interval cholecystectomy. - Surgery evaluation - Afebrile, pain is improving - Start clear liquids 2. Elevated troponin - Possibly demand ischemia 3. Acute kidney injury - Improving with IV fluid 4. Hyperkalemia - Improved with IV fluid 5. Permanent atrial fibrillation - Rate controlled - Continue Toprol XL, Digoxin - On Eliquis at home - will change to Lovenox in case a procedure is required 6. Chronic systolic heart failure - Stable - Continue Entresto 7. HTN - Continue Toprol XL, valsartan 8. Hyperlipidemia 9. Hyperthyroidism - Continue methimazole 10. Type 2 DM - Continue Novolog sliding scale 11. DVT prophylaxis - Eliquis changed to Lovenox Visit type - Emergency Visit Emergency Visit: Yes ED Registration Date: 01/16/19 Care time: The patient presented to the Emergency Department on the above date and was hospitalized for further evaluation of their emergent condition. - New Patient This patient is new to me today: No - Critical Care Critical Care patient: No - Discharge Referral Referred to [facility] No
--- NOTE | 2019-01-18 10:03 | EKG ---
Test Reason : Blood Pressure : / mmHG Vent. Rate : 094 BPM Atrial Rate : 288 BPM P-R Int : 000 ms QRS Dur : 088 ms QT Int : 334 ms P-R-T Axes : 000 -33 143 degrees QTc Int : 417 ms ATRIAL FIBRILLATION LEFT AXIS DEVIATION ANTERIOR INFARCT (CITED ON OR BEFORE 08-JUN-2017) ABNORMAL ECG WHEN COMPARED WITH ECG OF 16-JAN-2019 13:37, NO SIGNIFICANT CHANGE WAS FOUND Confirmed by PANTERA SAMANO MD ([id number]) on 01/18/2019 10:02:43 AM Referred By: Confirmed By:PANTERA SAMANO MD
[2019-01-18] MEDS ORDERED: PT OWN MED DRAWER 7, Y5N ONE ×2 (10:35→22:54)
[2019-01-18] MEDS: METHIMAZOLE 10 MG TABLET (FP) PO SCH (10:37)
[2019-01-18] MEDS: DIGOXIN 0.125 MG TABLET (FP) PO SCH (10:37)
[2019-01-18] MEDS ORDERED: INSULIN SLIDING SCALE (NOVOLOG) 1 VIAL SQ SCH (11:00)
[2019-01-18] MEDS: SACUBITRIL/VALSARTAN 24 MG-26 MG TABLET PO SCH ×2 (12:29→23:07)
[2019-01-18] MEDS: ENOXAPARIN NA (PORCINE) 80 MG/0.8 ML DISP.SYRIN SQ SCH ×2 (12:29→23:02)
--- NOTE | 2019-01-18 16:22 | CONSULT ---
Consult Consult Specialty:: General Surgery Referred by:: Amy Dorantes Reason for Consultation:: abd pain, cholelithiasis - History of Present Illness Chief Complaint: RUQ pain radiating to left, leg pains, N/V, constipation History of Present Illness: 83yo F with multiple medical problems, including HTN, HLD, afib on eliquis, CHF on Entresto, COPD, DM2 poorly controlled, hyperthyroidism, and h/o cholelithiasis with acute cholecystitis by HIDA scan 04/02 (known to our practice from in-hospital consultation then by Dr. Devries), who presented to ER 2 days ago with RUQ pain radiating to left, associated with N/V Sunday night into , no F/C, constipation (no BM for 5 days), and other somatic complaints including left arm pain, bilateral leg pains, and dizziness/weakness (feeling like she might fall down). She denied chest pain, but does get SOB when walking or exerting herself. She uses a walker at home, and lives with a daughter, who gives her her medications. In the ER, she had wbc 10.5, elevated bili at 1.7 (direct 0.4) and alk phos, normal ALT/AST/lipase, elevated BUN/Cr, and hyperglycemia. US showed few calculi and biliary sludge with no signs of cholecystitis, fatty liver; MRCP was also done but with respiratory motion artifact rendering it nondiagnostic - showed layering sludge in gallbladder, no clear ductal dilation, + pericardial effusion, atrophic pancreas with possible trace edema vs artifact, possible trace pericholecystic fluid but no wall thickening. She was admitted to medicine and given IV fluids, and surgery was asked to assess. Her pain has improved since admission, and today she was allowed clear liquids, which she is tolerating. Additional labs show persistent hyperthyroidism and Hb A1C of 12.8. Lactate was initially just over 2, down to 1.4 with hydration. WBC normal at 8 yesterday. She had been seen last March with acute cholecystitis and deemed a poor surgical candidate. She was going to have cholecystostomy, but symptoms improved with antibiotics and fluids, so was ultimately discharged with low-fat diet recommendation to f/u for possible outpatient surgery after medical optimization. Per her daughter (who facilitated Liberian at the patient' s bedside), the patient's doctors including billing spec told them she was not a good candidate for surgery, so they never saw the surgeon. She has had abdominal pain on and off ever since, along with other chronic pains and complaints, but last week, it got bad with the vomiting, so she came in. The pain is similar to what it felt like last March. She has not been on antibiotics. She is drinking regular alan nayla. The daughter she lives with says she doesn't give her much sugar at home, but sometimes brown sugar, and sometimes honey in her tea. Her sugars at home do run high. The patient is seen and examined sitting up in bed, with daughters present. She appears comfortable, and indicates her pain is better than before. 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 - daughter says more forgetful recently and sometimes confused) Cardio/Vascular: Yes: AFIB, CHF, HTN, Hyperlipdemia Pulmonary: Yes: COPD Gastrointestinal: Yes: GERD Hepatobiliary: Yes: Cholelithiasis, Cholecystitis (04/02) Reproductive: Yes: Postmenopausal Musculoskeletal: Yes: Chronic low back pain, Osteoarthritis Endocrine: Yes: Diabetes Mellitus, Hyperthyroidism - Past Surgical History Past Surgical History: Yes: Hernia Repair (abdominal wall), Hysterectomy - Alcohol/Substance Use Hx Alcohol Use: Yes (rarely/special occasions) History of Substance Use: reports: None - Smoking History Smoking history: Former smoker Have you smoked in the past 12 months: No If you are a former smoker, when did you quit?: 20 years ago - Social History Usual Living Arrangement: With Child (daughter) ADL: Family Assistance Home Medications - Allergies Allergies/Adverse Reactions: Allergies Allergy/AdvReac Type Severity Reaction Status Date / Time No Known Allergies Allergy Verified 03/11/18 20:09 - Home Medications Home Medications: Ambulatory Orders Digoxin [Lanoxin -] 0.125 mg PO DAILY 01/16/19 Furosemide [Lasix] 20 mg PO DAILY 01/16/19 Metoprolol Succinate [Toprol Xl] 50 mg PO DAILY 01/16/19 Sacubitril/Valsartan [Entresto 24 mg-26 mg Tablet] 1 each PO BID 01/16/19 Tramadol HCl/Acetaminophen [Tramadol-Acetaminophn 37.5-325] 1 each PO QID PRN Home Medications (free text): daughter will bring in accurate current list - believed to be also on eliquis and tapazole ?? Family Medical History Family Hx Diabetes: Daughter Review of Systems - Review of Systems Constitutional: reports: Weakness. denies: Chills, Fever Eyes: denies: Blurred Vision, Recent Change in Vision HENT: reports: Hearing Loss. denies: Difficult Swallowing, Throat Pain Neck: denies: Swollen Glands, Tenderness Cardiovascular: denies: Chest Pain, Palpitations Respiratory: reports: Cough (chronic), SOB on Exertion. denies: SOB Gastrointestinal: reports: Abdominal Pain (with hpi), Constipation (no BM for 5 days at least), Nausea (with hpi), Vomiting (with hpi). denies: Diarrhea Genitourinary: denies: Burning, Dysuria Musculoskeletal: reports: Back Pain, Extremity Pain (left arm), Joint Pain ( knees). denies: Muscle Pain Integumentary: denies: Change in Color, Rash Neurological: reports: Dizziness (feeling like might fall down), Headache ( sometimes), Unsteady Gait (uses walker at home) Endocrine: reports: Other (always feels cold) Physical Exam Vital Signs: Vital Signs Temperature 98.0 F 01/18/19 14:54 Pulse Rate 75 01/18/19 14:54 Respiratory Rate 18 01/18/19 14:54 Blood Pressure 127/73 01/18/19 14:54 O2 Sat by Pulse Oximetry (%) 99 01/18/19 09:00 Constitutional: Yes: No Distress, Calm, Obese Eyes: Yes: Conjunctiva Clear, EOM Intact. No: Sclera Icterus HENT: Yes: Atraumatic, Normocephalic Neck: Yes: Supple, Trachea Midline Cardiovascular: Yes: Pulse Irregular. No: Bradycardia, Tachycardia Respiratory: Yes: Regular, CTA Bilaterally Gastrointestinal: Yes: Normal Bowel Sounds, Soft, Abdomen, Obese, Tenderness ( LLQ more than RLQ, RUQ, mild, no shagufta or guarding), Other (healed short Pfannenstiel scar, healed midline/left paramedian scar). No: Tenderness, Epigastrium ...Rectal Exam: Yes: Deferred Renal/: Yes: CVA Tenderness - Left. No: CVA Tenderness - Right Musculoskeletal: No: Joint Stiffness, Joint Swelling Extremities: Yes: Cool (hands). No: Cold, Cyanosis Edema: Yes Edema: LLE: Trace, RLE: Trace Peripheral Pulses WNL: Yes (irregular, present) Integumentary: No: Jaundice, Rash Neurological: Yes: Alert, Oriented Psychiatric: Yes: Alert, Oriented Labs: CBC, BMP 01/17/19 05:25 01/17/19 05:25 CMP Sodium 139 mmol/L (136-145) 01/17/19 05:25 Potassium 4.7 mmol/L (3.5-5.1) 01/17/19 05:25 Chloride 108 mmol/L (98-107) H 01/17/19 05:25 Carbon Dioxide 26 mmol/L (21-32) 01/17/19 05:25 Anion Gap 6 MMOL/L (8-16) L 01/17/19 05:25 BUN 46.4 mg/dL (7-18) H 01/17/19 05:25 Creatinine 1.1 mg/dL (0.55-1.3) 01/17/19 05:25 Est GFR (CKD-EPI)AfAm 53.77 01/17/19 05:25 Est GFR (CKD-EPI)NonAf 46.39 01/17/19 05:25 POC Glucometer 235 UNITS (80-120) 01/18/19 17:21 Random Glucose 161 mg/dL (74-106) H 01/17/19 05:25 Hemoglobin A1c % 12.8 % (4.2-6.3) H 01/17/19 05:25 Lactic Acid 1.4 mmol/L (0.4-2.0) 01/17/19 00:32 Calcium 8.7 mg/dL (8.5-10.1) 01/17/19 05:25 Total Bilirubin 1.7 mg/dL (0.2-1) H 01/17/19 05:25 Direct Bilirubin 0.4 mg/dL (0.0-0.2) H 01/17/19 05:25 AST 20 U/L (15-37) 01/17/19 05:25 ALT 25 U/L (13-61) 01/17/19 05:25 Alkaline Phosphatase 171 U/L (45-117) H 01/17/19 05:25 Creatine Kinase 41 U/L (26-192) 01/16/19 21:00 Troponin I 0.08 ng/ml (0.00-0.05) H 01/17/19 12:27 Total Protein 5.8 g/dl (6.4-8.2) L 01/17/19 05:25 Albumin 2.9 g/dl (3.4-5.0) L 01/17/19 05:25 Lipase 59 U/L (73-393) L 01/16/19 14:10 TSH 0.09 uIU/ml (0.358-3.74) L 01/17/19 05:25 Free T4 1.50 ng/dl (0.76-1.46) H 01/17/19 05:25 wbc down from 10.5 baseline BUN by [employer] in 20s or less Hb A1C very high bili and alk phos remain elevated - no new labs today still hyperthyroid, not as much as last year INR, PTT INR 1.17 (0.83-1.09) H 01/16/19 14:10 Urine Test Results Urine Color Yellow 01/16/19 16:40 Urine Appearance Clear 01/16/19 16:40 Urine pH 5.5 (5.0-8.0) 01/16/19 16:40 Ur Specific [place] 1.015 (1.010-1.035) 01/16/19 16:40 Urine Protein Negative (NEGATIVE) 01/16/19 16:40 Urine Glucose (UA) Negative (NEGATIVE) 01/16/19 16:40 Urine Ketones Negative (NEGATIVE) 01/16/19 16:40 Urine Blood Negative (NEGATIVE) 01/16/19 16:40 Urine Nitrite Negative (NEGATIVE) 01/16/19 16:40 Urine Bilirubin Negative (NEGATIVE) 01/16/19 16:40 Ur Leukocyte Esterase Negative (NEGATIVE) 01/16/19 16:40 Microbiology 01/16/19 16:40 Urine Culture - Final Urine - Urine Clean Catch Normal Urogenital Cherelle Imaging - Results Ultrasound: Report Reviewed (few GB calculi and sludge in gb, no pericholecystic fluid or wall thickening, no ductal dilation) MRI: Report Reviewed (layering sludge in gallbladder, possible trace surrounding fluid vs artifact; no ductal dilation but images nondiagnostic for ductal stones secondary to motion artifact; atrophic pancreas with possible trace peripancreatic edema; + pericardial effusion not completely imaged), Image Reviewed Problem List - Problems (1) Calculus of gallbladder without cholecystitis without obstruction Assessment/Plan: pt with known history of cholecystitis, but no clear evidence of same on current imaging wbc was initially up, but dropped to normal yesterday not on antibiotics clinically improved - tolerating clear liquids trend labs including LFTs, ?lipase patient would need optimization by multiple services prior to consideration for cholecystectomy - whether outpatient or inpatient per pt's daughter, after last hospitalization, they were told by her heart doctor that she was not a good candidate for surgery, so never pursued outpt surgical evaluation her comorbidities confer high risks for a major surgical procedure, including but not limited to her cardiac issues (afib, CHF, etc), hyperthyroidism, uncontrolled DM (A1C 12.8), COPD, limited mobility/METs and advanced age no current indication for urgent or emergent surgical intervention only way to exclude acute cholecystitis/cystic duct obstruction would be HIDA scan if HIDA were positive, would recommend cholecystostomy drainage as most conservative measure if negative, would strongly advise optimization of all comorbidities as outpatient with risk stratification by primary physician and cardiology, other services as appropriate - then pt may consider outpatient surgical followup to discuss possible cholecystectomy discussed with Dr. Hussein will follow up Thank you for the opportunity to participate in the care of this patient. 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 Velasco, has seen as outpt recently consider construction mgr consultation for family Code(s): E11.22 - TYPE 2 DIABETES MELLITUS W DIABETIC CHRONIC KIDNEY DISEASE; E11.65 - TYPE 2 DIABETES MELLITUS WITH HYPERGLYCEMIA (5) Afib Assessment/Plan: tana at home currently on therapeutic lovenox Code(s): I48.91 - UNSPECIFIED ATRIAL FIBRILLATION Qualifiers: Atrial fibrillation type: longstanding persistent Qualified Code(s): I48.11 - Longstanding persistent atrial fibrillation (6) Constipation Assessment/Plan: no BM for 5 days consider dulcolax suppository, senna if no effect Code(s): K59.00 - CONSTIPATION, UNSPECIFIED Qualifiers: Constipation type: unspecified constipation type Qualified Code(s): K59.00 - Constipation, unspecified (7) HLD (hyperlipidemia) Code(s): E78.5 - HYPERLIPIDEMIA, UNSPECIFIED Qualifiers: Hyperlipidemia type: pure hypercholesterolemia Qualified Code(s): E78.00 - Pure hypercholesterolemia, unspecified; E78.0 - Pure hypercholesterolemia (8) HTN (hypertension) Code(s): I10 - ESSENTIAL (PRIMARY) HYPERTENSION Qualifiers: Hypertension type: essential hypertension Qualified Code(s): I10 - Essential (primary) hypertension (9) Hyperthyroidism Code(s): E05.90 - THYROTOXICOSIS, UNSP WITHOUT THYROTOXIC CRISIS OR STORM
[2019-01-18] MEDS: SODIUM CHLORIDE 1,000 ML IV SCH ×2 (16:33→23:08)
[2019-01-18] MEDS ORDERED: BISACODYL 10 MG SUPP.RECT PR ONE (18:32)
[2019-01-18] MEDS ORDERED: BISACODYL 10 MG SUPP.RECT RC ONE (23:00)
[2019-01-19] MEDS: INSULIN SLIDING SCALE (NOVOLOG) 1 VIAL SQ SCH ×4 (06:20→22:05)
[2019-01-19 06:42] LABS: HEMATOCRIT 39.4 % (32.4-45.2); HEMOGLOBIN 12.7 GM/dL (10.7-15.3); MCHC 32.1 g/dl (32.0-36.0); MEAN CELL VOLUME 84.1 fl (80-96); MEAN PLT VOLUME 8.9 fl (7.5-11.1); PLATELET COUNT 133 K/MM3 (134-434); RBC 4.69 M/mm3 (3.60-5.2); RDW 16.7 % (11.6-15.6); WHITE BLOOD COUNT 6.3 K/mm3 (4.0-10.0)
[2019-01-19 07:09] LABS: ALBUMIN 2.9 g/dl (3.4-5.0); BILIRUBIN,DIRECT 0.5 mg/dL (0.0-0.2); BILIRUBIN,TOTAL 2.2 mg/dL (0.2-1); BLOOD UREA NITROGEN 18.6 mg/dL (7-18); CALCIUM 8.5 mg/dL (8.5-10.1); CREATININE 0.7 mg/dL (0.55-1.3); POTASSIUM 4.8 mmol/L (3.5-5.1); TOT PROT 5.5 g/dl (6.4-8.2)
[2019-01-19] MEDS ORDERED: PT OWN MED DRAWER 7, Y5N ONE (10:22)
[2019-01-19] MEDS: ENOXAPARIN NA (PORCINE) 80 MG/0.8 ML DISP.SYRIN SQ SCH ×2 (10:24→22:05)
[2019-01-19] MEDS: DIGOXIN 0.125 MG TABLET (FP) PO SCH (10:24)
[2019-01-19] MEDS: SACUBITRIL/VALSARTAN 24 MG-26 MG TABLET PO SCH ×2 (10:25→22:05)
[2019-01-19] MEDS: METHIMAZOLE 10 MG TABLET (FP) PO SCH (10:25)
--- NOTE | 2019-01-19 13:32 | PN ---
Physical Exam: SUBJECTIVE: Patient seen and examined. She reports she is having lower abdominal pain. She denies dysuria, urinary frequency. OBJECTIVE: Vital Signs Period Temp Pulse Resp BP Sys/Romero Pulse Ox Last 24 Hr 97.8 F-98.3 F 60-88 18-20 116-129/59-76 100 GENERAL: The patient is awake, alert, and fully oriented, in no acute distress. LUNGS: Breath sounds equal, clear to auscultation bilaterally, no wheezes, no crackles, no accessory muscle use. HEART: Irregularly irregular without murmur, rub or gallop. ABDOMEN: Obese, soft, nontender, nondistended, normoactive bowel sounds, no guarding, no rebound, no hepatosplenomegaly, no masses. EXTREMITIES: 2+ pulses, warm, well-perfused, no edema. Laboratory Results - last 24 hr 01/18/19 01/18/19 01/19/19 17:21 23:05 05:15 WBC 6.3 RBC 4.69 Hgb 12.7 Hct 39.4 MCV 84.1 MCH 27.0 MCHC 32.1 RDW 16.7 H Plt Count 133 L MPV 8.9 Sodium Potassium Chloride Carbon Dioxide Anion Gap BUN Creatinine Est GFR (CKD-EPI)AfAm Est GFR (CKD-EPI)NonAf POC Glucometer 235 100 Random Glucose Calcium Total Bilirubin Direct Bilirubin AST ALT Alkaline Phosphatase Total Protein Albumin 01/19/19 01/19/19 01/19/19 05:15 05:50 11:32 WBC RBC Hgb Hct MCV MCH MCHC RDW Plt Count MPV Sodium 141 Potassium 4.8 Chloride 110 H Carbon Dioxide 25 Anion Gap 7 L BUN 18.6 H Creatinine 0.7 Est GFR (CKD-EPI)AfAm 92.86 Est GFR (CKD-EPI)NonAf 80.12 POC Glucometer 123 149 Random Glucose 120 H Calcium 8.5 Total Bilirubin 2.2 H Direct Bilirubin 0.5 H AST 23 ALT 24 Alkaline Phosphatase 136 H Total Protein 5.5 L Albumin 2.9 L Active Medications Generic Name Dose Route Start Last Admin Trade Name Freq PRN Reason Stop Dose Admin Digoxin 0.125 mg 01/17/19 10:00 01/19/19 10:24 Lanoxin - PO 0.125 mg DAILY NOLBERTO Administration Enoxaparin Sodium 80 mg 01/18/19 11:45 01/19/19 10:24 Lovenox - SQ 80 mg BID NOLBERTO Administration Sodium Chloride 1,000 mls @ 100 mls/hr 01/16/19 20:45 01/18/19 23:08 Normal Saline - IV Not Given ASDIR COUNT INCLUDES THE [facility] Insulin Aspart 1 vial 01/18/19 11:00 01/19/19 12:12 Novolog Vial Sliding Scale - SQ Not Given ACHS COUNT INCLUDES THE [facility] Protocol Methimazole 10 mg 01/18/19 10:00 01/19/19 10:25 Tapazole - PO 10 mg DAILY NOLBERTO Administration Metoprolol Succinate 50 mg 01/17/19 10:00 01/19/19 10:24 Toprol Xl - PO 50 mg DAILY NOLBERTO Administration Sacubitril/Valsartan 1 tab 01/16/19 22:00 01/19/19 10:25 Entresto 24 Mg-26 Mg Tablet PO 1 tab BID NOLBERTO Administration ASSESSMENT/PLAN: This is an 83 year old woman with a history of HTN, hyperlipidemia, type 2 DM, GERD, atrial fib/flutter, chronic systolic heart failure, hyperthyroidism who presented to the ED with abdominal pain, vomiting, and dizziness. 1. Symptomatic cholelithiasis, possible acute vs chronic cholecystitis - Patient was here 02/2018 with acute cholecystitis and was thought to be a poor surgical candidate at that time. She was managed conservativey with IV antibiotics and improved. Cholecystostomy was not done at the time because she improved. She was advised to follow up with surgery for an interval cholecystectomy. - Surgery evaluation appreciated - Afebrile, pain is improving - Tolerating clear liquids - Plan for HIDA tomorrow 2. Elevated troponin - Possibly demand ischemia 3. Acute kidney injury - Improved 4. Hyperkalemia - Improved 5. Permanent atrial fibrillation - Rate controlled - Continue Toprol XL, Digoxin - On Eliquis at home - Changed to Lovenox in case a procedure is necessary 6. Chronic systolic heart failure - Stable - Continue Entresto 7. HTN - Continue Toprol XL, valsartan 8. Hyperlipidemia 9. Hyperthyroidism - Continue methimazole 10. Type 2 DM - Continue Novolog sliding scale 11. DVT prophylaxis - On Lovenox Visit type - Emergency Visit Emergency Visit: Yes ED Registration Date: 01/16/19 Care time: The patient presented to the Emergency Department on the above date and was hospitalized for further evaluation of their emergent condition. - New Patient This patient is new to me today: No - Critical Care Critical Care patient: No - Discharge Referral Referred to [facility] Med P.C.: No
[2019-01-19] MEDS ORDERED: SENNOSIDES 8.6MG TABLET (FP) PO ONE (15:47)
--- NOTE | 2019-01-19 15:59 | PN ---
Progress Note, Physician History of Present Illness: Pt with h/o cholecystitis, admitted with RUQ pain and vomiting, imaging thus far without clear signs of cholecystitis but known few gallstones and layering sludge. Also with multiple somatic complaints, comorbidities and on anticoagulation. She has clinically improved in the last few days and is tolerating clear liquids, but bili is rising and alk phos is slightly high. HIDA pending in am. She is seen and examined sitting up on edge of bed with multiple family and visitors present. She indicates she is feeling a little better. C/O suprapubic/lower abdominal pain in the middle. Had suppository last night, but has not moved bowels in 5-6 days at least now. - Current Medication List Current Medications: Active Medications Digoxin (Lanoxin -) 0.125 mg PO DAILY [facility] Last Admin: 01/19/19 10:24 Dose: 0.125 mg Enoxaparin Sodium (Lovenox -) 80 mg SQ BID [facility] Last Admin: 01/19/19 10:24 Dose: 80 mg Sodium Chloride (Normal Saline -) 1,000 mls @ 83 mls/hr IV ASDIR [facility] Insulin Aspart (Novolog Vial Sliding Scale -) 1 vial SQ ACHS [facility]; Protocol Last Admin: 01/19/19 12:12 Dose: Not Given Methimazole (Tapazole -) 10 mg PO DAILY [facility] Last Admin: 01/19/19 10:25 Dose: 10 mg Metoprolol Succinate (Toprol Xl -) 50 mg PO DAILY [facility] Last Admin: 01/19/19 10:24 Dose: 50 mg Sacubitril/Valsartan (Entresto 24 Mg-26 Mg Tablet) 1 tab PO BID [facility] Last Admin: 01/19/19 10:25 Dose: 1 tab - Objective Vital Signs: Vital Signs Temperature 98.2 F 01/19/19 14:11 Pulse Rate 85 01/19/19 14:11 Respiratory Rate 20 01/19/19 14:11 Blood Pressure 127/73 01/19/19 14:11 O2 Sat by Pulse Oximetry (%) 100 01/18/19 21:00 Constitutional: Yes: No Distress, Calm, Obese Eyes: Yes: Conjunctiva Clear, EOM Intact. No: Sclera Icterus HENT: Yes: Atraumatic, Normocephalic Gastrointestinal: Yes: Soft, Abdomen, Obese, Tenderness (suprapubic primarily, no shagufta/guarding). No: Tenderness, Epigastrium (no epigastric or RUQ tenderness) Extremities: No: Cool, Cyanosis Integumentary: No: Jaundice, Rash Neurological: Yes: Alert, Oriented Labs: CBC, BMP 01/19/19 05:15 01/19/19 05:15 CMP Sodium 141 mmol/L (136-145) 01/19/19 05:15 Potassium 4.8 mmol/L (3.5-5.1) 01/19/19 05:15 Chloride 110 mmol/L (98-107) H 01/19/19 05:15 Carbon Dioxide 25 mmol/L (21-32) 01/19/19 05:15 Anion Gap 7 MMOL/L (8-16) L 01/19/19 05:15 BUN 18.6 mg/dL (7-18) H 01/19/19 05:15 Creatinine 0.7 mg/dL (0.55-1.3) 01/19/19 05:15 Est GFR (CKD-EPI)AfAm 92.86 01/19/19 05:15 Est GFR (CKD-EPI)NonAf 80.12 01/19/19 05:15 POC Glucometer 149 UNITS (80-120) 01/19/19 11:32 Random Glucose 120 mg/dL (74-106) H 01/19/19 05:15 Hemoglobin A1c % 12.8 % (4.2-6.3) H 01/17/19 05:25 Lactic Acid 1.4 mmol/L (0.4-2.0) 01/17/19 00:32 Calcium 8.5 mg/dL (8.5-10.1) 01/19/19 05:15 Total Bilirubin 2.2 mg/dL (0.2-1) H 01/19/19 05:15 Direct Bilirubin 0.5 mg/dL (0.0-0.2) H 01/19/19 05:15 AST 23 U/L (15-37) 01/19/19 05:15 ALT 24 U/L (13-61) 01/19/19 05:15 Alkaline Phosphatase 136 U/L (45-117) H 01/19/19 05:15 Creatine Kinase 41 U/L (26-192) 01/16/19 21:00 Troponin I 0.08 ng/ml (0.00-0.05) H 01/17/19 12:27 Total Protein 5.5 g/dl (6.4-8.2) L 01/19/19 05:15 Albumin 2.9 g/dl (3.4-5.0) L 01/19/19 05:15 Lipase 59 U/L (73-393) L 01/16/19 14:10 TSH 0.09 uIU/ml (0.358-3.74) L 01/17/19 05:25 Free T4 1.50 ng/dl (0.76-1.46) H 01/17/19 05:25 bili up, alk phos slightly elevated BUN/Cr much improved - at baseline for her/slightly below Problem List - Problems (1) Calculus of gallbladder without cholecystitis without obstruction Assessment/Plan: pt with known history of cholecystitis, but no clear evidence of same on current imaging wbc normal not on antibiotics clinically improved - tolerating clear liquids trend labs - bili rising patient would need optimization by multiple services prior to consideration for cholecystectomy - whether outpatient or inpatient per pt's daughter, after last hospitalization, they were told by her heart doctor that she was not a good candidate for surgery, so never pursued outpt surgical evaluation her comorbidities confer high risks for a major surgical procedure, including but not limited to her cardiac issues (afib, CHF, etc), hyperthyroidism, uncontrolled DM (A1C 12.8), COPD, limited mobility/METs and advanced age no current indication for urgent or emergent surgical intervention only way to exclude acute cholecystitis/cystic duct obstruction is HIDA scan ordered for am - needs to be NPO after midnight, continue IV fluids if HIDA is positive, would recommend cholecystostomy drainage as most conservative measure (will need to be off lovenox for 12-24 hrs to have done) if negative, would strongly advise optimization of all comorbidities as outpatient with risk stratification by primary physician and cardiology, other services as appropriate - then pt may consider outpatient surgical followup to discuss possible cholecystectomy discussed with Dr. 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 for family Code(s): E11.22 - TYPE 2 DIABETES MELLITUS W DIABETIC CHRONIC KIDNEY DISEASE; E11.65 - TYPE 2 DIABETES MELLITUS WITH HYPERGLYCEMIA (5) Afib Assessment/Plan: eliquis at home currently on therapeutic lovenox Code(s): I48.91 - UNSPECIFIED ATRIAL FIBRILLATION Qualifiers: Atrial fibrillation type: longstanding persistent Qualified Code(s): I48.11 - Longstanding persistent atrial fibrillation (6) Constipation Assessment/Plan: no BM for at least 6 days dulcolax suppository had no effect senna ordered now if still no effect, recommend GARY with possible disimpaction by primary team Problems reviewed: Yes Code(s): K59.00 - CONSTIPATION, UNSPECIFIED Qualifiers: Constipation type: unspecified constipation type Qualified Code(s): K59.00 - Constipation, unspecified (7) HLD (hyperlipidemia) Code(s): E78.5 - HYPERLIPIDEMIA, UNSPECIFIED Qualifiers: Hyperlipidemia type: pure hypercholesterolemia Qualified Code(s): E78.00 - Pure hypercholesterolemia, unspecified; E78.0 - Pure hypercholesterolemia (8) HTN (hypertension) Code(s): I10 - ESSENTIAL (PRIMARY) HYPERTENSION Qualifiers: Hypertension type: essential hypertension Qualified Code(s): I10 - Essential (primary) hypertension (9) Hyperthyroidism Code(s): E05.90 - THYROTOXICOSIS, UNSP WITHOUT THYROTOXIC CRISIS OR STORM
[2019-01-19] MEDS: SODIUM CHLORIDE 1,000 ML IV SCH (16:00)
[2019-01-20] MEDS: INSULIN SLIDING SCALE (NOVOLOG) 1 VIAL SQ SCH ×4 (06:37→22:57)
[2019-01-20 06:41] LABS: HEMATOCRIT 40.2 % (32.4-45.2); HEMOGLOBIN 12.9 GM/dL (10.7-15.3); MCH 27.1 pg (25.7-33.7); MCHC 32.2 g/dl (32.0-36.0); MEAN CELL VOLUME 84.1 fl (80-96); MEAN PLT VOLUME 9.4 fl (7.5-11.1); PLATELET COUNT 148 K/MM3 (134-434); RBC 4.78 M/mm3 (3.60-5.2); RDW 16.3 % (11.6-15.6); WHITE BLOOD COUNT 6.2 K/mm3 (4.0-10.0)
[2019-01-20 07:17] LABS: ALBUMIN 3.1 g/dl (3.4-5.0); BILIRUBIN,DIRECT 0.6 mg/dL (0.0-0.2); BILIRUBIN,TOTAL 2.3 mg/dL (0.2-1); BLOOD UREA NITROGEN 13.1 mg/dL (7-18); CALCIUM 8.9 mg/dL (8.5-10.1); CREATININE 0.8 mg/dL (0.55-1.3)
--- NOTE | 2019-01-20 11:11 | PN ---
Progress Note (short form) - Note Progress Note: HPI: No events overnight. No events noted on telemetry. Pt reports her pain is improved compared to previous days. She denies any nausea, vomiting, fever/ chills. She has not eaten since midnight. Explained her upcoming HIDA scan to her. No complaints today. Vital Signs Temperature 97.8 F 01/20/19 06:25 Pulse Rate 72 01/20/19 06:25 Respiratory Rate 20 01/20/19 06:25 Blood Pressure 136/85 01/20/19 06:25 O2 Sat by Pulse Oximetry (%) 99 01/19/19 21:00 GEN: NAD, awake, alert, oriented x3 HEENT: Nc/AT, EOMI, VLADIMIR, sclera anicteric, MMM Neck: No JVD LUNG: CTA b/l without any rales or wheezes. No accesory muscle use. On RA CARD: Irregularly irregular rhythm with normal rate. No murmurs ABD: Soft, normoactive BS, nondistended, TTP R>L epigastric region, no guarding , no rebound, no ecchymotic areas noted EXT: No edema CBC, BMP 01/20/19 05:40 01/20/19 05:40 Hepatic Panel Total Bilirubin 2.3 mg/dL (0.2-1) H 01/20/19 05:40 Direct Bilirubin 0.6 mg/dL (0.0-0.2) H 01/20/19 05:40 AST 22 U/L (15-37) 01/20/19 05:40 ALT 27 U/L (13-61) 01/20/19 05:40 Alkaline Phosphatase 147 U/L (45-117) H 01/20/19 05:40 Albumin 3.1 g/dl (3.4-5.0) L 01/20/19 05:40 Active Medications Digoxin (Lanoxin -) 0.125 mg PO DAILY [facility] Last Admin: 01/19/19 10:24 Dose: 0.125 mg Enoxaparin Sodium (Lovenox -) 80 mg SQ BID [facility] Last Admin: 01/19/19 22:05 Dose: 80 mg Sodium Chloride (Normal Saline -) 1,000 mls @ 83 mls/hr IV ASDIR [facility] Last Admin: 01/19/19 16:00 Dose: 83 mls/hr Insulin Aspart (Novolog Vial Sliding Scale -) 1 vial SQ ACHS [facility]; Protocol Last Admin: 01/20/19 06:37 Dose: Not Given Methimazole (Tapazole -) 10 mg PO DAILY [facility] Last Admin: 01/19/19 10:25 Dose: 10 mg Metoprolol Succinate (Toprol Xl -) 50 mg PO DAILY [facility] Last Admin: 01/19/19 10:24 Dose: 50 mg Sacubitril/Valsartan (Entresto 24 Mg-26 Mg Tablet) 1 tab PO BID [facility] Last Admin: 01/19/19 22:05 Dose: 1 tab A/P Biliary Colic r/o cholelithiasis Elevated troponin Atrial fibrillation Uncontrolled diabetes mellitus HTN HLD --Pt for HIDA this AM; remains NPO for exam --Appreciate surgical recommendations and will notify once HIDA performed for further recs --TB stable at this time at 2.3 --Therapeutic dose lovenox due to Afib which can be held prior to procedure if necessary --If procedure is indicated can have cardiopulmonary clearance consulted for procedure --Continue rate control with Toprol XL 50mg qdaily --Continue Entresto 24-26 BID PO --A1c 12.8%; will need optimization in terms of outpatient insulin regiment FEN: Fluids: NS@83cc/hr due to high risk of heart failure Electrolyte abnormalities: None Nutrition: NPO while awaiting recs/for MRCP PPX: DVT - Lovenox 80mg BID SQ Dispo: HIDA scan and further recs via surgery afterwards Case discussed with Dr. Jovita Fajardo, DO - IM PGY-3
[2019-01-20] MEDS: SACUBITRIL/VALSARTAN 24 MG-26 MG TABLET PO SCH ×2 (12:25→22:57)
[2019-01-20] MEDS: ENOXAPARIN NA (PORCINE) 80 MG/0.8 ML DISP.SYRIN SQ SCH ×2 (12:26→22:57)
[2019-01-20] MEDS: METHIMAZOLE 10 MG TABLET (FP) PO SCH (12:27)
[2019-01-20] MEDS: DIGOXIN 0.125 MG TABLET (FP) PO SCH (12:32)
--- NOTE | 2019-01-20 12:57 | PN ---
Teaching Attending Note Name of Resident: Mickey Fajardo ATTENDING PHYSICIAN STATEMENT I saw and evaluated the patient. I reviewed the resident's note and discussed the case with the resident. I agree with the resident's findings and plan as documented. SUBJECTIVE: Pain is improving. OBJECTIVE: Vital Signs Period Temp Pulse Resp BP Sys/Romero Pulse Ox Last 24 Hr 97.5 F-98.2 F 59-85 20-20 111-136/57-85 99 HEART: Irregular LUNGS: Clear ABDOMEN: Obese, soft, (+) RUQ tenderness, non-distended, normal BS EXTREMITIES: No edema Laboratory Results - last 24 hr 01/19/19 01/19/19 01/20/19 16:09 22:03 05:40 WBC 6.2 RBC 4.78 Hgb 12.9 Hct 40.2 MCV 84.1 MCH 27.1 MCHC 32.2 RDW 16.3 H Plt Count 148 MPV 9.4 Sodium Potassium Chloride Carbon Dioxide Anion Gap BUN Creatinine Est GFR (CKD-EPI)AfAm Est GFR (CKD-EPI)NonAf POC Glucometer 203 166 Random Glucose Calcium Total Bilirubin Direct Bilirubin AST ALT Alkaline Phosphatase Total Protein Albumin 01/20/19 01/20/19 01/20/19 05:40 06:34 12:33 WBC RBC Hgb Hct MCV MCH MCHC RDW Plt Count MPV Sodium 141 Potassium 5.0 Chloride 109 H Carbon Dioxide 27 Anion Gap 5 L BUN 13.1 Creatinine 0.8 Est GFR (CKD-EPI)AfAm 79.02 Est GFR (CKD-EPI)NonAf 68.18 POC Glucometer 120 103 Random Glucose 112 H Calcium 8.9 Total Bilirubin 2.3 H Direct Bilirubin 0.6 H AST 22 ALT 27 Alkaline Phosphatase 147 H Total Protein 6.0 L Albumin 3.1 L Current Medications Generic Name Dose Route Start Last Admin Trade Name Freq PRN Reason Stop Dose Admin Digoxin 0.125 mg 01/17/19 10:00 01/20/19 12:32 Lanoxin - PO 0.125 mg DAILY [facility] Administration Enoxaparin Sodium 80 mg 01/18/19 11:45 01/20/19 12:26 Lovenox - SQ 80 mg BID [facility] Administration Sodium Chloride 1,000 mls @ 83 mls/hr 01/19/19 14:30 01/19/19 16:00 Normal Saline - IV 83 mls/hr ASDIR [facility] Administration Insulin Aspart 1 vial 01/18/19 11:00 01/20/19 12:35 Novolog Vial Sliding Scale - SQ Not Given ACHS [facility] Protocol Methimazole 10 mg 01/18/19 10:00 01/20/19 12:27 Tapazole - PO 10 mg DAILY [facility] Administration Metoprolol Succinate 50 mg 01/17/19 10:00 01/20/19 12:27 Toprol Xl - PO 50 mg DAILY [facility] Administration Sacubitril/Valsartan 1 tab 01/16/19 22:00 01/20/19 12:25 Entresto 24 Mg-26 Mg Tablet PO 1 tab BID [facility] Administration ASSESSMENT AND PLAN: This is an 83 year old woman with a history of HTN, hyperlipidemia, type 2 DM, GERD, atrial fib/flutter, chronic systolic heart failure, hyperthyroidism who presented to the ED with abdominal pain, vomiting, and dizziness. 1. Symptomatic cholelithiasis, possible acute vs chronic cholecystitis - Patient was here 02/2018 with acute cholecystitis and was thought to be a poor surgical candidate at that time. She was managed conservatively with IV antibiotics and improved. Cholecystostomy was not done at the time because she improved. She was advised to follow up with surgery for an interval cholecystectomy. - Afebrile, pain is improving - HIDA pending 2. Elevated troponin - Possibly demand ischemia 3. Acute kidney injury - Improved 4. Hyperkalemia - Improved 5. Permanent atrial fibrillation - Rate controlled - Continue Toprol XL, Digoxin - On Eliquis at home - Changed to Lovenox in case a procedure is necessary 6. Chronic systolic heart failure - Stable - Continue Entresto 7. HTN - Continue Toprol XL, valsartan 8. Hyperlipidemia 9. Hyperthyroidism - Continue methimazole 10. Type 2 DM - Continue Novolog sliding scale 11. DVT prophylaxis - On Lovenox
[2019-01-20] MEDS: SODIUM CHLORIDE 1,000 ML IV SCH (14:53)
[2019-01-20] MEDS ORDERED: PT OWN MED DRAWER 7, Y5N ONE (22:27)
[2019-01-21] MEDS: INSULIN SLIDING SCALE (NOVOLOG) 1 VIAL SQ SCH ×2 (06:29→11:09)
[2019-01-21 07:29] LABS: HEMATOCRIT 39.1 % (32.4-45.2); HEMOGLOBIN 12.6 GM/dL (10.7-15.3); MCH 26.9 pg (25.7-33.7); MCHC 32.2 g/dl (32.0-36.0); MEAN CELL VOLUME 83.6 fl (80-96); MEAN PLT VOLUME 9.2 fl (7.5-11.1); PLATELET COUNT 139 K/MM3 (134-434); RBC 4.68 M/mm3 (3.60-5.2); RDW 16.8 % (11.6-15.6); WHITE BLOOD COUNT 6.5 K/mm3 (4.0-10.0)
[2019-01-21 07:33] LABS: ALBUMIN 2.9 g/dl (3.4-5.0); BLOOD UREA NITROGEN 16.5 mg/dL (7-18); CALCIUM 8.8 mg/dL (8.5-10.1); CREATININE 0.8 mg/dL (0.55-1.3); MAGNESIUM 1.4 mg/dL (1.8-2.4); PHOSPHOROUS 2.3 mg/dL (2.5-4.9); POTASSIUM 4.1 mmol/L (3.5-5.1); TOT PROT 5.6 g/dl (6.4-8.2)
[2019-01-21] MEDS ORDERED: MAGNESIUM SULF 50% (8.12 MEQ/2 ML-1 GM VIAL) IVPB ONE (07:38)
[2019-01-21] MEDS ORDERED: NAPH,MB-DB/K PH,MBDB POWDER PACKET PO ONE (07:38)
[2019-01-21] MEDS ORDERED: PT OWN MED DRAWER 7, Y5N ONE (08:50)
[2019-01-21] MEDS: DIGOXIN 0.125 MG TABLET (FP) PO SCH (09:21)
[2019-01-21] MEDS: METHIMAZOLE 10 MG TABLET (FP) PO SCH (09:21)
[2019-01-21] MEDS: ENOXAPARIN NA (PORCINE) 80 MG/0.8 ML DISP.SYRIN SQ SCH (09:21)
[2019-01-21] MEDS: SACUBITRIL/VALSARTAN 24 MG-26 MG TABLET PO SCH (09:22)
[2019-01-21] MEDS ORDERED: FLU VACCINE QUAD 60 MCG/0.5 ML (MDV 19-20) IM ONE (10:00)
[2019-01-21] MEDS ORDERED: INSULIN (NOVOLOG) ASPART 100 UNITS/ML 10ML VIAL ONE (11:08)
--- NOTE | 2019-01-21 13:52 | DS ---
Physical Exam: SUBJECTIVE: No complaints today. No nausea vomiting or abdominal pain. OBJECTIVE: Vital Signs Period Temp Pulse Resp BP Sys/Romero Pulse Ox Last 24 Hr 97.6 F-98.3 F 74-103 20-20 117-146/57-90 96-97 PHYSICAL EXAM GEN: NAD, awake, alert, oriented x3 HEENT: Nc/AT, EOMI, VLADIMIR, sclera anicteric, MMM Neck: No JVD LUNG: CTA b/l without any rales or wheezes. No accesory muscle use. On RA CARD: Irregularly irregular rhythm with normal rate. No murmurs ABD: Soft, normoactive BS, nondistended, TTP R>L epigastric region, no guarding , no rebound, no ecchymotic areas noted EXT: No edema LABS Laboratory Results - last 24 hr 01/21/19 06:00 WBC 6.5 RBC 4.68 Hgb 12.6 Hct 39.1 MCV 83.6 MCH 26.9 MCHC 32.2 RDW 16.8 H Plt Count 139 MPV 9.2 Sodium Potassium Chloride Carbon Dioxide Anion Gap BUN Creatinine Est GFR (CKD-EPI)AfAm Est GFR (CKD-EPI)NonAf POC Glucometer Random Glucose Calcium Phosphorus Magnesium Total Bilirubin AST ALT Alkaline Phosphatase Total Protein Albumin 01/21/19 06:00 WBC RBC Hgb Hct MCV MCH MCHC RDW Plt Count MPV Sodium 141 Potassium 4.1 Chloride 110 H Carbon Dioxide 24 Anion Gap 7 L BUN 16.5 Creatinine 0.8 Est GFR (CKD-EPI)AfAm 79.02 Est GFR (CKD-EPI)NonAf 68.18 POC Glucometer Random Glucose 140 H Calcium 8.8 Phosphorus 2.3 L Magnesium 1.4 L Total Bilirubin 2.0 H AST 22 ALT 26 Alkaline Phosphatase 139 H Total Protein 5.6 L Albumin 2.9 L Laboratory Tests 01/17/19 01/17/19 05:25 05:25 Hemoglobin A1c % 12.8 H TSH 0.09 L Free T4 1.50 H Active Medications Digoxin (Lanoxin -) 0.125 mg PO DAILY [facility] Last Admin: 01/21/19 09:21 Dose: 0.125 mg Enoxaparin Sodium (Lovenox -) 80 mg SQ BID [facility] Last Admin: 01/21/19 09:21 Dose: 80 mg Insulin Aspart (Novolog Vial Sliding Scale -) 1 vial SQ ACHS [facility]; Protocol Last Admin: 01/21/19 11:09 Dose: 6 units Methimazole (Tapazole -) 10 mg PO DAILY [facility] Last Admin: 01/21/19 09:21 Dose: 10 mg Metoprolol Succinate (Toprol Xl -) 50 mg PO DAILY [facility] Last Admin: 01/21/19 09:21 Dose: 50 mg Sacubitril/Valsartan (Entresto 24 Mg-26 Mg Tablet) 1 tab PO BID [facility] Last Admin: 01/21/19 09:22 Dose: 1 tab Microbiology 01/16/19 16:40 Urine - Urine Clean Catch Urine Culture - Final Normal Urogenital Cherelle Imaging: HIDA Scan:IMPRESSION: Filling of the gallbladder excludes acute cystic duct obstruction. Nonspecific significant distention of the gallbladder with significant retention of tracer after 2 hours of imaging could be secondary to chronic cholecystitis or gallbladder dyskinesia. MRCP: Markedly limited exam of very poor diagnostic value due to significant respiratory motion. The MRCP images are nondiagnostic. Within the limitations of the exam, Distended gallbladder with moderate amount of flattening sludge seen but no abnormal gallbladder wall thickening. Trace pericholecystic fluid/edema versus artifact noted. Correlation with clinical history is needed to exclude cholecystitis. If indicated HIDA scan may be obtained for further evaluation. No gross biliary ductal dilatation however evaluation for CBD filling defects / choledocholithiasis is not feasible on this exam. Atrophic pancreas with questionable peripancreatic edema versus artifacts. No pancreatic ductal dilatation seen. Correlate with clinical history, amylase and lipase level to exclude pancreatitis. 1.6 cm incompletely characterized right upper renal pole cyst. CXR: Impression: Large heart. Slight right hilar prominence. No change of an adverse nature since 03/11/2018. Head CT noncontrast: IMPRESSION: Moderate volume loss and mild periventricular chronic microvascular ischemic disease changes. No gross acute intracranial pathology is identified. Correlate clinically to determine further evaluation and follow-up. Mild chronic sinusitis in the left maxillary antrum, inferiorly. HOSPITAL COURSE: Date of Admission:01/16/19 Date of Discharge: 01/21/19 Pt was admitted on 01/16/19 with abdominal pain, nausea, and dizziness which was suspected to be possible biliary colic vs. ongoing gallstone cholecystitis. Pt recevied an MRCP and HIDA scan which did not show any cholelithiasis. However it was shown that the patient has biliary dyskinesia. Pt was seen by a surgeon who did not suggest immediate surgical intervention and would require medical optimization prior to an elective procedure. Pt's A1c at this visit is 12.8%. Last LFTs as above. Pt's pain improved and is able to tolerate diet. While on diabetic diet pt's glucose levels were adequately controlled with range 90-120' s. 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 You had tests for your gallbladder and liver which did not show any blocking gallbladder stones. It did show however that you have a slow gallbladder that may be causing your pain. MEDICATIONS: Please continue your home medications as below: Digoxin 0.125mg daily Entresto TWICE daily Methimazole 10mg daily Eliquis 5mg TWICE daily as recommended by your primary care Toprol XL 50mg daily IT IS VERY IMPORTANT TO STAY AWAY FROM RICE, PASTAS, BREAD. Your blood sugar numbers have been uncontrolled, but are better when you are staying with a diet Follow-up: Dr. Gutierres in 1 week to follow-up on your care Please see Dr. Barr in 1-2 weeks about your gallbladder Dr. Lynch (surgeon) information has been given in this packet if you need to have your gallbladder out later on. Referrals: Alan Lynch MD [Staff Physician] - Wilton Gutierres PA [Primary Care Provider] - 1 Week (Repeat LFTs at next appointment as well) Wilton Barr MD [Staff Physician] - 1 Week Disposition: HOME - Home Medications Comprehensive Discharge Medication List: Ambulatory Orders Digoxin [Lanoxin -] 0.125 mg PO DAILY 01/16/19 Metoprolol Succinate [Toprol Xl] 50 mg PO DAILY 01/16/19 Sacubitril/Valsartan [Entresto 24 mg-26 mg Tablet] 1 each PO BID 01/16/19 Apixaban [Eliquis] 5 mg PO BID #60 tablet 01/21/19 Methimazole [Tapazole -] 10 mg PO DAILY #0 tablet 01/21/19 This patient is new to me today: No Emergency Visit: Yes ED Registration Date: 01/16/19 Care time: The patient presented to the Emergency Department on the above date and was hospitalized for further evaluation of their emergent condition. Critical Care patient: No - Discharge Referral Referred to [facility] Med [facility] No
[2019-01-21 16:07] VITALS: BP 131/67; PULSE 88; TEMP 98.3
--- NOTE | 2019-01-21 17:25 | PN ---
Teaching Attending Note Name of Resident: Mickey Fajardo ATTENDING PHYSICIAN STATEMENT I saw and evaluated the patient. I reviewed the resident's note and discussed the case with the resident. I agree with the resident's findings and plan as documented. SUBJECTIVE: Patient has no complaints. Tolerating diet. OBJECTIVE: Vital Signs Period Temp Pulse Resp BP Sys/Romero Pulse Ox Last 24 Hr 97.6 F-98.6 F 60-88 18-20 100-142/53-78 96-97 HEART: Irregular LUNGS: Clear ABDOMEN: Obese, soft, non-tender, non-distended, normal BS EXTREMITIES: No edema Laboratory Results - last 24 hr 01/20/19 01/20/19 01/21/19 18:03 21:54 06:00 WBC 6.5 RBC 4.68 Hgb 12.6 Hct 39.1 MCV 83.6 MCH 26.9 MCHC 32.2 RDW 16.8 H Plt Count 139 MPV 9.2 Sodium Potassium Chloride Carbon Dioxide Anion Gap BUN Creatinine Est GFR (CKD-EPI)AfAm Est GFR (CKD-EPI)NonAf POC Glucometer 90 235 Random Glucose Calcium Phosphorus Magnesium Total Bilirubin AST ALT Alkaline Phosphatase Total Protein Albumin 01/21/19 01/21/19 01/21/19 06:00 06:15 11:03 WBC RBC Hgb Hct MCV MCH MCHC RDW Plt Count MPV Sodium 141 Potassium 4.1 Chloride 110 H Carbon Dioxide 24 Anion Gap 7 L BUN 16.5 Creatinine 0.8 Est GFR (CKD-EPI)AfAm 79.02 Est GFR (CKD-EPI)NonAf 68.18 POC Glucometer 138 264 Random Glucose 140 H Calcium 8.8 Phosphorus 2.3 L Magnesium 1.4 L Total Bilirubin 2.0 H AST 22 ALT 26 Alkaline Phosphatase 139 H Total Protein 5.6 L Albumin 2.9 L Current Medications Generic Name Dose Route Start Last Admin Trade Name Freq PRN Reason Stop Dose Admin Digoxin 0.125 mg 01/17/19 10:00 01/21/19 09:21 Lanoxin - PO 0.125 mg DAILY NOLBERTO Administration Enoxaparin Sodium 80 mg 01/18/19 11:45 01/21/19 09:21 Lovenox - SQ 80 mg BID NOLBERTO Administration Insulin Aspart 1 vial 01/18/19 11:00 01/21/19 11:09 Novolog Vial Sliding Scale - SQ 6 units ACHS NOLBERTO Administration Protocol Methimazole 10 mg 01/18/19 10:00 01/21/19 09:21 Tapazole - PO 10 mg DAILY NOLBERTO Administration Metoprolol Succinate 50 mg 01/17/19 10:00 01/21/19 09:21 Toprol Xl - PO 50 mg DAILY NOLBERTO Administration Sacubitril/Valsartan 1 tab 01/16/19 22:00 01/21/19 09:22 Entresto 24 Mg-26 Mg Tablet PO 1 tab BID NOLBERTO Administration ASSESSMENT AND PLAN: This is an 83 year old woman with a history of HTN, hyperlipidemia, type 2 DM, GERD, atrial fib/flutter, chronic systolic heart failure, hyperthyroidism who presented to the ED with abdominal pain, vomiting, and dizziness. 1. Symptomatic cholelithiasis, possible acute vs chronic cholecystitis - Patient was here 02/2018 with acute cholecystitis and was thought to be a poor surgical candidate at that time. She was managed conservatively with IV antibiotics and improved. Cholecystostomy was not done at the time because she improved. She was advised to follow up with surgery for an interval cholecystectomy. - Afebrile, pain is improving - HIDA shows gallbladder filling, nonspecific distention of gallbladder with retention after 2 hours - ? chronic cholecystitis, ? dyskinesia - Discussed with surgery - Patient can be discharged home with outpatient follow-up. If cholecystectomy needed, she will need optimization of her medical conditions 2. Elevated troponin - Possibly demand ischemia 3. Acute kidney injury - Improved 4. Hyperkalemia - Improved 5. Permanent atrial fibrillation - Rate controlled - Continue Toprol XL, Digoxin - Resume Eliquis at discharge 6. Chronic systolic heart failure - Stable - Continue Entresto 7. HTN - Continue Toprol XL, valsartan 8. Hyperlipidemia 9. Hyperthyroidism - Continue methimazole 10. Type 2 DM - Continue Novolog sliding scale 11. Disposition - Ok for discharge home today
== END 2019-01-21 18:01 | disposition home or self-care (01) | DRG 445 ==
LOC: JER 13:23 → SUPCPDRO 13:23 → JERBED 17:05 → J4W 22:32
PROVIDERS: ADMIT Internal Medicine; ATTEND Internal Medicine
DX: K80.00 Calculus of gallbladder with acute cholecystitis without obstruction (principal); N17.9 Acute kidney failure, unspecified; E87.2 Acidosis; I48.21 Permanent atrial fibrillation; I50.22 Chronic systolic (congestive) heart failure; I24.8 Other forms of acute ischemic heart disease; I13.0 Hypertensive heart and chronic kidney disease with heart failure and stage 1 through stage 4 chronic kidney disease, or unspecified chronic kidney disease; I48.92 Unspecified atrial flutter; E78.5 Hyperlipidemia, unspecified; K21.9 Gastro-esophageal reflux disease without esophagitis; E03.9 Hypothyroidism, unspecified; E87.5 Hyperkalemia; E05.90 Thyrotoxicosis, unspecified without thyrotoxic crisis or storm; D72.829 Elevated white blood cell count, unspecified; I11.0 Hypertensive heart disease with heart failure; E11.65 Type 2 diabetes mellitus with hyperglycemia; F03.90 Unspecified dementia, unspecified severity, without behavioral disturbance, psychotic disturbance, mood disturbance, and anxiety; M54.5 Low back pain; K59.09 Other constipation; R10.11 Right upper quadrant pain; E11.22 Type 2 diabetes mellitus with diabetic chronic kidney disease; N18.9 Chronic kidney disease, unspecified
CPT/HCPCS: 36415; 70450-TC; 71046-TC-FY; 74181-TC; 76700-TC; 78226-TC; 80048; 80053; 80076; 80162; 81003; 82248; 82550; 82962; 83036; 83605; 83690; 83735; 84100; 84439; 84443; 84484; 85025; 85027; 85610; 85730; 87086; 93005; 93010; 99284-25; A9537; J0131; J7030; Q2036

== ENCOUNTER 2019-12-10 10:34 | Day surgery (SDC) | payer OTHER ==
[2019-12-03 16:34] VITALS: BMI 31.0
[2019-12-10] MEDS ORDERED: PROPOFOL 20 ML ONE ×2 (10:50)
[2019-12-10] MEDS ORDERED: LIDOCAINE HCL/PF 2% SDV 5ML VIAL ONE (10:50)
[2019-12-10 13:02] VITALS: TEMP 97.9
[2019-12-10 13:17] VITALS: BP 124/58; PULSE 64
== END 2019-12-10 13:17 | disposition home or self-care (01) ==
LOC: FASU-ENDO 10:34
PROVIDERS: ATTEND Internal Medicine Gastroenterology
PROC: 0DJ08ZZ Inspection of Upper Intestinal Tract, Via Natural or Artificial Opening Endoscopic (ICD-10-PCS; principal; 2019-12-10 12:34)
DX: Z13.810 Encounter for screening for upper gastrointestinal disorder (principal); K29.70 Gastritis, unspecified, without bleeding
CPT/HCPCS: 82962

== ENCOUNTER 2021-10-27 11:14 | Inpatient (IN) | payer OTHER ==
[2021-10-27 13:30] LABS: BASO % 0.6 % (0-2.0); LYMPH % 15.9 % (8-40); MCH 25.7 pg (25.7-33.7); MCHC 31.4 g/dl (32.0-36.0); MEAN CELL VOLUME 81.8 fl (80-96); MEAN PLT VOLUME 8.3 fl (7.5-11.1); MONO % 5.9 % (3.8-10.2); NEUT % 76.6 % (42.8-82.8); PLATELET COUNT 165 10^3/uL (134-434); RBC 4.28 M/mm3 (3.60-5.2); RDW 17.1 % (11.6-15.6)
[2021-10-27 13:40] LABS: ACTIVATED PTT 44.6 SECONDS (25.2-36.5); INR 3.5 (0.83-1.09); PROTHROMBIN TIME (PATIENT) 40.8 SEC (9.7-13.0)
[2021-10-27 13:45] LABS: CHLORIDE 106 mmol/L (98-107); SODIUM 140 mmol/L (136-145)
[2021-10-27 13:47] LABS: CALCIUM 9.1 mg/dL (8.5-10.1); GLUCOSE,RANDOM 77 mg/dL (74-106)
[2021-10-27 13:48] LABS: ALBUMIN 3.4 g/dl (3.4-5.0); ANION GAP 5 MMOL/L (8-16); CO2 29 mmol/L (21-32); LIPASE 58 U/L (73-393)
[2021-10-27 13:50] LABS: SGPT/ALT 21 U/L (13-61)
[2021-10-27 13:51] LABS: MAGNESIUM 2.1 mg/dL (1.8-2.4); SGOT/AST 22 U/L (15-37)
[2021-10-27 13:52] LABS: TOT PROT 6.5 g/dl (6.4-8.2)
[2021-10-27] MEDS ORDERED: FUROSEMIDE 40 MG/4 ML INJECTABLE VIAL IVPUSH ONE (13:52)
[2021-10-27 13:53] LABS: ALK PHOS 188 U/L (45-117)
[2021-10-27 13:57] LABS: N-TERMINAL BNP 6361.7 pg/ml (5-450)
[2021-10-27] MEDS ORDERED: FUROSEMIDE 40 MG/4 ML INJECTABLE VIAL ONE (14:14)
[2021-10-27 19:46] LABS: INR 2.61 (0.83-1.09); PROTHROMBIN TIME (PATIENT) 30.3 SEC (9.7-13.0)
[2021-10-27 19:49] LABS: ACTIVATED PTT 39.3 SECONDS (25.2-36.5)
[2021-10-27] MEDS: INSULIN SLIDING SCALE (NOVOLOG) 1 VIAL SQ SCH ×2 (20:38→23:15)
[2021-10-27] MEDS ORDERED: BACITRACIN 15 GM TUBE TOPICAL OINTMENT ONE (22:43)
[2021-10-27] MEDS: SACUBITRIL/VALSARTAN 24 MG-26 MG TABLET PO SCH (23:14)
[2021-10-28] MEDS: INSULIN SLIDING SCALE (NOVOLOG) 1 VIAL SQ SCH ×4 (07:14→22:33)
[2021-10-28 07:55] LABS: HEMATOCRIT 38.5 % (32.4-45.2); MCHC 31.1 g/dl (32.0-36.0); MEAN CELL VOLUME 83.7 fl (80-96); MEAN PLT VOLUME 8.2 fl (7.5-11.1); PLATELET COUNT 166 10^3/uL (134-434); RDW 17.5 % (11.6-15.6); WHITE BLOOD COUNT 8.1 K/mm3 (4.0-10.0)
[2021-10-28 08:17] LABS: CALCIUM 9.2 mg/dL (8.5-10.1)
[2021-10-28 08:18] LABS: ALBUMIN 3.4 g/dl (3.4-5.0); BLOOD UREA NITROGEN 21.2 mg/dL (7-18)
[2021-10-28 08:20] LABS: PHOSPHOROUS 3.8 mg/dL (2.5-4.9)
[2021-10-28 08:22] LABS: BILIRUBIN,TOTAL 2.4 mg/dL (0.2-1); TOT PROT 6.9 g/dl (6.4-8.2)
[2021-10-28] MEDS ORDERED: SPIRONOLACTONE 25 MG TABLET ONE (09:16)
[2021-10-28] MEDS ORDERED: DIGOXIN 0.125 MG TABLET ONE (09:16)
[2021-10-28] MEDS ORDERED: FUROSEMIDE 40 MG/4 ML INJECTABLE VIAL ONE (09:17)
[2021-10-28] MEDS ORDERED: ATORVASTATIN CA 20 MG TABLET (FP) ONE (09:19)
[2021-10-28] MEDS: SACUBITRIL/VALSARTAN 24 MG-26 MG TABLET PO SCH ×2 (09:35→23:57)
[2021-10-28] MEDS ORDERED: FUROSEMIDE 40 MG/4 ML INJECTABLE VIAL IVPUSH SCH (10:00)
[2021-10-28] MEDS ORDERED: ATORVASTATIN CA 20 MG TABLET (FP) PO SCH (10:00)
[2021-10-28] MEDS ORDERED: PATIENT'S OWN MEDICATION (NON-FORMULARY) (Linaclotide [Linzess] 290 MCG Capsule) PO SCH (10:00)
[2021-10-28] MEDS ORDERED: SPIRONOLACTONE 25 MG TABLET PO SCH (10:00)
[2021-10-28] MEDS ORDERED: DIGOXIN 0.125 MG TABLET PO SCH (10:00)
[2021-10-28] MEDS ORDERED: VANCOMYCIN 1 GRAM (PRE-DOCKED) 1,000 MG/250 ML BAG IVPB ONE (13:14)
[2021-10-28 16:01] VITALS: BMI 39.6
[2021-10-28] MEDS ORDERED: RIVAROXABAN 20 MG TABLET PO SCH (18:00)
[2021-10-29] MEDS ORDERED: DEXTROSE 50%-WATER - 25 GM/50 ML VIAL ONE (07:02)
[2021-10-29] MEDS: INSULIN SLIDING SCALE (NOVOLOG) 1 VIAL SQ SCH ×4 (07:29→21:17)
[2021-10-29] MEDS ORDERED: PATIENT'S OWN MEDICATION (NON-FORMULARY) (Linaclotide [Linzess] 290 MCG) PO SCH (10:00)
[2021-10-29] MEDS: ATORVASTATIN CA 20 MG TABLET (FP) PO SCH (11:28)
[2021-10-29] MEDS: SPIRONOLACTONE 25 MG TABLET PO SCH (11:28)
[2021-10-29] MEDS: FUROSEMIDE 40 MG/4 ML INJECTABLE VIAL IVPUSH SCH (11:28)
[2021-10-29] MEDS: SACUBITRIL/VALSARTAN 24 MG-26 MG TABLET PO SCH ×2 (11:29→21:10)
[2021-10-29] MEDS: METHIMAZOLE 5 MG TABLET PO SCH (11:29)
[2021-10-29] MEDS: RIVAROXABAN 20 MG TABLET PO SCH (17:12)
[2021-10-30] MEDS: INSULIN SLIDING SCALE (NOVOLOG) 1 VIAL SQ SCH ×4 (06:01→21:14)
[2021-10-30] MEDS: SPIRONOLACTONE 25 MG TABLET PO SCH (10:23)
[2021-10-30] MEDS: ATORVASTATIN CA 20 MG TABLET (FP) PO SCH (10:23)
[2021-10-30] MEDS: FUROSEMIDE 40 MG/4 ML INJECTABLE VIAL IVPUSH SCH (10:23)
[2021-10-30] MEDS: METHIMAZOLE 5 MG TABLET PO SCH (10:24)
[2021-10-30] MEDS: SACUBITRIL/VALSARTAN 24 MG-26 MG TABLET PO SCH ×2 (10:24→21:15)
[2021-10-30 10:55] LABS: HEMATOCRIT 35.1 % (32.4-45.2); HEMOGLOBIN 10.9 GM/dL (10.7-15.3); MCH 25.8 pg (25.7-33.7); MCHC 31.1 g/dl (32.0-36.0); MEAN PLT VOLUME 8.6 fl (7.5-11.1); PLATELET COUNT 165 10^3/uL (134-434); RBC 4.22 M/mm3 (3.60-5.2); RDW 17.2 % (11.6-15.6); WHITE BLOOD COUNT 7.8 K/mm3 (4.0-10.0)
[2021-10-30 11:22] LABS: CALCIUM 8.9 mg/dL (8.5-10.1)
[2021-10-30 11:23] LABS: BLOOD UREA NITROGEN 22.6 mg/dL (7-18)
[2021-10-30] MEDS: RIVAROXABAN 20 MG TABLET PO SCH (17:47)
[2021-10-31] MEDS: INSULIN SLIDING SCALE (NOVOLOG) 1 VIAL SQ SCH ×4 (06:12→21:06)
[2021-10-31] MEDS: SPIRONOLACTONE 25 MG TABLET PO SCH (09:25)
[2021-10-31] MEDS: FUROSEMIDE 40 MG/4 ML INJECTABLE VIAL IVPUSH SCH (09:25)
[2021-10-31] MEDS: ATORVASTATIN CA 20 MG TABLET (FP) PO SCH (09:25)
[2021-10-31] MEDS: METHIMAZOLE 5 MG TABLET PO SCH (09:26)
[2021-10-31] MEDS: SACUBITRIL/VALSARTAN 24 MG-26 MG TABLET PO SCH ×2 (09:26→21:06)
[2021-10-31] MEDS: RIVAROXABAN 20 MG TABLET PO SCH (17:27)
[2021-11-01] MEDS: INSULIN SLIDING SCALE (NOVOLOG) 1 VIAL SQ SCH ×5 (06:15→21:34)
[2021-11-01] MEDS: SPIRONOLACTONE 25 MG TABLET PO SCH (10:08)
[2021-11-01] MEDS: FUROSEMIDE 40 MG TABLET (FP) PO SCH (10:08)
[2021-11-01] MEDS: METHIMAZOLE 5 MG TABLET PO SCH (10:08)
[2021-11-01] MEDS: SACUBITRIL/VALSARTAN 24 MG-26 MG TABLET PO SCH ×2 (10:08→21:30)
[2021-11-01] MEDS: ATORVASTATIN CA 20 MG TABLET (FP) PO SCH (10:08)
[2021-11-01 11:08] LABS: BASO % 0.6 % (0-2.0); EOS % 3.5 % (0-4.5); HEMATOCRIT 34.5 % (32.4-45.2); HEMOGLOBIN 10.9 GM/dL (10.7-15.3); LYMPH % 18.2 % (8-40); MCHC 31.6 g/dl (32.0-36.0); MEAN CELL VOLUME 82.5 fl (80-96); MEAN PLT VOLUME 8.4 fl (7.5-11.1); MONO % 7.3 % (3.8-10.2); NEUT % 70.4 % (42.8-82.8); PLATELET COUNT 157 10^3/uL (134-434); RBC 4.19 M/mm3 (3.60-5.2); RDW 17.3 % (11.6-15.6); WHITE BLOOD COUNT 7.4 K/mm3 (4.0-10.0)
[2021-11-01 11:59] LABS: CALCIUM 9.1 mg/dL (8.5-10.1)
[2021-11-01 12:00] LABS: BLOOD UREA NITROGEN 26.8 mg/dL (7-18); MAGNESIUM 1.8 mg/dL (1.8-2.4)
[2021-11-01 12:03] LABS: PHOSPHOROUS 2.6 mg/dL (2.5-4.9)
[2021-11-01] MEDS: RIVAROXABAN 20 MG TABLET PO SCH (17:38)
[2021-11-02] MEDS: INSULIN SLIDING SCALE (NOVOLOG) 1 VIAL SQ SCH ×2 (06:01→11:12)
[2021-11-02] MEDS: SPIRONOLACTONE 25 MG TABLET PO SCH (09:28)
[2021-11-02] MEDS: METHIMAZOLE 5 MG TABLET PO SCH (09:28)
[2021-11-02] MEDS: ATORVASTATIN CA 20 MG TABLET (FP) PO SCH (09:28)
[2021-11-02] MEDS: FUROSEMIDE 40 MG TABLET (FP) PO SCH (09:28)
[2021-11-02] MEDS: SACUBITRIL/VALSARTAN 24 MG-26 MG TABLET PO SCH (09:28)
[2021-11-02 12:18] LABS: BASO % 0.7 % (0-2.0); EOS % 2.8 % (0-4.5); HEMATOCRIT 34.8 % (32.4-45.2); LYMPH % 13.1 % (8-40); MCHC 31.6 g/dl (32.0-36.0); MEAN CELL VOLUME 82.5 fl (80-96); MEAN PLT VOLUME 8.6 fl (7.5-11.1); MONO % 6.3 % (3.8-10.2); NEUT % 77.1 % (42.8-82.8); PLATELET COUNT 148 10^3/uL (134-434); RBC 4.21 M/mm3 (3.60-5.2); RDW 17.8 % (11.6-15.6); WHITE BLOOD COUNT 7.3 K/mm3 (4.0-10.0)
[2021-11-02 12:59] LABS: BLOOD UREA NITROGEN 29.6 mg/dL (7-18); CALCIUM 8.9 mg/dL (8.5-10.1)
[2021-11-02 13:02] LABS: CREATININE 1.1 mg/dL (0.55-1.3)
[2021-11-02 15:28] VITALS: BP 102/66; PULSE 98; TEMP 97.9
== END 2021-11-02 16:21 | DRG 291 ==
LOC: JER 11:14 → JERBED 14:10 → J5S 10-28 16:59
PROVIDERS: ADMIT Internal Medicine; ATTEND Internal Medicine
DX: I13.0 Hypertensive heart and chronic kidney disease with heart failure and stage 1 through stage 4 chronic kidney disease, or unspecified chronic kidney disease (principal); I50.23 Acute on chronic systolic (congestive) heart failure; I48.92 Unspecified atrial flutter; I24.8 Other forms of acute ischemic heart disease; E78.5 Hyperlipidemia, unspecified; K21.9 Gastro-esophageal reflux disease without esophagitis; E11.9 Type 2 diabetes mellitus without complications; E87.70 Fluid overload, unspecified; N18.2 Chronic kidney disease, stage 2 (mild); E66.01 Morbid (severe) obesity due to excess calories; Z68.38 Body mass index [BMI] 38.0-38.9, adult; I48.91 Unspecified atrial fibrillation
CPT/HCPCS: 36415; 71045-TC-FY; 80048; 80053; 80162; 82962; 83690; 83735; 83880; 84100; 84439; 84443; 84484; 85025; 85027; 85610; 85730; 93005; 93010; 93306-TC; 97116-GP; 97162-GP; 99285-25; C9803-CS; U0003; U0005

== ENCOUNTER 2022-07-17 10:29 | Inpatient (IN) | payer OTHER ==
[2022-07-17] MEDS ORDERED: GlUCAGON HUMAN RECOMBINANT 1 MG/VIAL IM ONE (10:41)
[2022-07-17] MEDS ORDERED: GLUCAGON 1 MG KIT ONE (10:48)
[2022-07-17 11:02] VITALS: BMI 43.9
[2022-07-17] MEDS ORDERED: DEXTROSE 50%-WATER 25 GM/50 ML DISP.SYRIN ONE ×2 (11:25→16:40)
[2022-07-17] MEDS ORDERED: DEXTROSE 50%-WATER - 25 GM/50 ML VIAL IVPUSH ONE ×2 (11:59→16:33)
[2022-07-17 12:21] LABS: VENOUS BASE EXCESS 0.6 mmol/L (-2-2); VENOUS O2 SATURATION 80.2 % (70-80); VENOUS PCO2 55.8 mmHg (38-52); VENOUS PH 7.313 (7.310-7.410)
[2022-07-17 12:27] LABS: INR 2.95 (0.83-1.09); PROTHROMBIN TIME (PATIENT) 33.8 SEC (9.7-13.0)
[2022-07-17 12:30] LABS: ACTIVATED PTT 40.7 SECONDS (25.2-36.5)
[2022-07-17 12:48] LABS: N-TERMINAL BNP 9001.3 pg/ml (5-450)
[2022-07-17 13:00] LABS: BASO % 0.4 % (0-2.0); EOS % 0.5 % (0-4.5); HEMATOCRIT 36.8 % (32.4-45.2); HEMOGLOBIN 11.3 GM/dL (10.7-15.3); LYMPH % 11.6 % (8-40); MCH 26.1 pg (25.7-33.7); MCHC 30.7 g/dl (32.0-36.0); MEAN CELL VOLUME 84.9 fl (80-96); MEAN PLT VOLUME 8.3 fl (7.5-11.1); MONO % 7.3 % (3.8-10.2); NEUT % 80.2 % (42.8-82.8); PLATELET COUNT 159 10^3/uL (134-434); RBC 4.34 M/mm3 (3.60-5.2); RDW 16.3 % (11.6-15.6); WHITE BLOOD COUNT 7.2 K/mm3 (4.0-10.0)
[2022-07-17 13:35] LABS: ALBUMIN 3.2 g/dl (3.4-5.0); BLOOD UREA NITROGEN 34.2 mg/dL (7-18); CALCIUM 9.3 mg/dL (8.5-10.1)
[2022-07-17 13:38] LABS: CREATININE 1.2 mg/dL (0.55-1.3)
[2022-07-17 13:40] LABS: BILIRUBIN,TOTAL 1.3 mg/dL (0.2-1); TOT PROT 6.6 g/dl (6.4-8.2)
[2022-07-17] MEDS ORDERED: FUROSEMIDE 40 MG/4 ML INJECTABLE VIAL IVPUSH ONE (13:44)
[2022-07-17] MEDS ORDERED: FUROSEMIDE 40 MG/4 ML INJECTABLE VIAL ONE (15:01)
[2022-07-17 16:37] LABS: PH,URINE 5.5 (5.0-8.0); URINE APPEARANCE CLEAR; URINE BILIRUBIN NEGATIVE (NEGATIVE); URINE COLOR YELLOW; URINE GLUCOSE (UA) 2+ (NEGATIVE); URINE KETONE NEGATIVE (NEGATIVE); URINE LEUK ESTERASE NEGATIVE (NEGATIVE); URINE NITRITE NEGATIVE (NEGATIVE); URINE PROTEIN NEGATIVE (NEGATIVE); URINE UROBILINOGEN 0.2 mg/dL (0.2-1.0)
[2022-07-17] MEDS ORDERED: ATORVASTATIN CA 20 MG TABLET (FP) ONE (21:32)
[2022-07-17] MEDS: ATORVASTATIN CA 20 MG TABLET (FP) PO SCH (21:43)
[2022-07-18] MEDS ORDERED: DEXTROSE 50%-WATER - 25 GM/50 ML VIAL IVPUSH ONE (06:46)
[2022-07-18] MEDS ORDERED: DEXTROSE 50%-WATER 25 GM/50 ML DISP.SYRIN ONE (06:47)
[2022-07-18] MEDS: FUROSEMIDE 40 MG/4 ML INJECTABLE VIAL IVPUSH SCH ×2 (06:50→14:13)
[2022-07-18 07:51] LABS: HEMOGLOBIN 10.9 GM/dL (10.7-15.3); MCH 26.7 pg (25.7-33.7); MEAN CELL VOLUME 83.4 fl (80-96); MEAN PLT VOLUME 8.6 fl (7.5-11.1); PLATELET COUNT 142 10^3/uL (134-434); RBC 4.08 M/mm3 (3.60-5.2); RDW 15.8 % (11.6-15.6); WHITE BLOOD COUNT 5.7 K/mm3 (4.0-10.0)
[2022-07-18 08:54] LABS: PHOSPHOROUS 3.4 mg/dL (2.5-4.9)
[2022-07-18 08:55] LABS: ALBUMIN 2.9 g/dl (3.4-5.0); BLOOD UREA NITROGEN 32.1 mg/dL (7-18); CREATININE 1.2 mg/dL (0.55-1.3); MAGNESIUM 2.3 mg/dL (1.8-2.4)
[2022-07-18 08:56] LABS: BILIRUBIN,TOTAL 1.2 mg/dL (0.2-1)
[2022-07-18] MEDS ORDERED: SACUBITRIL/VALSARTAN 24 MG-26 MG TABLET PO SCH (10:00)
[2022-07-18] MEDS: SPIRONOLACTONE 25 MG TABLET PO SCH (10:09)
[2022-07-18] MEDS: METHIMAZOLE 5 MG TABLET PO SCH (11:16)
[2022-07-18] MEDS: RIVAROXABAN 20 MG TABLET PO SCH (18:00)
[2022-07-18] MEDS: ATORVASTATIN CA 20 MG TABLET (FP) PO SCH (21:28)
[2022-07-19] MEDS: FUROSEMIDE 40 MG/4 ML INJECTABLE VIAL IVPUSH SCH ×2 (06:16→13:56)
[2022-07-19 07:34] LABS: BASO % 0.8 % (0-2.0); EOS % 3.9 % (0-4.5); HEMATOCRIT 32.7 % (32.4-45.2); HEMOGLOBIN 10.5 GM/dL (10.7-15.3); LYMPH % 19.8 % (8-40); MCH 26.7 pg (25.7-33.7); MCHC 32.2 g/dl (32.0-36.0); MEAN PLT VOLUME 8.7 fl (7.5-11.1); MONO % 9.7 % (3.8-10.2); NEUT % 65.8 % (42.8-82.8); PLATELET COUNT 145 10^3/uL (134-434); RBC 3.95 M/mm3 (3.60-5.2); RDW 15.5 % (11.6-15.6)
[2022-07-19 07:54] LABS: BLOOD UREA NITROGEN 31.9 mg/dL (7-18); CALCIUM 9.2 mg/dL (8.5-10.1); MAGNESIUM 2.1 mg/dL (1.8-2.4)
[2022-07-19 07:57] LABS: CREATININE 1.1 mg/dL (0.55-1.3); PHOSPHOROUS 2.7 mg/dL (2.5-4.9)
[2022-07-19 07:59] LABS: BILIRUBIN,TOTAL 1.6 mg/dL (0.2-1); TOT PROT 6.1 g/dl (6.4-8.2)
[2022-07-19] MEDS: METHIMAZOLE 5 MG TABLET PO SCH (09:30)
[2022-07-19] MEDS: SPIRONOLACTONE 25 MG TABLET PO SCH (09:30)
[2022-07-19] MEDS ORDERED: BENZONATATE 200 MG CAPSULE PO PRN (16:11)
[2022-07-19] MEDS ORDERED: ALBUTEROL SO4 HFA INHALER IH PRN (16:17)
[2022-07-19] MEDS: RIVAROXABAN 20 MG TABLET PO SCH (17:47)
[2022-07-19] MEDS: ATORVASTATIN CA 20 MG TABLET (FP) PO SCH (21:28)
[2022-07-20] MEDS: FUROSEMIDE 40 MG/4 ML INJECTABLE VIAL IVPUSH SCH ×2 (05:55→14:01)
[2022-07-20] MEDS ORDERED: ACETAMINOPHEN 1000 MG/100 ML BAG IVPB ONE (07:30)
[2022-07-20] MEDS: METHIMAZOLE 5 MG TABLET PO SCH (09:06)
[2022-07-20] MEDS: SPIRONOLACTONE 25 MG TABLET PO SCH (09:06)
[2022-07-20] MEDS: SERTRALINE HCL 25 MG TABLET (FP) PO SCH (09:26)
[2022-07-20 12:10] LABS: BASO % 1.1 % (0-2.0); EOS % 1.3 % (0-4.5); HEMATOCRIT 33.1 % (32.4-45.2); HEMOGLOBIN 10.7 GM/dL (10.7-15.3); LYMPH % 13.8 % (8-40); MCH 26.5 pg (25.7-33.7); MCHC 32.3 g/dl (32.0-36.0); MEAN CELL VOLUME 82.1 fl (80-96); MEAN PLT VOLUME 8.4 fl (7.5-11.1); NEUT % 75.8 % (42.8-82.8); PLATELET COUNT 143 10^3/uL (134-434); RBC 4.03 M/mm3 (3.60-5.2); WHITE BLOOD COUNT 8.1 K/mm3 (4.0-10.0)
[2022-07-20 13:34] LABS: ALBUMIN 2.8 g/dl (3.4-5.0); BILIRUBIN,DIRECT 0.5 mg/dL (0.0-0.2); BILIRUBIN,TOTAL 1.9 mg/dL (0.2-1); BLOOD UREA NITROGEN 29.3 mg/dL (7-18); CALCIUM 9.5 mg/dL (8.5-10.1); CREATININE 1.1 mg/dL (0.55-1.3); TOT PROT 6.1 g/dl (6.4-8.2)
[2022-07-20] MEDS: CEFTRIAXONE 1 GM in DEXTROSE 5%-WATER - 50 ML IVPB SCH (17:45)
[2022-07-20] MEDS: RIVAROXABAN 20 MG TABLET PO SCH (17:49)
[2022-07-20] MEDS: ATORVASTATIN CA 20 MG TABLET (FP) PO SCH (21:40)
[2022-07-21] MEDS: FUROSEMIDE 40 MG/4 ML INJECTABLE VIAL IVPUSH SCH ×2 (06:14→15:26)
[2022-07-21 08:07] LABS: BASO % 0.5 % (0-2.0); EOS % 2.8 % (0-4.5); HEMATOCRIT 34.2 % (32.4-45.2); HEMOGLOBIN 11.1 GM/dL (10.7-15.3); LYMPH % 19.2 % (8-40); MCH 26.6 pg (25.7-33.7); MCHC 32.3 g/dl (32.0-36.0); MEAN CELL VOLUME 82.4 fl (80-96); MEAN PLT VOLUME 8.7 fl (7.5-11.1); MONO % 9.7 % (3.8-10.2); NEUT % 67.8 % (42.8-82.8); PLATELET COUNT 144 10^3/uL (134-434); RBC 4.15 M/mm3 (3.60-5.2); RDW 15.7 % (11.6-15.6); WHITE BLOOD COUNT 7.1 K/mm3 (4.0-10.0)
[2022-07-21 08:21] LABS: ALBUMIN 2.7 g/dl (3.4-5.0); BLOOD UREA NITROGEN 28.3 mg/dL (7-18); CALCIUM 9.2 mg/dL (8.5-10.1); MAGNESIUM 1.8 mg/dL (1.8-2.4)
[2022-07-21 08:24] LABS: CREATININE 1.2 mg/dL (0.55-1.3); PHOSPHOROUS 3.2 mg/dL (2.5-4.9)
[2022-07-21 08:25] LABS: BILIRUBIN,TOTAL 1.9 mg/dL (0.2-1)
[2022-07-21 08:26] LABS: TOT PROT 6.1 g/dl (6.4-8.2)
[2022-07-21 09:19] LABS: BILIRUBIN,DIRECT 0.6 mg/dL (0.0-0.2)
[2022-07-21] MEDS: CEFTRIAXONE 1 GM in DEXTROSE 5%-WATER - 50 ML IVPB SCH (10:03)
[2022-07-21] MEDS: PANTOPRAZOLE SODIUM 40 MG VIAL IVPUSH SCH (10:03)
[2022-07-21] MEDS: SERTRALINE HCL 25 MG TABLET (FP) PO SCH (10:04)
[2022-07-21] MEDS: METHIMAZOLE 5 MG TABLET PO SCH (10:04)
[2022-07-21] MEDS: RIVAROXABAN 20 MG TABLET PO SCH (17:08)
[2022-07-21] MEDS ORDERED: METOPROLOL TARTRATE 5 MG/5 ML VIAL IVPUSH PRN (17:47)
[2022-07-21] MEDS: ATORVASTATIN CA 20 MG TABLET (FP) PO SCH (21:18)
[2022-07-22] MEDS: FUROSEMIDE 40 MG/4 ML INJECTABLE VIAL IVPUSH SCH ×2 (05:33→14:28)
[2022-07-22 07:23] LABS: HEMATOCRIT 32.9 % (32.4-45.2); HEMOGLOBIN 10.7 GM/dL (10.7-15.3); MCH 26.5 pg (25.7-33.7); MCHC 32.6 g/dl (32.0-36.0); MEAN CELL VOLUME 81.1 fl (80-96); MEAN PLT VOLUME 8.5 fl (7.5-11.1); PLATELET COUNT 153 10^3/uL (134-434); RBC 4.05 M/mm3 (3.60-5.2); RDW 16.3 % (11.6-15.6); WHITE BLOOD COUNT 8.2 K/mm3 (4.0-10.0)
[2022-07-22 07:45] LABS: ALBUMIN 2.8 g/dl (3.4-5.0); BLOOD UREA NITROGEN 30.2 mg/dL (7-18); CALCIUM 9.5 mg/dL (8.5-10.1)
[2022-07-22 07:46] LABS: MAGNESIUM 1.6 mg/dL (1.8-2.4)
[2022-07-22 07:48] LABS: CREATININE 1.2 mg/dL (0.55-1.3); PHOSPHOROUS 2.8 mg/dL (2.5-4.9)
[2022-07-22 07:50] LABS: TOT PROT 6.2 g/dl (6.4-8.2)
[2022-07-22] MEDS ORDERED: ACETAMINOPHEN 1000 MG/100 ML BAG IVPB PRN (08:02)
[2022-07-22] MEDS: PANTOPRAZOLE SODIUM 40 MG VIAL IVPUSH SCH (09:11)
[2022-07-22] MEDS: CEFTRIAXONE 1 GM in DEXTROSE 5%-WATER - 50 ML IVPB SCH (09:11)
[2022-07-22] MEDS: SERTRALINE HCL 25 MG TABLET (FP) PO SCH (09:12)
[2022-07-22] MEDS: METHIMAZOLE 5 MG TABLET PO SCH (09:12)
[2022-07-22] MEDS ORDERED: MAGNESIUM 1GM/D5W - 1 GM/100 ML IVPB IVPB ONE (13:42)
[2022-07-22] MEDS: PATIENT'S OWN MEDICATION (NON-FORMULARY) (Empagliflozin [Jardiance] 10 MG Tablet) PO SCH (16:22)
[2022-07-22] MEDS: RIVAROXABAN 20 MG TABLET PO SCH (17:21)
[2022-07-22] MEDS: ATORVASTATIN CA 20 MG TABLET (FP) PO SCH (21:21)
[2022-07-23] MEDS: FUROSEMIDE 40 MG/4 ML INJECTABLE VIAL IVPUSH SCH ×2 (05:58→13:30)
[2022-07-23] MEDS: PANTOPRAZOLE SODIUM 40 MG VIAL IVPUSH SCH (09:01)
[2022-07-23 09:02] LABS: HEMATOCRIT 31.1 % (32.4-45.2); HEMOGLOBIN 10.2 GM/dL (10.7-15.3); MCH 26.3 pg (25.7-33.7); MCHC 32.7 g/dl (32.0-36.0); MEAN CELL VOLUME 80.6 fl (80-96); MEAN PLT VOLUME 8.7 fl (7.5-11.1); PLATELET COUNT 151 10^3/uL (134-434); RBC 3.86 M/mm3 (3.60-5.2); RDW 16.4 % (11.6-15.6); WHITE BLOOD COUNT 7.9 K/mm3 (4.0-10.0)
[2022-07-23] MEDS: SERTRALINE HCL 25 MG TABLET (FP) PO SCH (09:02)
[2022-07-23] MEDS: PATIENT'S OWN MEDICATION (NON-FORMULARY) (Empagliflozin [Jardiance] 10 MG Tablet) PO SCH (09:02)
[2022-07-23 09:07] LABS: ALBUMIN 2.6 g/dl (3.4-5.0); CALCIUM 9.4 mg/dL (8.5-10.1)
[2022-07-23 09:08] LABS: BLOOD UREA NITROGEN 31.1 mg/dL (7-18); MAGNESIUM 1.9 mg/dL (1.8-2.4)
[2022-07-23 09:10] LABS: CREATININE 1.3 mg/dL (0.55-1.3); PHOSPHOROUS 2.6 mg/dL (2.5-4.9)
[2022-07-23] MEDS: METHIMAZOLE 5 MG TABLET PO SCH (09:10)
[2022-07-23 09:12] LABS: BILIRUBIN,TOTAL 1.5 mg/dL (0.2-1)
[2022-07-23] MEDS: PANTOPRAZOLE 40 MG TABLET PO SCH ×2 (12:16→22:20)
[2022-07-23] MEDS: POLYETHYLENE GLYCOL (HEALTHYLAX) 3350 17 GM PACKET PO SCH ×2 (13:30→22:20)
[2022-07-23] MEDS: RIVAROXABAN 20 MG TABLET PO SCH (18:07)
[2022-07-23] MEDS ORDERED: SENNOSIDES 8.8 MG/5 ML SYRUP PO SCH (22:00)
[2022-07-23] MEDS: ATORVASTATIN CA 20 MG TABLET (FP) PO SCH (22:20)
[2022-07-24] MEDS: POLYETHYLENE GLYCOL (HEALTHYLAX) 3350 17 GM PACKET PO SCH ×2 (06:05→14:37)
[2022-07-24 08:01] LABS: HEMATOCRIT 30.7 % (32.4-45.2); MCH 26.3 pg (25.7-33.7); MCHC 32.5 g/dl (32.0-36.0); MEAN CELL VOLUME 80.7 fl (80-96); MEAN PLT VOLUME 8.3 fl (7.5-11.1); PLATELET COUNT 147 10^3/uL (134-434); RDW 16.3 % (11.6-15.6); WHITE BLOOD COUNT 7.2 K/mm3 (4.0-10.0)
[2022-07-24 08:18] LABS: ALBUMIN 2.5 g/dl (3.4-5.0); CALCIUM 9.2 mg/dL (8.5-10.1)
[2022-07-24 08:19] LABS: BLOOD UREA NITROGEN 32.8 mg/dL (7-18); MAGNESIUM 1.9 mg/dL (1.8-2.4)
[2022-07-24 08:21] LABS: PHOSPHOROUS 2.8 mg/dL (2.5-4.9)
[2022-07-24 08:22] LABS: CREATININE 1.3 mg/dL (0.55-1.3)
[2022-07-24 08:23] LABS: BILIRUBIN,TOTAL 0.9 mg/dL (0.2-1); TOT PROT 5.8 g/dl (6.4-8.2)
[2022-07-24] MEDS: SERTRALINE HCL 25 MG TABLET (FP) PO SCH (09:50)
[2022-07-24] MEDS: PANTOPRAZOLE 40 MG TABLET PO SCH (09:50)
[2022-07-24] MEDS: PATIENT'S OWN MEDICATION (NON-FORMULARY) (Empagliflozin [Jardiance] 10 MG Tablet) PO SCH (09:51)
[2022-07-24] MEDS: METHIMAZOLE 5 MG TABLET PO SCH (09:52)
[2022-07-24] MEDS ORDERED: FUROSEMIDE 40 MG TABLET (FP) PO SCH (10:00)
[2022-07-24 11:31] VITALS: RESP 20
[2022-07-24 14:58] VITALS: BP 105/70; PULSE 87; TEMP 98.6
== END 2022-07-24 17:22 | disposition home or self-care (01) | DRG 637 ==
LOC: JER 10:29 → JERBED 15:40 → UNDOADMOB 15:40 → INTOOBSV 15:40 → JERBED 17:10 → J4S 07-18 02:46 → UNDODISIN 07-19 13:34 → OBSVTOIN 07-21 14:42
PROVIDERS: ADMIT Internal Medicine; ATTEND Internal Medicine
DX: E11.649 Type 2 diabetes mellitus with hypoglycemia without coma (principal); I50.33 Acute on chronic diastolic (congestive) heart failure; I48.11 Longstanding persistent atrial fibrillation; Z68.41 Body mass index [BMI] 40.0-44.9, adult; K81.0 Acute cholecystitis; E78.5 Hyperlipidemia, unspecified; J44.9 Chronic obstructive pulmonary disease, unspecified; K21.9 Gastro-esophageal reflux disease without esophagitis; E66.01 Morbid (severe) obesity due to excess calories; F03.90 Unspecified dementia, unspecified severity, without behavioral disturbance, psychotic disturbance, mood disturbance, and anxiety; I07.1 Rheumatic tricuspid insufficiency; M54.50 Low back pain, unspecified; E05.80 Other thyrotoxicosis without thyrotoxic crisis or storm; K82.8 Other specified diseases of gallbladder; I11.0 Hypertensive heart disease with heart failure; E66.9 Obesity, unspecified; Z68.37 Body mass index [BMI] 37.0-37.9, adult
CPT/HCPCS: 0241U-QW; 26055; 36415; 70450-TC; 71045-TC-FY; 72125-TC; 76705-TC; 78226-TC; 80053; 81003; 82248; 82550; 82607; 82803; 82962; 83036; 83525; 83527; 83735; 83880; 84100; 84436; 84439; 84443; 84484; 85025; 85027; 85610; 85730; 87086; 93005; 93010; 93306-TC; 94010; 97116-GP; 97161-GP; 99285-25; A9537; G0378

== ENCOUNTER 2022-08-25 13:55 | Inpatient (IN) | payer OTHER ==
[2022-08-25 15:04] LABS: VENOUS O2 SATURATION 48.1 % (70-80)
[2022-08-25 15:06] LABS: BASO % 1.2 % (0-2.0); HEMATOCRIT 39.3 % (32.4-45.2); HEMOGLOBIN 11.8 GM/dL (10.7-15.3); LYMPH % 15.8 % (8-40); MCHC 30.1 g/dl (32.0-36.0); MEAN CELL VOLUME 79.5 fl (80-96); MEAN PLT VOLUME 9.3 fl (7.5-11.1); MONO % 9.2 % (3.8-10.2); NEUT % 71.8 % (42.8-82.8); PLATELET COUNT 209 10^3/uL (134-434); RBC 4.95 M/mm3 (3.60-5.2); RDW 18.8 % (11.6-15.6); WHITE BLOOD COUNT 6.6 K/mm3 (4.0-10.0)
[2022-08-25 15:08] LABS: VENOUS PCO2 73.2 mmHg (38-52); VENOUS PH 7.183 (7.310-7.410)
[2022-08-25 15:22] LABS: POTASSIUM 5.2 mmol/L (3.5-5.1)
[2022-08-25 15:24] LABS: CALCIUM 9.5 mg/dL (8.5-10.1)
[2022-08-25 15:25] LABS: ALBUMIN 3.3 g/dl (3.4-5.0); BLOOD UREA NITROGEN 50.4 mg/dL (7-18); MAGNESIUM 2.3 mg/dL (1.8-2.4)
[2022-08-25 15:28] LABS: CREATININE 2.1 mg/dL (0.55-1.3)
[2022-08-25 15:29] LABS: BILIRUBIN,TOTAL 1.5 mg/dL (0.2-1)
[2022-08-25 15:30] LABS: TOT PROT 6.8 g/dl (6.4-8.2)
[2022-08-25] MEDS ORDERED: ALBUTEROL SO4 2.5/IPRATROPIUM 0.5 INH SOL 3 ML VIAL.NEB. NEB ONE ×2 (15:32→16:01)
[2022-08-25 15:33] LABS: N-TERMINAL BNP 19532.4 pg/ml (5-450)
[2022-08-25] MEDS ORDERED: FUROSEMIDE 40 MG/4 ML INJECTABLE VIAL IVPUSH ONE ×2 (16:55→21:25)
[2022-08-25] MEDS ORDERED: FUROSEMIDE 40 MG/4 ML INJECTABLE VIAL ONE (16:59)
[2022-08-25 17:39] LABS: ARTERIAL BLD GAS O2 SATURATION 97.8 % (95-98); ARTERIAL BLOOD GAS BASE EXCESS -2.7 mmol/L (-2-2); ARTERIAL BLOOD GAS PO2 123.3 mmHg (80-100); ARTERIAL BLOOD GAS pH 7.249 (7.350-7.450)
[2022-08-25 17:40] LABS: ALLENS TEST POSITIVE; VENT MODE S/T; VENT RATE 18
[2022-08-25] MEDS ORDERED: RIVAROXABAN 15 MG TABLET PO SCH (18:00)
[2022-08-25 18:20] LABS: URINE APPEARANCE CLEAR; URINE BILIRUBIN NEGATIVE (NEGATIVE); URINE COLOR YELLOW; URINE GLUCOSE (UA) 3+ (NEGATIVE); URINE KETONE NEGATIVE (NEGATIVE); URINE LEUK ESTERASE NEGATIVE (NEGATIVE); URINE NITRITE NEGATIVE (NEGATIVE); URINE PROTEIN TRACE (NEGATIVE); URINE UROBILINOGEN 0.2 mg/dL (0.2-1.0)
[2022-08-25] MEDS: ENOXAPARIN NA (PORCINE) 100 MG/1 ML DISP.SYRIN SQ SCH (21:32)
[2022-08-25] MEDS: CHLORHEXIDINE GLUCONATE 4% CLEANSER FOR DECOLONIZATION TP SCH (21:33)
[2022-08-25] MEDS: MUPIROCIN 2% TOPICAL OINTMENT FOR DECOLONIZATION NS SCH (21:33)
[2022-08-25] MEDS: ATORVASTATIN CA 20 MG TABLET (FP) PO SCH (21:33)
[2022-08-25] MEDS: INSULIN SLIDING SCALE (NOVOLOG) 1 VIAL SQ SCH (21:33)
[2022-08-26] MEDS ORDERED: FUROSEMIDE 40 MG/4 ML INJECTABLE VIAL IVPUSH SCH (06:00)
[2022-08-26] MEDS: ENOXAPARIN NA (PORCINE) 100 MG/1 ML DISP.SYRIN SQ SCH ×2 (06:08→19:24)
[2022-08-26] MEDS: INSULIN SLIDING SCALE (NOVOLOG) 1 VIAL SQ SCH ×4 (06:09→21:16)
[2022-08-26 06:21] LABS: ARTERIAL BLD GAS O2 SATURATION 98.4 % (95-98); ARTERIAL BLOOD GAS BASE EXCESS 2.1 mmol/L (-2-2); ARTERIAL BLOOD GAS PO2 134.6 mmHg (80-100); ARTERIAL BLOOD GAS pH 7.317 (7.350-7.450)
[2022-08-26 06:27] LABS: VENT MODE S/T; VENT RATE 18
[2022-08-26 07:10] LABS: HEMATOCRIT 35.1 % (32.4-45.2); MCH 24.4 pg (25.7-33.7); MCHC 31.5 g/dl (32.0-36.0); MEAN CELL VOLUME 77.4 fl (80-96); MEAN PLT VOLUME 9.1 fl (7.5-11.1); PLATELET COUNT 153 10^3/uL (134-434); RBC 4.53 M/mm3 (3.60-5.2); RDW 18.5 % (11.6-15.6); WHITE BLOOD COUNT 5.8 K/mm3 (4.0-10.0)
[2022-08-26 07:28] LABS: INR 3.25 (0.83-1.09); PROTHROMBIN TIME (PATIENT) 37.3 SEC (9.7-13.0)
[2022-08-26 07:34] LABS: POTASSIUM 4.7 mmol/L (3.5-5.1)
[2022-08-26 07:41] LABS: ALBUMIN 2.7 g/dl (3.4-5.0); CALCIUM 9.4 mg/dL (8.5-10.1); MAGNESIUM 2.1 mg/dL (1.8-2.4)
[2022-08-26 07:44] LABS: CREATININE 1.8 mg/dL (0.55-1.3); PHOSPHOROUS 3.5 mg/dL (2.5-4.9)
[2022-08-26 07:46] LABS: BILIRUBIN,TOTAL 1.3 mg/dL (0.2-1); TOT PROT 5.5 g/dl (6.4-8.2)
[2022-08-26] MEDS: MUPIROCIN 2% TOPICAL OINTMENT FOR DECOLONIZATION NS SCH ×2 (09:40→21:16)
[2022-08-26] MEDS ORDERED: PANTOPRAZOLE 40 MG TABLET PO SCH (10:00)
[2022-08-26] MEDS: FUROSEMIDE INJECTION 100 MG in DEXTROSE 5%-WATER - 90 ML IVPB SCH ×2 (11:29→21:15)
[2022-08-26] MEDS: PANTOPRAZOLE SODIUM 40 MG VIAL IVPUSH SCH (11:32)
[2022-08-26] MEDS: CHLORHEXIDINE GLUCONATE 4% CLEANSER FOR DECOLONIZATION TP SCH (21:16)
[2022-08-27] MEDS: ENOXAPARIN NA (PORCINE) 100 MG/1 ML DISP.SYRIN SQ SCH ×2 (06:19→18:24)
[2022-08-27] MEDS: INSULIN SLIDING SCALE (NOVOLOG) 1 VIAL SQ SCH ×4 (06:19→21:18)
[2022-08-27 07:33] LABS: HEMATOCRIT 35.2 % (32.4-45.2); HEMOGLOBIN 11.2 GM/dL (10.7-15.3); MCH 24.3 pg (25.7-33.7); MCHC 31.7 g/dl (32.0-36.0); MEAN CELL VOLUME 76.5 fl (80-96); PLATELET COUNT 180 10^3/uL (134-434); RBC 4.61 M/mm3 (3.60-5.2); RDW 18.4 % (11.6-15.6); WHITE BLOOD COUNT 6.8 K/mm3 (4.0-10.0)
[2022-08-27 07:59] LABS: POTASSIUM 4.2 mmol/L (3.5-5.1)
[2022-08-27 08:03] LABS: ALBUMIN 2.7 g/dl (3.4-5.0); MAGNESIUM 1.8 mg/dL (1.8-2.4)
[2022-08-27 08:06] LABS: CREATININE 1.6 mg/dL (0.55-1.3); PHOSPHOROUS 2.8 mg/dL (2.5-4.9)
[2022-08-27 08:08] LABS: BILIRUBIN,TOTAL 2.1 mg/dL (0.2-1); TOT PROT 5.5 g/dl (6.4-8.2)
[2022-08-27] MEDS: FUROSEMIDE INJECTION 100 MG in DEXTROSE 5%-WATER - 90 ML IVPB SCH (09:30)
[2022-08-27] MEDS: PANTOPRAZOLE SODIUM 40 MG VIAL IVPUSH SCH (09:55)
[2022-08-27] MEDS: MUPIROCIN 2% TOPICAL OINTMENT FOR DECOLONIZATION NS SCH ×2 (09:56→21:18)
[2022-08-27] MEDS: ATORVASTATIN CA 20 MG TABLET (FP) PO SCH (21:18)
[2022-08-27] MEDS: CHLORHEXIDINE GLUCONATE 4% CLEANSER FOR DECOLONIZATION TP SCH (21:18)
[2022-08-28] MEDS: FUROSEMIDE INJECTION 100 MG in DEXTROSE 5%-WATER - 90 ML IVPB SCH (04:18)
[2022-08-28] MEDS: INSULIN SLIDING SCALE (NOVOLOG) 1 VIAL SQ SCH ×4 (06:23→21:16)
[2022-08-28] MEDS: ENOXAPARIN NA (PORCINE) 100 MG/1 ML DISP.SYRIN SQ SCH (06:23)
[2022-08-28 07:54] LABS: HEMATOCRIT 34.8 % (32.4-45.2); HEMOGLOBIN 11.1 GM/dL (10.7-15.3); MCH 24.3 pg (25.7-33.7); MCHC 31.9 g/dl (32.0-36.0); MEAN CELL VOLUME 76.2 fl (80-96); MEAN PLT VOLUME 9.1 fl (7.5-11.1); PLATELET COUNT 182 10^3/uL (134-434); RBC 4.57 M/mm3 (3.60-5.2); RDW 18.1 % (11.6-15.6)
[2022-08-28 08:02] LABS: POTASSIUM 3.9 mmol/L (3.5-5.1)
[2022-08-28 08:04] LABS: CALCIUM 9.2 mg/dL (8.5-10.1)
[2022-08-28 08:05] LABS: ALBUMIN 2.9 g/dl (3.4-5.0); MAGNESIUM 1.5 mg/dL (1.8-2.4)
[2022-08-28 08:07] LABS: CREATININE 1.5 mg/dL (0.55-1.3)
[2022-08-28 08:08] LABS: PHOSPHOROUS 2.4 mg/dL (2.5-4.9)
[2022-08-28 08:09] LABS: BILIRUBIN,TOTAL 2.3 mg/dL (0.2-1)
[2022-08-28] MEDS ORDERED: NAPH,MB-DB/K PH,MBDB POWDER PACKET PO ONE (08:10)
[2022-08-28] MEDS ORDERED: MAGNESIUM SULF 50% (8.12 MEQ/2 ML-1 GM VIAL) IVPB ONE (08:10)
[2022-08-28] MEDS: SERTRALINE HCL 25 MG TABLET (FP) PO SCH (09:00)
[2022-08-28] MEDS: PANTOPRAZOLE SODIUM 40 MG VIAL IVPUSH SCH (09:00)
[2022-08-28] MEDS: METHIMAZOLE 5 MG TABLET PO SCH (10:24)
[2022-08-28] MEDS: MUPIROCIN 2% TOPICAL OINTMENT FOR DECOLONIZATION NS SCH (10:25)
[2022-08-28] MEDS ORDERED: INSULIN (NOVOLOG) ASPART 100 UNITS/ML 10ML VIAL ONE (10:32)
[2022-08-28 12:29] LABS: ARTERIAL BLD GAS O2 SATURATION 97.6 % (95-98); ARTERIAL BLOOD GAS BASE EXCESS 8.9 mmol/L (-2-2); ARTERIAL BLOOD GAS PO2 99.7 mmHg (80-100); ARTERIAL BLOOD GAS pH 7.436 (7.350-7.450)
[2022-08-28] MEDS: FUROSEMIDE 40 MG/4 ML INJECTABLE VIAL IVPUSH SCH (16:37)
[2022-08-28 17:16] LABS: BILIRUBIN,DIRECT 0.8 mg/dL (0.0-0.2)
[2022-08-28] MEDS: RIVAROXABAN 15 MG TABLET PO SCH (17:54)
[2022-08-28] MEDS: ATORVASTATIN CA 20 MG TABLET (FP) PO SCH (21:10)
[2022-08-29] MEDS: FUROSEMIDE 40 MG/4 ML INJECTABLE VIAL IVPUSH SCH ×2 (05:29→16:04)
[2022-08-29] MEDS: INSULIN SLIDING SCALE (NOVOLOG) 1 VIAL SQ SCH ×4 (06:19→23:01)
[2022-08-29 07:35] LABS: BASO % 0.4 % (0-2.0); EOS % 0.3 % (0-4.5); HEMATOCRIT 36.9 % (32.4-45.2); HEMOGLOBIN 11.5 GM/dL (10.7-15.3); LYMPH % 11.3 % (8-40); MCH 23.9 pg (25.7-33.7); MCHC 31.3 g/dl (32.0-36.0); MEAN CELL VOLUME 76.5 fl (80-96); MEAN PLT VOLUME 8.3 fl (7.5-11.1); MONO % 12.6 % (3.8-10.2); NEUT % 75.4 % (42.8-82.8); PLATELET COUNT 167 10^3/uL (134-434); RBC 4.82 M/mm3 (3.60-5.2); RDW 18.6 % (11.6-15.6); WHITE BLOOD COUNT 8.8 K/mm3 (4.0-10.0)
[2022-08-29 07:58] LABS: CHLORIDE 96 mmol/L (98-107); POTASSIUM 4.1 mmol/L (3.5-5.1); SODIUM 141 mmol/L (136-145)
[2022-08-29 08:03] LABS: BILIRUBIN,DIRECT 0.9 mg/dL (0.0-0.2); CALCIUM 9.5 mg/dL (8.5-10.1)
[2022-08-29 08:04] LABS: ALBUMIN 3.2 g/dl (3.4-5.0); ANION GAP 8 MMOL/L (8-16); CO2 37 mmol/L (21-32); GLUCOSE,RANDOM 150 mg/dL (74-106); MAGNESIUM 1.7 mg/dL (1.8-2.4)
[2022-08-29 08:06] LABS: CREATININE 1.6 mg/dL (0.55-1.3); SGPT/ALT 12 U/L (13-61)
[2022-08-29 08:07] LABS: BILIRUBIN,TOTAL 3.3 mg/dL (0.2-1); SGOT/AST 19 U/L (15-37); TOT PROT 6.7 g/dl (6.4-8.2)
[2022-08-29 08:08] LABS: PHOSPHOROUS 3.1 mg/dL (2.5-4.9)
[2022-08-29 08:09] LABS: ALK PHOS 171 U/L (45-117)
[2022-08-29 08:23] LABS: URIC ACID 14.7 mg/dL (2.6-7.2)
[2022-08-29] MEDS ORDERED: COLCHICINE 0.6 MG CAP PO ONE (09:49)
[2022-08-29] MEDS: ALLOPURINOL 100 MG TABLET (FP) PO SCH (10:38)
[2022-08-29] MEDS: METHIMAZOLE 5 MG TABLET PO SCH (10:38)
[2022-08-29] MEDS: SERTRALINE HCL 25 MG TABLET (FP) PO SCH (10:38)
[2022-08-29 14:49] LABS: BF WBC & OTHER NUCLEATED CELLS 18.528 /mm3
[2022-08-29 14:50] LABS: BODY FLUID MACROPHAGES 10 %; BODY FLUID MONOCYTE 6 %
[2022-08-29] MEDS: METOPROLOL TARTRATE 50 MG TABLET (FP) PO SCH ×3 (16:04→22:54)
[2022-08-29] MEDS: RIVAROXABAN 15 MG TABLET PO SCH (18:28)
[2022-08-29] MEDS ORDERED: INSULIN (NOVOLOG) ASPART 100 UNITS/ML 10ML VIAL ONE (21:21)
[2022-08-29] MEDS: ATORVASTATIN CA 20 MG TABLET (FP) PO SCH (22:54)
[2022-08-30] MEDS: METOPROLOL TARTRATE 50 MG TABLET (FP) PO SCH (06:52)
[2022-08-30] MEDS: FUROSEMIDE 40 MG/4 ML INJECTABLE VIAL IVPUSH SCH (06:57)
[2022-08-30] MEDS: INSULIN SLIDING SCALE (NOVOLOG) 1 VIAL SQ SCH ×4 (06:57→22:26)
[2022-08-30 09:31] LABS: ALBUMIN 2.8 g/dl (3.4-5.0)
[2022-08-30 09:36] LABS: BILIRUBIN,TOTAL 2.8 mg/dL (0.2-1); TOT PROT 6.1 g/dl (6.4-8.2)
[2022-08-30] MEDS: SERTRALINE HCL 25 MG TABLET (FP) PO SCH (09:39)
[2022-08-30] MEDS: ALLOPURINOL 100 MG TABLET (FP) PO SCH (09:39)
[2022-08-30] MEDS: METHIMAZOLE 5 MG TABLET PO SCH (09:39)
[2022-08-30] MEDS ORDERED: INSULIN (NOVOLOG) ASPART 100 UNITS/ML 10ML VIAL ONE ×2 (12:01→22:08)
[2022-08-30] MEDS: LIDOCAINE 5% TOPICAL PATCH TP SCH (12:02)
[2022-08-30] MEDS: RIVAROXABAN 20 MG TABLET PO SCH (17:38)
[2022-08-30] MEDS: ATORVASTATIN CA 20 MG TABLET (FP) PO SCH (22:26)
[2022-08-30] MEDS: LIDOCAINE PATCH REMOVAL MC SCH (22:26)
[2022-08-31] MEDS: INSULIN SLIDING SCALE (NOVOLOG) 1 VIAL SQ SCH ×4 (06:59→23:22)
[2022-08-31 08:14] LABS: BASO % 0.6 % (0-2.0); EOS % 2.9 % (0-4.5); HEMATOCRIT 31.8 % (32.4-45.2); HEMOGLOBIN 10.4 GM/dL (10.7-15.3); MCH 24.1 pg (25.7-33.7); MCHC 32.6 g/dl (32.0-36.0); MEAN CELL VOLUME 74.1 fl (80-96); MEAN PLT VOLUME 9.1 fl (7.5-11.1); MONO % 10.9 % (3.8-10.2); NEUT % 59.6 % (42.8-82.8); PLATELET COUNT 147 10^3/uL (134-434); RBC 4.29 M/mm3 (3.60-5.2); RDW 18.4 % (11.6-15.6); WHITE BLOOD COUNT 7.3 K/mm3 (4.0-10.0)
[2022-08-31 08:49] LABS: POTASSIUM 4.1 mmol/L (3.5-5.1)
[2022-08-31 08:53] LABS: ALBUMIN 2.8 g/dl (3.4-5.0); BLOOD UREA NITROGEN 49.6 mg/dL (7-18); MAGNESIUM 1.8 mg/dL (1.8-2.4)
[2022-08-31 08:56] LABS: CREATININE 1.7 mg/dL (0.55-1.3); PHOSPHOROUS 2.6 mg/dL (2.5-4.9)
[2022-08-31 08:57] LABS: BILIRUBIN,TOTAL 2.6 mg/dL (0.2-1); TOT PROT 6.1 g/dl (6.4-8.2)
[2022-08-31] MEDS: METHIMAZOLE 5 MG TABLET PO SCH (10:27)
[2022-08-31] MEDS: SERTRALINE HCL 25 MG TABLET (FP) PO SCH (10:28)
[2022-08-31] MEDS: LIDOCAINE 5% TOPICAL PATCH TP SCH (10:29)
[2022-08-31] MEDS: FUROSEMIDE 40 MG/4 ML INJECTABLE VIAL IVPUSH SCH (10:29)
[2022-08-31] MEDS: RIVAROXABAN 20 MG TABLET PO SCH (17:17)
[2022-08-31 21:59] VITALS: BMI 34.9
[2022-08-31] MEDS: ATORVASTATIN CA 20 MG TABLET (FP) PO SCH (23:19)
[2022-08-31] MEDS: LIDOCAINE PATCH REMOVAL MC SCH (23:20)
[2022-08-31] MEDS ORDERED: INSULIN (NOVOLOG) ASPART 100 UNITS/ML 10ML VIAL ONE (23:29)
[2022-09-01] MEDS ORDERED: INSULIN (NOVOLOG) ASPART 100 UNITS/ML 10ML VIAL ONE ×2 (05:55→11:07)
[2022-09-01] MEDS: INSULIN SLIDING SCALE (NOVOLOG) 1 VIAL SQ SCH ×4 (07:00→22:03)
[2022-09-01 07:51] LABS: BASO % 0.7 % (0-2.0); EOS % 5.4 % (0-4.5); HEMATOCRIT 31.7 % (32.4-45.2); HEMOGLOBIN 10.2 GM/dL (10.7-15.3); LYMPH % 22.9 % (8-40); MCH 23.8 pg (25.7-33.7); MCHC 32.1 g/dl (32.0-36.0); MEAN CELL VOLUME 74.3 fl (80-96); MEAN PLT VOLUME 9.7 fl (7.5-11.1); MONO % 8.3 % (3.8-10.2); NEUT % 62.7 % (42.8-82.8); PLATELET COUNT 163 10^3/uL (134-434); RBC 4.26 M/mm3 (3.60-5.2); RDW 18.6 % (11.6-15.6); WHITE BLOOD COUNT 6.6 K/mm3 (4.0-10.0)
[2022-09-01 07:55] LABS: INR 3.9 (0.83-1.09); PROTHROMBIN TIME (PATIENT) 44.6 SEC (9.7-13.0)
[2022-09-01 08:13] LABS: POTASSIUM 3.7 mmol/L (3.5-5.1)
[2022-09-01 08:15] LABS: BLOOD UREA NITROGEN 50.9 mg/dL (7-18); CALCIUM 9.3 mg/dL (8.5-10.1)
[2022-09-01 08:16] LABS: ALBUMIN 2.7 g/dl (3.4-5.0)
[2022-09-01 08:19] LABS: CREATININE 1.5 mg/dL (0.55-1.3)
[2022-09-01 08:20] LABS: BILIRUBIN,TOTAL 1.9 mg/dL (0.2-1); TOT PROT 5.9 g/dl (6.4-8.2)
[2022-09-01] MEDS ORDERED: LORazepam 2 MG/ML SDV VIAL IVPUSH PRN (08:59)
[2022-09-01] MEDS: ALLOPURINOL 100 MG TABLET (FP) PO SCH (09:50)
[2022-09-01] MEDS: SERTRALINE HCL 25 MG TABLET (FP) PO SCH (09:50)
[2022-09-01] MEDS: FUROSEMIDE 40 MG/4 ML INJECTABLE VIAL IVPUSH SCH (09:51)
[2022-09-01] MEDS: METHIMAZOLE 5 MG TABLET PO SCH (09:54)
[2022-09-01] MEDS: LIDOCAINE 5% TOPICAL PATCH TP SCH (09:54)
[2022-09-01] MEDS ORDERED: PHYTONADIONE 5 MG TABLET PO ONE (14:14)
[2022-09-01] MEDS: RIVAROXABAN 20 MG TABLET PO SCH (17:14)
[2022-09-01 20:16] LABS: GLIADIN ANTIBODY IGA 4 units (0-19); GLIADIN ANTIBODY IGG 2 units (0-19); TRANSGLUTAMINASE IGG < 2 U/mL (0-5)
[2022-09-01] MEDS: ATORVASTATIN CA 20 MG TABLET (FP) PO SCH (21:57)
[2022-09-01] MEDS: LIDOCAINE PATCH REMOVAL MC SCH (22:04)
[2022-09-02] MEDS: INSULIN SLIDING SCALE (NOVOLOG) 1 VIAL SQ SCH ×4 (06:11→23:04)
[2022-09-02 08:46] LABS: BASO % 0.7 % (0-2.0); EOS % 5.5 % (0-4.5); HEMATOCRIT 31.3 % (32.4-45.2); HEMOGLOBIN 9.9 GM/dL (10.7-15.3); LYMPH % 25.8 % (8-40); MCH 23.7 pg (25.7-33.7); MCHC 31.5 g/dl (32.0-36.0); MEAN CELL VOLUME 75.3 fl (80-96); MEAN PLT VOLUME 8.7 fl (7.5-11.1); MONO % 8.4 % (3.8-10.2); NEUT % 59.6 % (42.8-82.8); PLATELET COUNT 164 10^3/uL (134-434); RBC 4.16 M/mm3 (3.60-5.2); RDW 18.6 % (11.6-15.6); WHITE BLOOD COUNT 5.9 K/mm3 (4.0-10.0)
[2022-09-02 08:50] LABS: INR 2.23 (0.83-1.09); PROTHROMBIN TIME (PATIENT) 25.7 SEC (9.7-13.0)
[2022-09-02 09:12] LABS: POTASSIUM 3.9 mmol/L (3.5-5.1)
[2022-09-02 09:25] LABS: CALCIUM 9.3 mg/dL (8.5-10.1)
[2022-09-02 09:26] LABS: ALBUMIN 2.7 g/dl (3.4-5.0)
[2022-09-02 09:29] LABS: CREATININE 1.3 mg/dL (0.55-1.3)
[2022-09-02 09:30] LABS: BILIRUBIN,TOTAL 1.8 mg/dL (0.2-1); TOT PROT 5.8 g/dl (6.4-8.2)
[2022-09-02] MEDS: METHIMAZOLE 5 MG TABLET PO SCH (09:58)
[2022-09-02] MEDS: SERTRALINE HCL 25 MG TABLET (FP) PO SCH (09:59)
[2022-09-02] MEDS: LIDOCAINE 5% TOPICAL PATCH TP SCH (09:59)
[2022-09-02] MEDS: FUROSEMIDE 40 MG/4 ML INJECTABLE VIAL IVPUSH SCH (09:59)
[2022-09-02] MEDS: ALLOPURINOL 100 MG TABLET (FP) PO SCH (09:59)
[2022-09-02] MEDS ORDERED: INSULIN (NOVOLOG) ASPART 100 UNITS/ML 10ML VIAL ONE ×2 (11:48→18:13)
[2022-09-02] MEDS ORDERED: LORazepam 2 MG/ML SDV VIAL IVPUSH ONE (16:29)
[2022-09-02] MEDS ORDERED: RIVAROXABAN 15 MG TABLET PO SCH (18:00)
[2022-09-02] MEDS: LIDOCAINE PATCH REMOVAL MC SCH (21:38)
[2022-09-02] MEDS: ATORVASTATIN CA 20 MG TABLET (FP) PO SCH (23:04)
[2022-09-03] MEDS: INSULIN SLIDING SCALE (NOVOLOG) 1 VIAL SQ SCH ×4 (06:41→22:19)
[2022-09-03] MEDS: FUROSEMIDE 40 MG/4 ML INJECTABLE VIAL IVPUSH SCH ×2 (08:38→09:18)
[2022-09-03] MEDS: METHIMAZOLE 5 MG TABLET PO SCH ×2 (08:38→09:18)
[2022-09-03] MEDS: LIDOCAINE 5% TOPICAL PATCH TP SCH ×2 (08:38→09:18)
[2022-09-03] MEDS: SERTRALINE HCL 25 MG TABLET (FP) PO SCH ×2 (08:38→09:18)
[2022-09-03] MEDS: ALLOPURINOL 100 MG TABLET (FP) PO SCH ×2 (08:38→09:18)
[2022-09-03 09:01] LABS: BASO % 0.8 % (0-2.0); EOS % 3.4 % (0-4.5); HEMATOCRIT 31.5 % (32.4-45.2); LYMPH % 22.6 % (8-40); MCH 23.8 pg (25.7-33.7); MCHC 31.8 g/dl (32.0-36.0); MEAN CELL VOLUME 74.7 fl (80-96); MONO % 9.7 % (3.8-10.2); NEUT % 63.5 % (42.8-82.8); PLATELET COUNT 162 10^3/uL (134-434); RBC 4.22 M/mm3 (3.60-5.2); RDW 18.9 % (11.6-15.6)
[2022-09-03 09:03] LABS: PROTHROMBIN TIME (PATIENT) 34.4 SEC (9.7-13.0)
[2022-09-03] MEDS ORDERED: ENOXAPARIN NA (PORCINE) 40 MG/0.4 ML DISP.SYRIN SQ ONE (09:16)
[2022-09-03] MEDS ORDERED: PHYTONADIONE 5 MG TABLET PO ONE (09:17)
[2022-09-03 09:19] LABS: POTASSIUM 3.8 mmol/L (3.5-5.1)
[2022-09-03 09:24] LABS: CALCIUM 9.3 mg/dL (8.5-10.1)
[2022-09-03 09:25] LABS: ALBUMIN 2.8 g/dl (3.4-5.0); BLOOD UREA NITROGEN 42.8 mg/dL (7-18)
[2022-09-03 09:28] LABS: CREATININE 1.2 mg/dL (0.55-1.3); PHOSPHOROUS 2.8 mg/dL (2.5-4.9)
[2022-09-03 09:29] LABS: BILIRUBIN,TOTAL 2.3 mg/dL (0.2-1)
[2022-09-03 09:30] LABS: TOT PROT 6.1 g/dl (6.4-8.2)
[2022-09-03] MEDS ORDERED: INSULIN (NOVOLOG) ASPART 100 UNITS/ML 10ML VIAL ONE ×2 (19:10→22:18)
[2022-09-03] MEDS: ATORVASTATIN CA 20 MG TABLET (FP) PO SCH (22:17)
[2022-09-03] MEDS: LIDOCAINE PATCH REMOVAL MC SCH (22:17)
[2022-09-04] MEDS: INSULIN SLIDING SCALE (NOVOLOG) 1 VIAL SQ SCH ×4 (06:20→21:54)
[2022-09-04 09:32] LABS: BASO % 0.8 % (0-2.0); HEMATOCRIT 31.4 % (32.4-45.2); HEMOGLOBIN 9.9 GM/dL (10.7-15.3); LYMPH % 26.8 % (8-40); MCH 23.7 pg (25.7-33.7); MCHC 31.6 g/dl (32.0-36.0); MEAN CELL VOLUME 75.1 fl (80-96); MEAN PLT VOLUME 9.2 fl (7.5-11.1); MONO % 9.4 % (3.8-10.2); PLATELET COUNT 170 10^3/uL (134-434); RBC 4.19 M/mm3 (3.60-5.2); WHITE BLOOD COUNT 5.7 K/mm3 (4.0-10.0)
[2022-09-04 09:37] LABS: INR 1.94 (0.83-1.09); PROTHROMBIN TIME (PATIENT) 22.3 SEC (9.7-13.0)
[2022-09-04 09:51] LABS: POTASSIUM 4.1 mmol/L (3.5-5.1)
[2022-09-04 10:04] LABS: ALBUMIN 2.8 g/dl (3.4-5.0)
[2022-09-04 10:06] LABS: BLOOD UREA NITROGEN 41.2 mg/dL (7-18); CALCIUM 9.3 mg/dL (8.5-10.1)
[2022-09-04 10:08] LABS: MAGNESIUM 2.1 mg/dL (1.8-2.4)
[2022-09-04 10:12] LABS: CREATININE 1.2 mg/dL (0.55-1.3)
[2022-09-04 10:14] LABS: BILIRUBIN,TOTAL 2.3 mg/dL (0.2-1)
[2022-09-04] MEDS: FUROSEMIDE 40 MG/4 ML INJECTABLE VIAL IVPUSH SCH (10:36)
[2022-09-04] MEDS: METHIMAZOLE 5 MG TABLET PO SCH (10:37)
[2022-09-04] MEDS: ALLOPURINOL 100 MG TABLET (FP) PO SCH (10:37)
[2022-09-04] MEDS: ACETAMINOPHEN 325 MG TABLET (FP) PO PRN (10:37)
[2022-09-04] MEDS: SERTRALINE HCL 25 MG TABLET (FP) PO SCH (10:37)
[2022-09-04] MEDS: LIDOCAINE 5% TOPICAL PATCH TP SCH (10:38)
[2022-09-04] MEDS ORDERED: INSULIN (NOVOLOG) ASPART 100 UNITS/ML 10ML VIAL ONE ×3 (10:58→17:00)
[2022-09-04 14:24] LABS: BF WBC & OTHER NUCLEATED CELLS 946 /mm3
[2022-09-04 15:07] LABS: BODY FLUID MACROPHAGES 30 %; BODY FLUID MESOTHELIAL 5 %
[2022-09-04] MEDS: LIDOCAINE PATCH REMOVAL MC SCH (21:57)
[2022-09-04] MEDS: ATORVASTATIN CA 20 MG TABLET (FP) PO SCH (21:57)
[2022-09-05] MEDS: INSULIN SLIDING SCALE (NOVOLOG) 1 VIAL SQ SCH ×4 (06:06→21:31)
[2022-09-05 08:36] LABS: BASO % 0.9 % (0-2.0); EOS % 3.4 % (0-4.5); HEMATOCRIT 30.9 % (32.4-45.2); HEMOGLOBIN 9.7 GM/dL (10.7-15.3); MCH 23.6 pg (25.7-33.7); MCHC 31.3 g/dl (32.0-36.0); MEAN CELL VOLUME 75.3 fl (80-96); MONO % 8.8 % (3.8-10.2); NEUT % 61.9 % (42.8-82.8); PLATELET COUNT 158 10^3/uL (134-434); RDW 19.1 % (11.6-15.6); WHITE BLOOD COUNT 5.6 K/mm3 (4.0-10.0)
[2022-09-05] MEDS: FUROSEMIDE 40 MG/4 ML INJECTABLE VIAL IVPUSH SCH (08:53)
[2022-09-05 08:55] LABS: POTASSIUM 4.1 mmol/L (3.5-5.1)
[2022-09-05 08:58] LABS: ALBUMIN 2.8 g/dl (3.4-5.0); BLOOD UREA NITROGEN 42.8 mg/dL (7-18); CALCIUM 9.3 mg/dL (8.5-10.1); MAGNESIUM 2.2 mg/dL (1.8-2.4)
[2022-09-05 09:01] LABS: CREATININE 1.3 mg/dL (0.55-1.3); PHOSPHOROUS 2.9 mg/dL (2.5-4.9); URIC ACID 10.6 mg/dL (2.6-7.2)
[2022-09-05 09:04] LABS: BILIRUBIN,TOTAL 1.5 mg/dL (0.2-1)
[2022-09-05] MEDS ORDERED: POLYETHYLENE GLYCOL (HEALTHYLAX) 3350 17 GM PACKET PO SCH (10:00)
[2022-09-05] MEDS: LIDOCAINE 5% TOPICAL PATCH TP SCH (10:08)
[2022-09-05] MEDS: FERROUS SO4 325 MG TABLET (FP) PO SCH (10:08)
[2022-09-05] MEDS: ALLOPURINOL 100 MG TABLET (FP) PO SCH (10:09)
[2022-09-05] MEDS: METHIMAZOLE 5 MG TABLET PO SCH (10:09)
[2022-09-05] MEDS: SERTRALINE HCL 25 MG TABLET (FP) PO SCH (10:09)
[2022-09-05 10:43] LABS: BILIRUBIN,DIRECT 0.7 mg/dL (0.0-0.2)
[2022-09-05] MEDS ORDERED: INSULIN (NOVOLOG) ASPART 100 UNITS/ML 10ML VIAL ONE ×4 (11:10→16:48)
[2022-09-05] MEDS: POLYETHYLENE GLYCOL (HEALTHYLAX) 3350 17 GM PACKET PO SCH ×2 (13:17→21:29)
[2022-09-05] MEDS: ATORVASTATIN CA 20 MG TABLET (FP) PO SCH (21:29)
[2022-09-05] MEDS: LIDOCAINE PATCH REMOVAL MC SCH (21:38)
[2022-09-06] MEDS: POLYETHYLENE GLYCOL (HEALTHYLAX) 3350 17 GM PACKET PO SCH ×3 (05:19→22:55)
[2022-09-06] MEDS: INSULIN SLIDING SCALE (NOVOLOG) 1 VIAL SQ SCH ×4 (06:34→22:56)
[2022-09-06] MEDS: ACETAMINOPHEN 325 MG TABLET (FP) PO PRN ×2 (06:45→15:45)
[2022-09-06 07:30] LABS: BASO % 0.6 % (0-2.0); EOS % 3.5 % (0-4.5); HEMATOCRIT 31.4 % (32.4-45.2); HEMOGLOBIN 10.1 GM/dL (10.7-15.3); MCH 23.8 pg (25.7-33.7); MEAN CELL VOLUME 74.4 fl (80-96); MEAN PLT VOLUME 9.2 fl (7.5-11.1); MONO % 8.9 % (3.8-10.2); PLATELET COUNT 162 10^3/uL (134-434); RBC 4.22 M/mm3 (3.60-5.2); RDW 19.1 % (11.6-15.6); WHITE BLOOD COUNT 6.6 K/mm3 (4.0-10.0)
[2022-09-06 07:58] LABS: POTASSIUM 4.4 mmol/L (3.5-5.1)
[2022-09-06 08:17] LABS: ALBUMIN 2.8 g/dl (3.4-5.0); CALCIUM 9.8 mg/dL (8.5-10.1)
[2022-09-06 08:18] LABS: BLOOD UREA NITROGEN 36.1 mg/dL (7-18)
[2022-09-06 08:20] LABS: CREATININE 1.1 mg/dL (0.55-1.3)
[2022-09-06 08:22] LABS: BILIRUBIN,TOTAL 1.7 mg/dL (0.2-1); TOT PROT 6.1 g/dl (6.4-8.2)
[2022-09-06] MEDS: FUROSEMIDE 40 MG/4 ML INJECTABLE VIAL IVPUSH SCH (10:14)
[2022-09-06] MEDS: METHIMAZOLE 5 MG TABLET PO SCH (10:15)
[2022-09-06] MEDS: LIDOCAINE 5% TOPICAL PATCH TP SCH (10:15)
[2022-09-06] MEDS: ALLOPURINOL 100 MG TABLET (FP) PO SCH (10:16)
[2022-09-06] MEDS: FERROUS SO4 325 MG TABLET (FP) PO SCH (10:16)
[2022-09-06] MEDS: SERTRALINE HCL 25 MG TABLET (FP) PO SCH (10:16)
[2022-09-06] MEDS ORDERED: INSULIN (NOVOLOG) ASPART 100 UNITS/ML 10ML VIAL ONE ×2 (12:55→16:16)
[2022-09-06] MEDS: LIDOCAINE PATCH REMOVAL MC SCH (22:55)
[2022-09-06] MEDS: ATORVASTATIN CA 20 MG TABLET (FP) PO SCH (22:55)
[2022-09-07] MEDS: POLYETHYLENE GLYCOL (HEALTHYLAX) 3350 17 GM PACKET PO SCH ×3 (05:57→22:21)
[2022-09-07] MEDS: ACETAMINOPHEN 325 MG TABLET (FP) PO PRN ×2 (05:57→22:21)
[2022-09-07] MEDS: INSULIN SLIDING SCALE (NOVOLOG) 1 VIAL SQ SCH ×4 (06:02→22:27)
[2022-09-07 07:48] LABS: POTASSIUM 4.6 mmol/L (3.5-5.1)
[2022-09-07 07:50] LABS: CALCIUM 9.5 mg/dL (8.5-10.1)
[2022-09-07 07:51] LABS: ALBUMIN 2.9 g/dl (3.4-5.0); BLOOD UREA NITROGEN 41.5 mg/dL (7-18)
[2022-09-07 07:54] LABS: CREATININE 1.2 mg/dL (0.55-1.3); PHOSPHOROUS 3.2 mg/dL (2.5-4.9)
[2022-09-07 07:55] LABS: BILIRUBIN,TOTAL 1.3 mg/dL (0.2-1); TOT PROT 6.1 g/dl (6.4-8.2)
[2022-09-07] MEDS: FUROSEMIDE 40 MG/4 ML INJECTABLE VIAL IVPUSH SCH (09:35)
[2022-09-07] MEDS: METHIMAZOLE 5 MG TABLET PO SCH (09:35)
[2022-09-07] MEDS: SERTRALINE HCL 25 MG TABLET (FP) PO SCH (09:35)
[2022-09-07] MEDS: FERROUS SO4 325 MG TABLET (FP) PO SCH (09:35)
[2022-09-07] MEDS: LIDOCAINE 5% TOPICAL PATCH TP SCH (09:35)
[2022-09-07] MEDS: ALLOPURINOL 100 MG TABLET (FP) PO SCH (09:35)
[2022-09-07] MEDS ORDERED: INSULIN (NOVOLOG) ASPART 100 UNITS/ML 10ML VIAL ONE (11:48)
[2022-09-07] MEDS ORDERED: MINERAL OIL ENEMA 133 ML ENEMA RC ONE (16:24)
[2022-09-07] MEDS: ATORVASTATIN CA 20 MG TABLET (FP) PO SCH (22:21)
[2022-09-07] MEDS: LIDOCAINE PATCH REMOVAL MC SCH (22:22)
[2022-09-08] MEDS: POLYETHYLENE GLYCOL (HEALTHYLAX) 3350 17 GM PACKET PO SCH ×2 (05:45→17:48)
[2022-09-08] MEDS: ACETAMINOPHEN 325 MG TABLET (FP) PO PRN (05:54)
[2022-09-08] MEDS: INSULIN SLIDING SCALE (NOVOLOG) 1 VIAL SQ SCH ×3 (06:01→17:27)
[2022-09-08] MEDS: FUROSEMIDE 40 MG/4 ML INJECTABLE VIAL IVPUSH SCH (09:33)
[2022-09-08] MEDS: ALLOPURINOL 100 MG TABLET (FP) PO SCH (09:34)
[2022-09-08] MEDS: SERTRALINE HCL 25 MG TABLET (FP) PO SCH (09:34)
[2022-09-08] MEDS: LIDOCAINE 5% TOPICAL PATCH TP SCH (09:34)
[2022-09-08] MEDS: METHIMAZOLE 5 MG TABLET PO SCH (09:35)
[2022-09-08] MEDS: FERROUS SO4 325 MG TABLET (FP) PO SCH (09:35)
[2022-09-08 09:54] VITALS: RESP 20
[2022-09-08] MEDS ORDERED: SENNOSIDES/DOCUSATE COMBO (SENNA PLUS) TABLET (UD) PO SCH (10:00)
[2022-09-08] MEDS ORDERED: INSULIN (NOVOLOG) ASPART 100 UNITS/ML 10ML VIAL ONE ×2 (11:52→17:27)
[2022-09-08 14:43] VITALS: BP 115/69; PULSE 87; TEMP 97.3
== END 2022-09-08 17:45 | DRG 280 ==
LOC: JER 13:55 → JERBED 16:13 → JICU 18:42 → J7W 08-29 14:11
PROVIDERS: ADMIT Internal Medicine Pulmonary Disease
PROC: 4A133J1 Monitoring of Arterial Pulse, Peripheral, Percutaneous Approach (ICD-10-PCS; 2022-08-25)
PROC: 4A133B1 Monitoring of Arterial Pressure, Peripheral, Percutaneous Approach (ICD-10-PCS; 2022-08-25)
PROC: 0W9G3ZX Drainage of Peritoneal Cavity, Percutaneous Approach, Diagnostic (ICD-10-PCS; principal; 2022-09-04)
DX: I13.0 Hypertensive heart and chronic kidney disease with heart failure and stage 1 through stage 4 chronic kidney disease, or unspecified chronic kidney disease (principal); I21.A1 Myocardial infarction type 2; I50.33 Acute on chronic diastolic (congestive) heart failure; J96.21 Acute and chronic respiratory failure with hypoxia; J44.1 Chronic obstructive pulmonary disease with (acute) exacerbation; N17.9 Acute kidney failure, unspecified; R18.8 Other ascites; I31.39 Other pericardial effusion (noninflammatory); E87.20 Acidosis, unspecified; J81.1 Chronic pulmonary edema; E87.29 Other acidosis; J90 Pleural effusion, not elsewhere classified; I48.92 Unspecified atrial flutter; I48.11 Longstanding persistent atrial fibrillation; E66.2 Morbid (severe) obesity with alveolar hypoventilation; E05.90 Thyrotoxicosis, unspecified without thyrotoxic crisis or storm; E11.22 Type 2 diabetes mellitus with diabetic chronic kidney disease; E11.43 Type 2 diabetes mellitus with diabetic autonomic (poly)neuropathy; I48.91 Unspecified atrial fibrillation; K21.9 Gastro-esophageal reflux disease without esophagitis; E78.5 Hyperlipidemia, unspecified; Z68.34 Body mass index [BMI] 34.0-34.9, adult; N18.2 Chronic kidney disease, stage 2 (mild)
CPT/HCPCS: 0241U-QW; 36415; 36600; 70450-TC; 71045-TC-FY; 71250-TC; 73562-TC-LT-FY; 74176-TC; 74181-TC; 76705-TC; 76942-TC; 80053; 80076; 81003; 82042; 82105; 82150; 82248; 82308; 82465; 82728; 82784; 82803; 82945; 82962; 82977; 83516; 83540; 83550; 83615; 83735; 83880; 83986; 84100; 84157; 84439; 84443; 84478; 84484; 84550; 85025; 85027; 85610; 86038; 86140; 86705; 86706; 86803; 87070; 87075; 87086; 87102; 87116; 87205; 87206; 87210; 87340; 88108; 88305-TC; 89060; 93005; 93010; 93306-TC; 94660; 94761; 97116-GP; 97162-GP; 99285-25; C9803-CS; U0003; U0005

== ENCOUNTER 2022-10-09 15:28 | Inpatient (IN) | payer OTHER ==
[2022-10-09 16:48] LABS: VENOUS BASE EXCESS -0.5 mmol/L (-2-2); VENOUS O2 SATURATION 75.7 % (70-80); VENOUS PCO2 55.5 mmHg (38-52); VENOUS PH 7.301 (7.310-7.410)
[2022-10-09 16:56] LABS: INR 1.77 (0.83-1.09); PROTHROMBIN TIME (PATIENT) 20.4 SEC (9.7-13.0)
[2022-10-09 16:59] LABS: ACTIVATED PTT 26.8 SECONDS (25.2-36.5)
[2022-10-09 17:05] LABS: CHLORIDE 94 mmol/L (98-107); SODIUM 134 mmol/L (136-145)
[2022-10-09 17:07] LABS: CALCIUM 9.9 mg/dL (8.5-10.1)
[2022-10-09 17:08] LABS: ALBUMIN 3.2 g/dl (3.4-5.0); BLOOD UREA NITROGEN 69.2 mg/dL (7-18); CO2 31 mmol/L (21-32); LIPASE 166 U/L (73-393); MAGNESIUM 2.2 mg/dL (1.8-2.4)
[2022-10-09 17:11] LABS: CREATININE 1.9 mg/dL (0.55-1.3); SGOT/AST 12 U/L (15-37); SGPT/ALT 14 U/L (13-61)
[2022-10-09 17:12] LABS: BILIRUBIN,TOTAL 1.4 mg/dL (0.2-1); TOT PROT 6.6 g/dl (6.4-8.2)
[2022-10-09 17:14] LABS: ALK PHOS 182 U/L (45-117)
[2022-10-09 17:32] LABS: ANION GAP 8 MMOL/L (8-16); GLUCOSE,RANDOM 669 mg/dL (74-106); POTASSIUM 6.3 mmol/L (3.5-5.1)
[2022-10-09 17:38] LABS: HEMATOCRIT 37.6 % (32.4-45.2); HEMOGLOBIN 11.3 GM/dL (10.7-15.3); LYMPH % 3.7 % (8-40); MCH 23.2 pg (25.7-33.7); MEAN CELL VOLUME 77.1 fl (80-96); MEAN PLT VOLUME 8.6 fl (7.5-11.1); MONO % 3.3 % (3.8-10.2); PLATELET COUNT 189 10^3/uL (134-434); RBC 4.88 M/mm3 (3.60-5.2); WHITE BLOOD COUNT 6.7 K/mm3 (4.0-10.0)
[2022-10-09] MEDS ORDERED: INSULIN REGULAR HUMAN 100 UNITS/ML *VIAL IVPUSH ONE (17:45)
[2022-10-09] MEDS ORDERED: FUROSEMIDE 40 MG/4 ML INJECTABLE VIAL IVPUSH ONE (17:46)
[2022-10-09 17:53] LABS: ANISOCYTOSIS 2+; MACROCYTOSIS 1+; OVALOCYTE 1+; TARGET CELLS 2+
[2022-10-09] MEDS ORDERED: INSULIN REGULAR HUMAN 100 UNITS/ML *VIAL SQ ONE (17:53)
[2022-10-09] MEDS ORDERED: FUROSEMIDE 40 MG/4 ML INJECTABLE VIAL ONE (18:06)
[2022-10-09 19:00] LABS: LACTIC ACID 2.5 mmol/L (0.4-2.0)
[2022-10-09] MEDS ORDERED: PIPERACILLIN/TAZOB 4.5 GM 4.5 GM in DEXTROSE 5%-WATER 100 ML IVPB ONE (21:40)
[2022-10-09] MEDS ORDERED: PIPERACILLIN/TAZOB 4.5 GM 4.5 GM/100 ML BAG IVPB ONE (21:46)
[2022-10-10] MEDS: PIPERACILLIN/TAZOB 2.25 GM 2.25 GM in DEXTROSE 5%-WATER - 50 ML IVPB SCH ×3 (01:00→18:39)
[2022-10-10] MEDS ORDERED: INSULIN (NOVOLOG) ASPART 100 UNITS/ML 10ML VIAL ONE ×5 (02:21→17:20)
[2022-10-10] MEDS: INSULIN SLIDING SCALE (NOVOLOG) 1 VIAL SQ SCH ×6 (02:24→22:34)
[2022-10-10] MEDS ORDERED: ALBUTEROL SO4 2.5/IPRATROPIUM 0.5 INH SOL 3 ML VIAL.NEB. NEB PRN (02:37)
[2022-10-10] MEDS: FUROSEMIDE 40 MG/4 ML INJECTABLE VIAL IVPUSH SCH ×2 (06:21→17:17)
[2022-10-10] MEDS: POLYETHYLENE GLYCOL (HEALTHYLAX) 3350 17 GM PACKET PO SCH ×3 (06:21→22:31)
[2022-10-10] MEDS ORDERED: INSULIN (LEVEMIR) 100 UNITS/ML UNITS SQ ONE ×3 (06:36→14:55)
[2022-10-10 08:08] LABS: BASO % 0.2 % (0-2.0); HEMATOCRIT 38.4 % (32.4-45.2); HEMOGLOBIN 11.5 GM/dL (10.7-15.3); LYMPH % 5.3 % (8-40); MCH 23.3 pg (25.7-33.7); MEAN CELL VOLUME 77.9 fl (80-96); MEAN PLT VOLUME 8.7 fl (7.5-11.1); MONO % 3.8 % (3.8-10.2); NEUT % 90.7 % (42.8-82.8); PLATELET COUNT 196 10^3/uL (134-434); RBC 4.93 M/mm3 (3.60-5.2); RDW 21.3 % (11.6-15.6); WHITE BLOOD COUNT 5.2 K/mm3 (4.0-10.0)
[2022-10-10 08:09] LABS: INR 1.54 (0.83-1.09); PROTHROMBIN TIME (PATIENT) 17.8 SEC (9.7-13.0)
[2022-10-10 08:38] LABS: CHLORIDE 96 mmol/L (98-107); POTASSIUM 4.7 mmol/L (3.5-5.1); SODIUM 138 mmol/L (136-145)
[2022-10-10 08:40] LABS: CALCIUM 10.5 mg/dL (8.5-10.1)
[2022-10-10 08:41] LABS: ANION GAP 7 MMOL/L (8-16); BLOOD UREA NITROGEN 65.8 mg/dL (7-18); CO2 35 mmol/L (21-32); MAGNESIUM 2.1 mg/dL (1.8-2.4)
[2022-10-10 08:44] LABS: CREATININE 1.8 mg/dL (0.55-1.3); PHOSPHOROUS 4.2 mg/dL (2.5-4.9)
[2022-10-10 08:49] LABS: GLUCOSE,RANDOM 436 mg/dL (74-106)
[2022-10-10 10:06] LABS: EPI CELLS 1 /uL (0-25.1); HYALINE CASTS 0 /uL (0-3.1); PH,URINE 5.5 (5.0-8.0); URINE APPEARANCE CLEAR; URINE BACTERIA 136 /uL (0-1359); URINE BILIRUBIN NEGATIVE (NEGATIVE); URINE COLOR YELLOW; URINE GLUCOSE (UA) 3+ (NEGATIVE); URINE KETONE NEGATIVE (NEGATIVE); URINE LEUK ESTERASE 2+ (NEGATIVE); URINE NITRITE NEGATIVE (NEGATIVE); URINE PROTEIN NEGATIVE (NEGATIVE); URINE RBC 7 /uL (0-23.9); URINE UROBILINOGEN 0.2 mg/dL (0.2-1.0); URINE WBC 358 /uL (0-25.8)
[2022-10-10] MEDS: SENNOSIDES 8.6MG TABLET (FP) PO SCH ×2 (10:24→22:30)
[2022-10-10] MEDS: PANTOPRAZOLE 40 MG TABLET PO SCH (10:24)
[2022-10-10] MEDS: SPIRONOLACTONE 25 MG TABLET PO SCH (10:25)
[2022-10-10] MEDS: SERTRALINE HCL 25 MG TABLET (FP) PO SCH (10:25)
[2022-10-10] MEDS: FERROUS SO4 325 MG TABLET (FP) PO SCH (10:25)
[2022-10-10 10:30] LABS: YEAST FEW (NEGATIVE)
[2022-10-10] MEDS: METHIMAZOLE 5 MG TABLET PO SCH (15:40)
[2022-10-11] MEDS: PIPERACILLIN/TAZOB 2.25 GM 2.25 GM in DEXTROSE 5%-WATER - 50 ML IVPB SCH ×3 (01:13→12:08)
[2022-10-11] MEDS: INSULIN SLIDING SCALE (NOVOLOG) 1 VIAL SQ SCH ×6 (03:04→22:33)
[2022-10-11] MEDS: FUROSEMIDE 40 MG/4 ML INJECTABLE VIAL IVPUSH SCH ×2 (06:56→17:04)
[2022-10-11] MEDS: INSULIN (LEVEMIR) 100 UNITS/ML UNITS SQ SCH (06:57)
[2022-10-11] MEDS: POLYETHYLENE GLYCOL (HEALTHYLAX) 3350 17 GM PACKET PO SCH ×3 (06:57→22:34)
[2022-10-11 07:44] LABS: POTASSIUM 4.4 mmol/L (3.5-5.1)
[2022-10-11 07:49] LABS: ALBUMIN 3.1 g/dl (3.4-5.0); BLOOD UREA NITROGEN 62.3 mg/dL (7-18); CALCIUM 10.2 mg/dL (8.5-10.1)
[2022-10-11 07:53] LABS: CREATININE 1.4 mg/dL (0.55-1.3)
[2022-10-11 07:54] LABS: BILIRUBIN,TOTAL 2.3 mg/dL (0.2-1); TOT PROT 6.2 g/dl (6.4-8.2)
[2022-10-11 08:27] LABS: BASO % 0.8 % (0-2.0); EOS % 0.5 % (0-4.5); HEMATOCRIT 41.8 % (32.4-45.2); HEMOGLOBIN 12.4 GM/dL (10.7-15.3); LYMPH % 7.1 % (8-40); MCH 22.8 pg (25.7-33.7); MCHC 29.8 g/dl (32.0-36.0); MEAN CELL VOLUME 76.7 fl (80-96); MEAN PLT VOLUME 8.3 fl (7.5-11.1); MONO % 5.5 % (3.8-10.2); NEUT % 86.1 % (42.8-82.8); PLATELET COUNT 237 10^3/uL (134-434); RBC 5.45 M/mm3 (3.60-5.2); RDW 21.9 % (11.6-15.6); WHITE BLOOD COUNT 10.6 K/mm3 (4.0-10.0)
[2022-10-11] MEDS: FERROUS SO4 325 MG TABLET (FP) PO SCH (10:30)
[2022-10-11] MEDS: PANTOPRAZOLE 40 MG TABLET PO SCH (10:30)
[2022-10-11] MEDS: SERTRALINE HCL 25 MG TABLET (FP) PO SCH (10:30)
[2022-10-11] MEDS: SENNOSIDES 8.6MG TABLET (FP) PO SCH (10:30)
[2022-10-11] MEDS: SPIRONOLACTONE 25 MG TABLET PO SCH (10:30)
[2022-10-11] MEDS: METHIMAZOLE 5 MG TABLET PO SCH (10:50)
[2022-10-11] MEDS ORDERED: INSULIN (NOVOLOG) ASPART 100 UNITS/ML 10ML VIAL ONE (11:20)
[2022-10-12] MEDS: INSULIN SLIDING SCALE (NOVOLOG) 1 VIAL SQ SCH ×6 (02:48→22:09)
[2022-10-12] MEDS: INSULIN (LEVEMIR) 100 UNITS/ML UNITS SQ SCH (06:35)
[2022-10-12] MEDS: POLYETHYLENE GLYCOL (HEALTHYLAX) 3350 17 GM PACKET PO SCH ×3 (06:35→22:09)
[2022-10-12] MEDS: FUROSEMIDE 40 MG/4 ML INJECTABLE VIAL IVPUSH SCH ×2 (06:35→17:10)
[2022-10-12 08:10] LABS: POTASSIUM 4.5 mmol/L (3.5-5.1)
[2022-10-12 08:29] LABS: ALBUMIN 2.9 g/dl (3.4-5.0); BLOOD UREA NITROGEN 55.1 mg/dL (7-18); CALCIUM 10.2 mg/dL (8.5-10.1)
[2022-10-12 08:32] LABS: CREATININE 1.3 mg/dL (0.55-1.3)
[2022-10-12 09:30] LABS: BASO % 0.5 % (0-2.0); EOS % 3.5 % (0-4.5); HEMATOCRIT 41.1 % (32.4-45.2); HEMOGLOBIN 12.7 GM/dL (10.7-15.3); LYMPH % 12.9 % (8-40); MCH 23.4 pg (25.7-33.7); MCHC 30.9 g/dl (32.0-36.0); MEAN CELL VOLUME 75.8 fl (80-96); MEAN PLT VOLUME 8.4 fl (7.5-11.1); MONO % 6.5 % (3.8-10.2); NEUT % 76.6 % (42.8-82.8); PLATELET COUNT 234 10^3/uL (134-434); RBC 5.42 M/mm3 (3.60-5.2); RDW 21.9 % (11.6-15.6); WHITE BLOOD COUNT 11.4 K/mm3 (4.0-10.0)
[2022-10-12] MEDS: METHIMAZOLE 5 MG TABLET PO SCH (11:00)
[2022-10-12] MEDS: SPIRONOLACTONE 25 MG TABLET PO SCH (11:00)
[2022-10-12] MEDS: PANTOPRAZOLE 40 MG TABLET PO SCH (11:00)
[2022-10-12] MEDS: SERTRALINE HCL 25 MG TABLET (FP) PO SCH (11:01)
[2022-10-12] MEDS ORDERED: DEXTROSE 50%-WATER 25 GM/50 ML DISP.SYRIN ONE (11:20)
[2022-10-12] MEDS ORDERED: DEXTROSE 50%-WATER 25 GM/50 ML DISP.SYRIN IVPUSH ONE (11:30)
[2022-10-12 16:58] LABS: BF WBC & OTHER NUCLEATED CELLS 571 /mm3; BODY FLUID MACROPHAGES 10 %; BODY FLUID MESOTHELIAL 16 %; BODY FLUID MONOCYTE 30 %; BODYL FLD EOSINOPHIL 1 %
[2022-10-12] MEDS: PIPERACILLIN/TAZOB 2.25 GM 2.25 GM in DEXTROSE 5%-WATER - 50 ML IVPB SCH ×2 (17:09→22:08)
[2022-10-12] MEDS ORDERED: INSULIN (LEVEMIR) 100 UNITS/ML UNITS SQ SCH (23:02)
[2022-10-13] MEDS: PIPERACILLIN/TAZOB 2.25 GM 2.25 GM in DEXTROSE 5%-WATER - 50 ML IVPB SCH ×4 (05:18→22:22)
[2022-10-13] MEDS: FUROSEMIDE 40 MG/4 ML INJECTABLE VIAL IVPUSH SCH ×2 (05:18→17:00)
[2022-10-13] MEDS: POLYETHYLENE GLYCOL (HEALTHYLAX) 3350 17 GM PACKET PO SCH ×3 (05:44→21:03)
[2022-10-13] MEDS: INSULIN (LEVEMIR) 100 UNITS/ML UNITS SQ SCH (06:02)
[2022-10-13] MEDS: INSULIN SLIDING SCALE (NOVOLOG) 1 VIAL SQ SCH ×4 (06:02→21:08)
[2022-10-13 08:02] LABS: POTASSIUM 4.2 mmol/L (3.5-5.1)
[2022-10-13 08:07] LABS: BLOOD UREA NITROGEN 46.8 mg/dL (7-18)
[2022-10-13 08:08] LABS: CALCIUM 10.2 mg/dL (8.5-10.1)
[2022-10-13 08:11] LABS: CREATININE 1.2 mg/dL (0.55-1.3)
[2022-10-13 08:39] LABS: HEMATOCRIT 42.1 % (32.4-45.2); HEMOGLOBIN 12.8 GM/dL (10.7-15.3); MCH 23.2 pg (25.7-33.7); MCHC 30.3 g/dl (32.0-36.0); MEAN CELL VOLUME 76.7 fl (80-96); MEAN PLT VOLUME 8.3 fl (7.5-11.1); PLATELET COUNT 219 10^3/uL (134-434); RBC 5.49 M/mm3 (3.60-5.2); RDW 22.2 % (11.6-15.6); WHITE BLOOD COUNT 11.3 K/mm3 (4.0-10.0)
[2022-10-13] MEDS: PANTOPRAZOLE 40 MG TABLET PO SCH (10:00)
[2022-10-13] MEDS: SERTRALINE HCL 25 MG TABLET (FP) PO SCH (10:01)
[2022-10-13] MEDS: METHIMAZOLE 5 MG TABLET PO SCH (10:01)
[2022-10-13] MEDS: SPIRONOLACTONE 25 MG TABLET PO SCH (10:02)
[2022-10-13 10:59] LABS: ARTERIAL BLD GAS O2 SATURATION 96.9 % (95-98); ARTERIAL BLOOD GAS BASE EXCESS 12.4 mmol/L (-2-2); ARTERIAL BLOOD GAS PO2 85.9 mmHg (80-100); ARTERIAL BLOOD GAS pH 7.474 (7.350-7.450)
[2022-10-13 11:06] LABS: ALLENS TEST POSITIVE
[2022-10-13] MEDS ORDERED: FENTANYL CITRATE/PF 50 MCG/ML VIAL ONE ×2 (14:58→15:37)
[2022-10-14] MEDS: PIPERACILLIN/TAZOB 2.25 GM 2.25 GM in DEXTROSE 5%-WATER - 50 ML IVPB SCH ×4 (04:53→22:20)
[2022-10-14] MEDS: FUROSEMIDE 40 MG/4 ML INJECTABLE VIAL IVPUSH SCH ×2 (05:30→17:26)
[2022-10-14] MEDS: POLYETHYLENE GLYCOL (HEALTHYLAX) 3350 17 GM PACKET PO SCH ×3 (05:30→21:15)
[2022-10-14] MEDS: INSULIN SLIDING SCALE (NOVOLOG) 1 VIAL SQ SCH ×4 (06:26→21:20)
[2022-10-14 07:28] LABS: MCH 23.7 pg (25.7-33.7); MCHC 30.9 g/dl (32.0-36.0); MEAN CELL VOLUME 76.8 fl (80-96); MEAN PLT VOLUME 8.8 fl (7.5-11.1); PLATELET COUNT 185 10^3/uL (134-434); RBC 5.08 M/mm3 (3.60-5.2); WHITE BLOOD COUNT 10.3 K/mm3 (4.0-10.0)
[2022-10-14 07:57] LABS: BLOOD UREA NITROGEN 44.1 mg/dL (7-18); CALCIUM 9.8 mg/dL (8.5-10.1)
[2022-10-14 08:01] LABS: CREATININE 1.3 mg/dL (0.55-1.3)
[2022-10-14] MEDS: INSULIN (LEVEMIR) 100 UNITS/ML UNITS SQ SCH (08:18)
[2022-10-14] MEDS: SERTRALINE HCL 25 MG TABLET (FP) PO SCH (09:18)
[2022-10-14] MEDS: PANTOPRAZOLE 40 MG TABLET PO SCH (09:18)
[2022-10-14] MEDS: SPIRONOLACTONE 25 MG TABLET PO SCH (09:18)
[2022-10-14] MEDS: METHIMAZOLE 5 MG TABLET PO SCH (09:18)
[2022-10-14] MEDS ORDERED: INSULIN (NOVOLOG) ASPART 100 UNITS/ML 10ML VIAL ONE ×3 (11:08→21:20)
[2022-10-14 17:09] LABS: THYROID STIM IMMUNOGLOBULIN <0.10 IU/L (0.00-0.55)
[2022-10-15] MEDS: PIPERACILLIN/TAZOB 2.25 GM 2.25 GM in DEXTROSE 5%-WATER - 50 ML IVPB SCH ×4 (05:27→23:12)
[2022-10-15] MEDS: POLYETHYLENE GLYCOL (HEALTHYLAX) 3350 17 GM PACKET PO SCH ×3 (05:50→21:24)
[2022-10-15] MEDS: FUROSEMIDE 40 MG/4 ML INJECTABLE VIAL IVPUSH SCH ×2 (05:51→17:41)
[2022-10-15] MEDS: INSULIN SLIDING SCALE (NOVOLOG) 1 VIAL SQ SCH ×4 (06:25→21:31)
[2022-10-15] MEDS: INSULIN (LEVEMIR) 100 UNITS/ML UNITS SQ SCH (07:26)
[2022-10-15 08:38] LABS: HEMOGLOBIN 12.1 GM/dL (10.7-15.3); MCH 23.2 pg (25.7-33.7); MCHC 30.3 g/dl (32.0-36.0); MEAN CELL VOLUME 76.6 fl (80-96); MEAN PLT VOLUME 8.8 fl (7.5-11.1); PLATELET COUNT 166 10^3/uL (134-434); RBC 5.22 M/mm3 (3.60-5.2); RDW 22.7 % (11.6-15.6); WHITE BLOOD COUNT 10.8 K/mm3 (4.0-10.0)
[2022-10-15 09:39] LABS: POTASSIUM 3.7 mmol/L (3.5-5.1)
[2022-10-15 09:47] LABS: CALCIUM 9.8 mg/dL (8.5-10.1)
[2022-10-15 09:48] LABS: ALBUMIN 2.9 g/dl (3.4-5.0); BLOOD UREA NITROGEN 40.1 mg/dL (7-18)
[2022-10-15 09:50] LABS: BILIRUBIN,TOTAL 3.2 mg/dL (0.2-1)
[2022-10-15 09:51] LABS: CREATININE 1.4 mg/dL (0.55-1.3); TOT PROT 6.1 g/dl (6.4-8.2)
[2022-10-15] MEDS: SPIRONOLACTONE 25 MG TABLET PO SCH (09:51)
[2022-10-15] MEDS: METHIMAZOLE 5 MG TABLET PO SCH (09:52)
[2022-10-15] MEDS: PANTOPRAZOLE 40 MG TABLET PO SCH (09:52)
[2022-10-15] MEDS: SERTRALINE HCL 25 MG TABLET (FP) PO SCH (09:52)
[2022-10-15] MEDS ORDERED: INSULIN (NOVOLOG) ASPART 100 UNITS/ML 10ML VIAL ONE ×2 (12:16→21:31)
[2022-10-16] MEDS: PIPERACILLIN/TAZOB 2.25 GM 2.25 GM in DEXTROSE 5%-WATER - 50 ML IVPB SCH ×4 (06:31→22:12)
[2022-10-16] MEDS: POLYETHYLENE GLYCOL (HEALTHYLAX) 3350 17 GM PACKET PO SCH ×3 (06:32→22:12)
[2022-10-16] MEDS: INSULIN (LEVEMIR) 100 UNITS/ML UNITS SQ SCH (06:36)
[2022-10-16] MEDS: INSULIN SLIDING SCALE (NOVOLOG) 1 VIAL SQ SCH ×4 (06:37→22:20)
[2022-10-16] MEDS: SPIRONOLACTONE 25 MG TABLET PO SCH (10:04)
[2022-10-16] MEDS: PANTOPRAZOLE 40 MG TABLET PO SCH (10:04)
[2022-10-16] MEDS: SERTRALINE HCL 25 MG TABLET (FP) PO SCH (10:04)
[2022-10-16] MEDS: METHIMAZOLE 5 MG TABLET PO SCH (10:04)
[2022-10-16] MEDS ORDERED: INSULIN (NOVOLOG) ASPART 100 UNITS/ML 10ML VIAL ONE ×3 (11:46→21:19)
[2022-10-16 13:08] LABS: BODY FLUID ALBUMIN 2.6 g/dL (Not Estab.)
[2022-10-16] MEDS: FUROSEMIDE 40 MG/4 ML INJECTABLE VIAL IVPB SCH (14:13)
[2022-10-16 21:38] VITALS: BMI 30.4
[2022-10-17] MEDS: PIPERACILLIN/TAZOB 2.25 GM 2.25 GM in DEXTROSE 5%-WATER - 50 ML IVPB SCH ×2 (04:36→12:08)
[2022-10-17] MEDS: POLYETHYLENE GLYCOL (HEALTHYLAX) 3350 17 GM PACKET PO SCH ×3 (05:27→21:40)
[2022-10-17] MEDS: INSULIN (LEVEMIR) 100 UNITS/ML UNITS SQ SCH (06:06)
[2022-10-17] MEDS: INSULIN SLIDING SCALE (NOVOLOG) 1 VIAL SQ SCH ×4 (06:07→21:40)
[2022-10-17 07:53] LABS: EOS % 2.5 % (0-4.5); HEMATOCRIT 37.6 % (32.4-45.2); HEMOGLOBIN 11.5 GM/dL (10.7-15.3); LYMPH % 14.1 % (8-40); MCH 23.4 pg (25.7-33.7); MCHC 30.6 g/dl (32.0-36.0); MEAN CELL VOLUME 76.6 fl (80-96); MEAN PLT VOLUME 9.3 fl (7.5-11.1); MONO % 9.3 % (3.8-10.2); NEUT % 73.1 % (42.8-82.8); PLATELET COUNT 154 10^3/uL (134-434); WHITE BLOOD COUNT 11.8 K/mm3 (4.0-10.0)
[2022-10-17 08:11] LABS: POTASSIUM 3.9 mmol/L (3.5-5.1)
[2022-10-17 08:20] LABS: ALBUMIN 2.5 g/dl (3.4-5.0); CALCIUM 9.9 mg/dL (8.5-10.1)
[2022-10-17 08:21] LABS: BLOOD UREA NITROGEN 37.8 mg/dL (7-18)
[2022-10-17 08:23] LABS: CREATININE 1.5 mg/dL (0.55-1.3)
[2022-10-17 08:24] LABS: TOT PROT 5.8 g/dl (6.4-8.2)
[2022-10-17 08:52] LABS: ANISOCYTOSIS 2+; MACROCYTOSIS 0
[2022-10-17] MEDS: FUROSEMIDE 40 MG/4 ML INJECTABLE VIAL IVPB SCH (10:21)
[2022-10-17] MEDS: SERTRALINE HCL 25 MG TABLET (FP) PO SCH (10:21)
[2022-10-17] MEDS: PANTOPRAZOLE 40 MG TABLET PO SCH (10:21)
[2022-10-17] MEDS: METHIMAZOLE 5 MG TABLET PO SCH (10:21)
[2022-10-17] MEDS: SPIRONOLACTONE 25 MG TABLET PO SCH (10:21)
[2022-10-17] MEDS ORDERED: INSULIN (NOVOLOG) ASPART 100 UNITS/ML 10ML VIAL ONE ×2 (12:01→21:36)
[2022-10-18] MEDS: INSULIN (LEVEMIR) 100 UNITS/ML UNITS SQ SCH (06:17)
[2022-10-18] MEDS: POLYETHYLENE GLYCOL (HEALTHYLAX) 3350 17 GM PACKET PO SCH ×3 (06:17→21:45)
[2022-10-18] MEDS: INSULIN SLIDING SCALE (NOVOLOG) 1 VIAL SQ SCH ×4 (06:17→21:43)
[2022-10-18 07:41] LABS: BASO % 0.9 % (0-2.0); HEMATOCRIT 36.7 % (32.4-45.2); HEMOGLOBIN 11.3 GM/dL (10.7-15.3); LYMPH % 14.9 % (8-40); MCH 23.6 pg (25.7-33.7); MCHC 30.8 g/dl (32.0-36.0); MEAN CELL VOLUME 76.5 fl (80-96); MEAN PLT VOLUME 9.3 fl (7.5-11.1); MONO % 9.3 % (3.8-10.2); NEUT % 72.9 % (42.8-82.8); PLATELET COUNT 143 10^3/uL (134-434); RDW 23.3 % (11.6-15.6); WHITE BLOOD COUNT 10.9 K/mm3 (4.0-10.0)
[2022-10-18 07:58] LABS: POTASSIUM 3.9 mmol/L (3.5-5.1)
[2022-10-18 08:04] LABS: ALBUMIN 2.5 g/dl (3.4-5.0); BLOOD UREA NITROGEN 40.4 mg/dL (7-18)
[2022-10-18 08:07] LABS: CREATININE 1.6 mg/dL (0.55-1.3)
[2022-10-18 08:09] LABS: BILIRUBIN,TOTAL 3.4 mg/dL (0.2-1); TOT PROT 5.9 g/dl (6.4-8.2)
[2022-10-18] MEDS: PANTOPRAZOLE 40 MG TABLET PO SCH (10:17)
[2022-10-18] MEDS: SPIRONOLACTONE 25 MG TABLET PO SCH (10:17)
[2022-10-18] MEDS: METHIMAZOLE 5 MG TABLET PO SCH (10:18)
[2022-10-18] MEDS: SERTRALINE HCL 25 MG TABLET (FP) PO SCH (10:18)
[2022-10-18] MEDS: FUROSEMIDE 40 MG TABLET (FP) PO SCH (10:18)
[2022-10-18] MEDS ORDERED: INSULIN (NOVOLOG) ASPART 100 UNITS/ML 10ML VIAL ONE (12:24)
[2022-10-19 06:49] VITALS: PULSE 84; RESP 18
[2022-10-19] MEDS: INSULIN (LEVEMIR) 100 UNITS/ML UNITS SQ SCH (06:53)
[2022-10-19] MEDS: POLYETHYLENE GLYCOL (HEALTHYLAX) 3350 17 GM PACKET PO SCH ×2 (06:53→14:22)
[2022-10-19] MEDS: INSULIN SLIDING SCALE (NOVOLOG) 1 VIAL SQ SCH ×3 (06:54→17:30)
[2022-10-19 08:22] LABS: POTASSIUM 4.2 mmol/L (3.5-5.1)
[2022-10-19 08:24] LABS: CALCIUM 10.1 mg/dL (8.5-10.1)
[2022-10-19 08:28] LABS: CREATININE 1.6 mg/dL (0.55-1.3)
[2022-10-19] MEDS: SERTRALINE HCL 25 MG TABLET (FP) PO SCH (10:30)
[2022-10-19] MEDS: SPIRONOLACTONE 25 MG TABLET PO SCH (10:30)
[2022-10-19] MEDS: FUROSEMIDE 40 MG TABLET (FP) PO SCH (10:30)
[2022-10-19] MEDS: METHIMAZOLE 5 MG TABLET PO SCH (10:30)
[2022-10-19] MEDS: PANTOPRAZOLE 40 MG TABLET PO SCH (10:30)
[2022-10-19] MEDS ORDERED: INSULIN (NOVOLOG) ASPART 100 UNITS/ML 10ML VIAL ONE (12:18)
[2022-10-19] MEDS ORDERED: RIVAROXABAN 20 MG TABLET PO SCH (18:00)
[2022-10-19 19:01] VITALS: BP 102/62; TEMP 98.7
== END 2022-10-19 19:04 | DRG 291 ==
LOC: JER 15:28 → JERBED 20:21 → J4W 10-10 00:48
PROVIDERS: ADMIT Internal Medicine; ATTEND Family Medicine
PROC: 0W9G3ZZ Drainage of Peritoneal Cavity, Percutaneous Approach (ICD-10-PCS; principal; 2022-10-12)
PROC: 0F9430Z Drainage of Gallbladder with Drainage Device, Percutaneous Approach (ICD-10-PCS; 2022-10-13)
DX: I13.0 Hypertensive heart and chronic kidney disease with heart failure and stage 1 through stage 4 chronic kidney disease, or unspecified chronic kidney disease (principal); I50.23 Acute on chronic systolic (congestive) heart failure; R18.8 Other ascites; I48.11 Longstanding persistent atrial fibrillation; N17.9 Acute kidney failure, unspecified; I24.8 Other forms of acute ischemic heart disease; J98.11 Atelectasis; K80.00 Calculus of gallbladder with acute cholecystitis without obstruction; I25.10 Atherosclerotic heart disease of native coronary artery without angina pectoris; E78.5 Hyperlipidemia, unspecified; F03.90 Unspecified dementia, unspecified severity, without behavioral disturbance, psychotic disturbance, mood disturbance, and anxiety; E87.5 Hyperkalemia; K76.1 Chronic passive congestion of liver; E11.65 Type 2 diabetes mellitus with hyperglycemia; E05.80 Other thyrotoxicosis without thyrotoxic crisis or storm; K21.9 Gastro-esophageal reflux disease without esophagitis; E11.22 Type 2 diabetes mellitus with diabetic chronic kidney disease; N18.9 Chronic kidney disease, unspecified; I07.1 Rheumatic tricuspid insufficiency; M54.50 Low back pain, unspecified; J44.9 Chronic obstructive pulmonary disease, unspecified; J84.89 Other specified interstitial pulmonary diseases
CPT/HCPCS: 0241U-QW; 36415; 36600; 47490; 71045-TC-FY; 76705-TC; 76942-TC; 78226-TC; 80048; 80053; 81003; 82010; 82042; 82150; 82465; 82803; 82945; 82962; 83605; 83615; 83690; 83735; 83880; 83986; 84100; 84132; 84157; 84439; 84443; 84445; 84478; 84481; 84484; 85025; 85027; 85610; 85730; 87070; 87075; 87077; 87086; 87102; 87116; 87186; 87205; 87206; 87210; 87635; 88108; 88305-TC; 93005; 93010; 93971-TC; 94761; 97116-GP; 97162-GP; 99285-25; A4358; A9537; C1729; C1769

== ENCOUNTER → 2022-11-13 | Day surgery (SDC) | payer OTHER ==
[2022-11-13 11:20] LABS: BASO % 0.7 % (0-2.0); EOS % 1.6 % (0-4.5); HEMATOCRIT 33.8 % (32.4-45.2); HEMOGLOBIN 10.9 GM/dL (10.7-15.3); LYMPH % 23.3 % (8-40); MCHC 32.3 g/dl (32.0-36.0); MEAN CELL VOLUME 77.5 fl (80-96); MEAN PLT VOLUME 8.4 fl (7.5-11.1); MONO % 7.5 % (3.8-10.2); NEUT % 66.9 % (42.8-82.8); PLATELET COUNT 190 10^3/uL (134-434); RBC 4.36 M/mm3 (3.60-5.2); RDW 21.7 % (11.6-15.6); WHITE BLOOD COUNT 6.3 K/mm3 (4.0-10.0)
[2022-11-13 11:26] LABS: INR 1.71 (0.83-1.09); PROTHROMBIN TIME (PATIENT) 19.7 SEC (9.7-13.0)
[2022-11-13 11:56] LABS: ANISOCYTOSIS 1+; MACROCYTOSIS 0
== END | disposition home or self-care (01) ==
LOC: JRADIR 09:43
PROVIDERS: ATTEND Physician Assistant
PROC: 0W9G3ZX Drainage of Peritoneal Cavity, Percutaneous Approach, Diagnostic (ICD-10-PCS; principal; 2022-11-13)
DX: R18.8 Other ascites (principal); Z53.8 Procedure and treatment not carried out for other reasons
CPT/HCPCS: 36415; 49083; 76705-TC; 85025; 85610

== ENCOUNTER 2022-11-30 08:40 | Day surgery (SDC) | payer OTHER ==
[2022-11-29 09:51] VITALS: BMI 29.9
[2022-11-30 09:22] LABS: HEMATOCRIT 32.8 % (32.4-45.2); HEMOGLOBIN 10.1 GM/dL (10.7-15.3); MCH 25.1 pg (25.7-33.7); MCHC 30.7 g/dl (32.0-36.0); MEAN CELL VOLUME 81.7 fl (80-96); MEAN PLT VOLUME 8.1 fl (7.5-11.1); PLATELET COUNT 199 10^3/uL (134-434); RBC 4.01 M/mm3 (3.60-5.2); RDW 21.7 % (11.6-15.6); WHITE BLOOD COUNT 6.2 K/mm3 (4.0-10.0)
[2022-11-30 09:29] LABS: INR 1.44 (0.83-1.09); PROTHROMBIN TIME (PATIENT) 16.7 SEC (9.7-13.0)
[2022-11-30 10:10] LABS: ANISOCYTOSIS 1+; MACROCYTOSIS 0
[2022-11-30] MEDS ORDERED: FENTANYL CITRATE/PF 50 MCG/ML VIAL ONE (12:04)
[2022-11-30] MEDS ORDERED: FENTANYL CITRATE/PF 50 MCG/ML VIAL IVPUSH ONE ×2 (12:08→12:29)
[2022-11-30] MEDS ORDERED: cefTRIAXone SODIUM 1 GM VIAL ONE (12:11)
[2022-11-30] MEDS ORDERED: cefTRIAXone SODIUM 1 GM VIAL IVPB ONE (12:15)
[2022-11-30 13:17] VITALS: RESP 18
[2022-11-30 16:25] VITALS: BP 116/52; PULSE 58; TEMP 98.2
== END 2022-11-30 15:30 | disposition home or self-care (01) ==
LOC: JRADIR 08:40
PROVIDERS: ATTEND Physician Assistant
PROC: 0W9G30Z Drainage of Peritoneal Cavity with Drainage Device, Percutaneous Approach (ICD-10-PCS; principal; 2022-11-30)
DX: R18.8 Other ascites (principal); K81.9 Cholecystitis, unspecified
CPT/HCPCS: 36415; 47490; 49083; 82962; 85025; 85610; 87070; 87075; 87102; 87116; 87186; 87205; 87206; 87210; C1729; C1769; Q0162

== ENCOUNTER 2022-12-22 00:16 | Emergency (ER) | payer OTHER ==
[2022-12-22 00:47] VITALS: BP 00/00; BMI 31.8
== END 2022-12-22 05:34 | disposition expired ==
LOC: JER 00:16
DX: I46.9 Cardiac arrest, cause unspecified (principal)
CPT/HCPCS: 99283-25